=== PATIENT | female | born 1975 | race American Indian/Alaskan Native ===

== ENCOUNTER 2016-03-15 19:50 | Inpatient (IN) | payer OTHER ==
[2016-03-15] MEDS ORDERED: TRIDIL DRIP 50MG/250ML 250 ML ONE (19:58)
[2016-03-15] MEDS ORDERED: TRIDIL DRIP 50MG/250ML 250 ML IV ONE (20:11)
--- NOTE | 2016-03-15 20:18 | Emergency Department Report ---
ED General Adult HPI - General Chief complaint: Dyspnea/Respdistress Stated complaint: GEORGE Time Seen by Provider: 03/15/16 20:11 Source: patient, EMS (ems notes not available at time of chart dictation), RN notes reviewed Limitations: Physical Limitation - History of Present Illness Initial comments: Past medical history: Morbid obesity, hypertension, pulmonary embolus This is a 40-year-old female, previously unknown to me. She is brought to the hospital by EMS on positive pressure ventilation for respiratory distress. History is limited because the patient is short of breath. She indicates that she began having chest pain and shortness of breath for the past 4 days. She indicates that she was recently admitted to an outside hospital for pneumonia. She cannot describe exacerbating or relieving factors. She cannot describe the quality of nature the factors. EMS verbally reported that they gave the patient nebulizer therapy, magnesium, steroids. Upon arrival, the patient was found to be quite hypertensive with a blood pressure of 198 systolic. She was started on BiPAP therapy, and was given 100 g of nitroglycerin, and started at nitroglycerin, 100 mcg/m. She is currently improving, with a blood pressure in the 140/150s. She reports that she feels improved. -: Gradual Improves with: other (as per history of present illness) Worsens with: other (as per history of present illness) - Related Data Previous Rx's Medication Instructions Recorded Last Taken Type Famotidine [Pepcid] 20 mg PO BID #60 tablet 01/15/16 Unknown Rx HYDROcodone/APAP 10-325 [[place] 1 each PO Q6H PRN #10 tablet 01/15/16 Unknown Rx 10-325 mg TAB] Warfarin [Coumadin] 15 mg PO DAILY@1700 #60 tablet 01/15/16 Unknown Rx Allergies Allergy/AdvReac Type Severity Reaction Status Date / Time No Known Allergies Allergy Unverified 01/05/16 18:22 ED Review of Systems ROS: Stated complaint: GEORGE Other details as noted in HPI Comment: Unobtainable due to pts medical conditions Respiratory: shortness of breath Cardiovascular: chest pain Gastrointestinal: denies: abdominal pain Genitourinary: as per HPI Musculoskeletal: as per HPI Skin: as per HPI Neurological: as per HPI Psychiatric: as per HPI ED Past Medical Hx - Past Medical History Hx Hypertension: Yes Hx Congestive Heart Failure: Yes Hx Diabetes: Yes Hx Pulmonary Embolism: Yes - Surgical History Additional Surgical History: hernia repair - Social History Smoking Status: Never Smoker - Medications Home Medications: Home Medications Medication Instructions Recorded Confirmed Last Taken Type Famotidine [Pepcid] 20 mg PO BID #60 tablet 01/15/16 03/16/16 Unknown Rx HYDROcodone/APAP 10-325 [[place] 1 each PO Q6H PRN #10 tablet 01/15/16 03/16/16 Unknown Rx 10-325 mg TAB] Warfarin [Coumadin] 15 mg PO DAILY@1700 #60 tablet 01/15/16 03/16/16 Unknown Rx ED Physical Exam - General Limitations: Physical Limitation General appearance: in distress, obese - Head Head exam: Present: atraumatic, normocephalic - Eye Eye exam: Present: normal appearance - ENT ENT exam: Present: mucous membranes moist - Neck Neck exam: Present: normal inspection, full ROM. Absent: tenderness, meningismus - Respiratory Respiratory exam: Present: respiratory distress, wheezes, rhonchi, decreased breath sounds - Cardiovascular Cardiovascular Exam: Present: normal rhythm, tachycardia, normal heart sounds. Absent: bradycardia, systolic murmur, diastolic murmur, rubs, gallop - GI/Abdominal GI/Abdominal exam: Present: soft, normal bowel sounds. Absent: distended, tenderness, guarding, rebound, rigid, pulsatile mass - Extremities Exam Extremities exam: Present: normal inspection, full ROM, normal capillary refill , pedal edema. Absent: tenderness, calf tenderness - Back Exam Back exam: Present: normal inspection, full ROM. Absent: tenderness, CVA tenderness (R), CVA tenderness (L), muscle spasm, paraspinal tenderness, vertebral tenderness - Neurological Exam Neurological exam: Present: alert, other (patient moves 4 extremities spontaneously) - Psychiatric Psychiatric exam: Present: normal affect, normal mood - Skin Skin exam: Present: warm, dry, intact, normal color. Absent: rash ED Course Vital Signs 03/15/16 03/15/16 03/15/16 20:00 20:12 20:15 Temperature 98 F Pulse Rate 104 H 112 H Respiratory 28 H 22 22 Rate Blood Pressure Blood Pressure 198/117 172/104 [Left] O2 Sat by Pulse 99 96 Oximetry 03/15/16 03/15/16 03/15/16 20:40 21:10 21:38 Temperature Pulse Rate 102 H 105 H 102 H Respiratory 20 20 21 Rate Blood Pressure 154/89 Blood Pressure 168/88 152/87 [Left] O2 Sat by Pulse 100 100 100 Oximetry 03/15/16 03/15/16 03/15/16 22:00 23:00 23:51 Temperature Pulse Rate 102 H 97 H Respiratory 24 24 26 H Rate Blood Pressure Blood Pressure 142/98 130/82 [Left] O2 Sat by Pulse 100 100 100 Oximetry 03/16/16 03/16/16 03/16/16 00:00 01:00 01:01 Temperature Pulse Rate 95 H 94 H 98 H Respiratory 24 24 25 H Rate Blood Pressure Blood Pressure 132/72 125/67 [Left] O2 Sat by Pulse 98 100 98 Oximetry 03/16/16 03/16/16 03/16/16 02:00 03:00 04:00 Temperature Pulse Rate 88 93 H 93 H Respiratory 24 24 24 Rate Blood Pressure Blood Pressure 128/77 143/83 146/82 [Left] O2 Sat by Pulse 100 100 100 Oximetry 03/16/16 03/16/16 03/16/16 05:00 06:00 07:26 Temperature Pulse Rate 84 74 74 Respiratory 24 24 21 Rate Blood Pressure Blood Pressure 127/70 128/59 [Left] O2 Sat by Pulse 100 100 95 Oximetry 03/16/16 03/16/16 03/16/16 07:32 07:34 07:40 Temperature 100.3 F H Pulse Rate 75 76 73 Respiratory 22 20 Rate Blood Pressure 125/63 Blood Pressure 125/63 [Left] O2 Sat by Pulse 95 94 Oximetry 03/16/16 03/16/16 03/16/16 08:01 08:19 08:25 Temperature Pulse Rate 98 H 96 H Respiratory 13 21 22 Rate Blood Pressure 116/62 129/82 Blood Pressure [Left] O2 Sat by Pulse 87 90 93 Oximetry 03/16/16 03/16/16 03/16/16 09:00 09:16 09:20 Temperature 99.8 F H Pulse Rate 74 78 78 Respiratory 24 26 H 22 Rate Blood Pressure 128/67 Blood Pressure 113/55 [Left] O2 Sat by Pulse 93 92 95 Oximetry - Reevaluation(s) Reevaluation #1: 03/15/16 20:56 Differential diagnosis: Flash pulmonary edema, congestive heart failure, hypertensive emergency/emergency, pulmonary embolus, pneumonia Assessment and plan: 40-year-old female with respiratory distress requiring BiPAP therapy and IV nitroglycerin. She is improving clinically. Laboratory studies pending. INR subtherapeutic. Given hypertension and chest pain, aortic dissection on the differential. We'll continue her on BiPAP therapy and natural glycerin. 03/15/16 23:53 Chest x-ray demonstrates complete opacification of the left hemithorax. Patient isn't unable to come off BiPAP for a CAT scan. Given her chest x-ray findings, I suspect that multilobar pneumonia and possible flash pulmonary edema on the most likely causes of the patient's symptomatology. From a respiratory standpoint, she is not stable or suitable to go to the CAT scanner on a nonrebreather. But the BiPAP but not physically fit through the CAT scanner. At this point in time, the patient is not we double from BiPAP. She is protecting her airway, and is mentating appropriately. She is very large and obese, and mentating appropriately. She does not require intubation at this time. I'm concerned that getting a CAT scan right now we'll subject the patient to significant risk and morbidity, and a possible life-threatening respiratory arrest. Therefore, she will be continued to be treated medically, with noninvasive positive pressure ventilation, antibiotic therapy, unfractionated heparin, nitroglycerin drip. We will start her on unfractionated heparin. ICU physician is paged. The Hospital physician is paged; Dr. Weiss accepts the patient to her service. 03/16/16 00:06 d/w Dr Cerda who agrees and his group will evaluate 03/15/16 23:53 03/16/16 00:01 03/16/16 00:06 ED Medical Decision Making - Lab Data Result diagrams: 03/19/16 06:58 03/17/16 04:58 Vital Signs 03/15/16 20:12 Respiratory 22 Rate O2 Sat by Pulse 96 Oximetry - EKG Data 03/15/16 20:57 sinus tachycardia, borderline rightward axis, motion artifact noted, atrial enlargement, not consistent with STEMI, appears unchanged from prior EKG from 01/05/2016. - Radiology Data Radiology results: report reviewed, image reviewed Portable one view chest x-ray demonstrates near complete opacification of the left hemithorax, combination infiltrate atelectasis and effusion is suspected. There is a mild infiltrate in the right lower lung. Critical Care Time: Yes Critical care time in (mins) excluding proc time.: 45 Critical care attestation.: If time is entered above; I have spent that time in minutes in the direct care of this critically ill patient, excluding procedure time. Critical Care Time: Critical care time includes multiple bedside evaluations, interpretation of laboratory studies, radiology studies, time spent managing a patient with impending respiratory failure and hypertensive emergency, requiring nitroglycerin drip, noninvasive ventilation. This excludes procedure time. ED Disposition Clinical Impression: Shortness of breath, Pleural effusion, left Disposition: OP ADMITTED IP TO THIS HOSP Is pt being admited?: Yes Condition: Critical
[2016-03-15 20:41] LABS: Basophils % (Auto) 0.8 % (0.0-1.8); Eosinophils % (Auto) 0.6 % (0.0-4.3); Mean Corpuscular HGB Conc 29 % (30-34); Mean Corpuscular Volume 70 fl (79-97); Platelet Count 419 K/mm3 (140-440); Red Blood Count 5.83 M/mm3 (3.65-5.03); White Blood Count 12.5 K/mm3 (4.5-11.0)
[2016-03-15 20:51] LABS: Hemoglobin 11.9 gm/dl (10.1-14.3); INR 1.28 (0.87-1.13); Mean Corpuscular Hemoglobin 20 pg (28-32); Red Cell Distribution Width 23.8 % (13.2-15.2)
[2016-03-15 20:52] LABS: Partial Thromboplastin Time 32.5 Sec. (24.2-36.6)
[2016-03-15 21:09] LABS: Alanine Aminotransferase 15 units/L (7-56); Albumin 3.1 g/dL (3.9-5); Albumin/Globulin Ratio 0.6 %; Alkaline Phosphatase 67 units/L (35-129); BUN/Creatinine Ratio 14.28; Blood Urea Nitrogen 10 mg/dL (7-17); Calcium 9.2 mg/dL (8.4-10.2); Carbon Dioxide 36 mmol/L (22-30); Chloride 94.7 mmol/L (98-107); Glucose 118 mg/dL (65-100); Magnesium 2.2 mg/dL (1.7-2.3); Potassium 4.8 mmol/L (3.6-5.0); Sodium 141 mmol/L (137-145); Total Protein 7.9 g/dL (6.3-8.2)
[2016-03-15 21:10] LABS: Anion Gap 15 mmol/L
[2016-03-15 21:32] LABS: ISTAT Base Excess 18; ISTAT HCO3 43.9; ISTAT PCO2 83.7 (35-45); ISTAT PH 7.327 (7.35-7.45); ISTAT PO2 135 (80-105); ISTAT SITE 2; ISTAT SO2 99; ISTAT TCO2 46
[2016-03-15 21:54] LABS: Bilirubin,Urine NEG (Negative); Blood,Urine NEG (Negative); Ketones,Urine NEG (Negative); Leukocyte Esterase,Urine NEG (Negative); Mucus,Urine FEW /HPF; Nitrite,Urine NEG (Negative)
[2016-03-15] MEDS ORDERED: NACL 0.9% 50 ML ONE (23:09)
--- NOTE | 2016-03-15 23:41 | XRay Report ---
FINAL REPORT PROCEDURE: XR CHEST 1V AP TECHNIQUE: Chest radiograph anteroposterior view. CPT 00965 HISTORY: Dyspnea COMPARISON: No prior studies are available for comparison. FINDINGS: There is almost complete opacification of the left eliceo thorax, combination infiltrate, atelectasis and effusion is suspected. No previous chest radiograph is available for review. There is a mild infiltrate in the right lower lung. No right effusion. IMPRESSION: Almost complete opacification of the left eliceo thorax which is most likely a combination of infiltrate, atelectasis and effusion. Mild infiltrate right lower lung..
[2016-03-15] MEDS ORDERED: ZOSYN/NS 4.5GM/100ML 100 ML IV ONE (23:51)
[2016-03-15] MEDS ORDERED: LEVAQUIN 750MG/150ML 150 ML IV ONE (23:51)
[2016-03-15] MEDS ORDERED: HEPARIN 10,000 UNITS/10 ML IV ONE (23:54)
--- NOTE | 2016-03-16 00:23 | Admit Criteria Form ---
Admission Criteria Documentation: RESPIRATORY FAILURE GRG Clinical Indications for Admission to Inpatient Care (Place 'X' for any and all applicable criteria): Hospital admission is needed for appropriate care of the patient because of acute respiratory failure or insufficiency as indicated by ANY ONE of the following(1)(2)(3)(4)(5)(6)(7)(8): [X ]I. Mechanical ventilation needed (acute invasive or noninvasive) [ ]II. Severe ventilation deficit as indicated by ANY ONE of the following (9) [ ]a) Respiratory acidosis (pH less than 7.32 and partial pressure of carbon dioxide greater than 40 mm Hg (5.3 kPa)) [ ]b) Partial pressure of carbon dioxide greater than 44 mm Hg (5.9 kPa ) (new) [ ]c) Airflow measurements less than 25% of predicted (eg, peak expiratory flow rate less than 100 L/minute) [ ]d) Forced vital capacity less than 15 mL/kg of ideal body weight, or 50% decrease in vital capacity from baseline [ ]III. Noncardiac pulmonary edema not resolving with rapid emergency treatment (8) [ ]IV. Severe respiratory distress as indicated by ANY ONE of the following: [ ]a) Severe tachypnea (respiratory rate greater than 30, greater than 45 for 6-month-old, greater than 60 for ) [ ]b) Severe hypoxemia (partial pressure of oxygen less than 50 mm Hg ( 6.7 kPa) on greater than 50% oxygen or partial pressure of oxygen to FIO2 ratio less than 200) [ ]c) Mental status deterioration from respiratory disease [ ]V. Airway obstruction or inadequate protection [A](10)(11) The original [employer] content created by [employer] has been revised. The portions of the content which have been revised are identified through the use of italic text or in bold, and [employer] has neither reviewed nor approved the modified material. All other unmodified content is copyright [employer]. Please see references footnoted in the original [employer] edition 2016 Admission Criteria Met: Yes
[2016-03-16] MEDS ORDERED: ZOSYN/NS 4.5GM/100ML 100 ML IV ONE ×2 (00:28→06:57)
[2016-03-16] MEDS ORDERED: HEPARIN 10,000 UNITS/10 ML ONE (00:29)
[2016-03-16] MEDS ORDERED: LEVAQUIN 750MG/150ML 150 ML IV ONE (00:29)
[2016-03-16] MEDS ORDERED: HEPARIN/ 0.45% NACL-25,000 UNIT/500 ML 500 ML ONE (00:30)
[2016-03-16 00:32] LABS: Hematocrit 39.5 % (30.3-42.9); Hemoglobin 11.4 gm/dl (10.1-14.3)
[2016-03-16 00:59] LABS: INR 1.27 (0.87-1.13)
[2016-03-16 01:00] LABS: Partial Thromboplastin Time 31.5 Sec. (24.2-36.6)
[2016-03-16] MEDS: HEPARIN/ 0.45% NACL-25,000 UNIT/500 ML 500 ML IV SCH (01:00)
[2016-03-16] MEDS ORDERED: ALUM-MAG HYDROX-SIMETH 200-200-20MG/5ML PO PRN (01:14)
[2016-03-16] MEDS ORDERED: DULCOLAX PR PRN (01:14)
[2016-03-16] MEDS ORDERED: TYLENOL PO PRN (01:14)
--- NOTE | 2016-03-16 01:16 | Consultation ---
History of Present Illness Consult date: 03/16/16 Reason for consult: dyspnea, chest pain, hypoxemia, pleural effusion History of present illness: This is 40 year old female Morbidly obese came to the emergency room with a complaint of shortness of breath. Patients chest xray obtained showed complete opacification of left hemithorax. Patient has history of hypertension and pulmonary emboli.Patients pulmonary emboli diagnosed 3 months ago by CTA of the chest. Patient also diagnsed at that time DVT in left leg. Patient non compliant with her medications, Patient stopped taking Eliquis.Patient started on S/C Lovenox and Coumadin.Patient also treated for pneumonia recently at [facility]. Patients blood gases showed, patient is in respiratory failure. Patient placed on BIPAP Rate 20, 22/10, FIO2 50%. Patient awake ,following commands. Repeating blood gases in AM.[place] no known allergies. Smoking,alcohol or drug history not known at this time.Patient started on Levaquine and zosyn. Obtaining ultrasound of chest for possible left pleural effusion. Past History Past Medical History: hypertension, other (Pulmonary emboli.) Medications and Allergies Allergies Allergy/AdvReac Type Severity Reaction Status Date / Time No Known Allergies Allergy Unverified 01/05/16 18:22 Home Medications Medication Instructions Recorded Confirmed Last Taken Type Famotidine [Pepcid] 20 mg PO BID #60 tablet 01/15/16 Unknown Rx HYDROcodone/APAP 10-325 [[place] 1 each PO Q6H PRN #10 tablet 01/15/16 Unknown Rx 10-325 mg TAB] Warfarin [Coumadin] 15 mg PO DAILY@1700 #60 tablet 01/15/16 Unknown Rx Active Meds: Active Medications Nitroglycerin/Dextrose (Tridil Drip 50mg/250ml) 250 mls @ 3 mls/hr IV TITR ONE ; 10 MCG/MIN PRN Reason: Protocol Stop: 03/19/16 07:30 Last Admin: 03/15/16 20:10 Dose: 3 mls/hr Levofloxacin/Dextrose (Levaquin 750mg/150ml) 150 mls @ 100 mls/hr IV ONCE ONE Stop: 03/16/16 01:20 Last Admin: 03/16/16 00:00 Dose: 100 mls/hr Heparin Sodium/Sodium Chloride (Heparin/ 0.45% Nacl-25,000 Unit/500 Ml) 500 mls @ 30 mls/hr IV TITR WILLIAM; 1,500 UNITS/HR PRN Reason: Protocol Review of Systems All systems: negative Physical Examination Vital signs: Vital Signs Temp Pulse Resp BP Pulse Ox 98 F 104 H 28 H 198/117 99 03/15/16 20:00 03/15/16 20:00 03/15/16 20:00 03/15/16 20:00 03/15/16 20:00 General appearance: lethargic, appears uncomfortable, other (Patient is on BIPAP.) Eyes: non-icteric ENT: oropharynx moist Neck: supple, no JVD Ascultation: Left: diminished breath sounds Cardiovascular: regular rate and rhythm Gastrointestinal: normoactive bowel sounds, soft, non-tender Integumentary: other (Stasis dermatitis.) Extremities: no cyanosis, edema Musculoskeletal: no deformities non-focal exam, pupils equal and round other (Patient is on BIPAP,unable toassess.) Results - Laboratory Findings CBC and BMP: 03/16/16 00:04 03/15/16 20:20 ABG POC ABG pH 7.327 (7.35-7.45) L 03/15/16 21:26 POC ABG pCO2 83.7 (35-45) H 03/15/16 21:26 POC ABG pO2 135 (80-105) H 03/15/16 21:26 POC ABG HCO3 43.9 03/15/16 21:26 POC ABG Total CO2 46 03/15/16 21:26 POC ABG O2 Sat 99 03/15/16 21:26 PT/INR, D-dimer PT 15.9 Sec. (12.2-14.9) H 03/15/16 20:20 INR 1.28 (0.87-1.13) H 03/15/16 20:20 - Diagnostic Findings Chest x-ray: report reviewed (Opacification on left side, infiltrate right lower lobe.), image reviewed Assessment and Plan This is 40 year old female Morbidly obese came to the emergency room with a complaint of shortness of breath. Patients chest xray obtained showed complete opacification of left hemithorax. Patient has history of hypertension and pulmonary emboli.Patients pulmonary emboli diagnosed 3 months ago by CTA of the chest. Patient also diagnsed at that time DVT in left leg. Patient non compliant with her medications, Patient stopped taking Eliquis.Patient started on S/C Lovenox and Coumadin.Patient also treated for pneumonia recently at [facility]. Patients blood gases showed, patient is in respiratory failure. Patient placed on BIPAP Rate 20, 22/10, FIO2 50%. Patient awake ,following commands. Repeating blood gases in AM.[place] no known allergies. Smoking,alcohol or drug history not known at this time.Patient started on Levaquine and zosyn. Obtaining ultrasound of chest for possible left pleural effusion. - Patient Problems (1) Acute and chronic respiratory failure ([id number]) Current Visit: No Status: Acute Plan to address problem: Patient is on BIPAP 22/10, rate 20, FIO2 50% Continue Lovenox and coumadin. Albuterol/atrovent aerosol treatments. (2) Pulmonary emboli Current Visit: No Status: Acute Plan to address problem: LOvenox at therapeutic doses Start Coumadin. (3) Left femoral vein DVT Current Visit: No Status: Acute Plan to address problem: Lovenox and coumadin. (4) Pneumonia Current Visit: Yes Status: Acute Plan to address problem: Patient is on Zosyn and Levaquine. (5) Pleural effusion, left Current Visit: Yes Status: Acute Plan to address problem: Obtaining Ultrasound of chest. (6) Morbid obesity with BMI of 70 and over, adult Current Visit: No Status: Chronic Plan to address problem: Nutritional consultation for weight reduction diet. (7) Sleep apnea Current Visit: No Status: Chronic Plan to address problem: Patient is on BIPAP.
--- NOTE | 2016-03-16 01:16 | History and Physical Report ---
History of Present Illness Date of examination: 03/16/16 Date of admission: 03/15/16 23:58 History of present illness: 40-year-old woman with history of PE, DVT comes to the emergency room with complaints of shortness of breath. The patient was admitted at the Medical for one week for pneumonia, she completed a seven-day course of antibiotic. Patient was discharge on , she arrived home and she was still short of breath, her symptoms worsen so she came to the emergency room for evaluation. She was found to be rest start distress and was started on BiPAP chest complaining of chest pain, this started on she describes it as a sharp pain in the anterior chest, constant, intensity 7/10, no radiation and she cannot identify exacerbating or relieving factors. She admits to nausea, palpitation, no diaphoresis. CAT scan of the chest could not be obtained because of respiratory distress. Patient states she is compliant with her Coumadin and other medications at home. Patient was started on nitroglycerin drip, blood pressure was significantly elevated Patient denies cough, abdominal pain, hematochezia, dysuria, frequency, focal weakness, dysarthria, fever chills, polydipsia polyuria, hot or cold intolerance , easy bruisability, or rash or bleeding from mucosal membrane, rhinorrhea, epistaxis, earache, tinnitus, blurry vision, eye discharge, anxiety, depression. Other review of systems negative PAST SURGICAL HISTORY: SOCIAL HISTORY: Denies alcohol, tobacco, drugs FAMILY HISTORY: Hypertension Medications and Allergies Allergies Allergy/AdvReac Type Severity Reaction Status Date / Time No Known Allergies Allergy Unverified 01/05/16 18:22 Home Medications Medication Instructions Recorded Confirmed Last Taken Type Famotidine [Pepcid] 20 mg PO BID #60 tablet 01/15/16 03/16/16 Unknown Rx HYDROcodone/APAP 10-325 [[place] 1 each PO Q6H PRN #10 tablet 01/15/16 03/16/16 Unknown Rx 10-325 mg TAB] Warfarin [Coumadin] 15 mg PO DAILY@1700 #60 tablet 01/15/16 03/16/16 Unknown Rx Active Meds: Active Medications Nitroglycerin/Dextrose (Tridil Drip 50mg/250ml) 250 mls @ 3 mls/hr IV TITR ONE ; 10 MCG/MIN PRN Reason: Protocol Stop: 03/19/16 07:30 Last Admin: 03/15/16 20:10 Dose: 3 mls/hr Levofloxacin/Dextrose (Levaquin 750mg/150ml) 150 mls @ 100 mls/hr IV ONCE ONE Stop: 03/16/16 01:20 Last Admin: 03/16/16 00:00 Dose: 100 mls/hr Heparin Sodium/Sodium Chloride (Heparin/ 0.45% Nacl-25,000 Unit/500 Ml) 500 mls @ 30 mls/hr IV TITR WILLIAM; 1,500 UNITS/HR PRN Reason: Protocol Exam - Physical Exam Narrative exam: Gen. appearance: Patient lying in bed, no apparent distress HEENT: Normocephalic, atraumatic, pupils equally round and reactive to light, extraocular movement intact, and no sclericterus,. No JVD or thyromegaly or nodule,neck supple, no carotid bruit ,mucous membranes moist, no exudate or erythema Heart: S1, S2, regular rate and rhythm Lungs: Decreased breath sound on the left , breathing comfortable Abdomen: Positive bowel sounds, nontender, nondistended, no organomegaly Extremity: No edema, cyanosis, clubbing Skin: No rash, nodules, warm, dry Neuro: Oriented 3, cranial nerves II-12 intact, speech is fluent, motor and sensory intact - Constitutional Vitals: Temp Pulse Resp BP Pulse Ox 98 F 98 H 25 H 132/72 98 03/15/16 20:00 03/16/16 01:01 03/16/16 01:01 03/16/16 00:00 03/16/16 01:01 Results - Labs CBC & Chem 7: 03/19/16 06:58 03/17/16 04:58 Labs: Abnormal lab results 03/16/16 Range/Units 00:04 PT 15.8 H (12.2-14.9) Sec. INR 1.27 H (0.87-1.13) - Imaging and Cardiology EKG: image reviewed (, sinus rhythm,104, read by me) Chest x-ray: image reviewed (wideout of the left lung read By me) Assessment and Plan Acute respiratory distress on BiPAP White out of the left lung, rule out parapneumonic effusion History of PE, DVT with subtherapeutic INR Hypertension Diabetes Obesity Admits medicine Continue BiPAP Obtain CAT scan of the chest when patient is more stable Continue heparin drip, consult pulmonary, case discussed with Dr. Rousseau Start IV Levaquin, Zosyn, obtain sputum culture Blood pressure is now normalized, discontinue nitroglycerin drip Check fingersticks and initiate insulin sliding scale DVT prophylaxis initiated The high probability of a clinically significant sudden or life-threatening deterioration of the [cardiac, respiratory, renal] system(s) required my full and direct attention, intervention and personal management. The aggregate critical care time was [ 35 ] minutes. This time is in addition to the time spent performing reported procedures but including [ X] Data review and interpretation [ X] Patient assessment and monitoring of vital signs [ X ] Documentation [X] Medication orders and management
[2016-03-16 01:18] LABS: ISTAT Base Excess 20; ISTAT HCO3 46.1; ISTAT PCO2 92.8 (35-45); ISTAT PH 7.304 (7.35-7.45); ISTAT PO2 85 (80-105); ISTAT SO2 94; ISTAT TCO2 49
[2016-03-16] MEDS ORDERED: ZOSYN/NS 4.5GM/100ML 100 ML IV SCH (06:00)
--- NOTE | 2016-03-16 10:43 | Event Note ---
Date: 03/16/16 Seen and examined at bedside; remains on BIPAP and tolerating well CXR reviewed and suspect significant pleural effusion Also need to further w/up for VTE - get bilateral lower extremity dopplers - hold IV heparin and get thoracentesis - humidify BIPAP - de-escalate empiric AB's - wean FiO2 to keep sats > 92% ...re-evaluate in am & prn
--- NOTE | 2016-03-16 11:19 | Progress Note ---
Assessment and Plan Assessment and plan: 1. Chest pain. Patient previously on nitroglycerin drip which has been weaned off. Cardiology consultation pending. Patient may need stress thallium versus cardiac catheterization for further evaluation. Continue to trend cardiac isoenzymes and monitor closely. 2. Acute hypoxemic respiratory failure. Patient currently on BiPAP. Etiology is multifactorial. Patient with possible left parapneumonic effusion. Repeat chest x-ray. Pulmonary consultation pending. Patient does have a history of PE /DVT and morbid obesity with probable LENA/OHS. 3. Left lower lobe pneumonia. Chest x-ray reveals white out of the left lung. Continue IV antibiotics and follow-up blood and sputum cultures. Repeat chest x-ray. 4. Accelerated hypertension. Patient previously on nitroglycerin drip. Blood pressure has normalized. Continue to follow closely. Resume home antihypertensives. 5. History of PE/DVT. Continue IV heparin. Check Doppler of lower extremities. Follow-up CT of the chest was stable. 6. Type 2 diabetes mellitus. Continue Accu-Cheks and sliding scale regular insulin. 7. Morbid obesity. Nutritional consultation. 8. 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 Patient will need further follow-up as an outpatient. 9. GI prophylaxis. Continue Protonix. The high probability of a clinically significant, sudden or life threatening deterioration of the [respiratory and cardiovascular] system(s) required my full and direct attention, intervention and personal management. The aggregate critical care time was [32] minutes. This time is in addition to time spent performing reported procedures but includes the following: [x] Data Review and interpretation [x] Patient assessment and monitoring of vital signs [x] Documentation [x] Medication orders and management History Interval history: 40-year-old female with history of DVT, PE and morbid obesity who presents with dyspnea and chest pain. Patient recently admitted and discharged on Monday for pneumonia where she completed a seven-day course of antibiotics. Patient states that her chest pain has resolved but continues to have shortness of breath. Patient currently on BiPAP Hospitalist Physical - Constitutional Vitals: Temp Pulse Resp BP Pulse Ox 98.3 F 78 22 113/55 95 03/16/16 10:40 03/16/16 09:20 03/16/16 09:20 03/16/16 09:20 03/16/16 09:20 General appearance: Present: mild distress, obese - EENT Eyes: Present: PERRL, EOM intact ENT: hearing intact, clear oral mucosa, dentition normal - Neck Neck: Present: supple, normal ROM - Respiratory Respiratory effort: normal Respiratory: bilateral: diminished, rhonchi - Cardiovascular Rhythm: regular Heart Sounds: Present: S1 & S2. Absent: gallop, rub - Extremities Extremities: no ischemia, No edema, Full ROM - Abdominal General gastrointestinal: soft, non-tender, non-distended, normal bowel sounds - Integumentary Integumentary: Present: clear, warm, dry - Neurologic Neurologic: CNII-XII intact, moves all extremities Results - Labs CBC & Chem 7: 03/16/16 00:04 03/15/16 20:20 Labs: Laboratory Last Values WBC 12.5 K/mm3 (4.5-11.0) H 03/15/16 20:20 RBC 5.83 M/mm3 (3.65-5.03) H 03/15/16 20:20 Hgb 11.4 gm/dl (10.1-14.3) 03/16/16 00:04 Hct 39.5 % (30.3-42.9) 03/16/16 00:04 MCV 70 fl (79-97) L 03/15/16 20:20 MCH 20 pg (28-32) L 03/15/16 20:20 MCHC 29 % (30-34) L 03/15/16 20:20 RDW 23.8 % (13.2-15.2) H 03/15/16 20:20 Plt Count 404 K/mm3 (140-440) 03/16/16 00:04 Lymph % (Auto) 13.4 % (13.4-35.0) 03/15/16 20:20 [place] % (Auto) 7.7 % (0.0-7.3) H 03/15/16 20:20 Eos % (Auto) 0.6 % (0.0-4.3) 03/15/16 20:20 Baso % (Auto) 0.8 % (0.0-1.8) 03/15/16 20:20 Lymph # 1.7 K/mm3 (1.2-5.4) 03/15/16 20:20 [place] # 1.0 K/mm3 (0.0-0.8) H 03/15/16 20:20 Eos # 0.1 K/mm3 (0.0-0.4) 03/15/16 20:20 Baso # 0.1 K/mm3 (0.0-0.1) 03/15/16 20:20 Seg Neutrophils % 77.5 % (40.0-70.0) H 03/15/16 20:20 Seg Neutrophils # 9.7 K/mm3 (1.8-7.7) H 03/15/16 20:20 PT 15.8 Sec. (12.2-14.9) H 03/16/16 00:04 INR 1.27 (0.87-1.13) H 03/16/16 00:04 APTT 31.5 Sec. (24.2-36.6) 03/16/16 00:04 Heparin Anti-Xa Level 0.18 U.I./ml (0.3-0.7) L 03/16/16 07:49 POC ABG pH 7.304 (7.35-7.45) L 03/16/16 01:01 POC ABG pCO2 92.8 (35-45) H 03/16/16 01:01 POC ABG pO2 85 (80-105) 03/16/16 01:01 POC ABG HCO3 46.1 03/16/16 01:01 POC ABG Total CO2 49 03/16/16 01:01 POC ABG O2 Sat 94 03/16/16 01:01 POC ABG Base Excess 20 03/16/16 01:01 FiO2 80 % 03/16/16 01:01 Sodium 141 mmol/L (137-145) 03/15/16 20:20 Potassium 4.8 mmol/L (3.6-5.0) 03/15/16 20:20 Chloride 94.7 mmol/L (98-107) L 03/15/16 20:20 Carbon Dioxide 36 mmol/L (22-30) H 03/15/16 20:20 Anion Gap 15 mmol/L 03/15/16 20:20 BUN 10 mg/dL (7-17) 03/15/16 20:20 Creatinine 0.7 mg/dL (0.7-1.2) 03/15/16 20:20 Estimated GFR > 60 ml/min 03/15/16 20:20 BUN/Creatinine Ratio 14.28 % 03/15/16 20:20 Glucose 118 mg/dL (65-100) H 03/15/16 20:20 Lactic Acid 1.6 mmol/L (0.7-2.0) 03/15/16 20:20 Calcium 9.2 mg/dL (8.4-10.2) 03/15/16 20:20 Magnesium 2.2 mg/dL (1.7-2.3) 03/15/16 20:20 Total Bilirubin 1.0 mg/dL (0.1-1.2) 03/15/16 20:20 AST 13 units/L (5-40) 03/15/16 20:20 ALT 15 units/L (7-56) 03/15/16 20:20 Alkaline Phosphatase 67 units/L (35-129) 03/15/16 20:20 Troponin T < 0.010 ng/mL (0.00-0.029) 03/15/16 20:20 NT-Pro-B Natriuret Pep 957.2 pg/mL (0-450) H 03/15/16 20:20 Total Protein 7.9 g/dL (6.3-8.2) 03/15/16 20:20 Albumin 3.1 g/dL (3.9-5) L 03/15/16 20:20 Albumin/Globulin Ratio 0.6 % 03/15/16 20:20 HCG, Quant < 2 mIU/mL (0-4) 03/15/16 20:20 Urine Color Yellow (Yellow) 03/15/16 21:43 Urine Turbidity Clear (Clear) 03/15/16 21:43 Urine pH 5.0 (5.0-7.0) 03/15/16 21:43 Ur Specific [place] 1.016 (1.003-1.030) 03/15/16 21:43 Urine Protein 30 mg/dl mg/dL (Negative) 03/15/16 21:43 Urine Glucose (UA) Neg mg/dL (Negative) 03/15/16 21:43 Urine Ketones Neg mg/dL (Negative) 03/15/16 21:43 Urine Blood Neg (Negative) 03/15/16 21:43 Urine Nitrite Neg (Negative) 03/15/16 21:43 Urine Bilirubin Neg (Negative) 03/15/16 21:43 Urine Urobilinogen 4.0 mg/dL (<2.0) 03/15/16 21:43 Ur Leukocyte Esterase Neg (Negative) 03/15/16 21:43 Urine WBC (Auto) 3.0 /HPF (0.0-6.0) 03/15/16 21:43 Urine RBC (Auto) 1.0 /HPF (0.0-6.0) 03/15/16 21:43 U Epithel Cells (Auto) 1.0 /HPF (0-13.0) 03/15/16 21:43 Hyaline Casts 1 /LPF 03/15/16 21:43 Urine Mucus Few /HPF 03/15/16 21:43
--- NOTE | 2016-03-16 12:31 | XRay Report ---
Portable chest: Comparison is made to the prior study of March 15. There has been interval reduction of the left chest opacity with aeration currently identified in a portion of the upper lobe. The remainder the chest is completely opaque. There is at least an effusion which may be obscuring underlying parenchymal consolidation or atelectasis. The right lung is clear of any overt infiltrate however there is prominence of the bronchovascular markings. Impression: Interval improved aeration of a portion of the left upper lobe. No change in remainder of the opaque hemithorax.
[2016-03-16 12:47] LABS: C-Reactive Protein 2.6 mg/dL (0.00-1.30)
--- NOTE | 2016-03-16 16:29 | Ultrasound Report ---
Ultrasound guided thoracentesis: Imaging of the left chest demonstrates a pleural fluid accumulation. Due to the patient's size the accumulation was not well imaged. The skin was marked and cleansed over an approach area. One percent lidocaine was injected. A small skin tenisha was made through which a 5 [place] Yeuy catheter was successfully placed into the fluid accumulation. 120 cc was initially removed in 2 separate syringes for laboratory evaluation. A total of 1.1 L were removed. The fluid was relatively clear and yellow. There were no patient complications encountered. A cursory look at the right chest appears to demonstrate a small pleural fluid accumulation.
[2016-03-16 17:05] LABS: Total Protein,Body Fluid 4.5 (15.0-45.0)
[2016-03-16] MEDS: PERCOCET 5/325 PO PRN (20:59)
[2016-03-16] MEDS: LEVAQUIN 750MG/150ML 150 ML IV SCH (23:55)
[2016-03-17 05:40] LABS: Mean Corpuscular HGB Conc 29 % (30-34); Platelet Count 354 K/mm3 (140-440); White Blood Count 8.2 K/mm3 (4.5-11.0)
[2016-03-17] MEDS: HEPARIN/ 0.45% NACL-25,000 UNIT/500 ML 500 ML IV SCH (05:43)
[2016-03-17 05:45] LABS: BUN/Creatinine Ratio 13.75; Blood Urea Nitrogen 11 mg/dL (7-17); Calcium 9.2 mg/dL (8.4-10.2); Carbon Dioxide 40 mmol/L (22-30); Glucose 78 mg/dL (65-100); Sodium 142 mmol/L (137-145)
[2016-03-17 05:46] LABS: Chloride 94.9 mmol/L (98-107); Potassium 4.8 mmol/L (3.6-5.0)
[2016-03-17 05:50] LABS: Hemoglobin 11.2 gm/dl (10.1-14.3)
[2016-03-17 05:51] LABS: Mean Corpuscular Hemoglobin 20 pg (28-32); Mean Corpuscular Volume 70 fl (79-97); Red Cell Distribution Width 23.7 % (13.2-15.2)
[2016-03-17 05:52] LABS: Hematocrit 36.8 % (30.3-42.9)
[2016-03-17 05:54] LABS: Anion Gap 12 mmol/L
--- NOTE | 2016-03-17 08:33 | Vascular Lab Report ---
LOWER EXTREMITY VENOUS DUPLEX: REASON FOR EXAM: History of deep venous thrombosis with respiratory failure. COMMENTS ON THE RIGHT: All veins visualized are freely compressible without evidence of internal echogenicity. Flow is spontaneous and phasic throughout. COMMENTS ON THE LEFT: All veins visualized are freely compressible without evidence of internal echogenicity. Flow is spontaneous and phasic throughout. IMPRESSION: No evidence of acute or chronic deep venous thrombosis in either lower extremity.
[2016-03-17 09:02] LABS: ISTAT Base Excess 22; ISTAT PCO2 70.5 (35-45); ISTAT PH 7.422 (7.35-7.45); ISTAT PO2 108 (80-105); ISTAT SO2 98; ISTAT TCO2 48
--- NOTE | 2016-03-17 09:25 | Progress Note ---
Assessment and Plan Assessment and plan: 1. Chest pain. Patient previously on nitroglycerin drip which has been weaned off. Cardiology following. Patient may need stress thallium versus cardiac catheterization for further evaluation. Continue to trend cardiac isoenzymes and monitor closely. 2. Acute hypoxemic respiratory failure. Patient currently on BiPAP. Etiology is multifactorial. Patient with left parapneumonic effusion. Pulmonary following. Patient does have a history of PE/DVT and morbid obesity with probable LENA/OHS. Doppler ultrasound of lower extremities negative. 3. Left lower lobe pneumonia with parapneumonic effusion. Patient is status post thoracentesis with 1.1 L removed. Continue IV antibiotics and follow-up blood and sputum cultures. Repeat chest x-ray. 4. Accelerated hypertension. Patient previously on nitroglycerin drip. Blood pressure has normalized. Continue to follow closely. Resume home antihypertensives. 5. History of PE/DVT. Continue IV heparin. Doppler of lower extremities negative for DVT. 6. Type 2 diabetes mellitus. Continue Accu-Cheks and sliding scale regular insulin. 7. Morbid obesity. Nutritional consultation. 8. 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 Patient will need further follow-up as an outpatient. 9. GI prophylaxis. Continue Protonix. The high probability of a clinically significant, sudden or life threatening deterioration of the [respiratory and cardiovascular] system(s) required my full and direct attention, intervention and personal management. The aggregate critical care time was [31] minutes. This time is in addition to time spent performing reported procedures but includes the following: [x] Data Review and interpretation [x] Patient assessment and monitoring of vital signs [x] Documentation [x] Medication orders and management History Interval history: 40-year-old female with history of DVT, PE and morbid obesity who presents with dyspnea and chest pain. Patient recently admitted and discharged on Monday for pneumonia where she completed a seven-day course of antibiotics. Patient states that her chest pain has resolved but continues to have shortness of breath. Patient currently on BiPAP Hospitalist Physical - Constitutional Vitals: Temp Pulse Resp BP Pulse Ox 98 F 74 18 113/55 97 03/17/16 08:00 03/17/16 08:36 03/17/16 08:36 03/17/16 08:36 03/17/16 08:36 General appearance: Present: mild distress, obese - EENT Eyes: Present: PERRL, EOM intact ENT: hearing intact, clear oral mucosa, dentition normal - Neck Neck: Present: supple, normal ROM - Respiratory Respiratory effort: normal Respiratory: bilateral: diminished, rhonchi - Cardiovascular Rhythm: regular Heart Sounds: Present: S1 & S2. Absent: gallop, rub - Extremities Extremities: no ischemia, No edema, Full ROM - Abdominal General gastrointestinal: soft, non-tender, non-distended, normal bowel sounds - Integumentary Integumentary: Present: clear, warm, dry - Neurologic Neurologic: CNII-XII intact, moves all extremities Results - Labs CBC & Chem 7: 03/17/16 04:58 03/17/16 04:58 Labs: Laboratory Last Values WBC 8.2 K/mm3 (4.5-11.0) 03/17/16 04:58 RBC 5.50 M/mm3 (3.65-5.03) H 03/17/16 04:58 Hgb 11.2 gm/dl (10.1-14.3) 03/17/16 04:58 Hct 36.8 % (30.3-42.9) 03/17/16 04:58 MCV 70 fl (79-97) L 03/17/16 04:58 MCH 20 pg (28-32) L 03/17/16 04:58 MCHC 29 % (30-34) L 03/17/16 04:58 RDW 23.7 % (13.2-15.2) H 03/17/16 04:58 Plt Count 354 K/mm3 (140-440) 03/17/16 04:58 Lymph % (Auto) Soaking Room Operator 03/17/16 04:58 [place] % (Auto) Soaking Room Operator 03/17/16 04:58 Eos % (Auto) Soaking Room Operator 03/17/16 04:58 Baso % (Auto) Soaking Room Operator 03/17/16 04:58 Lymph # Soaking Room Operator 03/17/16 04:58 [place] # Soaking Room Operator 03/17/16 04:58 Eos # Soaking Room Operator 03/17/16 04:58 Baso # Soaking Room Operator 03/17/16 04:58 Seg Neutrophils % Soaking Room Operator 03/17/16 04:58 Seg Neutrophils # Soaking Room Operator 03/17/16 04:58 PT 15.8 Sec. (12.2-14.9) H 03/16/16 00:04 INR 1.27 (0.87-1.13) H 03/16/16 00:04 APTT 31.5 Sec. (24.2-36.6) 03/16/16 00:04 Heparin Anti-Xa Level 0.14 U.I./ml (0.3-0.7) L 03/17/16 04:58 POC ABG pH 7.422 (7.35-7.45) 03/17/16 08:55 POC ABG pCO2 70.5 (35-45) H 03/17/16 08:55 POC ABG pO2 108 (80-105) H 03/17/16 08:55 POC ABG HCO3 46.0 03/17/16 08:55 POC ABG Total CO2 48 03/17/16 08:55 POC ABG O2 Sat 98 03/17/16 08:55 POC ABG Base Excess 22 03/17/16 08:55 FiO2 40 % 03/17/16 08:55 Sodium 142 mmol/L (137-145) 03/17/16 04:58 Potassium 4.8 mmol/L (3.6-5.0) 03/17/16 04:58 Chloride 94.9 mmol/L (98-107) L 03/17/16 04:58 Carbon Dioxide 40 mmol/L (22-30) H 03/17/16 04:58 Anion Gap 12 mmol/L 03/17/16 04:58 BUN 11 mg/dL (7-17) 03/17/16 04:58 Creatinine 0.8 mg/dL (0.7-1.2) 03/17/16 04:58 Estimated GFR > 60 ml/min 03/17/16 04:58 BUN/Creatinine Ratio 13.75 % 03/17/16 04:58 Glucose 78 mg/dL (65-100) 03/17/16 04:58 POC Glucose 70 (70-105) 03/17/16 07:23 Lactic Acid 1.6 mmol/L (0.7-2.0) 03/15/16 20:20 Calcium 9.2 mg/dL (8.4-10.2) 03/17/16 04:58 Magnesium 2.2 mg/dL (1.7-2.3) 03/15/16 20:20 Total Bilirubin 1.0 mg/dL (0.1-1.2) 03/15/16 20:20 AST 13 units/L (5-40) 03/15/16 20:20 ALT 15 units/L (7-56) 03/15/16 20:20 Alkaline Phosphatase 67 units/L (35-129) 03/15/16 20:20 Lactate Dehydrogenase 328 units/L (91-180) H 03/16/16 12:16 Troponin T < 0.010 ng/mL (0.00-0.029) 03/15/16 20:20 C-Reactive Protein 2.60 mg/dL (0.00-1.30) H 03/16/16 12:16 NT-Pro-B Natriuret Pep 957.2 pg/mL (0-450) H 03/15/16 20:20 Total Protein 7.9 g/dL (6.3-8.2) 03/15/16 20:20 Albumin 3.1 g/dL (3.9-5) L 03/15/16 20:20 Albumin/Globulin Ratio 0.6 % 03/15/16 20:20 HCG, Quant < 2 mIU/mL (0-4) 03/15/16 20:20 Urine Color Yellow (Yellow) 03/15/16 21:43 Urine Turbidity Clear (Clear) 03/15/16 21:43 Urine pH 5.0 (5.0-7.0) 03/15/16 21:43 Ur Specific [place] 1.016 (1.003-1.030) 03/15/16 21:43 Urine Protein 30 mg/dl mg/dL (Negative) 03/15/16 21:43 Urine Glucose (UA) Neg mg/dL (Negative) 03/15/16 21:43 Urine Ketones Neg mg/dL (Negative) 03/15/16 21:43 Urine Blood Neg (Negative) 03/15/16 21:43 Urine Nitrite Neg (Negative) 03/15/16 21:43 Urine Bilirubin Neg (Negative) 03/15/16 21:43 Urine Urobilinogen 4.0 mg/dL (<2.0) 03/15/16 21:43 Ur Leukocyte Esterase Neg (Negative) 03/15/16 21:43 Urine WBC (Auto) 3.0 /HPF (0.0-6.0) 03/15/16 21:43 Urine RBC (Auto) 1.0 /HPF (0.0-6.0) 03/15/16 21:43 U Epithel Cells (Auto) 1.0 /HPF (0-13.0) 03/15/16 21:43 Hyaline Casts 1 /LPF 03/15/16 21:43 Urine Mucus Few /HPF 03/15/16 21:43 Fluid Total Protein 4.5 (15.0-45.0) L 03/16/16 16:00 Fluid LDH 498 03/16/16 16:00
--- NOTE | 2016-03-17 11:48 | Progress Note ---
Assessment and Plan - Patient Problems (1) Pleural effusion, left Current Visit: Yes Status: Acute Plan to address problem: - exudate - gm stain negative - follow cytology - continue empiric AB's - may be related to VTE (2) Pneumonia Current Visit: Yes Status: Acute Plan to address problem: - continue empiric AB's - supplemental oxygen to keep sats > 94% - aspiration precautions (3) Acute and chronic respiratory failure ([id number]) Current Visit: No Status: Acute Plan to address problem: - continue BIPAP scheduled qhs & prn daytime - continue empiric AB's - weight loss - continue IV heparin - begin coumadin (was on coumadin prior to admission) (4) Chest pain Current Visit: No Status: Acute Plan to address problem: - r/o MT - analgesia - treat P.E. (5) Pulmonary emboli Current Visit: No Status: Acute Plan to address problem: - anticoagulation (6) Sleep apnea Current Visit: No Status: Chronic Plan to address problem: - BIPAP qhs/while asleep (7) Discharge planning issues Current Visit: Yes Status: Acute Plan to address problem: - transfer to telemetry today Subjective Date of service: 03/17/16 Principal diagnosis: Acute Hypoxemic Respiratory Failure; Left Pleural Effusion Interval history: Seen and examined at bedside; 24 hour events reviewed; nursing and respiratory care staff consulted; no adverse overnight events reported to me; s/p thoracentesis and approximately 1.4 liters pulled; looks and feels better; off BIPAP now; complains of atypical chest pains; No N/V/F/C Objective Vital Signs - 12hr 03/17/16 03/17/16 03/17/16 00:00 00:05 00:17 Temperature 97.7 F Pulse Rate 60 74 67 Respiratory 20 20 20 Rate Blood Pressure 120/78 120/78 120/78 O2 Sat by Pulse 95 95 95 Oximetry 03/17/16 03/17/16 03/17/16 01:00 02:00 02:08 Temperature Pulse Rate 71 78 92 H Respiratory 20 20 12 Rate Blood Pressure 120/78 143/89 143/89 O2 Sat by Pulse 94 96 97 Oximetry 03/17/16 03/17/16 03/17/16 03:00 03:30 04:00 Temperature 97.9 F Pulse Rate 69 75 Respiratory 11 L 9 L 18 Rate Blood Pressure 133/77 133/77 O2 Sat by Pulse 96 95 96 Oximetry 03/17/16 03/17/16 03/17/16 04:02 04:18 05:00 Temperature Pulse Rate 73 75 72 Respiratory 14 13 21 Rate Blood Pressure 133/77 133/77 128/75 O2 Sat by Pulse 96 96 95 Oximetry 03/17/16 03/17/16 03/17/16 05:04 05:52 05:56 Temperature Pulse Rate 77 72 76 Respiratory 20 17 20 Rate Blood Pressure 128/75 128/75 128/75 O2 Sat by Pulse 94 96 94 Oximetry 03/17/16 03/17/16 03/17/16 05:58 06:00 06:06 Temperature Pulse Rate 75 68 69 Respiratory 16 13 13 Rate Blood Pressure 128/75 127/70 127/70 O2 Sat by Pulse 97 96 95 Oximetry 03/17/16 03/17/16 03/17/16 07:00 08:00 08:16 Temperature 98 F Pulse Rate 72 55 L 77 Respiratory 17 20 19 Rate Blood Pressure 127/70 113/55 113/55 O2 Sat by Pulse 95 97 98 Oximetry 03/17/16 03/17/16 03/17/16 08:36 09:00 10:00 Temperature Pulse Rate 74 67 77 Respiratory 18 13 12 Rate Blood Pressure 113/55 142/84 142/84 O2 Sat by Pulse 97 98 97 Oximetry 03/17/16 11:00 Temperature Pulse Rate 72 Respiratory 19 Rate Blood Pressure 136/70 O2 Sat by Pulse 97 Oximetry Constitutional: no acute distress, alert Eyes: non-icteric ENT: oropharynx moist Neck: supple, no JVD Ascultation: Bilateral: diminished breath sounds (LLL), rales (LLL) Cardiovascular: regular rate and rhythm Gastrointestinal: normoactive bowel sounds, soft, non-tender, non-distended Integumentary: other (Stasis dermatitis.) Extremities: no cyanosis, pink and warm, pulses normal, no ischemia or petechiae , edema Neurologic: normal mental status, non-focal exam, pupils equal and round, motor strength normal and Psychiatric: mood appropriate, affect normal CBC and BMP: 03/17/16 04:58 03/17/16 04:58 ABG, PT/INR, D-dimer: ABG POC ABG pH 7.422 (7.35-7.45) 03/17/16 08:55 POC ABG pCO2 70.5 (35-45) H 03/17/16 08:55 POC ABG pO2 108 (80-105) H 03/17/16 08:55 POC ABG HCO3 46.0 03/17/16 08:55 POC ABG Total CO2 48 03/17/16 08:55 POC ABG O2 Sat 98 03/17/16 08:55 PT/INR, D-dimer PT 15.8 Sec. (12.2-14.9) H 03/16/16 00:04 INR 1.27 (0.87-1.13) H 03/16/16 00:04 Abnormal lab findings: Abnormal Labs 03/16/16 03/16/16 03/16/16 00:04 01:01 07:49 RBC MCV MCH MCHC RDW PT 15.8 H INR 1.27 H Heparin Anti-Xa Level 0.18 L POC ABG pH 7.304 L POC ABG pCO2 92.8 H POC ABG pO2 Chloride Carbon Dioxide Lactate Dehydrogenase C-Reactive Protein Fluid Total Protein 03/16/16 03/16/16 03/16/16 12:16 16:00 17:21 RBC MCV MCH MCHC RDW PT INR Heparin Anti-Xa Level < 0.11 L POC ABG pH POC ABG pCO2 POC ABG pO2 Chloride Carbon Dioxide Lactate Dehydrogenase 328 H C-Reactive Protein 2.60 H Fluid Total Protein 4.5 L 03/17/16 03/17/16 03/17/16 04:58 04:58 04:58 RBC 5.50 H MCV 70 L MCH 20 L MCHC 29 L RDW 23.7 H PT INR Heparin Anti-Xa Level 0.14 L POC ABG pH POC ABG pCO2 POC ABG pO2 Chloride 94.9 L Carbon Dioxide 40 H Lactate Dehydrogenase C-Reactive Protein Fluid Total Protein 03/17/16 08:55 RBC MCV MCH MCHC RDW PT INR Heparin Anti-Xa Level POC ABG pH POC ABG pCO2 70.5 H POC ABG pO2 108 H Chloride Carbon Dioxide Lactate Dehydrogenase C-Reactive Protein Fluid Total Protein Chest x-ray: image reviewed
[2016-03-17] MEDS: MORPHINE IV PRN ×2 (13:09→16:59)
[2016-03-17] MEDS: ZOFRAN IV PRN (13:09)
[2016-03-17 14:27] LABS: Creatine Kinase 14 units/L (30-135)
[2016-03-17 14:33] LABS: Creatine Kinase MB < 1.0 ng/mL (0.0-4.0)
--- NOTE | 2016-03-17 14:41 | Query- Pneumonia ---
Dear ___MD Russell Date:__03/17/2016 [employer] Head/CDS:___Nelda Payan Phone#: [phone] Exercise your independent professional judgment when responding to query. Questions asked do not imply a particular answer is desired or expected. We greatly appreciate your clarification on this issue. This patient is a 40 y/o F admitted on 03/16/2016 with SOB, acute respiratory failure, HTN, DM, and obesity. Left lower lobe pneumonia has been mentioned by Dr. Wells on PN 03/17. Clinical Documentation States: [ ] Bronchitis; [ ] Acute [ ] Chronic [ ] Positive infiltrate study [ x] Broncho pneumonitis [ ] History of CVA [ ] Tracheitis [ ] Dysphagia [ ] Impaired gag reflex [ ] Bedridden/ recumbent [ ] Esophageal disorder (obstruction, cancer, [ ] NG Tube/pureed diet stenosis, varices) [ ] Current aspiration and/or recent vomiting [ ] Positive swallowing study Clinical Findings Show: Symptoms: shortness of breath Antibiotics: Levaquin IV Chest Imaging: almost complete opacification of the left eliceo thoras which is most likely a combination of infiltrate, atelectasis and effusion. Mild infiltrate right lower lung. Please further specify known or suspected Etiology: [ ] Aspiration Pneumonia [ ] Gram Negative Pneumonia [ ] Gram Positive Pneumonia [ ] Pseudomonas Pneumonia [ ] MRSA - related Pneumonia [ ] Viral Pneumonia [ ] Candidal Pneumonia [ ] Postoperative Pneumonia [ x] Lobar/Basilar Pneumonia [ ] Community Acquired Pneumonia [ ] Bacterial, other (Please specify organism if possible) [ ] Other: [ ] Unable to determine Present on Admission: [ x] Yes (Y) [ ] Clinically undeterminable (W) [ ] No (N) Please also document response in your Progress Notes and/or Discharge Summary and indicate if the condition was present on admission. [id number]
[2016-03-17] MEDS: LEVAQUIN 750MG/150ML 150 ML IV SCH (22:41)
[2016-03-18 06:40] LABS: INR 1.28 (0.87-1.13)
[2016-03-18] MEDS: HEPARIN/ 0.45% NACL-25,000 UNIT/500 ML 500 ML IV SCH ×2 (07:48→18:27)
[2016-03-18] MEDS: PERCOCET 5/325 PO PRN (10:38)
--- NOTE | 2016-03-18 14:06 | Progress Note ---
Assessment and Plan This is 40 year old female Morbidly obese came to the emergency room with a complaint of shortness of breath. Patients chest xray obtained showed complete opacification of left hemithorax. Patient has history of hypertension and pulmonary emboli.Patients pulmonary emboli diagnosed 3 months ago by CTA of the chest. Patient also diagnsed at that time DVT in left leg. Patient non compliant with her medications, Patient stopped taking Eliquis.Patient started on S/C Lovenox and Coumadin.Patient also treated for pneumonia recently at [facility]. Patients blood gases showed, patient is in respiratory failure. Patient placed on BIPAP Rate 20, 22/10, FIO2 50%. Patient awake ,following commands. Repeating blood gases in AM.[place] no known allergies. Smoking,alcohol or drug history not known at this time.Patient started on Levaquine and zosyn. Obtaining ultrasound of chest for possible left pleural effusion. 03/18/16 Patient resting on Face mask, FIO2 50%. O2 saturation 84%. Patient S/P right thoracentesis - Patient Problems (1) Acute and chronic respiratory failure ([id number]) Current Visit: No Status: Acute Plan to address problem: Patient is on BIPAP 22/10, rate 20, FIO2 50% Continue Lovenox and coumadin. Albuterol/atrovent aerosol treatments. (2) Pulmonary emboli Current Visit: No Status: Acute Plan to address problem: LOvenox at therapeutic doses Start Coumadin. (3) Left femoral vein DVT Current Visit: No Status: Acute Plan to address problem: Lovenox and coumadin. (4) Pneumonia Current Visit: Yes Status: Acute Plan to address problem: Patient is on Zosyn and Levaquine. 03/18/16 Patient presently on Levaquine. (5) Pleural effusion, left Current Visit: Yes Status: Acute Plan to address problem: Obtaining Ultrasound of chest. Patients ultrasound of chest reported pleural effusion. Patient under gone left thoracentesis. (6) Morbid obesity with BMI of 70 and over, adult Current Visit: No Status: Chronic Plan to address problem: Nutritional consultation for weight reduction diet. (7) Sleep apnea Current Visit: No Status: Chronic Plan to address problem: Patient is on BIPAP. Subjective Date of service: 03/18/16 Principal diagnosis: Acute Hypoxemic Respiratory Failure; Left Pleural Effusion Interval history: Patient resting on Face mask, FIO2 50%. O2 saturation 84%. Patient S/P right thoracentesis Objective Vital Signs - 12hr 03/18/16 03/18/16 03/18/16 05:32 07:48 08:29 Temperature 98.2 F 98.1 F Pulse Rate [ 88 76 Left] Respiratory 19 20 Rate Blood Pressure 130/62 122/80 O2 Sat by Pulse 92 97 95 Oximetry 03/18/16 11:39 Temperature 97.5 F L Pulse Rate [ 89 Left] Respiratory 22 Rate Blood Pressure 132/78 O2 Sat by Pulse 97 Oximetry Constitutional: no acute distress, alert Eyes: non-icteric ENT: oropharynx moist Neck: supple, no JVD Ascultation: Bilateral: diminished breath sounds (LLL), rales (LLL) Cardiovascular: regular rate and rhythm Gastrointestinal: normoactive bowel sounds, soft, non-tender, non-distended Integumentary: other (Stasis dermatitis.) Extremities: no cyanosis, pink and warm, pulses normal, no ischemia or petechiae , edema Neurologic: normal mental status, non-focal exam, pupils equal and round, motor strength normal and Psychiatric: mood appropriate, affect normal CBC and BMP: 03/17/16 04:58 03/17/16 04:58 ABG, PT/INR, D-dimer: ABG POC ABG pH 7.422 (7.35-7.45) 03/17/16 08:55 POC ABG pCO2 70.5 (35-45) H 03/17/16 08:55 POC ABG pO2 108 (80-105) H 03/17/16 08:55 POC ABG HCO3 46.0 03/17/16 08:55 POC ABG Total CO2 48 03/17/16 08:55 POC ABG O2 Sat 98 03/17/16 08:55 PT/INR, D-dimer PT 15.9 Sec. (12.2-14.9) H 03/18/16 05:32 INR 1.28 (0.87-1.13) H 03/18/16 05:32 Abnormal lab findings: Abnormal Labs 03/16/16 03/16/16 03/16/16 00:04 01:01 07:49 RBC MCV MCH MCHC RDW PT 15.8 H INR 1.27 H Heparin Anti-Xa Level 0.18 L POC ABG pH 7.304 L POC ABG pCO2 92.8 H POC ABG pO2 Chloride Carbon Dioxide POC Glucose Lactate Dehydrogenase Total Creatine Kinase CK-MB (CK-2) Rel Index C-Reactive Protein Fluid Total Protein 03/16/16 03/16/16 03/16/16 12:16 16:00 17:21 RBC MCV MCH MCHC RDW PT INR Heparin Anti-Xa Level < 0.11 L POC ABG pH POC ABG pCO2 POC ABG pO2 Chloride Carbon Dioxide POC Glucose Lactate Dehydrogenase 328 H Total Creatine Kinase CK-MB (CK-2) Rel Index C-Reactive Protein 2.60 H Fluid Total Protein 4.5 L 03/17/16 03/17/16 03/17/16 04:58 04:58 04:58 RBC 5.50 H MCV 70 L MCH 20 L MCHC 29 L RDW 23.7 H PT INR Heparin Anti-Xa Level 0.14 L POC ABG pH POC ABG pCO2 POC ABG pO2 Chloride 94.9 L Carbon Dioxide 40 H POC Glucose Lactate Dehydrogenase Total Creatine Kinase CK-MB (CK-2) Rel Index C-Reactive Protein Fluid Total Protein 03/17/16 03/17/16 03/17/16 08:55 11:50 13:16 RBC MCV MCH MCHC RDW PT INR Heparin Anti-Xa Level 0.16 L POC ABG pH POC ABG pCO2 70.5 H POC ABG pO2 108 H Chloride Carbon Dioxide POC Glucose 65 L Lactate Dehydrogenase Total Creatine Kinase CK-MB (CK-2) Rel Index C-Reactive Protein Fluid Total Protein 03/17/16 03/17/16 03/18/16 13:16 21:00 05:32 RBC MCV MCH MCHC RDW PT 15.9 H INR 1.28 H Heparin Anti-Xa Level 0.13 L POC ABG pH POC ABG pCO2 POC ABG pO2 Chloride Carbon Dioxide POC Glucose Lactate Dehydrogenase Total Creatine Kinase 14 L CK-MB (CK-2) Rel Index 7.1 H C-Reactive Protein Fluid Total Protein 03/18/16 07:35 RBC MCV MCH MCHC RDW PT INR Heparin Anti-Xa Level 0.71 H POC ABG pH POC ABG pCO2 POC ABG pO2 Chloride Carbon Dioxide POC Glucose Lactate Dehydrogenase Total Creatine Kinase CK-MB (CK-2) Rel Index C-Reactive Protein Fluid Total Protein
[2016-03-18] MEDS: MORPHINE IV PRN (16:48)
[2016-03-18] MEDS: COUMADIN PO SCH (16:52)
--- NOTE | 2016-03-18 18:40 | Progress Note ---
Assessment and Plan Assessment and plan: 1. Chest pain. Patient previously on nitroglycerin drip which has been weaned off. Cardiology following. Patient may need stress thallium versus cardiac catheterization for further evaluation. 2. Acute hypoxemic respiratory failure. Patient currently on BiPAP. Etiology is multifactorial. Patient with left parapneumonic effusion sp thoracentesis. Pulmonary following. Patient does have a history of PE/DVT and morbid obesity with probable LENA/OHS. Doppler ultrasound of lower extremities negative. 3. Left lower lobe pneumonia with parapneumonic effusion. Patient is status post thoracentesis with 1.1 L removed. Continue IV antibiotics and follow-up blood and sputum cultures. Repeat chest x-ray. 4. Accelerated hypertension. Patient previously on nitroglycerin drip. Blood pressure has normalized. Continue to follow closely. Resume home antihypertensives. 5. History of PE/DVT. Continue IV heparin. Doppler of lower extremities negative for DVT. 6. Type 2 diabetes mellitus. Continue Accu-Cheks and sliding scale regular insulin. 7. Morbid obesity. Nutritional consultation. 8. 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 Patient will need further follow-up as an outpatient, will likely need CPAP machine upon dc. 9. GI prophylaxis. Continue Protonix. History Interval history: she belives that her breathing has improved, admits to SOB, she has been able to eat, but has not gotten out of bed, denies CP, Hospitalist Physical - Constitutional Vitals: Temp Pulse Resp BP Pulse Ox 97.5 F L 89 22 132/78 97 03/18/16 11:39 03/18/16 11:39 03/18/16 11:39 03/18/16 11:39 03/18/16 11:39 General appearance: Present: mild distress, obese - EENT Eyes: Present: PERRL ENT: hearing intact - Neck Neck: Present: supple - Respiratory Respiratory effort: labored Respiratory: bilateral: diminished - Cardiovascular Rhythm: regular Heart Sounds: Present: S1 & S2 - Extremities Extremities: no ischemia - Abdominal General gastrointestinal: soft, non-tender, tender - Integumentary Integumentary: Present: clear, warm, dry - Psychiatric Psychiatric: appropriate mood/affect, intact judgment & insight - Neurologic Neurologic: CNII-XII intact Results - Labs CBC & Chem 7: 03/17/16 04:58 03/17/16 04:58 Labs: Laboratory Last Values WBC 8.2 K/mm3 (4.5-11.0) 03/17/16 04:58 RBC 5.50 M/mm3 (3.65-5.03) H 03/17/16 04:58 Hgb 11.2 gm/dl (10.1-14.3) 03/17/16 04:58 Hct 36.8 % (30.3-42.9) 03/17/16 04:58 MCV 70 fl (79-97) L 03/17/16 04:58 MCH 20 pg (28-32) L 03/17/16 04:58 MCHC 29 % (30-34) L 03/17/16 04:58 RDW 23.7 % (13.2-15.2) H 03/17/16 04:58 Plt Count 354 K/mm3 (140-440) 03/17/16 04:58 Lymph % (Auto) Leather Worker 03/17/16 04:58 [place] % (Auto) Leather Worker 03/17/16 04:58 Eos % (Auto) Leather Worker 03/17/16 04:58 Baso % (Auto) Leather Worker 03/17/16 04:58 Lymph # Leather Worker 03/17/16 04:58 [place] # Leather Worker 03/17/16 04:58 Eos # Leather Worker 03/17/16 04:58 Baso # Leather Worker 03/17/16 04:58 Seg Neutrophils % Leather Worker 03/17/16 04:58 Seg Neutrophils # Leather Worker 03/17/16 04:58 PT 15.9 Sec. (12.2-14.9) H 03/18/16 05:32 INR 1.28 (0.87-1.13) H 03/18/16 05:32 APTT 31.5 Sec. (24.2-36.6) 03/16/16 00:04 Heparin Anti-Xa Level 0.86 U.I./ml (0.3-0.7) H 03/18/16 16:15 POC ABG pH 7.422 (7.35-7.45) 03/17/16 08:55 POC ABG pCO2 70.5 (35-45) H 03/17/16 08:55 POC ABG pO2 108 (80-105) H 03/17/16 08:55 POC ABG HCO3 46.0 03/17/16 08:55 POC ABG Total CO2 48 03/17/16 08:55 POC ABG O2 Sat 98 03/17/16 08:55 POC ABG Base Excess 22 03/17/16 08:55 FiO2 40 % 03/17/16 08:55 Sodium 142 mmol/L (137-145) 03/17/16 04:58 Potassium 4.8 mmol/L (3.6-5.0) 03/17/16 04:58 Chloride 94.9 mmol/L (98-107) L 03/17/16 04:58 Carbon Dioxide 40 mmol/L (22-30) H 03/17/16 04:58 Anion Gap 12 mmol/L 03/17/16 04:58 BUN 11 mg/dL (7-17) 03/17/16 04:58 Creatinine 0.8 mg/dL (0.7-1.2) 03/17/16 04:58 Estimated GFR > 60 ml/min 03/17/16 04:58 BUN/Creatinine Ratio 13.75 % 03/17/16 04:58 Glucose 78 mg/dL (65-100) 03/17/16 04:58 POC Glucose 90 (70-105) 03/17/16 21:39 Lactic Acid 1.6 mmol/L (0.7-2.0) 03/15/16 20:20 Calcium 9.2 mg/dL (8.4-10.2) 03/17/16 04:58 Magnesium 2.2 mg/dL (1.7-2.3) 03/15/16 20:20 Total Bilirubin 1.0 mg/dL (0.1-1.2) 03/15/16 20:20 AST 13 units/L (5-40) 03/15/16 20:20 ALT 15 units/L (7-56) 03/15/16 20:20 Alkaline Phosphatase 67 units/L (35-129) 03/15/16 20:20 Lactate Dehydrogenase 328 units/L (91-180) H 03/16/16 12:16 Total Creatine Kinase 14 units/L (30-135) L 03/17/16 13:16 CK-MB (CK-2) < 1.0 ng/mL (0.0-4.0) 03/17/16 13:16 CK-MB (CK-2) Rel Index 7.1 (0-4) H 03/17/16 13:16 Troponin T < 0.010 ng/mL (0.00-0.029) 03/17/16 13:16 C-Reactive Protein 2.60 mg/dL (0.00-1.30) H 03/16/16 12:16 NT-Pro-B Natriuret Pep 957.2 pg/mL (0-450) H 03/15/16 20:20 Total Protein 7.9 g/dL (6.3-8.2) 03/15/16 20:20 Albumin 3.1 g/dL (3.9-5) L 03/15/16 20:20 Albumin/Globulin Ratio 0.6 % 03/15/16 20:20 HCG, Quant < 2 mIU/mL (0-4) 03/15/16 20:20 Urine Color Yellow (Yellow) 03/15/16 21:43 Urine Turbidity Clear (Clear) 03/15/16 21:43 Urine pH 5.0 (5.0-7.0) 03/15/16 21:43 Ur Specific [place] 1.016 (1.003-1.030) 03/15/16 21:43 Urine Protein 30 mg/dl mg/dL (Negative) 03/15/16 21:43 Urine Glucose (UA) Neg mg/dL (Negative) 03/15/16 21:43 Urine Ketones Neg mg/dL (Negative) 03/15/16 21:43 Urine Blood Neg (Negative) 03/15/16 21:43 Urine Nitrite Neg (Negative) 03/15/16 21:43 Urine Bilirubin Neg (Negative) 03/15/16 21:43 Urine Urobilinogen 4.0 mg/dL (<2.0) 03/15/16 21:43 Ur Leukocyte Esterase Neg (Negative) 03/15/16 21:43 Urine WBC (Auto) 3.0 /HPF (0.0-6.0) 03/15/16 21:43 Urine RBC (Auto) 1.0 /HPF (0.0-6.0) 03/15/16 21:43 U Epithel Cells (Auto) 1.0 /HPF (0-13.0) 03/15/16 21:43 Hyaline Casts 1 /LPF 03/15/16 21:43 Urine Mucus Few /HPF 03/15/16 21:43 Fluid Total Protein 4.5 (15.0-45.0) L 03/16/16 16:00 Fluid LDH 498 03/16/16 16:00
[2016-03-18] MEDS: LEVAQUIN PO SCH (22:02)
[2016-03-19] MEDS: MORPHINE IV PRN ×2 (04:46→18:35)
[2016-03-19] MEDS: HEPARIN/ 0.45% NACL-25,000 UNIT/500 ML 500 ML IV SCH ×2 (06:47→19:17)
[2016-03-19 07:27] LABS: Hemoglobin 11.5 gm/dl (10.1-14.3)
[2016-03-19 07:28] LABS: Hematocrit 38.2 % (30.3-42.9)
[2016-03-19 07:33] LABS: INR 1.25 (0.87-1.13)
--- NOTE | 2016-03-19 14:02 | Progress Note ---
Assessment and Plan - Patient Problems (1) Pleural effusion, left Current Visit: Yes Status: Acute Plan to address problem: - exudate - gm stain negative - follow cytology - continue empiric AB's - may be related to VTE (2) Pneumonia Current Visit: Yes Status: Acute Plan to address problem: - continue empiric AB's - supplemental oxygen to keep sats > 94% - aspiration precautions - sputum C&S (3) Acute and chronic respiratory failure ([id number]) Current Visit: No Status: Acute Plan to address problem: - continue BIPAP scheduled qhs & prn daytime - continue empiric AB's - weight loss - continue IV heparin - titrate/adjust coumadin till INR therapeutic (4) Chest pain Current Visit: No Status: Acute Plan to address problem: - r/o MT - analgesia - treat P.E. (5) Pulmonary emboli Current Visit: No Status: Acute Plan to address problem: - anticoagulation (6) Sleep apnea Current Visit: No Status: Chronic Plan to address problem: - BIPAP qhs/while asleep Subjective Date of service: 03/19/16 Principal diagnosis: Acute Hypoxemic Respiratory Failure; Left Pleural Effusion Interval history: Seen and examined at bedside; 24 hour events reviewed; nursing and respiratory care staff consulted; no adverse overnight events reported to me;feels a little better but still SOB; awaiting final pleural fluid results; no emesis or overt aspiration Objective Vital Signs - 12hr 03/19/16 03/19/16 04:00 08:47 Temperature 98.6 F Pulse Rate [ 87 Left] Respiratory 19 Rate Blood Pressure 153/93 O2 Sat by Pulse 96 92 Oximetry Constitutional: no acute distress, alert Eyes: non-icteric ENT: oropharynx moist Neck: supple, no JVD Ascultation: Bilateral: diminished breath sounds (LLL), rales (LLL) Cardiovascular: regular rate and rhythm Gastrointestinal: normoactive bowel sounds, soft, non-tender, non-distended Integumentary: other (Stasis dermatitis.) Extremities: no cyanosis, pink and warm, pulses normal, no ischemia or petechiae , edema Neurologic: normal mental status, non-focal exam, pupils equal and round, motor strength normal and Psychiatric: mood appropriate, affect normal CBC and BMP: 03/23/16 05:03 03/28/16 08:54 ABG, PT/INR, D-dimer: ABG POC ABG pH 7.422 (7.35-7.45) 03/17/16 08:55 POC ABG pCO2 70.5 (35-45) H 03/17/16 08:55 POC ABG pO2 108 (80-105) H 03/17/16 08:55 POC ABG HCO3 46.0 03/17/16 08:55 POC ABG Total CO2 48 03/17/16 08:55 POC ABG O2 Sat 98 03/17/16 08:55 PT/INR, D-dimer PT 15.6 Sec. (12.2-14.9) H 03/19/16 06:57 INR 1.25 (0.87-1.13) H 03/19/16 06:57 Abnormal lab findings: Abnormal Labs 03/16/16 03/16/16 03/16/16 00:04 01:01 07:49 RBC MCV MCH MCHC RDW PT 15.8 H INR 1.27 H Heparin Anti-Xa Level 0.18 L POC ABG pH 7.304 L POC ABG pCO2 92.8 H POC ABG pO2 Chloride Carbon Dioxide POC Glucose Lactate Dehydrogenase Total Creatine Kinase CK-MB (CK-2) Rel Index C-Reactive Protein Fluid Total Protein 03/16/16 03/16/16 03/16/16 12:16 16:00 17:21 RBC MCV MCH MCHC RDW PT INR Heparin Anti-Xa Level < 0.11 L POC ABG pH POC ABG pCO2 POC ABG pO2 Chloride Carbon Dioxide POC Glucose Lactate Dehydrogenase 328 H Total Creatine Kinase CK-MB (CK-2) Rel Index C-Reactive Protein 2.60 H Fluid Total Protein 4.5 L 03/17/16 03/17/16 03/17/16 04:58 04:58 04:58 RBC 5.50 H MCV 70 L MCH 20 L MCHC 29 L RDW 23.7 H PT INR Heparin Anti-Xa Level 0.14 L POC ABG pH POC ABG pCO2 POC ABG pO2 Chloride 94.9 L Carbon Dioxide 40 H POC Glucose Lactate Dehydrogenase Total Creatine Kinase CK-MB (CK-2) Rel Index C-Reactive Protein Fluid Total Protein 03/17/16 03/17/16 03/17/16 08:55 11:50 13:16 RBC MCV MCH MCHC RDW PT INR Heparin Anti-Xa Level 0.16 L POC ABG pH POC ABG pCO2 70.5 H POC ABG pO2 108 H Chloride Carbon Dioxide POC Glucose 65 L Lactate Dehydrogenase Total Creatine Kinase CK-MB (CK-2) Rel Index C-Reactive Protein Fluid Total Protein 03/17/16 03/17/16 03/18/16 13:16 21:00 05:32 RBC MCV MCH MCHC RDW PT 15.9 H INR 1.28 H Heparin Anti-Xa Level 0.13 L POC ABG pH POC ABG pCO2 POC ABG pO2 Chloride Carbon Dioxide POC Glucose Lactate Dehydrogenase Total Creatine Kinase 14 L CK-MB (CK-2) Rel Index 7.1 H C-Reactive Protein Fluid Total Protein 03/18/16 03/18/16 03/18/16 07:35 07:43 15:45 RBC MCV MCH MCHC RDW PT INR Heparin Anti-Xa Level 0.71 H POC ABG pH POC ABG pCO2 POC ABG pO2 Chloride Carbon Dioxide POC Glucose 63 L 109 H Lactate Dehydrogenase Total Creatine Kinase CK-MB (CK-2) Rel Index C-Reactive Protein Fluid Total Protein 03/18/16 03/18/16 03/18/16 16:15 21:35 23:30 RBC MCV MCH MCHC RDW PT INR Heparin Anti-Xa Level 0.86 H 0.26 L POC ABG pH POC ABG pCO2 POC ABG pO2 Chloride Carbon Dioxide POC Glucose 106 H Lactate Dehydrogenase Total Creatine Kinase CK-MB (CK-2) Rel Index C-Reactive Protein Fluid Total Protein 03/19/16 03/19/16 06:57 08:28 RBC MCV MCH MCHC RDW PT 15.6 H INR 1.25 H Heparin Anti-Xa Level POC ABG pH POC ABG pCO2 POC ABG pO2 Chloride Carbon Dioxide POC Glucose 67 L Lactate Dehydrogenase Total Creatine Kinase CK-MB (CK-2) Rel Index C-Reactive Protein Fluid Total Protein Chest x-ray: image reviewed
--- NOTE | 2016-03-19 14:08 | Progress Note ---
Assessment and Plan Assessment and plan: -- History of PE/DVT. Continue IV heparin. Doppler of lower extremities negative for DVT. Subtherapeutic INR due to time of admission, he shouldn't is on heparin drip and Coumadin, daily monitoring of INR to therapeutic goal between 2 and 3 Patient's INR remained subtherapeutic -- Chest pain. Improved , continue current management In view of patient's morbid obesity, may not be a candidate for stress test. Continue current management, consider cardiology evaluation if needed -- Acute hypoxemic respiratory failure. Patient currently on BiPAP. Etiology is multifactorial. Patient with left parapneumonic effusion sp thoracentesis. Pulmonary following. -- Left lower lobe pneumonia with parapneumonic effusion. Patient is status post thoracentesis with 1.1 L removed. Continue IV antibiotics and follow-up blood and sputum cultures. -- Accelerated hypertension. Patient previously on nitroglycerin drip. Blood pressure has normalized. Continue to follow closely. Resume home antihypertensives. --Morbid obesity. Dietary modification and exercise as tolerated and weight reduction, patient may benefit outpatient bariatric surgical evaluation for weight reduction program when medically stable, Nutritional consultation. 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 View of morbid obesity Patient will need further pulmonary for outpatient sleep study to rule out obstructive sleep apnea --DVT prophylaxis, on heparin drip -- GI prophylaxis. Continue Protonix. Medical noncompliance; multiple social issues; counseling done patient strongly advised to adhere to treatment plan DC planning/assistance with medications but case management Plan of care discussed with the patient as well as the nurse Consults and recommendations noted and appreciated History Interval history: Patient seen and evaluated this morning in her room medical records reviewed Patient is receiving heparin drip and Coumadin for her history of PE Patient denies any chest pain or shortness of breath Alert awake oriented 3 no new complaints Vital signs reviewed Hospitalist Physical - Constitutional Vitals: Temp Pulse Resp BP Pulse Ox 98.6 F 87 19 153/93 92 03/19/16 04:00 03/19/16 04:00 03/19/16 04:00 03/19/16 04:00 03/19/16 08:47 General appearance: Present: no acute distress, obese (morbidly obese) - EENT Eyes: Present: PERRL, EOM intact - Neck Neck: Present: supple, normal ROM - Respiratory Respiratory effort: normal Respiratory: bilateral: diminished, rhonchi (occasional), negative: rales, wheezing - Cardiovascular Rhythm: regular Heart Sounds: Present: S1 & S2 - Extremities Extremities: no ischemia, pulses intact, pulses symmetrical - Abdominal General gastrointestinal: soft, non-tender, non-distended, normal bowel sounds - Integumentary Integumentary: Present: clear, warm - Psychiatric Psychiatric: appropriate mood/affect, cooperative - Neurologic Neurologic: CNII-XII intact, moves all extremities Results - Labs CBC & Chem 7: 03/19/16 06:58 03/17/16 04:58 Labs: Laboratory Last Values WBC 8.2 K/mm3 (4.5-11.0) 03/17/16 04:58 RBC 5.50 M/mm3 (3.65-5.03) H 03/17/16 04:58 Hgb 11.5 gm/dl (10.1-14.3) 03/19/16 06:58 Hct 38.2 % (30.3-42.9) 03/19/16 06:58 MCV 70 fl (79-97) L 03/17/16 04:58 MCH 20 pg (28-32) L 03/17/16 04:58 MCHC 29 % (30-34) L 03/17/16 04:58 RDW 23.7 % (13.2-15.2) H 03/17/16 04:58 Plt Count 309 K/mm3 (140-440) 03/19/16 06:58 Lymph % (Auto) Eradicator 03/17/16 04:58 [place] % (Auto) Eradicator 03/17/16 04:58 Eos % (Auto) Eradicator 03/17/16 04:58 Baso % (Auto) Eradicator 03/17/16 04:58 Lymph # Eradicator 03/17/16 04:58 [place] # Eradicator 03/17/16 04:58 Eos # Eradicator 03/17/16 04:58 Baso # Eradicator 03/17/16 04:58 Seg Neutrophils % Eradicator 03/17/16 04:58 Seg Neutrophils # Eradicator 03/17/16 04:58 PT 15.6 Sec. (12.2-14.9) H 03/19/16 06:57 INR 1.25 (0.87-1.13) H 03/19/16 06:57 APTT 31.5 Sec. (24.2-36.6) 03/16/16 00:04 Heparin Anti-Xa Level 0.50 U.I./ml (0.3-0.7) 03/19/16 06:58 POC ABG pH 7.422 (7.35-7.45) 03/17/16 08:55 POC ABG pCO2 70.5 (35-45) H 03/17/16 08:55 POC ABG pO2 108 (80-105) H 03/17/16 08:55 POC ABG HCO3 46.0 03/17/16 08:55 POC ABG Total CO2 48 03/17/16 08:55 POC ABG O2 Sat 98 03/17/16 08:55 POC ABG Base Excess 22 03/17/16 08:55 FiO2 40 % 03/17/16 08:55 Sodium 142 mmol/L (137-145) 03/17/16 04:58 Potassium 4.8 mmol/L (3.6-5.0) 03/17/16 04:58 Chloride 94.9 mmol/L (98-107) L 03/17/16 04:58 Carbon Dioxide 40 mmol/L (22-30) H 03/17/16 04:58 Anion Gap 12 mmol/L 03/17/16 04:58 BUN 11 mg/dL (7-17) 03/17/16 04:58 Creatinine 0.8 mg/dL (0.7-1.2) 03/17/16 04:58 Estimated GFR > 60 ml/min 03/17/16 04:58 BUN/Creatinine Ratio 13.75 % 03/17/16 04:58 Glucose 78 mg/dL (65-100) 03/17/16 04:58 POC Glucose 102 (70-105) 03/19/16 11:44 Lactic Acid 1.6 mmol/L (0.7-2.0) 03/15/16 20:20 Calcium 9.2 mg/dL (8.4-10.2) 03/17/16 04:58 Magnesium 2.2 mg/dL (1.7-2.3) 03/15/16 20:20 Total Bilirubin 1.0 mg/dL (0.1-1.2) 03/15/16 20:20 AST 13 units/L (5-40) 03/15/16 20:20 ALT 15 units/L (7-56) 03/15/16 20:20 Alkaline Phosphatase 67 units/L (35-129) 03/15/16 20:20 Lactate Dehydrogenase 328 units/L (91-180) H 03/16/16 12:16 Total Creatine Kinase 14 units/L (30-135) L 03/17/16 13:16 CK-MB (CK-2) < 1.0 ng/mL (0.0-4.0) 03/17/16 13:16 CK-MB (CK-2) Rel Index 7.1 (0-4) H 03/17/16 13:16 Troponin T < 0.010 ng/mL (0.00-0.029) 03/17/16 13:16 C-Reactive Protein 2.60 mg/dL (0.00-1.30) H 03/16/16 12:16 NT-Pro-B Natriuret Pep 957.2 pg/mL (0-450) H 03/15/16 20:20 Total Protein 7.9 g/dL (6.3-8.2) 03/15/16 20:20 Albumin 3.1 g/dL (3.9-5) L 03/15/16 20:20 Albumin/Globulin Ratio 0.6 % 03/15/16 20:20 HCG, Quant < 2 mIU/mL (0-4) 03/15/16 20:20 Urine Color Yellow (Yellow) 03/15/16 21:43 Urine Turbidity Clear (Clear) 03/15/16 21:43 Urine pH 5.0 (5.0-7.0) 03/15/16 21:43 Ur Specific [place] 1.016 (1.003-1.030) 03/15/16 21:43 Urine Protein 30 mg/dl mg/dL (Negative) 03/15/16 21:43 Urine Glucose (UA) Neg mg/dL (Negative) 03/15/16 21:43 Urine Ketones Neg mg/dL (Negative) 03/15/16 21:43 Urine Blood Neg (Negative) 03/15/16 21:43 Urine Nitrite Neg (Negative) 03/15/16 21:43 Urine Bilirubin Neg (Negative) 03/15/16 21:43 Urine Urobilinogen 4.0 mg/dL (<2.0) 03/15/16 21:43 Ur Leukocyte Esterase Neg (Negative) 03/15/16 21:43 Urine WBC (Auto) 3.0 /HPF (0.0-6.0) 03/15/16 21:43 Urine RBC (Auto) 1.0 /HPF (0.0-6.0) 03/15/16 21:43 U Epithel Cells (Auto) 1.0 /HPF (0-13.0) 03/15/16 21:43 Hyaline Casts 1 /LPF 03/15/16 21:43 Urine Mucus Few /HPF 03/15/16 21:43 Fluid Total Protein 4.5 (15.0-45.0) L 03/16/16 16:00 Fluid LDH 498 03/16/16 16:00
[2016-03-19] MEDS: COUMADIN PO SCH (18:34)
[2016-03-19] MEDS: ZOFRAN IV PRN (18:45)
[2016-03-19] MEDS: LEVAQUIN PO SCH (21:36)
[2016-03-20] MEDS: MORPHINE IV PRN ×3 (03:40→20:46)
[2016-03-20] MEDS: PERCOCET 5/325 PO PRN (05:30)
[2016-03-20] MEDS: HEPARIN/ 0.45% NACL-25,000 UNIT/500 ML 500 ML IV SCH ×2 (05:33→17:58)
[2016-03-20 07:36] LABS: INR 1.38 (0.87-1.13)
--- NOTE | 2016-03-20 12:45 | Progress Note ---
Assessment and Plan - Patient Problems (1) Pleural effusion, left Current Visit: Yes Status: Acute Plan to address problem: - exudate - gm stain negative - follow cytology - continue empiric AB's - may be related to VTE - cytology negative (2) Pneumonia Current Visit: Yes Status: Acute Plan to address problem: - complete empiric AB's - supplemental oxygen to keep sats > 94% - aspiration precautions - sputum C&S (3) Acute and chronic respiratory failure ([id number]) Current Visit: No Status: Acute Plan to address problem: - continue BIPAP scheduled qhs & prn daytime - continue empiric AB's - weight loss - continue IV heparin - titrate/adjust coumadin till INR therapeutic (4) Chest pain Current Visit: No Status: Acute Plan to address problem: - r/o NM - analgesia - treat P.E. (5) Pulmonary emboli Current Visit: No Status: Acute Plan to address problem: - anticoagulation (6) Sleep apnea Current Visit: No Status: Chronic Plan to address problem: - BIPAP qhs/while asleep Subjective Date of service: 03/20/16 Principal diagnosis: Acute Hypoxemic Respiratory Failure; Left Pleural Effusion Interval history: Seen and examined at bedside; 24 hour events reviewed; nursing and respiratory care staff consulted; no adverse overnight events reported to me; resting peacefully in bed; denies acute chest pains or increased SOB Objective Vital Signs - 12hr 03/20/16 03/20/16 03/20/16 08:58 10:00 12:40 Temperature 97.5 F L 97.7 F Pulse Rate [ 92 H 87 Left] Respiratory 22 22 Rate Blood Pressure 146/88 129/79 O2 Sat by Pulse 96 93 94 Oximetry Constitutional: no acute distress, alert Eyes: non-icteric ENT: oropharynx moist Neck: supple, no JVD Ascultation: Bilateral: diminished breath sounds (LLL), rales (LLL) Cardiovascular: regular rate and rhythm Gastrointestinal: normoactive bowel sounds, soft, non-tender, non-distended Integumentary: other (Stasis dermatitis.) Extremities: no cyanosis, pink and warm, pulses normal, no ischemia or petechiae , edema Neurologic: normal mental status, non-focal exam, pupils equal and round, motor strength normal and Psychiatric: mood appropriate, affect normal CBC and BMP: 03/23/16 05:03 12/26/16 08:54 ABG, PT/INR, D-dimer: ABG POC ABG pH 7.422 (7.35-7.45) 03/17/16 08:55 POC ABG pCO2 70.5 (35-45) H 03/17/16 08:55 POC ABG pO2 108 (80-105) H 03/17/16 08:55 POC ABG HCO3 46.0 03/17/16 08:55 POC ABG Total CO2 48 03/17/16 08:55 POC ABG O2 Sat 98 03/17/16 08:55 PT/INR, D-dimer PT 16.9 Sec. (12.2-14.9) H 03/20/16 06:48 INR 1.38 (0.87-1.13) H 03/20/16 06:48 Abnormal lab findings: Abnormal Labs 03/16/16 03/16/16 03/16/16 00:04 01:01 07:49 RBC MCV MCH MCHC RDW PT 15.8 H INR 1.27 H Heparin Anti-Xa Level 0.18 L POC ABG pH 7.304 L POC ABG pCO2 92.8 H POC ABG pO2 Chloride Carbon Dioxide POC Glucose Lactate Dehydrogenase Total Creatine Kinase CK-MB (CK-2) Rel Index C-Reactive Protein Fluid Total Protein 03/16/16 03/16/16 03/16/16 12:16 16:00 17:21 RBC MCV MCH MCHC RDW PT INR Heparin Anti-Xa Level < 0.11 L POC ABG pH POC ABG pCO2 POC ABG pO2 Chloride Carbon Dioxide POC Glucose Lactate Dehydrogenase 328 H Total Creatine Kinase CK-MB (CK-2) Rel Index C-Reactive Protein 2.60 H Fluid Total Protein 4.5 L 03/17/16 03/17/16 03/17/16 04:58 04:58 04:58 RBC 5.50 H MCV 70 L MCH 20 L MCHC 29 L RDW 23.7 H PT INR Heparin Anti-Xa Level 0.14 L POC ABG pH POC ABG pCO2 POC ABG pO2 Chloride 94.9 L Carbon Dioxide 40 H POC Glucose Lactate Dehydrogenase Total Creatine Kinase CK-MB (CK-2) Rel Index C-Reactive Protein Fluid Total Protein 12/15/16 12/15/16 12/15/16 08:55 11:50 13:16 RBC MCV MCH MCHC RDW PT INR Heparin Anti-Xa Level 0.16 L POC ABG pH POC ABG pCO2 70.5 H POC ABG pO2 108 H Chloride Carbon Dioxide POC Glucose 65 L Lactate Dehydrogenase Total Creatine Kinase CK-MB (CK-2) Rel Index C-Reactive Protein Fluid Total Protein 03/17/16 03/17/16 03/18/16 13:16 21:00 05:32 RBC MCV MCH MCHC RDW PT 15.9 H INR 1.28 H Heparin Anti-Xa Level 0.13 L POC ABG pH POC ABG pCO2 POC ABG pO2 Chloride Carbon Dioxide POC Glucose Lactate Dehydrogenase Total Creatine Kinase 14 L CK-MB (CK-2) Rel Index 7.1 H C-Reactive Protein Fluid Total Protein 03/18/16 03/18/16 03/18/16 07:35 07:43 15:45 RBC MCV MCH MCHC RDW PT INR Heparin Anti-Xa Level 0.71 H POC ABG pH POC ABG pCO2 POC ABG pO2 Chloride Carbon Dioxide POC Glucose 63 L 109 H Lactate Dehydrogenase Total Creatine Kinase CK-MB (CK-2) Rel Index C-Reactive Protein Fluid Total Protein 03/18/16 03/18/16 03/18/16 16:15 21:35 23:30 RBC MCV MCH MCHC RDW PT INR Heparin Anti-Xa Level 0.86 H 0.26 L POC ABG pH POC ABG pCO2 POC ABG pO2 Chloride Carbon Dioxide POC Glucose 106 H Lactate Dehydrogenase Total Creatine Kinase CK-MB (CK-2) Rel Index C-Reactive Protein Fluid Total Protein 03/19/16 03/19/16 03/19/16 06:57 08:28 17:12 RBC MCV MCH MCHC RDW PT 15.6 H INR 1.25 H Heparin Anti-Xa Level POC ABG pH POC ABG pCO2 POC ABG pO2 Chloride Carbon Dioxide POC Glucose 67 L 110 H Lactate Dehydrogenase Total Creatine Kinase CK-MB (CK-2) Rel Index C-Reactive Protein Fluid Total Protein 03/19/16 03/20/16 21:27 06:48 RBC MCV MCH MCHC RDW PT 16.9 H INR 1.38 H Heparin Anti-Xa Level POC ABG pH POC ABG pCO2 POC ABG pO2 Chloride Carbon Dioxide POC Glucose 107 H Lactate Dehydrogenase Total Creatine Kinase CK-MB (CK-2) Rel Index C-Reactive Protein Fluid Total Protein
--- NOTE | 2016-03-20 17:13 | Progress Note ---
Assessment and Plan Assessment and plan: --History of DVT and PE Subtherapeutic INR, continue heparin drip and Coumadin Target INR 2-3 --Chest pain probably secondary to PE Now resolved, supportive care --Acute hypoxemic respiratory failure on BiPAP as needed Multifactorial obesity hypoventilatory syndrome/obstructive sleep apnea/COPD/ pneumonia/pleural effusion Continue supportive care --Pneumonia/parapneumonic effusion/status post removal of 1.1 L pleural fluid Symptoms significantly improved --Malignant hypertension[status post nitroglycerin drip] No moderate control Continue current management --DVT prophylaxis; patient on Lovenox and Coumadin --Medical noncompliance/social issues; counseling done advised to adhere to treatment plan --DC planning per case management and patient's INR is therapeutic: And when patient is stable Plan of care discussed with the patient as well as the nurse Physical therapy evaluation and treat History Interval history: Patient seen and evaluated medical records reviewed Complains of vague back pain secondary to discomfort in the bed Denies chest pain or shortness of breath Alert awake oriented 3 not in acute distress On heparin and Coumadin, mild elevation of INR Hospitalist Physical - Constitutional Vitals: Temp Pulse Resp BP Pulse Ox 97.7 F 87 22 129/79 94 03/20/16 12:40 03/20/16 12:40 03/20/16 12:40 03/20/16 12:40 03/20/16 12:40 General appearance: Present: no acute distress, obese (morbidly obese) - EENT Eyes: Present: PERRL, EOM intact - Neck Neck: Present: supple, normal ROM - Cardiovascular Rhythm: regular Heart Sounds: Present: S1 & S2 - Extremities Extremities: no ischemia, pulses intact, pulses symmetrical Peripheral Pulses: within normal limits - Abdominal General gastrointestinal: soft, non-tender, non-distended, normal bowel sounds - Integumentary Integumentary: Present: clear, warm - Psychiatric Psychiatric: appropriate mood/affect, cooperative - Neurologic Neurologic: CNII-XII intact, moves all extremities Results - Labs CBC & Chem 7: 03/19/16 06:58 03/17/16 04:58 Labs: Laboratory Last Values WBC 8.2 K/mm3 (4.5-11.0) 03/17/16 04:58 RBC 5.50 M/mm3 (3.65-5.03) H 03/17/16 04:58 Hgb 11.5 gm/dl (10.1-14.3) 03/19/16 06:58 Hct 38.2 % (30.3-42.9) 03/19/16 06:58 MCV 70 fl (79-97) L 03/17/16 04:58 MCH 20 pg (28-32) L 03/17/16 04:58 MCHC 29 % (30-34) L 03/17/16 04:58 RDW 23.7 % (13.2-15.2) H 03/17/16 04:58 Plt Count 309 K/mm3 (140-440) 03/19/16 06:58 Lymph % (Auto) Fruit Rancher 03/17/16 04:58 [place] % (Auto) Fruit Rancher 03/17/16 04:58 Eos % (Auto) Fruit Rancher 03/17/16 04:58 Baso % (Auto) Fruit Rancher 03/17/16 04:58 Lymph # Fruit Rancher 03/17/16 04:58 [place] # Fruit Rancher 03/17/16 04:58 Eos # Fruit Rancher 03/17/16 04:58 Baso # Fruit Rancher 03/17/16 04:58 Seg Neutrophils % Fruit Rancher 03/17/16 04:58 Seg Neutrophils # Fruit Rancher 03/17/16 04:58 PT 16.9 Sec. (12.2-14.9) H 03/20/16 06:48 INR 1.38 (0.87-1.13) H 03/20/16 06:48 APTT 31.5 Sec. (24.2-36.6) 03/16/16 00:04 Heparin Anti-Xa Level 0.42 U.I./ml (0.3-0.7) 03/20/16 06:48 POC ABG pH 7.422 (7.35-7.45) 03/17/16 08:55 POC ABG pCO2 70.5 (35-45) H 03/17/16 08:55 POC ABG pO2 108 (80-105) H 03/17/16 08:55 POC ABG HCO3 46.0 03/17/16 08:55 POC ABG Total CO2 48 03/17/16 08:55 POC ABG O2 Sat 98 03/17/16 08:55 POC ABG Base Excess 22 03/17/16 08:55 FiO2 40 % 03/17/16 08:55 Sodium 142 mmol/L (137-145) 03/17/16 04:58 Potassium 4.8 mmol/L (3.6-5.0) 03/17/16 04:58 Chloride 94.9 mmol/L (98-107) L 03/17/16 04:58 Carbon Dioxide 40 mmol/L (22-30) H 03/17/16 04:58 Anion Gap 12 mmol/L 03/17/16 04:58 BUN 11 mg/dL (7-17) 03/17/16 04:58 Creatinine 0.8 mg/dL (0.7-1.2) 03/17/16 04:58 Estimated GFR > 60 ml/min 03/17/16 04:58 BUN/Creatinine Ratio 13.75 % 03/17/16 04:58 Glucose 78 mg/dL (65-100) 03/17/16 04:58 POC Glucose 107 (70-105) H 03/19/16 21:27 Lactic Acid 1.6 mmol/L (0.7-2.0) 03/15/16 20:20 Calcium 9.2 mg/dL (8.4-10.2) 03/17/16 04:58 Magnesium 2.2 mg/dL (1.7-2.3) 03/15/16 20:20 Total Bilirubin 1.0 mg/dL (0.1-1.2) 03/15/16 20:20 AST 13 units/L (5-40) 03/15/16 20:20 ALT 15 units/L (7-56) 03/15/16 20:20 Alkaline Phosphatase 67 units/L (35-129) 03/15/16 20:20 Lactate Dehydrogenase 328 units/L (91-180) H 03/16/16 12:16 Total Creatine Kinase 14 units/L (30-135) L 03/17/16 13:16 CK-MB (CK-2) < 1.0 ng/mL (0.0-4.0) 03/17/16 13:16 CK-MB (CK-2) Rel Index 7.1 (0-4) H 03/17/16 13:16 Troponin T < 0.010 ng/mL (0.00-0.029) 03/17/16 13:16 C-Reactive Protein 2.60 mg/dL (0.00-1.30) H 03/16/16 12:16 NT-Pro-B Natriuret Pep 957.2 pg/mL (0-450) H 03/15/16 20:20 Total Protein 7.9 g/dL (6.3-8.2) 03/15/16 20:20 Albumin 3.1 g/dL (3.9-5) L 03/15/16 20:20 Albumin/Globulin Ratio 0.6 % 03/15/16 20:20 HCG, Quant < 2 mIU/mL (0-4) 03/15/16 20:20 Urine Color Yellow (Yellow) 03/15/16 21:43 Urine Turbidity Clear (Clear) 03/15/16 21:43 Urine pH 5.0 (5.0-7.0) 03/15/16 21:43 Ur Specific [place] 1.016 (1.003-1.030) 03/15/16 21:43 Urine Protein 30 mg/dl mg/dL (Negative) 03/15/16 21:43 Urine Glucose (UA) Neg mg/dL (Negative) 03/15/16 21:43 Urine Ketones Neg mg/dL (Negative) 03/15/16 21:43 Urine Blood Neg (Negative) 03/15/16 21:43 Urine Nitrite Neg (Negative) 03/15/16 21:43 Urine Bilirubin Neg (Negative) 03/15/16 21:43 Urine Urobilinogen 4.0 mg/dL (<2.0) 03/15/16 21:43 Ur Leukocyte Esterase Neg (Negative) 03/15/16 21:43 Urine WBC (Auto) 3.0 /HPF (0.0-6.0) 03/15/16 21:43 Urine RBC (Auto) 1.0 /HPF (0.0-6.0) 03/15/16 21:43 U Epithel Cells (Auto) 1.0 /HPF (0-13.0) 03/15/16 21:43 Hyaline Casts 1 /LPF 03/15/16 21:43 Urine Mucus Few /HPF 03/15/16 21:43 Fluid Total Protein 4.5 (15.0-45.0) L 03/16/16 16:00 Fluid LDH 498 03/16/16 16:00
[2016-03-20] MEDS: COUMADIN PO SCH (17:56)
[2016-03-20] MEDS: ZOFRAN IV PRN (20:52)
[2016-03-20] MEDS: LEVAQUIN PO SCH (22:14)
[2016-03-21] MEDS: HEPARIN/ 0.45% NACL-25,000 UNIT/500 ML 500 ML IV SCH (06:17)
[2016-03-21 06:30] LABS: INR 1.5 (0.87-1.13)
[2016-03-21 06:43] LABS: Hematocrit 38.3 % (30.3-42.9)
[2016-03-21] MEDS: MORPHINE IV PRN (06:50)
--- NOTE | 2016-03-21 07:19 | XRay Report ---
AP CHEST History: Shortness of breath, evaluate for pneumothorax. Findings: Moderate to severe cardiomegaly and pulmonary venous congestion are relatively stable since 03/16/16. Moderate left pleural effusion has decreased by 3 or 4 rib levels since the previous exam. Interval ultrasound-guided thoracentesis has been performed. No pneumothorax is demonstrated. Impression: CHF. Decreased left pleural effusion since 03/16/16. No pneumothorax identified.
[2016-03-21] MEDS: COUMADIN PO SCH (18:15)
--- NOTE | 2016-03-21 18:44 | Progress Note ---
Assessment and Plan Assessment and plan: --Acute hypoxemic respiratory failure/secondary to morbid obesity/obesity hypoventilation/pulmonary embolism/an possible obstructive sleep apnea Continue oxygen titrated to O2 sats more than 90%, BiPAP as needed during day and at night Nebulizers and supportive care --History of PE and DVT/medical noncompliance/subtherapeutic INR Continue heparin drip and Coumadin INR levels trending up to 1.5 today Closely monitor for any evidence of bleeding --Lower lobe pneumonia. With parapneumonic effusion status post thoracentesis Symptoms significantly improved stable, cultures negative to date, continue Levaquin for total 10 days --Accelerated hypertension at the time of admission now well-controlled Continue current antihypertensives and when necessary medications --Morbid obesity/obesity hypoventilation syndrome/obstructive sleep apnea Patient needs to follow up with [facility] for outpatient sleep study and to set up CPAP at night Patient also would benefit by bariatric surgical consultation when medically stable. Weight reduction program upon discharge --Medical noncompliance; counseling done patient strongly advised to adhere to the treatment plan, verbalized understanding --Multiple social issues/social service consult for assistance with medication and DC planning --DVT prophylaxis patient is already on heparin and Coumadin GI prophylaxis with Protonix Closely monitor the INR within therapeutic DC heparin drip and plan for discharge Plan of care discussed with the patient her nurse as well as the case management History Interval history: Patient seen and evaluated this morning in her room medical records reviewed Patient is requiring high flow oxygen because of intermittent worsening shortness of breath, INR level slightly increased, on heparin drip and Coumadin Target INR 2-3 No new events reported by the nursing staff Alert awake oriented 3 not in acute distress Vital signs reviewed, stable Hospitalist Physical - Constitutional Vitals: Temp Pulse Resp BP Pulse Ox 97.3 F L 90 22 116/113 97 03/21/16 16:04 03/21/16 16:04 03/21/16 16:04 03/21/16 16:04 03/21/16 16:04 General appearance: Present: no acute distress, well-nourished, obese (morbidly obese) - EENT Eyes: Present: PERRL, EOM intact - Neck Neck: Present: supple, normal ROM - Respiratory Respiratory effort: normal Respiratory: bilateral: diminished, rales, negative: rhonchi, wheezing - Cardiovascular Rhythm: regular Heart Sounds: Present: S1 & S2 - Extremities Extremities: no ischemia, pulses intact, pulses symmetrical Peripheral Pulses: within normal limits - Abdominal General gastrointestinal: soft, non-tender, non-distended, normal bowel sounds - Integumentary Integumentary: Present: clear, warm - Psychiatric Psychiatric: appropriate mood/affect, cooperative - Neurologic Neurologic: CNII-XII intact, moves all extremities Results - Labs CBC & Chem 7: 03/21/16 05:11 03/17/16 04:58 Labs: Laboratory Last Values WBC 8.2 K/mm3 (4.5-11.0) 03/17/16 04:58 RBC 5.50 M/mm3 (3.65-5.03) H 03/17/16 04:58 Hgb 11.0 gm/dl (10.1-14.3) 03/21/16 05:11 Hct 38.3 % (30.3-42.9) 03/21/16 05:11 MCV 70 fl (79-97) L 03/17/16 04:58 MCH 20 pg (28-32) L 03/17/16 04:58 MCHC 29 % (30-34) L 03/17/16 04:58 RDW 23.7 % (13.2-15.2) H 03/17/16 04:58 Plt Count 238 K/mm3 (140-440) 03/21/16 05:11 Lymph % (Auto) Resaw Carriage Operator 03/17/16 04:58 [place] % (Auto) Resaw Carriage Operator 03/17/16 04:58 Eos % (Auto) Resaw Carriage Operator 03/17/16 04:58 Baso % (Auto) Resaw Carriage Operator 03/17/16 04:58 Lymph # [employer]aw Carriage Operator 03/17/16 04:58 [place] # Resaw Carriage Operator 03/17/16 04:58 Eos # Resaw Carriage Operator 03/17/16 04:58 Baso # Resaw Carriage Operator 03/17/16 04:58 Seg Neutrophils % Resaw Carriage Operator 03/17/16 04:58 Seg Neutrophils # Resaw Carriage Operator 03/17/16 04:58 PT 18.1 Sec. (12.2-14.9) H 03/21/16 05:11 INR 1.50 (0.87-1.13) H 03/21/16 05:11 APTT 31.5 Sec. (24.2-36.6) 03/16/16 00:04 Heparin Anti-Xa Level 0.59 U.I./ml (0.3-0.7) 03/21/16 12:51 POC ABG pH 7.422 (7.35-7.45) 03/17/16 08:55 POC ABG pCO2 70.5 (35-45) H 03/17/16 08:55 POC ABG pO2 108 (80-105) H 03/17/16 08:55 POC ABG HCO3 46.0 03/17/16 08:55 POC ABG Total CO2 48 03/17/16 08:55 POC ABG O2 Sat 98 03/17/16 08:55 POC ABG Base Excess 22 03/17/16 08:55 FiO2 40 % 03/17/16 08:55 Sodium 142 mmol/L (137-145) 03/17/16 04:58 Potassium 4.8 mmol/L (3.6-5.0) 03/17/16 04:58 Chloride 94.9 mmol/L (98-107) L 03/17/16 04:58 Carbon Dioxide 40 mmol/L (22-30) H 03/17/16 04:58 Anion Gap 12 mmol/L 03/17/16 04:58 BUN 11 mg/dL (7-17) 03/17/16 04:58 Creatinine 0.8 mg/dL (0.7-1.2) 03/17/16 04:58 Estimated GFR > 60 ml/min 03/17/16 04:58 BUN/Creatinine Ratio 13.75 % 03/17/16 04:58 Glucose 78 mg/dL (65-100) 03/17/16 04:58 POC Glucose 105 (70-105) 03/20/16 21:47 Lactic Acid 1.6 mmol/L (0.7-2.0) 03/15/16 20:20 Calcium 9.2 mg/dL (8.4-10.2) 03/17/16 04:58 Magnesium 2.2 mg/dL (1.7-2.3) 03/15/16 20:20 Total Bilirubin 1.0 mg/dL (0.1-1.2) 03/15/16 20:20 AST 13 units/L (5-40) 03/15/16 20:20 ALT 15 units/L (7-56) 03/15/16 20:20 Alkaline Phosphatase 67 units/L (35-129) 03/15/16 20:20 Lactate Dehydrogenase 328 units/L (91-180) H 03/16/16 12:16 Total Creatine Kinase 14 units/L (30-135) L 03/17/16 13:16 CK-MB (CK-2) < 1.0 ng/mL (0.0-4.0) 03/17/16 13:16 CK-MB (CK-2) Rel Index 7.1 (0-4) H 03/17/16 13:16 Troponin T < 0.010 ng/mL (0.00-0.029) 03/17/16 13:16 C-Reactive Protein 2.60 mg/dL (0.00-1.30) H 03/16/16 12:16 NT-Pro-B Natriuret Pep 957.2 pg/mL (0-450) H 03/15/16 20:20 Total Protein 7.9 g/dL (6.3-8.2) 03/15/16 20:20 Albumin 3.1 g/dL (3.9-5) L 03/15/16 20:20 Albumin/Globulin Ratio 0.6 % 03/15/16 20:20 HCG, Quant < 2 mIU/mL (0-4) 03/15/16 20:20 Urine Color Yellow (Yellow) 03/15/16 21:43 Urine Turbidity Clear (Clear) 03/15/16 21:43 Urine pH 5.0 (5.0-7.0) 03/15/16 21:43 Ur Specific [place] 1.016 (1.003-1.030) 03/15/16 21:43 Urine Protein 30 mg/dl mg/dL (Negative) 03/15/16 21:43 Urine Glucose (UA) Neg mg/dL (Negative) 03/15/16 21:43 Urine Ketones Neg mg/dL (Negative) 03/15/16 21:43 Urine Blood Neg (Negative) 03/15/16 21:43 Urine Nitrite Neg (Negative) 03/15/16 21:43 Urine Bilirubin Neg (Negative) 03/15/16 21:43 Urine Urobilinogen 4.0 mg/dL (<2.0) 03/15/16 21:43 Ur Leukocyte Esterase Neg (Negative) 03/15/16 21:43 Urine WBC (Auto) 3.0 /HPF (0.0-6.0) 03/15/16 21:43 Urine RBC (Auto) 1.0 /HPF (0.0-6.0) 03/15/16 21:43 U Epithel Cells (Auto) 1.0 /HPF (0-13.0) 03/15/16 21:43 Hyaline Casts 1 /LPF 03/15/16 21:43 Urine Mucus Few /HPF 03/15/16 21:43 Fluid Total Protein 4.5 (15.0-45.0) L 03/16/16 16:00 Fluid LDH 498 03/16/16 16:00
--- NOTE | 2016-03-21 21:03 | Progress Note ---
Assessment and Plan This is 40 year old female Morbidly obese came to the emergency room with a complaint of shortness of breath. Patients chest xray obtained showed complete opacification of left hemithorax. Patient has history of hypertension and pulmonary emboli.Patients pulmonary emboli diagnosed 3 months ago by CTA of the chest. Patient also diagnsed at that time DVT in left leg. Patient non compliant with her medications, Patient stopped taking Eliquis.Patient started on S/C Lovenox and Coumadin.Patient also treated for pneumonia recently at [facility]. Patients blood gases showed, patient is in respiratory failure. Patient placed on BIPAP Rate 20, 22/10, FIO2 50%. Patient awake ,following commands. Repeating blood gases in AM.[place] no known allergies. Smoking,alcohol or drug history not known at this time.Patient started on Levaquine and zosyn. Obtaining ultrasound of chest for possible left pleural effusion. 03/18/16 Patient resting on Face mask, FIO2 50%. O2 saturation 84%. Patient S/P right thoracentesis 03/21/16 Patient alert, awake and oriented.Patient resting on Face mask, FIO2 50%. O2 saturation 90%. Patient S/P right thoracentesis - Patient Problems (1) Acute and chronic respiratory failure ([id number]) Current Visit: No Status: Acute Plan to address problem: Patient is on BIPAP 22/10, rate 20, FIO2 50% Continue Lovenox and coumadin. Albuterol/atrovent aerosol treatments. (2) Pulmonary emboli Current Visit: No Status: Acute Plan to address problem: LOvenox at therapeutic doses Start Coumadin. 03/21/16 Patient presently is on I/V Heparin and coumadin. (3) Left femoral vein DVT Current Visit: No Status: Acute Plan to address problem: Lovenox and coumadin. 03/21/16 Patient presently is on I/V Heparin and coumadin. (4) Pneumonia Current Visit: Yes Status: Acute Plan to address problem: Patient is on Zosyn and Levaquine. 03/18/16 Patient presently on Levaquine. (5) Pleural effusion, left Current Visit: Yes Status: Acute Plan to address problem: Patients ultrasound of chest reported pleural effusion. Patient under gone left thoracentesis. (6) Morbid obesity with BMI of 70 and over, adult Current Visit: No Status: Chronic Plan to address problem: Nutritional consultation for weight reduction diet. (7) Sleep apnea Current Visit: No Status: Chronic Plan to address problem: Patient is on BIPAP. Subjective Date of service: 03/21/16 Principal diagnosis: Acute Hypoxemic Respiratory Failure; Left Pleural Effusion Interval history: Patient alert, awake and oriented.Patient resting on Face mask, FIO2 50%. O2 saturation 90%. Patient S/P right thoracentesis Objective Vital Signs - 12hr 03/21/16 03/21/16 03/21/16 10:00 11:05 16:04 Temperature 97.5 F L 97.3 F L Pulse Rate 79 Pulse Rate [ 76 From Monitor] Pulse Rate [ 89 90 Right Dorsalis Pedis] Respiratory 20 22 22 Rate Blood Pressure 172/95 116/113 [Right Arm] O2 Sat by Pulse 97 97 97 Oximetry 03/21/16 20:34 Temperature 98.1 F Pulse Rate Pulse Rate [ 90 From Monitor] Pulse Rate [ Right Dorsalis Pedis] Respiratory 24 Rate Blood Pressure 129/81 [Right Arm] O2 Sat by Pulse 90 Oximetry Constitutional: no acute distress, alert Eyes: non-icteric ENT: oropharynx moist Neck: supple, no JVD Ascultation: Bilateral: diminished breath sounds (LLL), rales (LLL) Cardiovascular: regular rate and rhythm Gastrointestinal: normoactive bowel sounds, soft, non-tender, non-distended Integumentary: other (Stasis dermatitis.) Extremities: no cyanosis, pink and warm, pulses normal, no ischemia or petechiae , edema Neurologic: normal mental status, non-focal exam, pupils equal and round, motor strength normal and Psychiatric: mood appropriate, affect normal CBC and BMP: 03/21/16 05:11 03/17/16 04:58 ABG, PT/INR, D-dimer: ABG POC ABG pH 7.422 (7.35-7.45) 03/17/16 08:55 POC ABG pCO2 70.5 (35-45) H 03/17/16 08:55 POC ABG pO2 108 (80-105) H 03/17/16 08:55 POC ABG HCO3 46.0 03/17/16 08:55 POC ABG Total CO2 48 03/17/16 08:55 POC ABG O2 Sat 98 03/17/16 08:55 PT/INR, D-dimer PT 18.1 Sec. (12.2-14.9) H 03/21/16 05:11 INR 1.50 (0.87-1.13) H 03/21/16 05:11 Abnormal lab findings: Abnormal Labs 03/16/16 03/16/16 03/16/16 00:04 01:01 07:49 RBC MCV MCH MCHC RDW PT 15.8 H INR 1.27 H Heparin Anti-Xa Level 0.18 L POC ABG pH 7.304 L POC ABG pCO2 92.8 H POC ABG pO2 Chloride Carbon Dioxide POC Glucose Lactate Dehydrogenase Total Creatine Kinase CK-MB (CK-2) Rel Index C-Reactive Protein Fluid Total Protein 03/16/16 03/16/16 03/16/16 12:16 16:00 17:21 RBC MCV MCH MCHC RDW PT INR Heparin Anti-Xa Level < 0.11 L POC ABG pH POC ABG pCO2 POC ABG pO2 Chloride Carbon Dioxide POC Glucose Lactate Dehydrogenase 328 H Total Creatine Kinase CK-MB (CK-2) Rel Index C-Reactive Protein 2.60 H Fluid Total Protein 4.5 L 03/17/16 03/17/16 03/17/16 04:58 04:58 04:58 RBC 5.50 H MCV 70 L MCH 20 L MCHC 29 L RDW 23.7 H PT INR Heparin Anti-Xa Level 0.14 L POC ABG pH POC ABG pCO2 POC ABG pO2 Chloride 94.9 L Carbon Dioxide 40 H POC Glucose Lactate Dehydrogenase Total Creatine Kinase CK-MB (CK-2) Rel Index C-Reactive Protein Fluid Total Protein 03/17/16 03/17/16 03/17/16 08:55 11:50 13:16 RBC MCV MCH MCHC RDW PT INR Heparin Anti-Xa Level 0.16 L POC ABG pH POC ABG pCO2 70.5 H POC ABG pO2 108 H Chloride Carbon Dioxide POC Glucose 65 L Lactate Dehydrogenase Total Creatine Kinase CK-MB (CK-2) Rel Index C-Reactive Protein Fluid Total Protein 03/17/16 03/17/16 03/18/16 13:16 21:00 05:32 RBC MCV MCH MCHC RDW PT 15.9 H INR 1.28 H Heparin Anti-Xa Level 0.13 L POC ABG pH POC ABG pCO2 POC ABG pO2 Chloride Carbon Dioxide POC Glucose Lactate Dehydrogenase Total Creatine Kinase 14 L CK-MB (CK-2) Rel Index 7.1 H C-Reactive Protein Fluid Total Protein 03/18/16 03/18/16 03/18/16 07:35 07:43 15:45 RBC MCV MCH MCHC RDW PT INR Heparin Anti-Xa Level 0.71 H POC ABG pH POC ABG pCO2 POC ABG pO2 Chloride Carbon Dioxide POC Glucose 63 L 109 H Lactate Dehydrogenase Total Creatine Kinase CK-MB (CK-2) Rel Index C-Reactive Protein Fluid Total Protein 03/18/16 03/18/16 03/18/16 16:15 21:35 23:30 RBC MCV MCH MCHC RDW PT INR Heparin Anti-Xa Level 0.86 H 0.26 L POC ABG pH POC ABG pCO2 POC ABG pO2 Chloride Carbon Dioxide POC Glucose 106 H Lactate Dehydrogenase Total Creatine Kinase CK-MB (CK-2) Rel Index C-Reactive Protein Fluid Total Protein 03/19/16 03/19/16 03/19/16 06:57 08:28 17:12 RBC MCV MCH MCHC RDW PT 15.6 H INR 1.25 H Heparin Anti-Xa Level POC ABG pH POC ABG pCO2 POC ABG pO2 Chloride Carbon Dioxide POC Glucose 67 L 110 H Lactate Dehydrogenase Total Creatine Kinase CK-MB (CK-2) Rel Index C-Reactive Protein Fluid Total Protein 03/19/16 03/20/16 03/21/16 21:27 06:48 05:11 RBC MCV MCH MCHC RDW PT 16.9 H 18.1 H INR 1.38 H 1.50 H Heparin Anti-Xa Level POC ABG pH POC ABG pCO2 POC ABG pO2 Chloride Carbon Dioxide POC Glucose 107 H Lactate Dehydrogenase Total Creatine Kinase CK-MB (CK-2) Rel Index C-Reactive Protein Fluid Total Protein 03/21/16 05:11 RBC MCV MCH MCHC RDW PT INR Heparin Anti-Xa Level 0.27 L POC ABG pH POC ABG pCO2 POC ABG pO2 Chloride Carbon Dioxide POC Glucose Lactate Dehydrogenase Total Creatine Kinase CK-MB (CK-2) Rel Index C-Reactive Protein Fluid Total Protein Chest x-ray: report reviewed (Decreased left pleural effusion. No pneumothorax.) , image reviewed
[2016-03-22] MEDS: MORPHINE IV PRN ×3 (01:55→22:08)
[2016-03-22] MEDS: HEPARIN/ 0.45% NACL-25,000 UNIT/500 ML 500 ML IV SCH ×2 (03:15→16:54)
[2016-03-22] MEDS: PERCOCET 5/325 PO PRN ×2 (09:50→15:30)
--- NOTE | 2016-03-22 12:20 | Progress Note ---
Assessment and Plan Assessment and plan: --Acute hypoxemic respiratory failure/secondary to morbid obesity/obesity hypoventilation/pulmonary embolism/an possible obstructive sleep apnea Continue oxygen titrated to O2 sats more than 90%, BiPAP as needed during day and at night Nebulizers and supportive care --History of PE and DVT/medical noncompliance/subtherapeutic INR Continue heparin drip and Coumadin INR levels trending up to 2 today Closely monitor for any evidence of bleeding, Dc heparin ggt when INR >2 for 2 consecutive days --Lower lobe pneumonia. With parapneumonic effusion status post thoracentesis Has completed a course of antibiotics --Accelerated hypertension at the time of admission now well-controlled Continue current antihypertensives and when necessary medications --Morbid obesity/obesity hypoventilation syndrome/obstructive sleep apnea Patient needs to follow up with engineering technician for outpatient sleep study and to set up CPAP at night Patient also would benefit by bariatric surgical consultation when medically stable. Weight reduction program upon discharge --Medical noncompliance; counseling done patient strongly advised to adhere to the treatment plan, verbalized understanding --Multiple social issues/social service consult for assistance with medication and DC planning --DVT prophylaxis patient is already on heparin and Coumadin GI prophylaxis with Protonix Closely monitor the INR within therapeutic DC heparin drip and plan for discharge Plan of care discussed with the patient her nurse as well as the case management History Interval history: she belives that her breathing has improved, admits to SOB, she has been able to eat, has been able to transfer from bed to chair with assistance, but has not been in to do much more, she has much dyspnea on exertion, denies CP, Hospitalist Physical - Physical exam Narrative exam: General: Mild respiratory distress, appears exhausted, obese HEENT: MMM, EOMI cardiac: S1-S2 heard lungs: Decreased air entry abdomen: soft, nontender, nondistended bowel sounds positive extremities: no edema clubbing or cyanosis Skin: no rash or lesion Neuro: no focal deficit Psych: appropriate behavior and mood, cognition intact - Constitutional Vitals: Temp Pulse Resp BP Pulse Ox 97.9 F 74 22 162/86 90 03/22/16 08:35 03/22/16 10:00 03/22/16 08:35 03/22/16 08:35 03/22/16 08:56 General appearance: Present: no acute distress, well-nourished, obese (morbidly obese) Results - Labs CBC & Chem 7: 03/23/16 05:03 03/17/16 04:58 Labs: Laboratory Last Values WBC 8.2 K/mm3 (4.5-11.0) 03/17/16 04:58 RBC 5.50 M/mm3 (3.65-5.03) H 03/17/16 04:58 Hgb 11.0 gm/dl (10.1-14.3) 03/21/16 05:11 Hct 38.3 % (30.3-42.9) 03/21/16 05:11 MCV 70 fl (79-97) L 03/17/16 04:58 MCH 20 pg (28-32) L 03/17/16 04:58 MCHC 29 % (30-34) L 03/17/16 04:58 RDW 23.7 % (13.2-15.2) H 03/17/16 04:58 Plt Count 238 K/mm3 (140-440) 03/21/16 05:11 Lymph % (Auto) Eyeglass Inspector 03/17/16 04:58 [place] % (Auto) Eyeglass Inspector 03/17/16 04:58 Eos % (Auto) Eyeglass Inspector 03/17/16 04:58 Baso % (Auto) Eyeglass Inspector 03/17/16 04:58 Lymph # Eyeglass Inspector 03/17/16 04:58 [place] # Eyeglass Inspector 03/17/16 04:58 Eos # Eyeglass Inspector 03/17/16 04:58 Baso # Eyeglass Inspector 03/17/16 04:58 Seg Neutrophils % Eyeglass Inspector 03/17/16 04:58 Seg Neutrophils # Eyeglass Inspector 03/17/16 04:58 PT 22.7 Sec. (12.2-14.9) H 03/22/16 04:46 INR 2.00 (0.87-1.13) H 03/22/16 04:46 APTT 31.5 Sec. (24.2-36.6) 03/16/16 00:04 Heparin Anti-Xa Level 0.58 U.I./ml (0.3-0.7) 03/22/16 04:46 POC ABG pH 7.422 (7.35-7.45) 03/17/16 08:55 POC ABG pCO2 70.5 (35-45) H 03/17/16 08:55 POC ABG pO2 108 (80-105) H 03/17/16 08:55 POC ABG HCO3 46.0 03/17/16 08:55 POC ABG Total CO2 48 03/17/16 08:55 POC ABG O2 Sat 98 03/17/16 08:55 POC ABG Base Excess 22 03/17/16 08:55 FiO2 40 % 03/17/16 08:55 Sodium 142 mmol/L (137-145) 03/17/16 04:58 Potassium 4.8 mmol/L (3.6-5.0) 03/17/16 04:58 Chloride 94.9 mmol/L (98-107) L 03/17/16 04:58 Carbon Dioxide 40 mmol/L (22-30) H 03/17/16 04:58 Anion Gap 12 mmol/L 03/17/16 04:58 BUN 11 mg/dL (7-17) 03/17/16 04:58 Creatinine 0.8 mg/dL (0.7-1.2) 03/17/16 04:58 Estimated GFR > 60 ml/min 03/17/16 04:58 BUN/Creatinine Ratio 13.75 % 03/17/16 04:58 Glucose 78 mg/dL (65-100) 03/17/16 04:58 POC Glucose 104 (70-105) 03/21/16 21:18 Lactic Acid 1.6 mmol/L (0.7-2.0) 03/15/16 20:20 Calcium 9.2 mg/dL (8.4-10.2) 03/17/16 04:58 Magnesium 2.2 mg/dL (1.7-2.3) 03/15/16 20:20 Total Bilirubin 1.0 mg/dL (0.1-1.2) 03/15/16 20:20 AST 13 units/L (5-40) 03/15/16 20:20 ALT 15 units/L (7-56) 03/15/16 20:20 Alkaline Phosphatase 67 units/L (35-129) 03/15/16 20:20 Lactate Dehydrogenase 328 units/L (91-180) H 03/16/16 12:16 Total Creatine Kinase 14 units/L (30-135) L 03/17/16 13:16 CK-MB (CK-2) < 1.0 ng/mL (0.0-4.0) 03/17/16 13:16 CK-MB (CK-2) Rel Index 7.1 (0-4) H 03/17/16 13:16 Troponin T < 0.010 ng/mL (0.00-0.029) 03/17/16 13:16 C-Reactive Protein 2.60 mg/dL (0.00-1.30) H 03/16/16 12:16 NT-Pro-B Natriuret Pep 957.2 pg/mL (0-450) H 03/15/16 20:20 Total Protein 7.9 g/dL (6.3-8.2) 03/15/16 20:20 Albumin 3.1 g/dL (3.9-5) L 03/15/16 20:20 Albumin/Globulin Ratio 0.6 % 03/15/16 20:20 HCG, Quant < 2 mIU/mL (0-4) 03/15/16 20:20 Urine Color Yellow (Yellow) 03/15/16 21:43 Urine Turbidity Clear (Clear) 03/15/16 21:43 Urine pH 5.0 (5.0-7.0) 03/15/16 21:43 Ur Specific [place] 1.016 (1.003-1.030) 03/15/16 21:43 Urine Protein 30 mg/dl mg/dL (Negative) 03/15/16 21:43 Urine Glucose (UA) Neg mg/dL (Negative) 03/15/16 21:43 Urine Ketones Neg mg/dL (Negative) 03/15/16 21:43 Urine Blood Neg (Negative) 03/15/16 21:43 Urine Nitrite Neg (Negative) 03/15/16 21:43 Urine Bilirubin Neg (Negative) 03/15/16 21:43 Urine Urobilinogen 4.0 mg/dL (<2.0) 03/15/16 21:43 Ur Leukocyte Esterase Neg (Negative) 03/15/16 21:43 Urine WBC (Auto) 3.0 /HPF (0.0-6.0) 03/15/16 21:43 Urine RBC (Auto) 1.0 /HPF (0.0-6.0) 03/15/16 21:43 U Epithel Cells (Auto) 1.0 /HPF (0-13.0) 03/15/16 21:43 Hyaline Casts 1 /LPF 03/15/16 21:43 Urine Mucus Few /HPF 03/15/16 21:43 Fluid Total Protein 4.5 (15.0-45.0) L 03/16/16 16:00 Fluid LDH 498 03/16/16 16:00
[2016-03-22] MEDS: MILK OF MAGNESIA PO PRN (15:30)
[2016-03-22] MEDS: COUMADIN PO SCH (17:27)
--- NOTE | 2016-03-22 20:38 | Progress Note ---
Assessment and Plan This is 40 year old female Morbidly obese came to the emergency room with a complaint of shortness of breath. Patients chest xray obtained showed complete opacification of left hemithorax. Patient has history of hypertension and pulmonary emboli.Patients pulmonary emboli diagnosed 3 months ago by CTA of the chest. Patient also diagnsed at that time DVT in left leg. Patient non compliant with her medications, Patient stopped taking Eliquis.Patient started on S/C Lovenox and Coumadin.Patient also treated for pneumonia recently at [facility]. Patients blood gases showed, patient is in respiratory failure. Patient placed on BIPAP Rate 20, 22/10, FIO2 50%. Patient awake ,following commands. Repeating blood gases in AM.[place] no known allergies. Smoking,alcohol or drug history not known at this time.Patient started on Levaquine and zosyn. Obtaining ultrasound of chest for possible left pleural effusion. 03/18/16 Patient resting on Face mask, FIO2 50%. O2 saturation 84%. Patient S/P right thoracentesis 03/21/16 Patient alert, awake and oriented.Patient resting on Face mask, FIO2 50%. O2 saturation 90%. Patient S/P right thoracentesis 03/22/16 Patient sleeping at this time On bipap. Patient is on BIPAP 22/10, FIO2 40% and O2 satuaration running 95%.Patient tolerating BIPAP good.No respiratory distress. - Patient Problems (1) Acute and chronic respiratory failure ([id number]) Current Visit: No Status: Acute Plan to address problem: Patient is on BIPAP 22/10, rate 20, FIO2 50% Continue Lovenox and coumadin. Albuterol/atrovent aerosol treatments. (2) Pulmonary emboli Current Visit: No Status: Acute Plan to address problem: 03/21/16 Patient presently is on I/V Heparin and coumadin. 03/22/16 Patient is on I/V Heparin and warfarin. (3) Left femoral vein DVT Current Visit: No Status: Acute Plan to address problem: Lovenox and coumadin. 03/21/16 Patient presently is on I/V Heparin and coumadin. 03/22/16 Patient is on I/V heparin and coumadin. (4) Pneumonia Current Visit: Yes Status: Acute Plan to address problem: Patient is on Zosyn and Levaquine. 03/18/16 Patient presently on Levaquine. (5) Pleural effusion, left Current Visit: Yes Status: Acute Plan to address problem: Patients ultrasound of chest reported pleural effusion. Patient under gone left thoracentesis. (6) Morbid obesity with BMI of 70 and over, adult Current Visit: No Status: Chronic Plan to address problem: Nutritional consultation for weight reduction diet. (7) Sleep apnea Current Visit: No Status: Chronic Plan to address problem: Patient is on BIPAP. Subjective Date of service: 03/22/16 Principal diagnosis: Acute Hypoxemic Respiratory Failure; Left Pleural Effusion Interval history: Patient sleeping at this time On bipap. Patient is on BIPAP 22/, FIO2 40% and O2 satuaration running 95%.Patient tolerating BIPAP good.No respiratory distress. Objective Vital Signs - 12hr 03/22/16 03/22/16 03/22/16 08:56 10:00 12:10 Temperature 97.9 F Pulse Rate 74 Pulse Rate [ 74 89 From Monitor] Respiratory 20 Rate Blood Pressure 187/134 [Right Arm] O2 Sat by Pulse 90 93 Oximetry 03/22/16 03/22/16 16:35 19:56 Temperature 98.5 F Pulse Rate Pulse Rate [ 100 H From Monitor] Respiratory 20 Rate Blood Pressure 117/88 [Right Arm] O2 Sat by Pulse 92 91 Oximetry Constitutional: no acute distress, alert Eyes: non-icteric ENT: oropharynx moist Neck: supple, no JVD Ascultation: Bilateral: diminished breath sounds (LLL), rales (LLL) Cardiovascular: regular rate and rhythm Gastrointestinal: normoactive bowel sounds, soft, non-tender, non-distended Integumentary: other (Stasis dermatitis.) Extremities: no cyanosis, pink and warm, pulses normal, no ischemia or petechiae , edema Neurologic: normal mental status, non-focal exam, pupils equal and round, motor strength normal and Psychiatric: mood appropriate, affect normal CBC and BMP: 03/21/16 05:11 03/17/16 04:58 ABG, PT/INR, D-dimer: ABG POC ABG pH 7.422 (7.35-7.45) 03/17/16 08:55 POC ABG pCO2 70.5 (35-45) H 03/17/16 08:55 POC ABG pO2 108 (80-105) H 03/17/16 08:55 POC ABG HCO3 46.0 03/17/16 08:55 POC ABG Total CO2 48 03/17/16 08:55 POC ABG O2 Sat 98 03/17/16 08:55 PT/INR, D-dimer PT 22.7 Sec. (12.2-14.9) H 03/22/16 04:46 INR 2.00 (0.87-1.13) H 03/22/16 04:46 Abnormal lab findings: Abnormal Labs 03/16/16 03/16/16 03/16/16 00:04 01:01 07:49 RBC MCV MCH MCHC RDW PT 15.8 H INR 1.27 H Heparin Anti-Xa Level 0.18 L POC ABG pH 7.304 L POC ABG pCO2 92.8 H POC ABG pO2 Chloride Carbon Dioxide POC Glucose Lactate Dehydrogenase Total Creatine Kinase CK-MB (CK-2) Rel Index C-Reactive Protein Fluid Total Protein 03/16/16 03/16/16 03/16/16 12:16 16:00 17:21 RBC MCV MCH MCHC RDW PT INR Heparin Anti-Xa Level < 0.11 L POC ABG pH POC ABG pCO2 POC ABG pO2 Chloride Carbon Dioxide POC Glucose Lactate Dehydrogenase 328 H Total Creatine Kinase CK-MB (CK-2) Rel Index C-Reactive Protein 2.60 H Fluid Total Protein 4.5 L 03/17/16 03/17/16 03/17/16 04:58 04:58 04:58 RBC 5.50 H MCV 70 L MCH 20 L MCHC 29 L RDW 23.7 H PT INR Heparin Anti-Xa Level 0.14 L POC ABG pH POC ABG pCO2 POC ABG pO2 Chloride 94.9 L Carbon Dioxide 40 H POC Glucose Lactate Dehydrogenase Total Creatine Kinase CK-MB (CK-2) Rel Index C-Reactive Protein Fluid Total Protein 03/17/16 03/17/16 03/17/16 08:55 11:50 13:16 RBC MCV MCH MCHC RDW PT INR Heparin Anti-Xa Level 0.16 L POC ABG pH POC ABG pCO2 70.5 H POC ABG pO2 108 H Chloride Carbon Dioxide POC Glucose 65 L Lactate Dehydrogenase Total Creatine Kinase CK-MB (CK-2) Rel Index C-Reactive Protein Fluid Total Protein 03/17/16 03/17/16 03/18/16 13:16 21:00 05:32 RBC MCV MCH MCHC RDW PT 15.9 H INR 1.28 H Heparin Anti-Xa Level 0.13 L POC ABG pH POC ABG pCO2 POC ABG pO2 Chloride Carbon Dioxide POC Glucose Lactate Dehydrogenase Total Creatine Kinase 14 L CK-MB (CK-2) Rel Index 7.1 H C-Reactive Protein Fluid Total Protein 03/18/16 03/18/16 03/18/16 07:35 07:43 15:45 RBC MCV MCH MCHC RDW PT INR Heparin Anti-Xa Level 0.71 H POC ABG pH POC ABG pCO2 POC ABG pO2 Chloride Carbon Dioxide POC Glucose 63 L 109 H Lactate Dehydrogenase Total Creatine Kinase CK-MB (CK-2) Rel Index C-Reactive Protein Fluid Total Protein 03/18/16 03/18/16 03/18/16 16:15 21:35 23:30 RBC MCV MCH MCHC RDW PT INR Heparin Anti-Xa Level 0.86 H 0.26 L POC ABG pH POC ABG pCO2 POC ABG pO2 Chloride Carbon Dioxide POC Glucose 106 H Lactate Dehydrogenase Total Creatine Kinase CK-MB (CK-2) Rel Index C-Reactive Protein Fluid Total Protein 03/19/16 03/19/16 03/19/16 06:57 08:28 17:12 RBC MCV MCH MCHC RDW PT 15.6 H INR 1.25 H Heparin Anti-Xa Level POC ABG pH POC ABG pCO2 POC ABG pO2 Chloride Carbon Dioxide POC Glucose 67 L 110 H Lactate Dehydrogenase Total Creatine Kinase CK-MB (CK-2) Rel Index C-Reactive Protein Fluid Total Protein 03/19/16 03/20/16 03/21/16 21:27 06:48 05:11 RBC MCV MCH MCHC RDW PT 16.9 H 18.1 H INR 1.38 H 1.50 H Heparin Anti-Xa Level POC ABG pH POC ABG pCO2 POC ABG pO2 Chloride Carbon Dioxide POC Glucose 107 H Lactate Dehydrogenase Total Creatine Kinase CK-MB (CK-2) Rel Index C-Reactive Protein Fluid Total Protein 03/21/16 03/21/16 03/21/16 05:11 16:02 21:59 RBC MCV MCH MCHC RDW PT INR Heparin Anti-Xa Level 0.27 L 0.79 H POC ABG pH POC ABG pCO2 POC ABG pO2 Chloride Carbon Dioxide POC Glucose 128 H Lactate Dehydrogenase Total Creatine Kinase CK-MB (CK-2) Rel Index C-Reactive Protein Fluid Total Protein 03/22/16 04:46 RBC MCV MCH MCHC RDW PT 22.7 H INR 2.00 H Heparin Anti-Xa Level POC ABG pH POC ABG pCO2 POC ABG pO2 Chloride Carbon Dioxide POC Glucose Lactate Dehydrogenase Total Creatine Kinase CK-MB (CK-2) Rel Index C-Reactive Protein Fluid Total Protein
[2016-03-22] MEDS: APRESOLINE IV PRN (21:22)
[2016-03-22] MEDS ORDERED: APRESOLINE IV SCH (22:00)
[2016-03-23] MEDS: HEPARIN/ 0.45% NACL-25,000 UNIT/500 ML 500 ML IV SCH ×2 (02:19→18:23)
[2016-03-23] MEDS: MORPHINE IV PRN ×2 (05:33→11:42)
[2016-03-23 06:12] LABS: Hematocrit 39.2 % (30.3-42.9); Hemoglobin 11.4 gm/dl (10.1-14.3)
[2016-03-23 06:17] LABS: INR 1.87 (0.87-1.13)
[2016-03-23] MEDS: PERCOCET 5/325 PO PRN ×2 (09:20→18:16)
--- NOTE | 2016-03-23 11:03 | Progress Note ---
Assessment and Plan Assessment and plan: 1. Acute hypoxemic respiratory failure. Patient currently on BiPAP. Etiology is multifactorial. Patient with left parapneumonic effusion sp thoracentesis. Pulmonary following. Patient does have a history of PE/DVT and morbid obesity with probable LENA/OHS. Doppler ultrasound of lower extremities negative. 2. Left lower lobe pneumonia with parapneumonic effusion. Patient is status post thoracentesis with 1.1 L removed. continue abx 3. Accelerated hypertension. continue current meds 4. History of PE/DVT. Continue IV heparin bridge and warfarin 5. Type 2 diabetes mellitus. Continue Accu-Cheks and sliding scale regular insulin. 6. Morbid obesity. Nutritional consultation. 7. 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 Patient will need further follow-up as an outpatient, will likely need CPAP machine upon dc. 8. GI prophylaxis. Continue Protonix. History Interval history: she belives that her breathing has improved, admits to SOB, she has been able to eat, but has not gotten out of bed, denies CP, Hospitalist Physical - Physical exam Narrative exam: General: Mild respiratory distress, appears exhausted, obese HEENT: MMM, EOMI cardiac: S1-S2 heard lungs: Decreased air entry abdomen: soft, nontender, nondistended bowel sounds positive extremities: no edema clubbing or cyanosis Skin: no rash or lesion Neuro: no focal deficit Psych: appropriate behavior and mood, cognition intact - Constitutional Vitals: Temp Pulse Resp BP Pulse Ox 97.4 F L 82 20 153/88 95 03/23/16 08:17 03/23/16 08:17 03/23/16 08:17 03/23/16 08:17 03/23/16 08:17 General appearance: Present: mild distress, obese Results - Labs CBC & Chem 7: 03/23/16 05:03 03/17/16 04:58 Labs: Laboratory Last Values WBC 8.2 K/mm3 (4.5-11.0) 03/17/16 04:58 RBC 5.50 M/mm3 (3.65-5.03) H 03/17/16 04:58 Hgb 11.4 gm/dl (10.1-14.3) 03/23/16 05:03 Hct 39.2 % (30.3-42.9) 03/23/16 05:03 MCV 70 fl (79-97) L 03/17/16 04:58 MCH 20 pg (28-32) L 03/17/16 04:58 MCHC 29 % (30-34) L 03/17/16 04:58 RDW 23.7 % (13.2-15.2) H 03/17/16 04:58 Plt Count 195 K/mm3 (140-440) 03/23/16 05:03 Lymph % (Auto) A P Mechanic 03/17/16 04:58 [place] % (Auto) A P Mechanic 03/17/16 04:58 Eos % (Auto) A P Mechanic 03/17/16 04:58 Baso % (Auto) A P Mechanic 03/17/16 04:58 Lymph # A P Mechanic 03/17/16 04:58 [place] # A P Mechanic 03/17/16 04:58 Eos # A P Mechanic 03/17/16 04:58 Baso # A P Mechanic 03/17/16 04:58 Seg Neutrophils % A P Mechanic 03/17/16 04:58 Seg Neutrophils # A P Mechanic 03/17/16 04:58 PT 21.5 Sec. (12.2-14.9) H 03/23/16 05:03 INR 1.87 (0.87-1.13) H 03/23/16 05:03 APTT 31.5 Sec. (24.2-36.6) 03/16/16 00:04 Heparin Anti-Xa Level 0.43 U.I./ml (0.3-0.7) 03/22/16 15:38 POC ABG pH 7.422 (7.35-7.45) 03/17/16 08:55 POC ABG pCO2 70.5 (35-45) H 03/17/16 08:55 POC ABG pO2 108 (80-105) H 03/17/16 08:55 POC ABG HCO3 46.0 03/17/16 08:55 POC ABG Total CO2 48 03/17/16 08:55 POC ABG O2 Sat 98 03/17/16 08:55 POC ABG Base Excess 22 03/17/16 08:55 FiO2 40 % 03/17/16 08:55 Sodium 142 mmol/L (137-145) 03/17/16 04:58 Potassium 4.8 mmol/L (3.6-5.0) 03/17/16 04:58 Chloride 94.9 mmol/L (98-107) L 03/17/16 04:58 Carbon Dioxide 40 mmol/L (22-30) H 03/17/16 04:58 Anion Gap 12 mmol/L 03/17/16 04:58 BUN 11 mg/dL (7-17) 03/17/16 04:58 Creatinine 0.8 mg/dL (0.7-1.2) 03/17/16 04:58 Estimated GFR > 60 ml/min 03/17/16 04:58 BUN/Creatinine Ratio 13.75 % 03/17/16 04:58 Glucose 78 mg/dL (65-100) 03/17/16 04:58 POC Glucose 64 (70-105) L 03/23/16 08:21 Lactic Acid 1.6 mmol/L (0.7-2.0) 03/15/16 20:20 Calcium 9.2 mg/dL (8.4-10.2) 03/17/16 04:58 Magnesium 2.2 mg/dL (1.7-2.3) 03/15/16 20:20 Total Bilirubin 1.0 mg/dL (0.1-1.2) 03/15/16 20:20 AST 13 units/L (5-40) 03/15/16 20:20 ALT 15 units/L (7-56) 03/15/16 20:20 Alkaline Phosphatase 67 units/L (35-129) 03/15/16 20:20 Lactate Dehydrogenase 328 units/L (91-180) H 03/16/16 12:16 Total Creatine Kinase 14 units/L (30-135) L 03/17/16 13:16 CK-MB (CK-2) < 1.0 ng/mL (0.0-4.0) 03/17/16 13:16 CK-MB (CK-2) Rel Index 7.1 (0-4) H 03/17/16 13:16 Troponin T < 0.010 ng/mL (0.00-0.029) 03/17/16 13:16 C-Reactive Protein 2.60 mg/dL (0.00-1.30) H 03/16/16 12:16 NT-Pro-B Natriuret Pep 957.2 pg/mL (0-450) H 03/15/16 20:20 Total Protein 7.9 g/dL (6.3-8.2) 03/15/16 20:20 Albumin 3.1 g/dL (3.9-5) L 03/15/16 20:20 Albumin/Globulin Ratio 0.6 % 03/15/16 20:20 HCG, Quant < 2 mIU/mL (0-4) 03/15/16 20:20 Urine Color Yellow (Yellow) 03/15/16 21:43 Urine Turbidity Clear (Clear) 03/15/16 21:43 Urine pH 5.0 (5.0-7.0) 03/15/16 21:43 Ur Specific [place] 1.016 (1.003-1.030) 03/15/16 21:43 Urine Protein 30 mg/dl mg/dL (Negative) 03/15/16 21:43 Urine Glucose (UA) Neg mg/dL (Negative) 03/15/16 21:43 Urine Ketones Neg mg/dL (Negative) 03/15/16 21:43 Urine Blood Neg (Negative) 03/15/16 21:43 Urine Nitrite Neg (Negative) 03/15/16 21:43 Urine Bilirubin Neg (Negative) 03/15/16 21:43 Urine Urobilinogen 4.0 mg/dL (<2.0) 03/15/16 21:43 Ur Leukocyte Esterase Neg (Negative) 03/15/16 21:43 Urine WBC (Auto) 3.0 /HPF (0.0-6.0) 03/15/16 21:43 Urine RBC (Auto) 1.0 /HPF (0.0-6.0) 03/15/16 21:43 U Epithel Cells (Auto) 1.0 /HPF (0-13.0) 03/15/16 21:43 Hyaline Casts 1 /LPF 03/15/16 21:43 Urine Mucus Few /HPF 03/15/16 21:43 Fluid Total Protein 4.5 (15.0-45.0) L 03/16/16 16:00 Fluid LDH 498 03/16/16 16:00
[2016-03-23] MEDS ORDERED: COUMADIN PO SCH (17:00)
--- NOTE | 2016-03-23 17:31 | Cat Scan Report ---
FINAL REPORT PROCEDURE: CT CHEST WO CON TECHNIQUE: Computerized axial tomography of the chest was performed without contrast material. This study is performed without intravenous contrast and the sensitivity for pathology, including neoplasms, adenopathy, abscess, pulmonary embolism and aortic dissection, is reduced. Evaluation is moderately limited due to body habitus. HISTORY: Pleural effusion or pneumonia. COMPARISON: CT scan dated 01/05/2016. TECHNICAL QUALITY: Satisfactory. FINDINGS: Heart and pericardium: Cardiomegaly. Thoracic aorta: Normal. Pulmonary vasculature: Normal. Lymph nodes: Mildly enlarged mediastinal lymph nodes, slightly increased compared to prior study. Round soft tissue density in the mediastinum medial to the superior vena cava measures 17 millimeters, relatively unchanged. There are calcified right hilar and subcarinal lymph nodes. Lungs: Diffuse ground-glass opacity and interstitial prominence throughout the right lung. Scattered peripheral slightly nodular right middle and right lower lobe airspace disease. 4 millimeter right middle lobe nodule (image 59), not present on prior study. Complete consolidation of the left lung with interspersed air bronchograms. There is slight rightward mediastinal shift.. Pleural space: Moderate left pleural effusion with subpulmonic component. Trace right pleural effusion, tracking into the fissure. Musculoskeletal structures: Multilevel disc space narrowing and anterior osteophytes with vacuum discs change at several levels.. Upper abdominal structures: Cholecystectomy. Mild hepatomegaly. Hepatic granulomas. IMPRESSION: Near complete consolidation of the left lung with air bronchograms. Consider could be at least part related to moderate left pleural effusion with associated compressive atelectasis. There are air bronchograms. Cannot exclude underlying pneumonia, limited evaluation on non contrasted examination. This causes mild mass effect and mild rightward mediastinal shift. Findings in the right lung could be related to pulmonary edema, but there is more focal airspace disease and nodularity, cannot exclude underlying pneumonia. Evidence of prior granulomatous disease. Consider followup to exclude underlying neoplastic etiology, but considering short time frame between examinations this is probably less likely. Adenopathy can be re-evaluated on followup examination. More focal soft tissue nodule in the anterior mediastinum could also represent process such as thymoma. Cardiomegaly. Overall examination limited by patient body habitus.
[2016-03-23] MEDS: COUMADIN PO SCH (18:16)
[2016-03-23] MEDS ORDERED: HEPARIN 10,000 UNITS/10 ML IV ONE (19:30)
--- NOTE | 2016-03-23 20:01 | Progress Note ---
Subjective Date of service: 03/23/16 Principal diagnosis: Acute Hypoxemic Respiratory Failure; Left Pleural Effusion Interval history: This is 40 year old female Morbidly obese came to the emergency room with a complaint of shortness of breath. Patients chest xray obtained showed complete opacification of left hemithorax. Patient has history of hypertension and pulmonary emboli.Patients pulmonary emboli diagnosed 3 months ago by CTA of the chest. Patient also diagnsed at that time DVT in left leg. Patient non compliant with her medications, Patient stopped taking Eliquis.Patient started on S/C Lovenox and Coumadin.Patient also treated for pneumonia recently at [facility]. Patients blood gases showed, patient is in respiratory failure. Patient placed on BIPAP Rate 20, 22/10, FIO2 50%. Patient awake ,following commands. Repeating blood gases in AM.[place] no known allergies. Smoking,alcohol or drug history not known at this time.Patient started on Levaquine and zosyn. Obtaining ultrasound of chest for possible left pleural effusion. 03/18/16 Patient resting on Face mask, FIO2 50%. O2 saturation 84%. Patient S/P right thoracentesis 03/21/16 Patient alert, awake and oriented.Patient resting on Face mask, FIO2 50%. O2 saturation 90%. Patient S/P right thoracentesis 03/22/16 Patient sleeping at this time On bipap. Patient is on BIPAP 22/10, FIO2 40% and O2 satuaration running 95%.Patient tolerating BIPAP good.No respiratory distress. 03/23/2016- on a venturi mask with some respiratory distress, abdominal breathing with conversational dyspnea. Complains of shortness of breath. RT notified to place her back on BIPAP Objective - Exam Narrative Exam: General: Mild respiratory distress, appears exhausted, obese HEENT: MMM, EOMI cardiac: S1-S2 heard lungs: Decreased air entry abdomen: soft, nontender, nondistended bowel sounds positive extremities: no edema clubbing or cyanosis Skin: no rash or lesion Neuro: no focal deficit Psych: appropriate behavior and mood, cognition intact Vital Signs - 12hr 03/23/16 03/23/16 03/23/16 08:17 10:00 11:45 Temperature 97.4 F L 97.4 F L Pulse Rate 82 Pulse Rate [ 82 82 96 H From Monitor] Respiratory 20 18 20 Rate Blood Pressure 153/88 151/93 [Left Arm] O2 Sat by Pulse 95 92 Oximetry 03/23/16 16:49 Temperature 97.4 F L Pulse Rate Pulse Rate [ 102 H From Monitor] Respiratory 20 Rate Blood Pressure 177/96 [Left Arm] O2 Sat by Pulse 92 Oximetry Constitutional: no acute distress, alert Eyes: non-icteric ENT: oropharynx moist Neck: supple, no JVD Ascultation: Bilateral: diminished breath sounds (LLL), rales (LLL) Cardiovascular: regular rate and rhythm Gastrointestinal: normoactive bowel sounds, soft, non-tender, non-distended Integumentary: other (Stasis dermatitis.) Extremities: no cyanosis, pink and warm, pulses normal, no ischemia or petechiae , edema Neurologic: normal mental status, non-focal exam, pupils equal and round, motor strength normal and Psychiatric: mood appropriate, affect normal CBC and BMP: 03/23/16 05:03 03/17/16 04:58 ABG, PT/INR, D-dimer: ABG POC ABG pH 7.422 (7.35-7.45) 03/17/16 08:55 POC ABG pCO2 70.5 (35-45) H 03/17/16 08:55 POC ABG pO2 108 (80-105) H 03/17/16 08:55 POC ABG HCO3 46.0 03/17/16 08:55 POC ABG Total CO2 48 03/17/16 08:55 POC ABG O2 Sat 98 03/17/16 08:55 PT/INR, D-dimer PT 21.5 Sec. (12.2-14.9) H 03/23/16 05:03 INR 1.87 (0.87-1.13) H 03/23/16 05:03 Abnormal lab findings: Abnormal Labs 03/16/16 03/16/16 03/16/16 00:04 01:01 07:49 RBC MCV MCH MCHC RDW PT 15.8 H INR 1.27 H Heparin Anti-Xa Level 0.18 L POC ABG pH 7.304 L POC ABG pCO2 92.8 H POC ABG pO2 Chloride Carbon Dioxide POC Glucose Lactate Dehydrogenase Total Creatine Kinase CK-MB (CK-2) Rel Index C-Reactive Protein Fluid Total Protein 12/03/16/16 03/16/16 12:16 16:00 17:21 RBC MCV MCH MCHC RDW PT INR Heparin Anti-Xa Level < 0.11 L POC ABG pH POC ABG pCO2 POC ABG pO2 Chloride Carbon Dioxide POC Glucose Lactate Dehydrogenase 328 H Total Creatine Kinase CK-MB (CK-2) Rel Index C-Reactive Protein 2.60 H Fluid Total Protein 4.5 L 03/17/16 03/17/16 03/17/16 04:58 04:58 04:58 RBC 5.50 H MCV 70 L MCH 20 L MCHC 29 L RDW 23.7 H PT INR Heparin Anti-Xa Level 0.14 L POC ABG pH POC ABG pCO2 POC ABG pO2 Chloride 94.9 L Carbon Dioxide 40 H POC Glucose Lactate Dehydrogenase Total Creatine Kinase CK-MB (CK-2) Rel Index C-Reactive Protein Fluid Total Protein 03/17/16 03/17/16 03/17/16 08:55 11:50 13:16 RBC MCV MCH MCHC RDW PT INR Heparin Anti-Xa Level 0.16 L POC ABG pH POC ABG pCO2 70.5 H POC ABG pO2 108 H Chloride Carbon Dioxide POC Glucose 65 L Lactate Dehydrogenase Total Creatine Kinase CK-MB (CK-2) Rel Index C-Reactive Protein Fluid Total Protein 03/17/16 03/17/16 03/18/16 13:16 21:00 05:32 RBC MCV MCH MCHC RDW PT 15.9 H INR 1.28 H Heparin Anti-Xa Level 0.13 L POC ABG pH POC ABG pCO2 POC ABG pO2 Chloride Carbon Dioxide POC Glucose Lactate Dehydrogenase Total Creatine Kinase 14 L CK-MB (CK-2) Rel Index 7.1 H C-Reactive Protein Fluid Total Protein 03/18/16 03/18/16 03/18/16 07:35 07:43 15:45 RBC MCV MCH MCHC RDW PT INR Heparin Anti-Xa Level 0.71 H POC ABG pH POC ABG pCO2 POC ABG pO2 Chloride Carbon Dioxide POC Glucose 63 L 109 H Lactate Dehydrogenase Total Creatine Kinase CK-MB (CK-2) Rel Index C-Reactive Protein Fluid Total Protein 03/18/16 03/18/16 03/18/16 16:15 21:35 23:30 RBC MCV MCH MCHC RDW PT INR Heparin Anti-Xa Level 0.86 H 0.26 L POC ABG pH POC ABG pCO2 POC ABG pO2 Chloride Carbon Dioxide POC Glucose 106 H Lactate Dehydrogenase Total Creatine Kinase CK-MB (CK-2) Rel Index C-Reactive Protein Fluid Total Protein 03/19/16 03/19/16 03/19/16 06:57 08:28 17:12 RBC MCV MCH MCHC RDW PT 15.6 H INR 1.25 H Heparin Anti-Xa Level POC ABG pH POC ABG pCO2 POC ABG pO2 Chloride Carbon Dioxide POC Glucose 67 L 110 H Lactate Dehydrogenase Total Creatine Kinase CK-MB (CK-2) Rel Index C-Reactive Protein Fluid Total Protein 03/19/16 03/20/16 03/21/16 21:27 06:48 05:11 RBC MCV MCH MCHC RDW PT 16.9 H 18.1 H INR 1.38 H 1.50 H Heparin Anti-Xa Level POC ABG pH POC ABG pCO2 POC ABG pO2 Chloride Carbon Dioxide POC Glucose 107 H Lactate Dehydrogenase Total Creatine Kinase CK-MB (CK-2) Rel Index C-Reactive Protein Fluid Total Protein 03/21/16 03/21/16 03/21/16 05:11 16:02 21:59 RBC MCV MCH MCHC RDW PT INR Heparin Anti-Xa Level 0.27 L 0.79 H POC ABG pH POC ABG pCO2 POC ABG pO2 Chloride Carbon Dioxide POC Glucose 128 H Lactate Dehydrogenase Total Creatine Kinase CK-MB (CK-2) Rel Index C-Reactive Protein Fluid Total Protein 03/22/16 03/23/16 03/23/16 04:46 05:03 08:21 RBC MCV MCH MCHC RDW PT 22.7 H 21.5 H INR 2.00 H 1.87 H Heparin Anti-Xa Level POC ABG pH POC ABG pCO2 POC ABG pO2 Chloride Carbon Dioxide POC Glucose 64 L Lactate Dehydrogenase Total Creatine Kinase CK-MB (CK-2) Rel Index C-Reactive Protein Fluid Total Protein 03/23/16 14:57 RBC MCV MCH MCHC RDW PT INR Heparin Anti-Xa Level < 0.10 L POC ABG pH POC ABG pCO2 POC ABG pO2 Chloride Carbon Dioxide POC Glucose Lactate Dehydrogenase Total Creatine Kinase CK-MB (CK-2) Rel Index C-Reactive Protein Fluid Total Protein
[2016-03-24] MEDS: MORPHINE IV PRN ×3 (00:12→20:01)
[2016-03-24] MEDS: HEPARIN/ 0.45% NACL-25,000 UNIT/500 ML 500 ML IV SCH (02:04)
[2016-03-24 06:25] LABS: INR 2.36 (0.87-1.13)
[2016-03-24] MEDS: PERCOCET 5/325 PO PRN ×2 (09:50→16:17)
[2016-03-24] MEDS: MILK OF MAGNESIA PO PRN (10:44)
--- NOTE | 2016-03-24 11:35 | Progress Note ---
Assessment and Plan Assessment and plan: 1. Acute hypoxemic respiratory failure. Patient currently on BiPAP. Etiology is multifactorial. Patient with left parapneumonic effusion sp thoracentesis. Pulmonary following. Patient does have a history of PE/DVT and morbid obesity with probable LENA/OHS. Doppler ultrasound of lower extremities negative. 2. Left lower lobe pneumonia with parapneumonic effusion. Patient is status post thoracentesis with 1.1 L removed. continue abx 3. Accelerated hypertension. continue current meds 4. History of PE/DVT. Continue IV heparin bridge and warfarin 5. Type 2 diabetes mellitus. Continue Accu-Cheks and sliding scale regular insulin. 6. Morbid obesity. Nutritional consultation. 7. 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 Patient will need further follow-up as an outpatient, will likely need CPAP machine upon dc. 8. GI prophylaxis. Continue Protonix. History Interval history: she belives that her breathing has improved, admits to SOB, she has been able to eat, but has not gotten out of bed, denies CP, Hospitalist Physical - Physical exam Narrative exam: General: Mild respiratory distress, appears exhausted, obese HEENT: MMM, EOMI cardiac: S1-S2 heard lungs: Decreased air entry abdomen: soft, nontender, nondistended bowel sounds positive extremities: no edema clubbing or cyanosis Skin: no rash or lesion Neuro: no focal deficit Psych: appropriate behavior and mood, cognition intact - Constitutional Vitals: Temp Pulse Resp BP Pulse Ox 97.3 F L 85 20 178/96 97 03/24/16 08:00 03/24/16 10:00 03/24/16 08:00 03/24/16 08:00 03/24/16 08:00 General appearance: Present: mild distress, obese Results - Labs CBC & Chem 7: 03/23/16 05:03 03/17/16 04:58 Labs: Laboratory Last Values WBC 8.2 K/mm3 (4.5-11.0) 03/17/16 04:58 RBC 5.50 M/mm3 (3.65-5.03) H 03/17/16 04:58 Hgb 11.4 gm/dl (10.1-14.3) 03/23/16 05:03 Hct 39.2 % (30.3-42.9) 03/23/16 05:03 MCV 70 fl (79-97) L 03/17/16 04:58 MCH 20 pg (28-32) L 03/17/16 04:58 MCHC 29 % (30-34) L 03/17/16 04:58 RDW 23.7 % (13.2-15.2) H 03/17/16 04:58 Plt Count 195 K/mm3 (140-440) 03/23/16 05:03 Lymph % (Auto) Track Laying Equipment Operator 03/17/16 04:58 [place] % (Auto) Track Laying Equipment Operator 03/17/16 04:58 Eos % (Auto) Track Laying Equipment Operator 03/17/16 04:58 Baso % (Auto) Track Laying Equipment Operator 03/17/16 04:58 Lymph # Track Laying Equipment Operator 03/17/16 04:58 [place] # Track Laying Equipment Operator 03/17/16 04:58 Eos # Track Laying Equipment Operator 03/17/16 04:58 Baso # Track Laying Equipment Operator 03/17/16 04:58 Seg Neutrophils % Track Laying Equipment Operator 03/17/16 04:58 Seg Neutrophils # Track Laying Equipment Operator 03/17/16 04:58 PT 25.9 Sec. (12.2-14.9) H 03/24/16 05:09 INR 2.36 (0.87-1.13) H 03/24/16 05:09 APTT 31.5 Sec. (24.2-36.6) 03/16/16 00:04 Heparin Anti-Xa Level 0.64 U.I./ml (0.3-0.7) 03/24/16 00:58 POC ABG pH 7.422 (7.35-7.45) 03/17/16 08:55 POC ABG pCO2 70.5 (35-45) H 03/17/16 08:55 POC ABG pO2 108 (80-105) H 03/17/16 08:55 POC ABG HCO3 46.0 03/17/16 08:55 POC ABG Total CO2 48 03/17/16 08:55 POC ABG O2 Sat 98 03/17/16 08:55 POC ABG Base Excess 22 03/17/16 08:55 FiO2 40 % 03/17/16 08:55 Sodium 142 mmol/L (137-145) 03/17/16 04:58 Potassium 4.8 mmol/L (3.6-5.0) 03/17/16 04:58 Chloride 94.9 mmol/L (98-107) L 03/17/16 04:58 Carbon Dioxide 40 mmol/L (22-30) H 03/17/16 04:58 Anion Gap 12 mmol/L 03/17/16 04:58 BUN 11 mg/dL (7-17) 03/17/16 04:58 Creatinine 0.8 mg/dL (0.7-1.2) 03/17/16 04:58 Estimated GFR > 60 ml/min 03/17/16 04:58 BUN/Creatinine Ratio 13.75 % 03/17/16 04:58 Glucose 78 mg/dL (65-100) 03/17/16 04:58 POC Glucose 79 (70-105) 03/23/16 22:11 Lactic Acid 1.6 mmol/L (0.7-2.0) 03/15/16 20:20 Calcium 9.2 mg/dL (8.4-10.2) 03/17/16 04:58 Magnesium 2.2 mg/dL (1.7-2.3) 03/15/16 20:20 Total Bilirubin 1.0 mg/dL (0.1-1.2) 03/15/16 20:20 AST 13 units/L (5-40) 03/15/16 20:20 ALT 15 units/L (7-56) 03/15/16 20:20 Alkaline Phosphatase 67 units/L (35-129) 03/15/16 20:20 Lactate Dehydrogenase 328 units/L (91-180) H 03/16/16 12:16 Total Creatine Kinase 14 units/L (30-135) L 03/17/16 13:16 CK-MB (CK-2) < 1.0 ng/mL (0.0-4.0) 03/17/16 13:16 CK-MB (CK-2) Rel Index 7.1 (0-4) H 03/17/16 13:16 Troponin T < 0.010 ng/mL (0.00-0.029) 03/17/16 13:16 C-Reactive Protein 2.60 mg/dL (0.00-1.30) H 03/16/16 12:16 NT-Pro-B Natriuret Pep 957.2 pg/mL (0-450) H 03/15/16 20:20 Total Protein 7.9 g/dL (6.3-8.2) 03/15/16 20:20 Albumin 3.1 g/dL (3.9-5) L 03/15/16 20:20 Albumin/Globulin Ratio 0.6 % 03/15/16 20:20 HCG, Quant < 2 mIU/mL (0-4) 03/15/16 20:20 Urine Color Yellow (Yellow) 03/15/16 21:43 Urine Turbidity Clear (Clear) 03/15/16 21:43 Urine pH 5.0 (5.0-7.0) 03/15/16 21:43 Ur Specific [place] 1.016 (1.003-1.030) 03/15/16 21:43 Urine Protein 30 mg/dl mg/dL (Negative) 03/15/16 21:43 Urine Glucose (UA) Neg mg/dL (Negative) 03/15/16 21:43 Urine Ketones Neg mg/dL (Negative) 03/15/16 21:43 Urine Blood Neg (Negative) 03/15/16 21:43 Urine Nitrite Neg (Negative) 03/15/16 21:43 Urine Bilirubin Neg (Negative) 03/15/16 21:43 Urine Urobilinogen 4.0 mg/dL (<2.0) 03/15/16 21:43 Ur Leukocyte Esterase Neg (Negative) 03/15/16 21:43 Urine WBC (Auto) 3.0 /HPF (0.0-6.0) 03/15/16 21:43 Urine RBC (Auto) 1.0 /HPF (0.0-6.0) 03/15/16 21:43 U Epithel Cells (Auto) 1.0 /HPF (0-13.0) 03/15/16 21:43 Hyaline Casts 1 /LPF 03/15/16 21:43 Urine Mucus Few /HPF 03/15/16 21:43 Fluid Total Protein 4.5 (15.0-45.0) L 03/16/16 16:00 Fluid LDH 498 03/16/16 16:00 - Imaging and Cardiology CT scan - chest: image reviewed (near complete consolidation of left lung)
[2016-03-24] MEDS: COUMADIN PO SCH (16:18)
[2016-03-24] MEDS: PROVENTIL IH PRN (16:55)
[2016-03-24] MEDS: MUCOMYST INHALATION SCH (16:55)
[2016-03-24] MEDS ORDERED: ZOSYN/NS 4.5GM/100ML 100 ML IV SCH (17:00)
[2016-03-24] MEDS ORDERED: VANCOMYCIN PHARMACY TO DOSE IV SCH (17:00)
--- NOTE | 2016-03-24 18:04 | Progress Note ---
Assessment and Plan - Patient Problems (1) Acute and chronic respiratory failure ([id number]) Current Visit: No Status: Acute (2) HCAP (healthcare-associated pneumonia) Current Visit: Yes Status: Acute Plan to address problem: Start Vancomycin and Zosyn. Monitor closely , if any acute decompensation plan to intubate with mechanical ventilatory support. Discussed with Primary Attending. (3) Extreme obesity with respiratory disorder Current Visit: Yes Status: Acute Plan to address problem: Lifestyle modifications discussed, weight loss Subjective Date of service: 03/24/16 Principal diagnosis: Acute Hypoxemic Respiratory Failure; Left Pleural Effusion Interval history: This is 40 year old female Morbidly obese came to the emergency room with a complaint of shortness of breath. Patients chest xray obtained showed complete opacification of left hemithorax. Patient has history of hypertension and pulmonary emboli.Patients pulmonary emboli diagnosed 3 months ago by CTA of the chest. Patient also diagnsed at that time DVT in left leg. Patient non compliant with her medications, Patient stopped taking Eliquis.Patient started on S/C Lovenox and Coumadin.Patient also treated for pneumonia recently at [facility]. Patients blood gases showed, patient is in respiratory failure. Patient placed on BIPAP Rate 20, 22/10, FIO2 50%. Patient awake ,following commands. Repeating blood gases in AM.[place] no known allergies. Smoking,alcohol or drug history not known at this time. 03/18/16 Patient resting on Face mask, FIO2 50%. O2 saturation 84%. Patient S/P right thoracentesis 03/21/16 Patient alert, awake and oriented.Patient resting on Face mask, FIO2 50%. O2 saturation 90%. Patient S/P right thoracentesis 03/22/16 Patient sleeping at this time On bipap. Patient is on BIPAP 22/10, FIO2 40% and O2 satuaration running 95%.Patient tolerating BIPAP good.No respiratory distress. 03/23/2016- on a venturi mask with some respiratory distress, abdominal breathing with conversational dyspnea. Complains of shortness of breath. RT notified to place her back on BIPAP 03/24/2016- on BIPAP. CT Scan reviewed and it shows left lung consolidation with air bronchograms, more suggestive of pneumonia. Objective - Exam Narrative Exam: General: Mild respiratory distress, appears exhausted, obese, on BIPAP HEENT: MMM, EOMI cardiac: S1-S2 heard lungs: Decreased air entry abdomen: soft, nontender, nondistended bowel sounds positive extremities: no edema clubbing or cyanosis Skin: no rash or lesion Neuro: no focal deficit Psych: appropriate behavior and mood, cognition intact Vital Signs - 12hr 03/24/16 03/24/16 03/24/16 08:00 10:00 11:45 Temperature 97.3 F L 97.3 F L Pulse Rate 85 Pulse Rate [ Anterior Bilateral Throughout] Pulse Rate [ 92 H 88 From Monitor] Respiratory 20 20 Rate Respiratory Rate [Anterior Bilateral Throughout] Blood Pressure 178/96 175/94 [Left Arm] O2 Sat by Pulse 97 94 95 Oximetry 03/24/16 03/24/16 16:55 17:05 Temperature Pulse Rate Pulse Rate [ 80 83 Anterior Bilateral Throughout] Pulse Rate [ From Monitor] Respiratory Rate Respiratory 20 20 Rate [Anterior Bilateral Throughout] Blood Pressure [Left Arm] O2 Sat by Pulse Oximetry Constitutional: no acute distress, alert Eyes: non-icteric ENT: oropharynx moist Neck: supple, no JVD Ascultation: Bilateral: diminished breath sounds (LLL), rales (LLL) Cardiovascular: regular rate and rhythm Gastrointestinal: normoactive bowel sounds, soft, non-tender, non-distended Integumentary: other (Stasis dermatitis.) Extremities: no cyanosis, pink and warm, pulses normal, no ischemia or petechiae , edema Neurologic: normal mental status, non-focal exam, pupils equal and round, motor strength normal and Psychiatric: mood appropriate, affect normal CBC and BMP: 03/23/16 05:03 03/17/16 04:58 ABG, PT/INR, D-dimer: ABG POC ABG pH 7.422 (7.35-7.45) 03/17/16 08:55 POC ABG pCO2 70.5 (35-45) H 03/17/16 08:55 POC ABG pO2 108 (80-105) H 03/17/16 08:55 POC ABG HCO3 46.0 03/17/16 08:55 POC ABG Total CO2 48 03/17/16 08:55 POC ABG O2 Sat 98 03/17/16 08:55 PT/INR, D-dimer PT 25.9 Sec. (12.2-14.9) H 03/24/16 05:09 INR 2.36 (0.87-1.13) H 03/24/16 05:09 Abnormal lab findings: Abnormal Labs 03/16/16 03/16/16 03/16/16 00:04 01:01 07:49 RBC MCV MCH MCHC RDW PT 15.8 H INR 1.27 H Heparin Anti-Xa Level 0.18 L POC ABG pH 7.304 L POC ABG pCO2 92.8 H POC ABG pO2 Chloride Carbon Dioxide POC Glucose Lactate Dehydrogenase Total Creatine Kinase CK-MB (CK-2) Rel Index C-Reactive Protein Fluid Total Protein 03/16/16 03/16/16 03/16/16 12:16 16:00 17:21 RBC MCV MCH MCHC RDW PT INR Heparin Anti-Xa Level < 0.11 L POC ABG pH POC ABG pCO2 POC ABG pO2 Chloride Carbon Dioxide POC Glucose Lactate Dehydrogenase 328 H Total Creatine Kinase CK-MB (CK-2) Rel Index C-Reactive Protein 2.60 H Fluid Total Protein 4.5 L 03/17/16 03/17/16 03/17/16 04:58 04:58 04:58 RBC 5.50 H MCV 70 L MCH 20 L MCHC 29 L RDW 23.7 H PT INR Heparin Anti-Xa Level 0.14 L POC ABG pH POC ABG pCO2 POC ABG pO2 Chloride 94.9 L Carbon Dioxide 40 H POC Glucose Lactate Dehydrogenase Total Creatine Kinase CK-MB (CK-2) Rel Index C-Reactive Protein Fluid Total Protein 03/17/16 03/17/16 03/17/16 08:55 11:50 13:16 RBC MCV MCH MCHC RDW PT INR Heparin Anti-Xa Level 0.16 L POC ABG pH POC ABG pCO2 70.5 H POC ABG pO2 108 H Chloride Carbon Dioxide POC Glucose 65 L Lactate Dehydrogenase Total Creatine Kinase CK-MB (CK-2) Rel Index C-Reactive Protein Fluid Total Protein 03/17/16 03/17/16 03/18/16 13:16 21:00 05:32 RBC MCV MCH MCHC RDW PT 15.9 H INR 1.28 H Heparin Anti-Xa Level 0.13 L POC ABG pH POC ABG pCO2 POC ABG pO2 Chloride Carbon Dioxide POC Glucose Lactate Dehydrogenase Total Creatine Kinase 14 L CK-MB (CK-2) Rel Index 7.1 H C-Reactive Protein Fluid Total Protein 03/18/16 03/18/16 03/18/16 07:35 07:43 15:45 RBC MCV MCH MCHC RDW PT INR Heparin Anti-Xa Level 0.71 H POC ABG pH POC ABG pCO2 POC ABG pO2 Chloride Carbon Dioxide POC Glucose 63 L 109 H Lactate Dehydrogenase Total Creatine Kinase CK-MB (CK-2) Rel Index C-Reactive Protein Fluid Total Protein 03/18/16 03/18/16 03/18/16 16:15 21:35 23:30 RBC MCV MCH MCHC RDW PT INR Heparin Anti-Xa Level 0.86 H 0.26 L POC ABG pH POC ABG pCO2 POC ABG pO2 Chloride Carbon Dioxide POC Glucose 106 H Lactate Dehydrogenase Total Creatine Kinase CK-MB (CK-2) Rel Index C-Reactive Protein Fluid Total Protein 03/19/16 03/19/16 03/19/16 06:57 08:28 17:12 RBC MCV MCH MCHC RDW PT 15.6 H INR 1.25 H Heparin Anti-Xa Level POC ABG pH POC ABG pCO2 POC ABG pO2 Chloride Carbon Dioxide POC Glucose 67 L 110 H Lactate Dehydrogenase Total Creatine Kinase CK-MB (CK-2) Rel Index C-Reactive Protein Fluid Total Protein 03/19/16 03/20/16 03/21/16 21:27 06:48 05:11 RBC MCV MCH MCHC RDW PT 16.9 H 18.1 H INR 1.38 H 1.50 H Heparin Anti-Xa Level POC ABG pH POC ABG pCO2 POC ABG pO2 Chloride Carbon Dioxide POC Glucose 107 H Lactate Dehydrogenase Total Creatine Kinase CK-MB (CK-2) Rel Index C-Reactive Protein Fluid Total Protein 03/21/16 03/21/16 03/21/16 05:11 16:02 21:59 RBC MCV MCH MCHC RDW PT INR Heparin Anti-Xa Level 0.27 L 0.79 H POC ABG pH POC ABG pCO2 POC ABG pO2 Chloride Carbon Dioxide POC Glucose 128 H Lactate Dehydrogenase Total Creatine Kinase CK-MB (CK-2) Rel Index C-Reactive Protein Fluid Total Protein 03/22/16 03/23/16 03/23/16 04:46 05:03 08:21 RBC MCV MCH MCHC RDW PT 22.7 H 21.5 H INR 2.00 H 1.87 H Heparin Anti-Xa Level POC ABG pH POC ABG pCO2 POC ABG pO2 Chloride Carbon Dioxide POC Glucose 64 L Lactate Dehydrogenase Total Creatine Kinase CK-MB (CK-2) Rel Index C-Reactive Protein Fluid Total Protein 03/23/16 03/24/16 14:57 05:09 RBC MCV MCH MCHC RDW PT 25.9 H INR 2.36 H Heparin Anti-Xa Level < 0.10 L POC ABG pH POC ABG pCO2 POC ABG pO2 Chloride Carbon Dioxide POC Glucose Lactate Dehydrogenase Total Creatine Kinase CK-MB (CK-2) Rel Index C-Reactive Protein Fluid Total Protein
[2016-03-24] MEDS: ZOSYN/NS 4.5GM/100ML 100 ML IV SCH (18:12)
[2016-03-24] MEDS: VANCOMYCIN VIAL 2,000 MG in NACL 0.9% 500 ML 500 ML IV SCH (21:24)
[2016-03-25] MEDS: MUCOMYST INHALATION SCH ×4 (00:02→15:13)
[2016-03-25] MEDS: ZOSYN/NS 4.5GM/100ML 100 ML IV SCH ×5 (01:02→23:41)
[2016-03-25] MEDS: PROVENTIL IH PRN (02:35)
[2016-03-25 06:16] LABS: INR 2.77 (0.87-1.13)
[2016-03-25] MEDS: MORPHINE IV PRN ×3 (06:40→22:50)
[2016-03-25] MEDS: VANCOMYCIN VIAL 2,000 MG in NACL 0.9% 500 ML 500 ML IV SCH ×2 (07:00→18:28)
--- NOTE | 2016-03-25 12:34 | Progress Note ---
Assessment and Plan Assessment and plan: 1. Acute hypoxemic respiratory failure. Patient currently on BiPAP. Etiology is multifactorial. Patient with left parapneumonic effusion sp thoracentesis. Pulmonary following. Patient does have a history of PE/DVT and morbid obesity with probable LENA/OHS. Doppler ultrasound of lower extremities negative. 2. Left lung pneumonia with parapneumonic effusion. Patient is status post thoracentesis with 1.1 L removed. continue abx, coverage has been expanded on 03/24; she may need bronch if she does not clinically improve 3. Accelerated hypertension. continue current meds 4. History of PE/DVT. Continuewarfarin 5. Type 2 diabetes mellitus. Continue Accu-Cheks and sliding scale regular insulin. 6. Morbid obesity. Nutritional consultation. 7. 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 Patient will need further follow-up as an outpatient, will likely need CPAP machine upon dc. 8. GI prophylaxis. Continue Protonix. History Interval history: she belives that her breathing has improved, admits to SOB, she has been able to eat, but has not gotten out of bed, denies CP, Hospitalist Physical - Physical exam Narrative exam: General: Mild respiratory distress, appears exhausted, obese HEENT: MMM, EOMI cardiac: S1-S2 heard lungs: Decreased air entry abdomen: soft, nontender, nondistended bowel sounds positive extremities: no edema clubbing or cyanosis Skin: no rash or lesion Neuro: no focal deficit Psych: appropriate behavior and mood, cognition intact - Constitutional Vitals: Temp Pulse Resp BP Pulse Ox 98.0 F 89 20 160/105 94 03/25/16 08:00 03/25/16 08:00 03/25/16 08:00 03/25/16 08:00 03/25/16 08:51 General appearance: Present: mild distress, obese Results - Labs CBC & Chem 7: 03/23/16 05:03 03/17/16 04:58 Labs: Laboratory Last Values WBC 8.2 K/mm3 (4.5-11.0) 03/17/16 04:58 RBC 5.50 M/mm3 (3.65-5.03) H 03/17/16 04:58 Hgb 11.4 gm/dl (10.1-14.3) 03/23/16 05:03 Hct 39.2 % (30.3-42.9) 03/23/16 05:03 MCV 70 fl (79-97) L 03/17/16 04:58 MCH 20 pg (28-32) L 03/17/16 04:58 MCHC 29 % (30-34) L 03/17/16 04:58 RDW 23.7 % (13.2-15.2) H 03/17/16 04:58 Plt Count 195 K/mm3 (140-440) 03/23/16 05:03 Lymph % (Auto) [employer] 03/17/16 04:58 Lewis % (Auto) [employer] 03/17/16 04:58 Eos % (Auto) [employer] 03/17/16 04:58 Baso % (Auto) Hotel [employer] 03/17/16 04:58 Lymph # [employer] 03/17/16 04:58 Lewis # Hotel [employer] 03/17/16 04:58 Eos # Hotel [employer] Motel [employer] 03/17/16 04:58 Baso # Hotel [employer] Motel [employer] 03/17/16 04:58 Seg Neutrophils % Hotel [employer]el [employer] 03/17/16 04:58 Seg Neutrophils # Hotel [employer]el [employer] 03/17/16 04:58 PT 29.4 Sec. (12.2-14.9) H 03/25/16 05:21 INR 2.77 (0.87-1.13) H 03/25/16 05:21 APTT 31.5 Sec. (24.2-36.6) 03/16/16 00:04 Heparin Anti-Xa Level 0.10 U.I./ml (0.3-0.7) L 03/25/16 02:04 POC ABG pH 7.422 (7.35-7.45) 03/17/16 08:55 POC ABG pCO2 70.5 (35-45) H 03/17/16 08:55 POC ABG pO2 108 (80-105) H 03/17/16 08:55 POC ABG HCO3 46.0 03/17/16 08:55 POC ABG Total CO2 48 03/17/16 08:55 POC ABG O2 Sat 98 03/17/16 08:55 POC ABG Base Excess 22 03/17/16 08:55 FiO2 40 % 03/17/16 08:55 Sodium 142 mmol/L (137-145) 03/17/16 04:58 Potassium 4.8 mmol/L (3.6-5.0) 03/17/16 04:58 Chloride 94.9 mmol/L (98-107) L 03/17/16 04:58 Carbon Dioxide 40 mmol/L (22-30) H 03/17/16 04:58 Anion Gap 12 mmol/L 03/17/16 04:58 BUN 11 mg/dL (7-17) 03/17/16 04:58 Creatinine 0.8 mg/dL (0.7-1.2) 03/17/16 04:58 Estimated GFR > 60 ml/min 03/17/16 04:58 BUN/Creatinine Ratio 13.75 % 03/17/16 04:58 Glucose 78 mg/dL (65-100) 03/17/16 04:58 POC Glucose 72 (70-105) 03/24/16 15:50 Lactic Acid 1.6 mmol/L (0.7-2.0) 03/15/16 20:20 Calcium 9.2 mg/dL (8.4-10.2) 03/17/16 04:58 Magnesium 2.2 mg/dL (1.7-2.3) 03/15/16 20:20 Total Bilirubin 1.0 mg/dL (0.1-1.2) 03/15/16 20:20 AST 13 units/L (5-40) 03/15/16 20:20 ALT 15 units/L (7-56) 03/15/16 20:20 Alkaline Phosphatase 67 units/L (35-129) 03/15/16 20:20 Lactate Dehydrogenase 328 units/L (91-180) H 03/16/16 12:16 Total Creatine Kinase 14 units/L (30-135) L 03/17/16 13:16 CK-MB (CK-2) < 1.0 ng/mL (0.0-4.0) 03/17/16 13:16 CK-MB (CK-2) Rel Index 7.1 (0-4) H 03/17/16 13:16 Troponin T < 0.010 ng/mL (0.00-0.029) 03/17/16 13:16 C-Reactive Protein 2.60 mg/dL (0.00-1.30) H 03/16/16 12:16 NT-Pro-B Natriuret Pep 957.2 pg/mL (0-450) H 03/15/16 20:20 Total Protein 7.9 g/dL (6.3-8.2) 03/15/16 20:20 Albumin 3.1 g/dL (3.9-5) L 03/15/16 20:20 Albumin/Globulin Ratio 0.6 % 03/15/16 20:20 HCG, Quant < 2 mIU/mL (0-4) 03/15/16 20:20 Urine Color Yellow (Yellow) 03/15/16 21:43 Urine Turbidity Clear (Clear) 03/15/16 21:43 Urine pH 5.0 (5.0-7.0) 03/15/16 21:43 Ur Specific [place] 1.016 (1.003-1.030) 03/15/16 21:43 Urine Protein 30 mg/dl mg/dL (Negative) 03/15/16 21:43 Urine Glucose (UA) Neg mg/dL (Negative) 03/15/16 21:43 Urine Ketones Neg mg/dL (Negative) 03/15/16 21:43 Urine Blood Neg (Negative) 03/15/16 21:43 Urine Nitrite Neg (Negative) 03/15/16 21:43 Urine Bilirubin Neg (Negative) 03/15/16 21:43 Urine Urobilinogen 4.0 mg/dL (<2.0) 03/15/16 21:43 Ur Leukocyte Esterase Neg (Negative) 03/15/16 21:43 Urine WBC (Auto) 3.0 /HPF (0.0-6.0) 03/15/16 21:43 Urine RBC (Auto) 1.0 /HPF (0.0-6.0) 03/15/16 21:43 U Epithel Cells (Auto) 1.0 /HPF (0-13.0) 03/15/16 21:43 Hyaline Casts 1 /LPF 03/15/16 21:43 Urine Mucus Few /HPF 03/15/16 21:43 Fluid Total Protein 4.5 (15.0-45.0) L 03/16/16 16:00 Fluid LDH 498 03/16/16 16:00
--- NOTE | 2016-03-25 15:18 | Query- Pneumonia ---
Adolfo Motley____[place] Date: 03/25/16 Field Support Engineer/CDS:___Radharaymundo Lemaaguilar Phone#: [phone] Exercise your independent professional judgment when responding to query. Questions asked do not imply a particular answer is desired or expected. We greatly appreciate your clarification on this issue. Clinical Documentation States: 40 year old female was admitted on 03/15/16. The progress note (03/24/16) states " HCAP (healthcare- associated pneumonia) " The progress note (03/25/16) states " left lower lobe pneumonia with parapneumonic effusion " Clinical Findings Show: Medications: Vancomycin, Zosyn. Please further specify known or suspected Etiology: [ ] Aspiration Pneumonia [ ] Gram Negative Pneumonia [ ] Gram Positive Pneumonia [ ] Pseudomonas Pneumonia [ ] MRSA - related Pneumonia [ ] Viral Pneumonia [ ] Candidal Pneumonia [ ] Postoperative Pneumonia [ ] Lobar/Basilar Pneumonia [ ] Community Acquired Pneumonia [ ] Bacterial, other (Please specify organism if possible) [ ] Other: [ ] Unable to determine Present on Admission: [ ] Yes (Y) [ ] Clinically undeterminable (W) [ ] No (N) Please also document response in your Progress Notes and/or Discharge Summary and indicate if the condition was present on admission. BALWINDER
[2016-03-25] MEDS: COUMADIN PO SCH (18:28)
--- NOTE | 2016-03-25 19:52 | Progress Note ---
Assessment and Plan This is 40 year old female Morbidly obese came to the emergency room with a complaint of shortness of breath. Patients chest xray obtained showed complete opacification of left hemithorax. Patient has history of hypertension and pulmonary emboli.Patients pulmonary emboli diagnosed 3 months ago by CTA of the chest. Patient also diagnsed at that time DVT in left leg. Patient non compliant with her medications, Patient stopped taking Eliquis.Patient started on S/C Lovenox and Coumadin.Patient also treated for pneumonia recently at [facility]. Patients blood gases showed, patient is in respiratory failure. Patient placed on BIPAP Rate 20, 22/10, FIO2 50%. Patient awake ,following commands. Repeating blood gases in AM.[place] no known allergies. Smoking,alcohol or drug history not known at this time.Patient started on Levaquine and zosyn. Obtaining ultrasound of chest for possible left pleural effusion. 03/18/16 Patient resting on Face mask, FIO2 50%. O2 saturation 84%. Patient S/P right thoracentesis 03/21/16 Patient alert, awake and oriented.Patient resting on Face mask, FIO2 50%. O2 saturation 90%. Patient S/P right thoracentesis 03/22/16 Patient sleeping at this time On bipap. Patient is on BIPAP 22/10, FIO2 40% and O2 satuaration running 95%.Patient tolerating BIPAP good.No respiratory distress. 03/25/16 Patient awake and resting on BIPAP.. Patient is on BIPAP 22/10, FIO2 45% and O2 satuaration running 93%.Patient tolerating BIPAP good.No respiratory distress. - Patient Problems (1) Acute and chronic respiratory failure ([id number]) Current Visit: No Status: Acute Plan to address problem: Patient is on BIPAP 22/10, rate 20, FIO2 50% Continue Lovenox and coumadin. Albuterol/atrovent aerosol treatments. (2) Pulmonary emboli Current Visit: No Status: Acute Plan to address problem: 03/21/16 Patient presently is on I/V Heparin and coumadin. 03/22/16 Patient is on I/V Heparin and warfarin. 03/25/16 Patient is on coumadin. (3) Left femoral vein DVT Current Visit: No Status: Acute Plan to address problem: Lovenox and coumadin. 03/21/16 Patient presently is on I/V Heparin and coumadin. 03/22/16 Patient is on I/V heparin and coumadin. 03/25/16 Patient is on PO coumadin. (4) Pneumonia Current Visit: Yes Status: Acute Plan to address problem: Patient is on Zosyn and Levaquine. 03/18/16 Patient presently on Levaquine. 03/25/16 Patient presently on antibiotics Zosyn and vancomycin. (5) Pleural effusion, left Current Visit: Yes Status: Acute Plan to address problem: Patients ultrasound of chest reported pleural effusion. Patient under gone left thoracentesis. Pleural fluid cytology reported negative for malignant cells. (6) Morbid obesity with BMI of 70 and over, adult Current Visit: No Status: Chronic Plan to address problem: Nutritional consultation for weight reduction diet. (7) Sleep apnea Current Visit: No Status: Chronic Plan to address problem: Patient is on BIPAP. Subjective Date of service: 03/25/16 Principal diagnosis: Acute Hypoxemic Respiratory Failure; Left Pleural Effusion Interval history: Patient awake and resting on BIPAP.. Patient is on BIPAP 22/10, FIO2 45% and O2 satuaration running 93%.Patient tolerating BIPAP good.No respiratory distress. Objective Vital Signs - 12hr 03/25/16 03/25/16 03/25/16 07:59 08:00 08:51 Temperature 98.0 F Pulse Rate 81 Pulse Rate [ 89 From Monitor] Respiratory 20 20 Rate Blood Pressure 160/105 [Left Arm] O2 Sat by Pulse 94 93 94 Oximetry 03/25/16 03/25/16 03/25/16 10:00 12:00 18:36 Temperature 98.2 F Pulse Rate 92 H 104 H Pulse Rate [ 89 63 From Monitor] Respiratory 20 20 30 H Rate Blood Pressure 183/119 [Left Arm] O2 Sat by Pulse 93 93 95 Oximetry 03/25/16 18:53 Temperature 98.4 F Pulse Rate Pulse Rate [ 98 H From Monitor] Respiratory 20 Rate Blood Pressure 150/98 [Left Arm] O2 Sat by Pulse 93 Oximetry Constitutional: no acute distress, alert Eyes: non-icteric ENT: oropharynx moist Neck: supple, no JVD Ascultation: Bilateral: diminished breath sounds (LLL), rales (LLL) Cardiovascular: regular rate and rhythm Gastrointestinal: normoactive bowel sounds, soft, non-tender, non-distended Integumentary: other (Stasis dermatitis.) Extremities: no cyanosis, pink and warm, pulses normal, no ischemia or petechiae , edema Neurologic: normal mental status, non-focal exam, pupils equal and round, motor strength normal and Psychiatric: mood appropriate, affect normal CBC and BMP: 03/23/16 05:03 03/17/16 04:58 ABG, PT/INR, D-dimer: ABG POC ABG pH 7.422 (7.35-7.45) 03/17/16 08:55 POC ABG pCO2 70.5 (35-45) H 03/17/16 08:55 POC ABG pO2 108 (80-105) H 03/17/16 08:55 POC ABG HCO3 46.0 03/17/16 08:55 POC ABG Total CO2 48 03/17/16 08:55 POC ABG O2 Sat 98 03/17/16 08:55 PT/INR, D-dimer PT 29.4 Sec. (12.2-14.9) H 03/25/16 05:21 INR 2.77 (0.87-1.13) H 03/25/16 05:21 Abnormal lab findings: Abnormal Labs 03/16/16 03/16/16 03/16/16 00:04 01:01 07:49 RBC MCV MCH MCHC RDW PT 15.8 H INR 1.27 H Heparin Anti-Xa Level 0.18 L POC ABG pH 7.304 L POC ABG pCO2 92.8 H POC ABG pO2 Chloride Carbon Dioxide POC Glucose Lactate Dehydrogenase Total Creatine Kinase CK-MB (CK-2) Rel Index C-Reactive Protein Fluid Total Protein 03/16/16 03/16/16 03/16/16 12:16 16:00 17:21 RBC MCV MCH MCHC RDW PT INR Heparin Anti-Xa Level < 0.11 L POC ABG pH POC ABG pCO2 POC ABG pO2 Chloride Carbon Dioxide POC Glucose Lactate Dehydrogenase 328 H Total Creatine Kinase CK-MB (CK-2) Rel Index C-Reactive Protein 2.60 H Fluid Total Protein 4.5 L 03/17/16 03/17/16 03/17/16 04:58 04:58 04:58 RBC 5.50 H MCV 70 L MCH 20 L MCHC 29 L RDW 23.7 H PT INR Heparin Anti-Xa Level 0.14 L POC ABG pH POC ABG pCO2 POC ABG pO2 Chloride 94.9 L Carbon Dioxide 40 H POC Glucose Lactate Dehydrogenase Total Creatine Kinase CK-MB (CK-2) Rel Index C-Reactive Protein Fluid Total Protein 03/17/16 03/17/16 03/17/16 08:55 11:50 13:16 RBC MCV MCH MCHC RDW PT INR Heparin Anti-Xa Level 0.16 L POC ABG pH POC ABG pCO2 70.5 H POC ABG pO2 108 H Chloride Carbon Dioxide POC Glucose 65 L Lactate Dehydrogenase Total Creatine Kinase CK-MB (CK-2) Rel Index C-Reactive Protein Fluid Total Protein 03/17/16 03/17/16 03/18/16 13:16 21:00 05:32 RBC MCV MCH MCHC RDW PT 15.9 H INR 1.28 H Heparin Anti-Xa Level 0.13 L POC ABG pH POC ABG pCO2 POC ABG pO2 Chloride Carbon Dioxide POC Glucose Lactate Dehydrogenase Total Creatine Kinase 14 L CK-MB (CK-2) Rel Index 7.1 H C-Reactive Protein Fluid Total Protein 03/18/16 03/18/16 03/18/16 07:35 07:43 15:45 RBC MCV MCH MCHC RDW PT INR Heparin Anti-Xa Level 0.71 H POC ABG pH POC ABG pCO2 POC ABG pO2 Chloride Carbon Dioxide POC Glucose 63 L 109 H Lactate Dehydrogenase Total Creatine Kinase CK-MB (CK-2) Rel Index C-Reactive Protein Fluid Total Protein 03/18/16 03/18/16 03/18/16 16:15 21:35 23:30 RBC MCV MCH MCHC RDW PT INR Heparin Anti-Xa Level 0.86 H 0.26 L POC ABG pH POC ABG pCO2 POC ABG pO2 Chloride Carbon Dioxide POC Glucose 106 H Lactate Dehydrogenase Total Creatine Kinase CK-MB (CK-2) Rel Index C-Reactive Protein Fluid Total Protein 03/19/16 03/19/16 03/19/16 06:57 08:28 17:12 RBC MCV MCH MCHC RDW PT 15.6 H INR 1.25 H Heparin Anti-Xa Level POC ABG pH POC ABG pCO2 POC ABG pO2 Chloride Carbon Dioxide POC Glucose 67 L 110 H Lactate Dehydrogenase Total Creatine Kinase CK-MB (CK-2) Rel Index C-Reactive Protein Fluid Total Protein 03/19/16 03/20/16 03/21/16 21:27 06:48 05:11 RBC MCV MCH MCHC RDW PT 16.9 H 18.1 H INR 1.38 H 1.50 H Heparin Anti-Xa Level POC ABG pH POC ABG pCO2 POC ABG pO2 Chloride Carbon Dioxide POC Glucose 107 H Lactate Dehydrogenase Total Creatine Kinase CK-MB (CK-2) Rel Index C-Reactive Protein Fluid Total Protein 03/21/16 03/21/16 03/21/16 05:11 16:02 21:59 RBC MCV MCH MCHC RDW PT INR Heparin Anti-Xa Level 0.27 L 0.79 H POC ABG pH POC ABG pCO2 POC ABG pO2 Chloride Carbon Dioxide POC Glucose 128 H Lactate Dehydrogenase Total Creatine Kinase CK-MB (CK-2) Rel Index C-Reactive Protein Fluid Total Protein 03/22/16 03/23/16 03/23/16 04:46 05:03 08:21 RBC MCV MCH MCHC RDW PT 22.7 H 21.5 H INR 2.00 H 1.87 H Heparin Anti-Xa Level POC ABG pH POC ABG pCO2 POC ABG pO2 Chloride Carbon Dioxide POC Glucose 64 L Lactate Dehydrogenase Total Creatine Kinase CK-MB (CK-2) Rel Index C-Reactive Protein Fluid Total Protein 03/23/16 03/24/16 03/25/16 14:57 05:09 02:04 RBC MCV MCH MCHC RDW PT 25.9 H INR 2.36 H Heparin Anti-Xa Level < 0.10 L 0.10 L POC ABG pH POC ABG pCO2 POC ABG pO2 Chloride Carbon Dioxide POC Glucose Lactate Dehydrogenase Total Creatine Kinase CK-MB (CK-2) Rel Index C-Reactive Protein Fluid Total Protein 03/25/16 05:21 RBC MCV MCH MCHC RDW PT 29.4 H INR 2.77 H Heparin Anti-Xa Level POC ABG pH POC ABG pCO2 POC ABG pO2 Chloride Carbon Dioxide POC Glucose Lactate Dehydrogenase Total Creatine Kinase CK-MB (CK-2) Rel Index C-Reactive Protein Fluid Total Protein
[2016-03-26] MEDS: MUCOMYST INHALATION SCH ×3 (00:45→15:27)
[2016-03-26] MEDS: ZOSYN/NS 4.5GM/100ML 100 ML IV SCH ×3 (06:34→21:24)
[2016-03-26] MEDS: MORPHINE IV PRN ×3 (06:34→21:23)
[2016-03-26 08:29] LABS: INR 3.03 (0.87-1.13)
[2016-03-26] MEDS: VANCOMYCIN VIAL 2,000 MG in NACL 0.9% 500 ML 500 ML IV SCH ×2 (09:27→18:21)
--- NOTE | 2016-03-26 12:48 | Progress Note ---
Assessment and Plan Assessment and plan: 1. Acute hypoxemic respiratory failure. Patient currently on BiPAP. Etiology is multifactorial. Patient with left parapneumonic effusion sp thoracentesis. Pulmonary following. Patient does have a history of PE/DVT and morbid obesity with probable LENA/OHS. Doppler ultrasound of lower extremities negative. 2. Left lung pneumonia with parapneumonic effusion. Patient is status post thoracentesis with 1.1 L removed. continue abx, coverage has been expanded on 03/24; she may need bronch if she does not clinically improve 3. Accelerated hypertension. continue current meds 4. History of PE/DVT. Continuewarfarin 5. Type 2 diabetes mellitus. Continue Accu-Cheks and sliding scale regular insulin. 6. Morbid obesity. Nutritional consultation. 7. 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 Patient will need further follow-up as an outpatient, will likely need CPAP machine upon dc. 8. GI prophylaxis. Continue Protonix. History Interval history: she belives that her breathing has improved, admits to SOB, she has been able to eat, but has not gotten out of bed, denies CP, Hospitalist Physical - Physical exam Narrative exam: General: Mild respiratory distress, appears exhausted, obese HEENT: MMM, EOMI cardiac: S1-S2 heard lungs: Decreased air entry abdomen: soft, nontender, nondistended bowel sounds positive extremities: no edema clubbing or cyanosis Skin: no rash or lesion Neuro: no focal deficit Psych: appropriate behavior and mood, cognition intact - Constitutional Vitals: Temp Pulse Resp BP Pulse Ox 97.6 F 70 22 131/70 90 03/26/16 09:30 03/26/16 10:00 03/26/16 09:30 03/26/16 09:30 03/26/16 09:30 General appearance: Present: mild distress, obese Results - Labs CBC & Chem 7: 03/23/16 05:03 03/17/16 04:58 Labs: Laboratory Last Values WBC 8.2 K/mm3 (4.5-11.0) 03/17/16 04:58 RBC 5.50 M/mm3 (3.65-5.03) H 03/17/16 04:58 Hgb 11.4 gm/dl (10.1-14.3) 03/23/16 05:03 Hct 39.2 % (30.3-42.9) 03/23/16 05:03 MCV 70 fl (79-97) L 03/17/16 04:58 MCH 20 pg (28-32) L 03/17/16 04:58 MCHC 29 % (30-34) L 03/17/16 04:58 RDW 23.7 % (13.2-15.2) H 03/17/16 04:58 Plt Count 195 K/mm3 (140-440) 03/23/16 05:03 Lymph % (Auto) Resistor Testing Machine Operator 03/17/16 04:58 [place] % (Auto) Resistor Testing Machine Operator 03/17/16 04:58 Eos % (Auto) Resistor Testing Machine Operator 03/17/16 04:58 Baso % (Auto) Resistor Testing Machine Operator 03/17/16 04:58 Lymph # Resistor Testing Machine Operator 03/17/16 04:58 [place] # Resistor Testing Machine Operator 03/17/16 04:58 Eos # Resistor Testing Machine Operator 03/17/16 04:58 Baso # Resistor Testing Machine Operator 03/17/16 04:58 Seg Neutrophils % Resistor Testing Machine Operator 03/17/16 04:58 Seg Neutrophils # Resistor Testing Machine Operator 03/17/16 04:58 PT 31.6 Sec. (12.2-14.9) H 03/26/16 07:48 INR 3.03 (0.87-1.13) H 03/26/16 07:48 APTT 31.5 Sec. (24.2-36.6) 03/16/16 00:04 Heparin Anti-Xa Level 0.10 U.I./ml (0.3-0.7) L 03/25/16 02:04 POC ABG pH 7.422 (7.35-7.45) 03/17/16 08:55 POC ABG pCO2 70.5 (35-45) H 03/17/16 08:55 POC ABG pO2 108 (80-105) H 03/17/16 08:55 POC ABG HCO3 46.0 03/17/16 08:55 POC ABG Total CO2 48 03/17/16 08:55 POC ABG O2 Sat 98 03/17/16 08:55 POC ABG Base Excess 22 03/17/16 08:55 FiO2 40 % 03/17/16 08:55 Sodium 142 mmol/L (137-145) 03/17/16 04:58 Potassium 4.8 mmol/L (3.6-5.0) 03/17/16 04:58 Chloride 94.9 mmol/L (98-107) L 03/17/16 04:58 Carbon Dioxide 40 mmol/L (22-30) H 03/17/16 04:58 Anion Gap 12 mmol/L 03/17/16 04:58 BUN 11 mg/dL (7-17) 03/17/16 04:58 Creatinine 0.8 mg/dL (0.7-1.2) 03/17/16 04:58 Estimated GFR > 60 ml/min 03/17/16 04:58 BUN/Creatinine Ratio 13.75 % 03/17/16 04:58 Glucose 78 mg/dL (65-100) 03/17/16 04:58 POC Glucose 70 (70-105) 03/25/16 21:25 Lactic Acid 1.6 mmol/L (0.7-2.0) 03/15/16 20:20 Calcium 9.2 mg/dL (8.4-10.2) 03/17/16 04:58 Magnesium 2.2 mg/dL (1.7-2.3) 03/15/16 20:20 Total Bilirubin 1.0 mg/dL (0.1-1.2) 03/15/16 20:20 AST 13 units/L (5-40) 03/15/16 20:20 ALT 15 units/L (7-56) 03/15/16 20:20 Alkaline Phosphatase 67 units/L (35-129) 03/15/16 20:20 Lactate Dehydrogenase 328 units/L (91-180) H 03/16/16 12:16 Total Creatine Kinase 14 units/L (30-135) L 03/17/16 13:16 CK-MB (CK-2) < 1.0 ng/mL (0.0-4.0) 03/17/16 13:16 CK-MB (CK-2) Rel Index 7.1 (0-4) H 03/17/16 13:16 Troponin T < 0.010 ng/mL (0.00-0.029) 03/17/16 13:16 C-Reactive Protein 2.60 mg/dL (0.00-1.30) H 03/16/16 12:16 NT-Pro-B Natriuret Pep 957.2 pg/mL (0-450) H 03/15/16 20:20 Total Protein 7.9 g/dL (6.3-8.2) 03/15/16 20:20 Albumin 3.1 g/dL (3.9-5) L 03/15/16 20:20 Albumin/Globulin Ratio 0.6 % 03/15/16 20:20 HCG, Quant < 2 mIU/mL (0-4) 03/15/16 20:20 Urine Color Yellow (Yellow) 03/15/16 21:43 Urine Turbidity Clear (Clear) 03/15/16 21:43 Urine pH 5.0 (5.0-7.0) 03/15/16 21:43 Ur Specific [place] 1.016 (1.003-1.030) 03/15/16 21:43 Urine Protein 30 mg/dl mg/dL (Negative) 03/15/16 21:43 Urine Glucose (UA) Neg mg/dL (Negative) 03/15/16 21:43 Urine Ketones Neg mg/dL (Negative) 03/15/16 21:43 Urine Blood Neg (Negative) 03/15/16 21:43 Urine Nitrite Neg (Negative) 03/15/16 21:43 Urine Bilirubin Neg (Negative) 03/15/16 21:43 Urine Urobilinogen 4.0 mg/dL (<2.0) 03/15/16 21:43 Ur Leukocyte Esterase Neg (Negative) 03/15/16 21:43 Urine WBC (Auto) 3.0 /HPF (0.0-6.0) 03/15/16 21:43 Urine RBC (Auto) 1.0 /HPF (0.0-6.0) 03/15/16 21:43 U Epithel Cells (Auto) 1.0 /HPF (0-13.0) 03/15/16 21:43 Hyaline Casts 1 /LPF 03/15/16 21:43 Urine Mucus Few /HPF 03/15/16 21:43 Fluid Total Protein 4.5 (15.0-45.0) L 03/16/16 16:00 Fluid LDH 498 03/16/16 16:00
[2016-03-26] MEDS: COUMADIN PO SCH ×2 (18:20→18:36)
--- NOTE | 2016-03-26 21:22 | Progress Note ---
Assessment and Plan This is 40 year old female Morbidly obese came to the emergency room with a complaint of shortness of breath. Patients chest xray obtained showed complete opacification of left hemithorax. Patient has history of hypertension and pulmonary emboli.Patients pulmonary emboli diagnosed 3 months ago by CTA of the chest. Patient also diagnsed at that time DVT in left leg. Patient non compliant with her medications, Patient stopped taking Eliquis.Patient started on S/C Lovenox and Coumadin.Patient also treated for pneumonia recently at [facility]. Patients blood gases showed, patient is in respiratory failure. Patient placed on BIPAP Rate 20, 22/10, FIO2 50%. Patient awake ,following commands. Repeating blood gases in AM.[place] no known allergies. Smoking,alcohol or drug history not known at this time.Patient started on Levaquine and zosyn. Obtaining ultrasound of chest for possible left pleural effusion. 03/18/16 Patient resting on Face mask, FIO2 50%. O2 saturation 84%. Patient S/P right thoracentesis 03/21/16 Patient alert, awake and oriented.Patient resting on Face mask, FIO2 50%. O2 saturation 90%. Patient S/P right thoracentesis 03/22/16 Patient sleeping at this time On bipap. Patient is on BIPAP 22/10, FIO2 40% and O2 satuaration running 95%.Patient tolerating BIPAP good.No respiratory distress. 03/25/16 Patient awake and resting on BIPAP.. Patient is on BIPAP 22/10, FIO2 45% and O2 satuaration running 93%.Patient tolerating BIPAP good.No respiratory distress. 03/26/16 Patient awake . Patient is on 50% ventimask . Complaning shortness of breath. O2 satuaration 95%. Placing her back on BIPAP. 22/10/ rate 20, FIO2 50%. - Patient Problems (1) Acute and chronic respiratory failure ([id number]) Current Visit: No Status: Acute Plan to address problem: Patient is on BIPAP 22/10, rate 20, FIO2 50% Continue Lovenox and coumadin. Albuterol/atrovent aerosol treatments. (2) Pulmonary emboli Current Visit: No Status: Acute Plan to address problem: 03/21/16 Patient presently is on I/V Heparin and coumadin. 03/22/16 Patient is on I/V Heparin and warfarin. 03/25/16 Patient is on coumadin. (3) Left femoral vein DVT Current Visit: No Status: Acute Plan to address problem: Lovenox and coumadin. 03/21/16 Patient presently is on I/V Heparin and coumadin. 03/22/16 Patient is on I/V heparin and coumadin. 03/25/16 Patient is on PO coumadin. (4) Pneumonia Current Visit: Yes Status: Acute Plan to address problem: Patient is on Zosyn and Levaquine. 03/18/16 Patient presently on Levaquine. 03/25/16 Patient presently on antibiotics Zosyn and vancomycin. (5) Pleural effusion, left Current Visit: Yes Status: Acute Plan to address problem: Patients ultrasound of chest reported pleural effusion. Patient under gone left thoracentesis. Pleural fluid cytology reported negative for malignant cells. (6) Morbid obesity with BMI of 70 and over, adult Current Visit: No Status: Chronic Plan to address problem: Nutritional consultation for weight reduction diet. (7) Sleep apnea Current Visit: No Status: Chronic Plan to address problem: Patient is on BIPAP.22/10, rate 20, FIO2 50% Subjective Date of service: 03/26/16 Principal diagnosis: Acute Hypoxemic Respiratory Failure; Left Pleural Effusion Interval history: Patient awake . Patient is on 50% ventimask . Complaning shortness of breath. O2 satuaration 95%. Placing her back on BIPAP. 22/10/ rate 20, FIO2 50%. Objective Vital Signs - 12hr 03/26/16 03/26/16 03/26/16 09:30 10:00 12:00 Temperature 97.6 F 98.4 F Pulse Rate 70 Pulse Rate [ Anterior Bilateral Throughout] Pulse Rate [ From Monitor] Pulse Rate [ 95 H Left Dorsalis Pedis] Pulse Rate [ 85 Left Radial] Pulse Rate [ Right Radial] Respiratory 22 20 Rate Respiratory Rate [Anterior Bilateral Throughout] Blood Pressure 131/70 149/99 [Left Arm] O2 Sat by Pulse 90 Oximetry 03/26/16 03/26/16 03/26/16 14:55 15:28 15:42 Temperature Pulse Rate 89 Pulse Rate [ 89 89 Anterior Bilateral Throughout] Pulse Rate [ From Monitor] Pulse Rate [ Left Dorsalis Pedis] Pulse Rate [ Left Radial] Pulse Rate [ Right Radial] Respiratory 27 H Rate Respiratory 28 H 26 H Rate [Anterior Bilateral Throughout] Blood Pressure [Left Arm] O2 Sat by Pulse 94 Oximetry 03/26/16 03/26/16 16:00 20:00 Temperature 97.5 F L 98.4 F Pulse Rate Pulse Rate [ Anterior Bilateral Throughout] Pulse Rate [ 83 From Monitor] Pulse Rate [ Left Dorsalis Pedis] Pulse Rate [ Left Radial] Pulse Rate [ 89 Right Radial] Respiratory 16 18 Rate Respiratory Rate [Anterior Bilateral Throughout] Blood Pressure 177/100 182/100 [Left Arm] O2 Sat by Pulse 95 Oximetry Constitutional: no acute distress, alert Eyes: non-icteric ENT: oropharynx moist Neck: supple, no JVD Ascultation: Bilateral: diminished breath sounds (LLL), rales (LLL) Cardiovascular: regular rate and rhythm Gastrointestinal: normoactive bowel sounds, soft, non-tender, non-distended Integumentary: other (Stasis dermatitis.) Extremities: no cyanosis, pink and warm, pulses normal, no ischemia or petechiae , edema Neurologic: normal mental status, non-focal exam, pupils equal and round, motor strength normal and Psychiatric: mood appropriate, affect normal CBC and BMP: 03/23/16 05:03 03/17/16 04:58 ABG, PT/INR, D-dimer: ABG POC ABG pH 7.422 (7.35-7.45) 03/17/16 08:55 POC ABG pCO2 70.5 (35-45) H 03/17/16 08:55 POC ABG pO2 108 (80-105) H 03/17/16 08:55 POC ABG HCO3 46.0 03/17/16 08:55 POC ABG Total CO2 48 03/17/16 08:55 POC ABG O2 Sat 98 03/17/16 08:55 PT/INR, D-dimer PT 31.6 Sec. (12.2-14.9) H 03/26/16 07:48 INR 3.03 (0.87-1.13) H 03/26/16 07:48 Abnormal lab findings: Abnormal Labs 03/16/16 03/16/16 03/16/16 00:04 01:01 07:49 RBC MCV MCH MCHC RDW PT 15.8 H INR 1.27 H Heparin Anti-Xa Level 0.18 L POC ABG pH 7.304 L POC ABG pCO2 92.8 H POC ABG pO2 Chloride Carbon Dioxide POC Glucose Lactate Dehydrogenase Total Creatine Kinase CK-MB (CK-2) Rel Index C-Reactive Protein Fluid Total Protein 03/16/16 03/16/16 03/16/16 12:16 16:00 17:21 RBC MCV MCH MCHC RDW PT INR Heparin Anti-Xa Level < 0.11 L POC ABG pH POC ABG pCO2 POC ABG pO2 Chloride Carbon Dioxide POC Glucose Lactate Dehydrogenase 328 H Total Creatine Kinase CK-MB (CK-2) Rel Index C-Reactive Protein 2.60 H Fluid Total Protein 4.5 L 03/17/16 03/17/16 03/17/16 04:58 04:58 04:58 RBC 5.50 H MCV 70 L MCH 20 L MCHC 29 L RDW 23.7 H PT INR Heparin Anti-Xa Level 0.14 L POC ABG pH POC ABG pCO2 POC ABG pO2 Chloride 94.9 L Carbon Dioxide 40 H POC Glucose Lactate Dehydrogenase Total Creatine Kinase CK-MB (CK-2) Rel Index C-Reactive Protein Fluid Total Protein 03/17/16 03/17/16 03/17/16 08:55 11:50 13:16 RBC MCV MCH MCHC RDW PT INR Heparin Anti-Xa Level 0.16 L POC ABG pH POC ABG pCO2 70.5 H POC ABG pO2 108 H Chloride Carbon Dioxide POC Glucose 65 L Lactate Dehydrogenase Total Creatine Kinase CK-MB (CK-2) Rel Index C-Reactive Protein Fluid Total Protein 03/17/16 03/17/16 03/18/16 13:16 21:00 05:32 RBC MCV MCH MCHC RDW PT 15.9 H INR 1.28 H Heparin Anti-Xa Level 0.13 L POC ABG pH POC ABG pCO2 POC ABG pO2 Chloride Carbon Dioxide POC Glucose Lactate Dehydrogenase Total Creatine Kinase 14 L CK-MB (CK-2) Rel Index 7.1 H C-Reactive Protein Fluid Total Protein 03/18/16 03/18/16 03/18/16 07:35 07:43 15:45 RBC MCV MCH MCHC RDW PT INR Heparin Anti-Xa Level 0.71 H POC ABG pH POC ABG pCO2 POC ABG pO2 Chloride Carbon Dioxide POC Glucose 63 L 109 H Lactate Dehydrogenase Total Creatine Kinase CK-MB (CK-2) Rel Index C-Reactive Protein Fluid Total Protein 03/18/16 03/18/16 03/18/16 16:15 21:35 23:30 RBC MCV MCH MCHC RDW PT INR Heparin Anti-Xa Level 0.86 H 0.26 L POC ABG pH POC ABG pCO2 POC ABG pO2 Chloride Carbon Dioxide POC Glucose 106 H Lactate Dehydrogenase Total Creatine Kinase CK-MB (CK-2) Rel Index C-Reactive Protein Fluid Total Protein 03/19/16 03/19/16 03/19/16 06:57 08:28 17:12 RBC MCV MCH MCHC RDW PT 15.6 H INR 1.25 H Heparin Anti-Xa Level POC ABG pH POC ABG pCO2 POC ABG pO2 Chloride Carbon Dioxide POC Glucose 67 L 110 H Lactate Dehydrogenase Total Creatine Kinase CK-MB (CK-2) Rel Index C-Reactive Protein Fluid Total Protein 03/19/16 03/20/16 03/21/16 21:27 06:48 05:11 RBC MCV MCH MCHC RDW PT 16.9 H 18.1 H INR 1.38 H 1.50 H Heparin Anti-Xa Level POC ABG pH POC ABG pCO2 POC ABG pO2 Chloride Carbon Dioxide POC Glucose 107 H Lactate Dehydrogenase Total Creatine Kinase CK-MB (CK-2) Rel Index C-Reactive Protein Fluid Total Protein 03/21/16 03/21/16 03/21/16 05:11 16:02 21:59 RBC MCV MCH MCHC RDW PT INR Heparin Anti-Xa Level 0.27 L 0.79 H POC ABG pH POC ABG pCO2 POC ABG pO2 Chloride Carbon Dioxide POC Glucose 128 H Lactate Dehydrogenase Total Creatine Kinase CK-MB (CK-2) Rel Index C-Reactive Protein Fluid Total Protein 03/22/16 03/23/16 03/23/16 04:46 05:03 08:21 RBC MCV MCH MCHC RDW PT 22.7 H 21.5 H INR 2.00 H 1.87 H Heparin Anti-Xa Level POC ABG pH POC ABG pCO2 POC ABG pO2 Chloride Carbon Dioxide POC Glucose 64 L Lactate Dehydrogenase Total Creatine Kinase CK-MB (CK-2) Rel Index C-Reactive Protein Fluid Total Protein 03/23/16 03/24/16 03/25/16 14:57 05:09 02:04 RBC MCV MCH MCHC RDW PT 25.9 H INR 2.36 H Heparin Anti-Xa Level < 0.10 L 0.10 L POC ABG pH POC ABG pCO2 POC ABG pO2 Chloride Carbon Dioxide POC Glucose Lactate Dehydrogenase Total Creatine Kinase CK-MB (CK-2) Rel Index C-Reactive Protein Fluid Total Protein 03/25/16 03/25/16 03/26/16 05:21 18:24 07:48 RBC MCV MCH MCHC RDW PT 29.4 H 31.6 H INR 2.77 H 3.03 H Heparin Anti-Xa Level POC ABG pH POC ABG pCO2 POC ABG pO2 Chloride Carbon Dioxide POC Glucose 112 H Lactate Dehydrogenase Total Creatine Kinase CK-MB (CK-2) Rel Index C-Reactive Protein Fluid Total Protein 03/26/16 03/26/16 09:36 12:22 RBC MCV MCH MCHC RDW PT INR Heparin Anti-Xa Level POC ABG pH POC ABG pCO2 POC ABG pO2 Chloride Carbon Dioxide POC Glucose 127 H 68 L Lactate Dehydrogenase Total Creatine Kinase CK-MB (CK-2) Rel Index C-Reactive Protein Fluid Total Protein
[2016-03-26] MEDS: APRESOLINE IV PRN (21:24)
[2016-03-27] MEDS: MUCOMYST INHALATION SCH ×4 (00:48→16:35)
[2016-03-27] MEDS: PROVENTIL IH PRN ×3 (00:51→16:35)
[2016-03-27] MEDS: ZOSYN/NS 4.5GM/100ML 100 ML IV SCH ×4 (01:58→18:47)
[2016-03-27] MEDS: MORPHINE IV PRN (03:59)
[2016-03-27] MEDS: VANCOMYCIN VIAL 2,000 MG in NACL 0.9% 500 ML 500 ML IV SCH ×2 (06:35→21:09)
[2016-03-27 08:06] LABS: INR 3.52 (0.87-1.13)
[2016-03-27] MEDS: PERCOCET 5/325 PO PRN ×2 (10:12→21:10)
[2016-03-27] MEDS: APRESOLINE IV PRN (12:29)
--- NOTE | 2016-03-27 13:05 | Progress Note ---
Assessment and Plan Assessment and plan: 1. Acute hypoxemic respiratory failure. Patient currently on BiPAP. Etiology is multifactorial- PNA, Obesity hypoventilation, atelectasis, possible mucus pluging. Patient with left parapneumonic effusion sp thoracentesis. Pulmonary following. Patient does have a history of PE/DVT and morbid obesity with probable LENA/OHS. Doppler ultrasound of lower extremities negative. -may need bronch if she does not improve 2. Left lung pneumonia with parapneumonic effusion. Patient is status post thoracentesis with 1.1 L removed. continue abx, coverage has been expanded on 03/24; she may need bronch if she does not clinically improve 3. Accelerated hypertension. continue current meds 4. History of PE/DVT. Continue warfarin 5. Type 2 diabetes mellitus. Continue Accu-Cheks and sliding scale regular insulin. 6. Morbid obesity. Nutritional consultation. 7. 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 Patient will need further follow-up as an outpatient, will likely need CPAP machine upon dc. 8. GI prophylaxis. Continue Protonix. History Interval history: she belives that her breathing is not improving, admits to SOB, and PATEL, gets winded with the slightest activity, denies CP, Hospitalist Physical - Physical exam Narrative exam: General: Mild respiratory distress, appears exhausted, obese HEENT: MMM, EOMI cardiac: S1-S2 heard lungs: Decreased air entry abdomen: soft, nontender, nondistended bowel sounds positive extremities: no edema clubbing or cyanosis Skin: no rash or lesion Neuro: no focal deficit Psych: appropriate behavior and mood, cognition intact - Constitutional Vitals: Temp Pulse Resp BP Pulse Ox 98.5 F 93 H 20 194/114 95 03/27/16 08:00 03/27/16 12:29 03/27/16 10:12 03/27/16 12:29 03/27/16 08:00 General appearance: Present: mild distress, obese Results - Labs CBC & Chem 7: 03/23/16 05:03 03/17/16 04:58 Labs: Laboratory Last Values WBC 8.2 K/mm3 (4.5-11.0) 03/17/16 04:58 RBC 5.50 M/mm3 (3.65-5.03) H 03/17/16 04:58 Hgb 11.4 gm/dl (10.1-14.3) 03/23/16 05:03 Hct 39.2 % (30.3-42.9) 03/23/16 05:03 MCV 70 fl (79-97) L 03/17/16 04:58 MCH 20 pg (28-32) L 03/17/16 04:58 MCHC 29 % (30-34) L 03/17/16 04:58 RDW 23.7 % (13.2-15.2) H 03/17/16 04:58 Plt Count 195 K/mm3 (140-440) 03/23/16 05:03 Lymph % (Auto) Wood Finisher Apprentice 03/17/16 04:58 [place] % (Auto) Wood Finisher Apprentice 03/17/16 04:58 Eos % (Auto) Wood Finisher Apprentice 03/17/16 04:58 Baso % (Auto) Wood Finisher Apprentice 03/17/16 04:58 Lymph # Wood Finisher Apprentice 03/17/16 04:58 [place] # Wood Finisher Apprentice 03/17/16 04:58 Eos # Wood Finisher Apprentice 03/17/16 04:58 Baso # Wood Finisher Apprentice 03/17/16 04:58 Seg Neutrophils % Wood Finisher Apprentice 03/17/16 04:58 Seg Neutrophils # Wood Finisher Apprentice 03/17/16 04:58 PT 35.6 Sec. (12.2-14.9) H 03/27/16 07:10 INR 3.52 (0.87-1.13) H 03/27/16 07:10 APTT 31.5 Sec. (24.2-36.6) 03/16/16 00:04 Heparin Anti-Xa Level 0.10 U.I./ml (0.3-0.7) L 03/25/16 02:04 POC ABG pH 7.422 (7.35-7.45) 03/17/16 08:55 POC ABG pCO2 70.5 (35-45) H 03/17/16 08:55 POC ABG pO2 108 (80-105) H 03/17/16 08:55 POC ABG HCO3 46.0 03/17/16 08:55 POC ABG Total CO2 48 03/17/16 08:55 POC ABG O2 Sat 98 03/17/16 08:55 POC ABG Base Excess 22 03/17/16 08:55 FiO2 40 % 03/17/16 08:55 Sodium 142 mmol/L (137-145) 03/17/16 04:58 Potassium 4.8 mmol/L (3.6-5.0) 03/17/16 04:58 Chloride 94.9 mmol/L (98-107) L 03/17/16 04:58 Carbon Dioxide 40 mmol/L (22-30) H 03/17/16 04:58 Anion Gap 12 mmol/L 03/17/16 04:58 BUN 11 mg/dL (7-17) 03/17/16 04:58 Creatinine 0.8 mg/dL (0.7-1.2) 03/17/16 04:58 Estimated GFR > 60 ml/min 03/17/16 04:58 BUN/Creatinine Ratio 13.75 % 03/17/16 04:58 Glucose 78 mg/dL (65-100) 03/17/16 04:58 POC Glucose 111 (70-105) H 03/26/16 21:26 Lactic Acid 1.6 mmol/L (0.7-2.0) 03/15/16 20:20 Calcium 9.2 mg/dL (8.4-10.2) 03/17/16 04:58 Magnesium 2.2 mg/dL (1.7-2.3) 03/15/16 20:20 Total Bilirubin 1.0 mg/dL (0.1-1.2) 03/15/16 20:20 AST 13 units/L (5-40) 03/15/16 20:20 ALT 15 units/L (7-56) 03/15/16 20:20 Alkaline Phosphatase 67 units/L (35-129) 03/15/16 20:20 Lactate Dehydrogenase 328 units/L (91-180) H 03/16/16 12:16 Total Creatine Kinase 14 units/L (30-135) L 03/17/16 13:16 CK-MB (CK-2) < 1.0 ng/mL (0.0-4.0) 03/17/16 13:16 CK-MB (CK-2) Rel Index 7.1 (0-4) H 03/17/16 13:16 Troponin T < 0.010 ng/mL (0.00-0.029) 03/17/16 13:16 C-Reactive Protein 2.60 mg/dL (0.00-1.30) H 12/14/16 12:16 NT-Pro-B Natriuret Pep 957.2 pg/mL (0-450) H 03/15/16 20:20 Total Protein 7.9 g/dL (6.3-8.2) 03/15/16 20:20 Albumin 3.1 g/dL (3.9-5) L 03/15/16 20:20 Albumin/Globulin Ratio 0.6 % 03/15/16 20:20 HCG, Quant < 2 mIU/mL (0-4) 03/15/16 20:20 Urine Color Yellow (Yellow) 03/15/16 21:43 Urine Turbidity Clear (Clear) 03/15/16 21:43 Urine pH 5.0 (5.0-7.0) 03/15/16 21:43 Ur Specific [place] 1.016 (1.003-1.030) 03/15/16 21:43 Urine Protein 30 mg/dl mg/dL (Negative) 03/15/16 21:43 Urine Glucose (UA) Neg mg/dL (Negative) 03/15/16 21:43 Urine Ketones Neg mg/dL (Negative) 03/15/16 21:43 Urine Blood Neg (Negative) 03/15/16 21:43 Urine Nitrite Neg (Negative) 03/15/16 21:43 Urine Bilirubin Neg (Negative) 03/15/16 21:43 Urine Urobilinogen 4.0 mg/dL (<2.0) 03/15/16 21:43 Ur Leukocyte Esterase Neg (Negative) 03/15/16 21:43 Urine WBC (Auto) 3.0 /HPF (0.0-6.0) 03/15/16 21:43 Urine RBC (Auto) 1.0 /HPF (0.0-6.0) 03/15/16 21:43 U Epithel Cells (Auto) 1.0 /HPF (0-13.0) 03/15/16 21:43 Hyaline Casts 1 /LPF 03/15/16 21:43 Urine Mucus Few /HPF 03/15/16 21:43 Fluid Total Protein 4.5 (15.0-45.0) L 03/16/16 16:00 Fluid LDH 498 03/16/16 16:00
--- NOTE | 2016-03-27 13:50 | Progress Note ---
Assessment and Plan This is 40 year old female Morbidly obese came to the emergency room with a complaint of shortness of breath. Patients chest xray obtained showed complete opacification of left hemithorax. Patient has history of hypertension and pulmonary emboli.Patients pulmonary emboli diagnosed 3 months ago by CTA of the chest. Patient also diagnsed at that time DVT in left leg. Patient non compliant with her medications, Patient stopped taking Eliquis.Patient started on S/C Lovenox and Coumadin.Patient also treated for pneumonia recently at [facility]. Patients blood gases showed, patient is in respiratory failure. Patient placed on BIPAP Rate 20, 22/10, FIO2 50%. Patient awake ,following commands. Repeating blood gases in AM.[place] no known allergies. Smoking,alcohol or drug history not known at this time.Patient started on Levaquine and zosyn. Obtaining ultrasound of chest for possible left pleural effusion. 03/18/16 Patient resting on Face mask, FIO2 50%. O2 saturation 84%. Patient S/P right thoracentesis 03/21/16 Patient alert, awake and oriented.Patient resting on Face mask, FIO2 50%. O2 saturation 90%. Patient S/P right thoracentesis 03/22/16 Patient sleeping at this time On bipap. Patient is on BIPAP 22/10, FIO2 40% and O2 satuaration running 95%.Patient tolerating BIPAP good.No respiratory distress. 03/25/16 Patient awake and resting on BIPAP.. Patient is on BIPAP 22/10, FIO2 45% and O2 satuaration running 93%.Patient tolerating BIPAP good.No respiratory distress. 03/26/16 Patient awake . Patient is on 50% ventimask . Complaning shortness of breath. O2 satuaration 95%. Placing her back on BIPAP. 22/10/ rate 20, FIO2 50%. - Patient Problems (1) Acute and chronic respiratory failure ([id number]) Current Visit: No Status: Acute Plan to address problem: Patient alert and awake . Patient sitting up in chair.Patient is on 50% ventimask . O2 satuaration 95%. (2) Pulmonary emboli Current Visit: No Status: Acute Plan to address problem: 03/21/16 Patient presently is on I/V Heparin and coumadin. 03/22/16 Patient is on I/V Heparin and warfarin. 03/25/16 Patient is on coumadin. 03/27/16 Patients INR 3.52. Recommend hold coumadin today Recheck INR in AM. (3) Left femoral vein DVT Current Visit: No Status: Acute Plan to address problem: Lovenox and coumadin. 03/21/16 Patient presently is on I/V Heparin and coumadin. 03/22/16 Patient is on I/V heparin and coumadin. 03/25/16 Patient is on PO coumadin. 03/27/16 Patients INR 3.52 Recommend hold coumadin and recheck INR. (4) Pneumonia Current Visit: Yes Status: Acute Plan to address problem: Patient is on Zosyn and Levaquine. 03/18/16 Patient presently on Levaquine. 03/25/16 Patient presently on antibiotics Zosyn and vancomycin. (5) Pleural effusion, left Current Visit: Yes Status: Acute Plan to address problem: Patients ultrasound of chest reported pleural effusion. Patient under gone left thoracentesis. Pleural fluid cytology reported negative for malignant cells. (6) Morbid obesity with BMI of 70 and over, adult Current Visit: No Status: Chronic Plan to address problem: Nutritional consultation for weight reduction diet. (7) Sleep apnea Current Visit: No Status: Chronic Plan to address problem: Patient is on BIPAP.22/01, rate 20, FIO2 50% Subjective Date of service: 03/27/16 Principal diagnosis: Acute Hypoxemic Respiratory Failure; Left Pleural Effusion Interval history: Patient alert and awake . Patient sitting up in chair.Patient is on 50% ventimask . O2 satuaration 95%. Objective Vital Signs - 12hr 03/27/16 03/27/16 03/27/16 03:00 04:00 07:20 Temperature 98.2 F Pulse Rate 94 H Pulse Rate [ 85 Anterior Bilateral Throughout] Pulse Rate [ From Monitor] Pulse Rate [ 93 H Right Radial] Respiratory 19 Rate Respiratory 20 Rate [Anterior Bilateral Throughout] Blood Pressure Blood Pressure 155/77 [Left Arm] O2 Sat by Pulse 92 95 Oximetry 03/27/16 03/27/16 03/27/16 08:00 10:12 12:29 Temperature 98.5 F Pulse Rate 93 H Pulse Rate [ Anterior Bilateral Throughout] Pulse Rate [ 83 From Monitor] Pulse Rate [ Right Radial] Respiratory 18 20 Rate Respiratory Rate [Anterior Bilateral Throughout] Blood Pressure 194/114 Blood Pressure 159/97 [Left Arm] O2 Sat by Pulse 95 Oximetry Constitutional: no acute distress, alert Eyes: non-icteric ENT: oropharynx moist Neck: supple, no JVD Ascultation: Bilateral: diminished breath sounds (LLL), rales (LLL) Cardiovascular: regular rate and rhythm Gastrointestinal: normoactive bowel sounds, soft, non-tender, non-distended Integumentary: other (Stasis dermatitis.) Extremities: no cyanosis, pink and warm, pulses normal, no ischemia or petechiae , edema Neurologic: normal mental status, non-focal exam, pupils equal and round, motor strength normal and Psychiatric: mood appropriate, affect normal CBC and BMP: 03/23/16 05:03 03/17/16 04:58 ABG, PT/INR, D-dimer: ABG POC ABG pH 7.422 (7.35-7.45) 03/17/16 08:55 POC ABG pCO2 70.5 (35-45) H 03/17/16 08:55 POC ABG pO2 108 (80-105) H 03/17/16 08:55 POC ABG HCO3 46.0 03/17/16 08:55 POC ABG Total CO2 48 03/17/16 08:55 POC ABG O2 Sat 98 03/17/16 08:55 PT/INR, D-dimer PT 35.6 Sec. (12.2-14.9) H 03/27/16 07:10 INR 3.52 (0.87-1.13) H 03/27/16 07:10 Abnormal lab findings: Abnormal Labs 03/16/16 03/16/16 03/16/16 00:04 01:01 07:49 RBC MCV MCH MCHC RDW PT 15.8 H INR 1.27 H Heparin Anti-Xa Level 0.18 L POC ABG pH 7.304 L POC ABG pCO2 92.8 H POC ABG pO2 Chloride Carbon Dioxide POC Glucose Lactate Dehydrogenase Total Creatine Kinase CK-MB (CK-2) Rel Index C-Reactive Protein Fluid Total Protein 03/16/16 03/16/16 03/16/16 1216 16:00 17:21 RBC MCV MCH MCHC RDW PT INR Heparin Anti-Xa Level < 0.11 L POC ABG pH POC ABG pCO2 POC ABG pO2 Chloride Carbon Dioxide POC Glucose Lactate Dehydrogenase 328 H Total Creatine Kinase CK-MB (CK-2) Rel Index C-Reactive Protein 2.60 H Fluid Total Protein 4.5 L 03/17/16 03/17/16 03/17/16 04:58 04:58 04:58 RBC 5.50 H MCV 70 L MCH 20 L MCHC 29 L RDW 23.7 H PT INR Heparin Anti-Xa Level 0.14 L POC ABG pH POC ABG pCO2 POC ABG pO2 Chloride 94.9 L Carbon Dioxide 40 H POC Glucose Lactate Dehydrogenase Total Creatine Kinase CK-MB (CK-2) Rel Index C-Reactive Protein Fluid Total Protein 03/17/16 03/17/16 03/17/16 08:55 11:50 13:16 RBC MCV MCH MCHC RDW PT INR Heparin Anti-Xa Level 0.16 L POC ABG pH POC ABG pCO2 70.5 H POC ABG pO2 108 H Chloride Carbon Dioxide POC Glucose 65 L Lactate Dehydrogenase Total Creatine Kinase CK-MB (CK-2) Rel Index C-Reactive Protein Fluid Total Protein 03/17/16 03/17/16 03/18/16 13:16 21:00 05:32 RBC MCV MCH MCHC RDW PT 15.9 H INR 1.28 H Heparin Anti-Xa Level 0.13 L POC ABG pH POC ABG pCO2 POC ABG pO2 Chloride Carbon Dioxide POC Glucose Lactate Dehydrogenase Total Creatine Kinase 14 L CK-MB (CK-2) Rel Index 7.1 H C-Reactive Protein Fluid Total Protein 03/18/16 03/18/16 03/18/16 07:35 07:43 15:45 RBC MCV MCH MCHC RDW PT INR Heparin Anti-Xa Level 0.71 H POC ABG pH POC ABG pCO2 POC ABG pO2 Chloride Carbon Dioxide POC Glucose 63 L 109 H Lactate Dehydrogenase Total Creatine Kinase CK-MB (CK-2) Rel Index C-Reactive Protein Fluid Total Protein 03/18/16 03/18/16 03/18/16 16:15 21:35 23:30 RBC MCV MCH MCHC RDW PT INR Heparin Anti-Xa Level 0.86 H 0.26 L POC ABG pH POC ABG pCO2 POC ABG pO2 Chloride Carbon Dioxide POC Glucose 106 H Lactate Dehydrogenase Total Creatine Kinase CK-MB (CK-2) Rel Index C-Reactive Protein Fluid Total Protein 03/19/16 03/19/16 03/19/16 06:57 08:28 17:12 RBC MCV MCH MCHC RDW PT 15.6 H INR 1.25 H Heparin Anti-Xa Level POC ABG pH POC ABG pCO2 POC ABG pO2 Chloride Carbon Dioxide POC Glucose 67 L 110 H Lactate Dehydrogenase Total Creatine Kinase CK-MB (CK-2) Rel Index C-Reactive Protein Fluid Total Protein 03/19/16 03/20/16 03/21/16 21:27 06:48 05:11 RBC MCV MCH MCHC RDW PT 16.9 H 18.1 H INR 1.38 H 1.50 H Heparin Anti-Xa Level POC ABG pH POC ABG pCO2 POC ABG pO2 Chloride Carbon Dioxide POC Glucose 107 H Lactate Dehydrogenase Total Creatine Kinase CK-MB (CK-2) Rel Index C-Reactive Protein Fluid Total Protein 03/21/16 03/21/16 03/21/16 05:11 16:02 21:59 RBC MCV MCH MCHC RDW PT INR Heparin Anti-Xa Level 0.27 L 0.79 H POC ABG pH POC ABG pCO2 POC ABG pO2 Chloride Carbon Dioxide POC Glucose 128 H Lactate Dehydrogenase Total Creatine Kinase CK-MB (CK-2) Rel Index C-Reactive Protein Fluid Total Protein 03/22/16 03/23/16 03/23/16 04:46 05:03 08:21 RBC MCV MCH MCHC RDW PT 22.7 H 21.5 H INR 2.00 H 1.87 H Heparin Anti-Xa Level POC ABG pH POC ABG pCO2 POC ABG pO2 Chloride Carbon Dioxide POC Glucose 64 L Lactate Dehydrogenase Total Creatine Kinase CK-MB (CK-2) Rel Index C-Reactive Protein Fluid Total Protein 03/23/16 03/24/16 03/25/16 14:57 05:09 02:04 RBC MCV MCH MCHC RDW PT 25.9 H INR 2.36 H Heparin Anti-Xa Level < 0.10 L 0.10 L POC ABG pH POC ABG pCO2 POC ABG pO2 Chloride Carbon Dioxide POC Glucose Lactate Dehydrogenase Total Creatine Kinase CK-MB (CK-2) Rel Index C-Reactive Protein Fluid Total Protein 03/25/16 03/25/16 03/26/16 05:21 18:24 07:48 RBC MCV MCH MCHC RDW PT 29.4 H 31.6 H INR 2.77 H 3.03 H Heparin Anti-Xa Level POC ABG pH POC ABG pCO2 POC ABG pO2 Chloride Carbon Dioxide POC Glucose 112 H Lactate Dehydrogenase Total Creatine Kinase CK-MB (CK-2) Rel Index C-Reactive Protein Fluid Total Protein 03/26/16 03/26/16 03/26/16 09:36 12:22 21:26 RBC MCV MCH MCHC RDW PT INR Heparin Anti-Xa Level POC ABG pH POC ABG pCO2 POC ABG pO2 Chloride Carbon Dioxide POC Glucose 127 H 68 L 111 H Lactate Dehydrogenase Total Creatine Kinase CK-MB (CK-2) Rel Index C-Reactive Protein Fluid Total Protein 03/27/16 07:10 RBC MCV MCH MCHC RDW PT 35.6 H INR 3.52 H Heparin Anti-Xa Level POC ABG pH POC ABG pCO2 POC ABG pO2 Chloride Carbon Dioxide POC Glucose Lactate Dehydrogenase Total Creatine Kinase CK-MB (CK-2) Rel Index C-Reactive Protein Fluid Total Protein
[2016-03-28] MEDS: MUCOMYST INHALATION SCH ×5 (00:28→23:37)
[2016-03-28] MEDS: ZOSYN/NS 4.5GM/100ML 100 ML IV SCH ×4 (01:23→18:37)
[2016-03-28] MEDS: APRESOLINE IV PRN (01:24)
[2016-03-28 06:10] LABS: INR 3.67 (0.87-1.13)
[2016-03-28 09:22] LABS: Anion Gap 13 mmol/L; Blood Urea Nitrogen 10 mg/dL (7-17); Calcium 9.3 mg/dL (8.4-10.2); Carbon Dioxide 38 mmol/L (22-30); Chloride 97.7 mmol/L (98-107); Glucose 86 mg/dL (65-100); Potassium 4.3 mmol/L (3.6-5.0); Sodium 144 mmol/L (137-145)
--- NOTE | 2016-03-28 11:29 | Progress Note ---
Assessment and Plan Assessment and plan: 1. Acute hypoxemic respiratory failure. Patient currently on BiPAP. Etiology is multifactorial- PNA, Obesity hypoventilation, atelectasis, possible mucus pluging. Patient with left parapneumonic effusion sp thoracentesis. Pulmonary following. Patient does have a history of PE/DVT and morbid obesity with probable LEAN/OHS. Doppler ultrasound of lower extremities negative. -may need bronch if she does not improve 2. Left lung pneumonia with parapneumonic effusion. Patient is status post thoracentesis with 1.1 L removed. continue abx, coverage has been expanded on 03/24; she may need bronch if she does not clinically improve 3. Chest pain We'll obtain EKG and troponins, morphine as needed 4. History of PE/DVT. Continue warfarin 5. Type 2 diabetes mellitus. Continue Accu-Cheks and sliding scale regular insulin. 6. Morbid obesity. Nutritional consultation. 7. 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 Patient will need further follow-up as an outpatient, will likely need CPAP machine upon dc. 8. GI prophylaxis. Continue Protonix. 9. Accelerated hypertension. continue current meds History Interval history: She complains of complaining of shortness of breath and is in exertion, she is now complaining of chest pain which she describes as sharp and substernal about 6 out of 10. Hospitalist Physical - Physical exam Narrative exam: General: Mild respiratory distress, appears exhausted, obese HEENT: MMM, EOMI cardiac: S1-S2 heard lungs: Decreased air entry abdomen: soft, nontender, nondistended bowel sounds positive extremities: no edema clubbing or cyanosis Skin: no rash or lesion Neuro: no focal deficit Psych: appropriate behavior and mood, cognition intact - Constitutional Vitals: Temp Pulse Resp BP Pulse Ox 97.2 F L 88 20 180/105 94 03/28/16 08:31 03/28/16 08:31 03/28/16 08:31 03/28/16 08:31 03/28/16 08:31 General appearance: Present: mild distress, obese Results - Labs CBC & Chem 7: 03/23/16 05:03 03/28/16 08:54 Labs: Laboratory Last Values WBC 8.2 K/mm3 (4.5-11.0) 03/17/16 04:58 RBC 5.50 M/mm3 (3.65-5.03) H 03/17/16 04:58 Hgb 11.4 gm/dl (10.1-14.3) 03/23/16 05:03 Hct 39.2 % (30.3-42.9) 03/23/16 05:03 MCV 70 fl (79-97) L 03/17/16 04:58 MCH 20 pg (28-32) L 03/17/16 04:58 MCHC 29 % (30-34) L 03/17/16 04:58 RDW 23.7 % (13.2-15.2) H 03/17/16 04:58 Plt Count 195 K/mm3 (140-440) 03/23/16 05:03 Lymph % (Auto) Rehab Liaison 03/17/16 04:58 Hardy % (Auto) Rehab Liaison 03/17/16 04:58 Eos % (Auto) Rehab Liaison 03/17/16 04:58 Baso % (Auto) Rehab Liaison 03/17/16 04:58 Lymph # Rehab Liaison 03/17/16 04:58 Hardy # Rehab Liaison 03/17/16 04:58 Eos # Rehab Liaison 03/17/16 04:58 Baso # Rehab Liaison 03/17/16 04:58 Seg Neutrophils % Rehab Liaison 03/17/16 04:58 Seg Neutrophils # Rehab Liaison 03/17/16 04:58 PT 36.8 Sec. (12.2-14.9) H 03/28/16 05:34 INR 3.67 (0.87-1.13) H 03/28/16 05:34 APTT 31.5 Sec. (24.2-36.6) 03/16/16 00:04 Heparin Anti-Xa Level 0.10 U.I./ml (0.3-0.7) L 03/25/16 02:04 POC ABG pH 7.422 (7.35-7.45) 03/17/16 08:55 POC ABG pCO2 70.5 (35-45) H 03/17/16 08:55 POC ABG pO2 108 (80-105) H 03/17/16 08:55 POC ABG HCO3 46.0 03/17/16 08:55 POC ABG Total CO2 48 03/17/16 08:55 POC ABG O2 Sat 98 03/17/16 08:55 POC ABG Base Excess 22 03/17/16 08:55 FiO2 40 % 03/17/16 08:55 Sodium 144 mmol/L (137-145) 03/28/16 08:54 Potassium 4.3 mmol/L (3.6-5.0) 03/28/16 08:54 Chloride 97.7 mmol/L (98-107) L 03/28/16 08:54 Carbon Dioxide 38 mmol/L (22-30) H 03/28/16 08:54 Anion Gap 13 mmol/L 03/28/16 08:54 BUN 10 mg/dL (7-17) 03/28/16 08:54 Creatinine 1.0 mg/dL (0.7-1.2) 03/28/16 08:54 Estimated GFR > 60 ml/min 03/28/16 08:54 BUN/Creatinine Ratio 10.00 % 03/28/16 08:54 Glucose 86 mg/dL (65-100) 03/28/16 08:54 POC Glucose 77 (70-105) 03/28/16 08:04 Lactic Acid 1.6 mmol/L (0.7-2.0) 03/15/16 20:20 Calcium 9.3 mg/dL (8.4-10.2) 03/28/16 08:54 Magnesium 2.2 mg/dL (1.7-2.3) 03/15/16 20:20 Total Bilirubin 1.0 mg/dL (0.1-1.2) 03/15/16 20:20 AST 13 units/L (5-40) 03/15/16 20:20 ALT 15 units/L (7-56) 03/15/16 20:20 Alkaline Phosphatase 67 units/L (35-129) 03/15/16 20:20 Lactate Dehydrogenase 328 units/L (91-180) H 03/16/16 12:16 Total Creatine Kinase 14 units/L (30-135) L 03/17/16 13:16 CK-MB (CK-2) < 1.0 ng/mL (0.0-4.0) 03/17/16 13:16 CK-MB (CK-2) Rel Index 7.1 (0-4) H 03/17/16 13:16 Troponin T < 0.010 ng/mL (0.00-0.029) 03/17/16 13:16 C-Reactive Protein 2.60 mg/dL (0.00-1.30) H 03/16/16 12:16 NT-Pro-B Natriuret Pep 957.2 pg/mL (0-450) H 03/15/16 20:20 Total Protein 7.9 g/dL (6.3-8.2) 03/15/16 20:20 Albumin 3.1 g/dL (3.9-5) L 03/15/16 20:20 Albumin/Globulin Ratio 0.6 % 03/15/16 20:20 HCG, Quant < 2 mIU/mL (0-4) 03/15/16 20:20 Urine Color Yellow (Yellow) 03/15/16 21:43 Urine Turbidity Clear (Clear) 03/15/16 21:43 Urine pH 5.0 (5.0-7.0) 03/15/16 21:43 Ur Specific Selby 1.016 (1.003-1.030) 03/15/16 21:43 Urine Protein 30 mg/dl mg/dL (Negative) 03/15/16 21:43 Urine Glucose (UA) Neg mg/dL (Negative) 03/15/16 21:43 Urine Ketones Neg mg/dL (Negative) 03/15/16 21:43 Urine Blood Neg (Negative) 03/15/16 21:43 Urine Nitrite Neg (Negative) 03/15/16 21:43 Urine Bilirubin Neg (Negative) 03/15/16 21:43 Urine Urobilinogen 4.0 mg/dL (<2.0) 03/15/16 21:43 Ur Leukocyte Esterase Neg (Negative) 03/15/16 21:43 Urine WBC (Auto) 3.0 /HPF (0.0-6.0) 03/15/16 21:43 Urine RBC (Auto) 1.0 /HPF (0.0-6.0) 03/15/16 21:43 U Epithel Cells (Auto) 1.0 /HPF (0-13.0) 03/15/16 21:43 Hyaline Casts 1 /LPF 03/15/16 21:43 Urine Mucus Few /HPF 03/15/16 21:43 Fluid Total Protein 4.5 (15.0-45.0) L 03/16/16 16:00 Fluid LDH 498 03/16/16 16:00 Vancomycin Trough 32.1 ug/mL (5.0-20.0) H 03/27/16 19:57
[2016-03-28] MEDS: MORPHINE IV PRN (11:58)
--- NOTE | 2016-03-28 18:26 | Progress Note ---
Assessment and Plan This is 40 year old female Morbidly obese came to the emergency room with a complaint of shortness of breath. Patients chest xray obtained showed complete opacification of left hemithorax. Patient has history of hypertension and pulmonary emboli.Patients pulmonary emboli diagnosed 3 months ago by CTA of the chest. Patient also diagnsed at that time DVT in left leg. Patient non compliant with her medications, Patient stopped taking Eliquis.Patient started on S/C Lovenox and Coumadin.Patient also treated for pneumonia recently at [facility]. Patients blood gases showed, patient is in respiratory failure. Patient placed on BIPAP Rate 20, 22/10, FIO2 50%. Patient awake ,following commands. Repeating blood gases in AM.[place] no known allergies. Smoking,alcohol or drug history not known at this time.Patient started on Levaquine and zosyn. Obtaining ultrasound of chest for possible left pleural effusion. 03/18/16 Patient resting on Face mask, FIO2 50%. O2 saturation 84%. Patient S/P right thoracentesis 03/21/16 Patient alert, awake and oriented.Patient resting on Face mask, FIO2 50%. O2 saturation 90%. Patient S/P right thoracentesis 03/22/16 Patient sleeping at this time On bipap. Patient is on BIPAP 22/10, FIO2 40% and O2 satuaration running 95%.Patient tolerating BIPAP good.No respiratory distress. 03/25/16 Patient awake and resting on BIPAP.. Patient is on BIPAP 22/10, FIO2 45% and O2 satuaration running 93%.Patient tolerating BIPAP good.No respiratory distress. 03/26/16 Patient awake . Patient is on 50% ventimask . Complaning shortness of breath. O2 satuaration 95%. Placing her back on BIPAP. 22/10/ rate 20, FIO2 50%. 03/28/16 Patient alert and awake . Patient sitting up in bed.Patient is on 50% ventimask . O2 satuaration 94%. - Patient Problems (1) Acute and chronic respiratory failure ([id number]) Current Visit: No Status: Acute Plan to address problem: Patient alert and awake . Patient sitting up in chair.Patient is on 50% ventimask . O2 satuaration 95%. (2) Pulmonary emboli Current Visit: No Status: Acute Plan to address problem: 03/21/16 Patient presently is on I/V Heparin and coumadin. 03/22/16 Patient is on I/V Heparin and warfarin. 03/25/16 Patient is on coumadin. 03/27/16 Patients INR 3.52. Recommend hold coumadin today Recheck INR in AM. 03/28/16 TodaYS inr IS 3.67. CONTINUE HOLD COUMADIN UNTIL REACH THERAPEUTIC RANGE. (3) Left femoral vein DVT Current Visit: No Status: Acute Plan to address problem: Lovenox and coumadin. 03/21/16 Patient presently is on I/V Heparin and coumadin. 03/22/16 Patient is on I/V heparin and coumadin. 03/25/16 Patient is on PO coumadin. 03/27/16 Patients INR 3.52 Recommend hold coumadin and recheck INR. 03/28/16 TODAYS inr 3.67 CONTINUE HOLD COUMADIN AND RECHECK INR. (4) Pneumonia Current Visit: Yes Status: Acute Plan to address problem: Patient is on Zosyn and Levaquine. 03/18/16 Patient presently on Levaquine. 03/25/16 Patient presently on antibiotics Zosyn and vancomycin. (5) Pleural effusion, left Current Visit: Yes Status: Acute Plan to address problem: Patients ultrasound of chest reported pleural effusion. Patient under gone left thoracentesis. Pleural fluid cytology reported negative for malignant cells. (6) Morbid obesity with BMI of 70 and over, adult Current Visit: No Status: Chronic Plan to address problem: Nutritional consultation for weight reduction diet. (7) Sleep apnea Current Visit: No Status: Chronic Plan to address problem: Patient is on BIPAP.22/01, rate 20, FIO2 50% Subjective Date of service: 03/28/16 Principal diagnosis: Acute Hypoxemic Respiratory Failure; Left Pleural Effusion Interval history: Patient alert and awake . Patient sitting up in bed.Patient is on 50% ventimask . O2 satuaration 94%. Objective Vital Signs - 12hr 03/28/16 03/28/16 03/28/16 07:49 07:50 08:31 Temperature 97.2 F L Pulse Rate 95 H Pulse Rate [ 88 From Monitor] Respiratory 21 20 Rate Blood Pressure 180/105 [Left Arm] O2 Sat by Pulse 96 95 94 Oximetry 12/26/16 12/26/16 12:20 16:18 Temperature 97.3 F L 97.5 F L Pulse Rate Pulse Rate [ 94 H 113 H From Monitor] Respiratory 20 20 Rate Blood Pressure 162/102 165/86 [Left Arm] O2 Sat by Pulse 92 94 Oximetry Constitutional: no acute distress, alert Eyes: non-icteric ENT: oropharynx moist Neck: supple, no JVD Ascultation: Bilateral: diminished breath sounds (LLL), rales (LLL) Cardiovascular: regular rate and rhythm Gastrointestinal: normoactive bowel sounds, soft, non-tender, non-distended Integumentary: other (Stasis dermatitis.) Extremities: no cyanosis, pink and warm, pulses normal, no ischemia or petechiae , edema Neurologic: normal mental status, non-focal exam, pupils equal and round, motor strength normal and Psychiatric: mood appropriate, affect normal CBC and BMP: 03/23/16 05:03 03/28/16 08:54 ABG, PT/INR, D-dimer: ABG POC ABG pH 7.422 (7.35-7.45) 03/17/16 08:55 POC ABG pCO2 70.5 (35-45) H 03/17/16 08:55 POC ABG pO2 108 (80-105) H 03/17/16 08:55 POC ABG HCO3 46.0 03/17/16 08:55 POC ABG Total CO2 48 03/17/16 08:55 POC ABG O2 Sat 98 03/17/16 08:55 PT/INR, D-dimer PT 36.8 Sec. (12.2-14.9) H 03/28/16 05:34 INR 3.67 (0.87-1.13) H 03/28/16 05:34 Abnormal lab findings: Abnormal Labs 03/16/16 03/16/16 03/16/16 00:04 01:01 07:49 RBC MCV MCH MCHC RDW PT 15.8 H INR 1.27 H Heparin Anti-Xa Level 0.18 L POC ABG pH 7.304 L POC ABG pCO2 92.8 H POC ABG pO2 Chloride Carbon Dioxide POC Glucose Lactate Dehydrogenase Total Creatine Kinase CK-MB (CK-2) Rel Index C-Reactive Protein Fluid Total Protein Vancomycin Trough 03/16/16 03/16/16 03/16/16 12:16 16:00 17:21 RBC MCV MCH MCHC RDW PT INR Heparin Anti-Xa Level < 0.11 L POC ABG pH POC ABG pCO2 POC ABG pO2 Chloride Carbon Dioxide POC Glucose Lactate Dehydrogenase 328 H Total Creatine Kinase CK-MB (CK-2) Rel Index C-Reactive Protein 2.60 H Fluid Total Protein 4.5 L Vancomycin Trough 03/17/16 03/17/16 03/17/16 04:58 04:58 04:58 RBC 5.50 H MCV 70 L MCH 20 L MCHC 29 L RDW 23.7 H PT INR Heparin Anti-Xa Level 0.14 L POC ABG pH POC ABG pCO2 POC ABG pO2 Chloride 94.9 L Carbon Dioxide 40 H POC Glucose Lactate Dehydrogenase Total Creatine Kinase CK-MB (CK-2) Rel Index C-Reactive Protein Fluid Total Protein Vancomycin Trough 03/17/16 03/17/16 03/17/16 08:55 11:50 13:16 RBC MCV MCH MCHC RDW PT INR Heparin Anti-Xa Level 0.16 L POC ABG pH POC ABG pCO2 70.5 H POC ABG pO2 108 H Chloride Carbon Dioxide POC Glucose 65 L Lactate Dehydrogenase Total Creatine Kinase CK-MB (CK-2) Rel Index C-Reactive Protein Fluid Total Protein Vancomycin Trough 03/17/16 03/17/16 03/18/16 13:16 21:00 05:32 RBC MCV MCH MCHC RDW PT 15.9 H INR 1.28 H Heparin Anti-Xa Level 0.13 L POC ABG pH POC ABG pCO2 POC ABG pO2 Chloride Carbon Dioxide POC Glucose Lactate Dehydrogenase Total Creatine Kinase 14 L CK-MB (CK-2) Rel Index 7.1 H C-Reactive Protein Fluid Total Protein Vancomycin Trough 03/18/16 03/18/16 03/18/16 07:35 07:43 15:45 RBC MCV MCH MCHC RDW PT INR Heparin Anti-Xa Level 0.71 H POC ABG pH POC ABG pCO2 POC ABG pO2 Chloride Carbon Dioxide POC Glucose 63 L 109 H Lactate Dehydrogenase Total Creatine Kinase CK-MB (CK-2) Rel Index C-Reactive Protein Fluid Total Protein Vancomycin Trough 03/18/16 03/18/16 03/18/16 16:15 21:35 23:30 RBC MCV MCH MCHC RDW PT INR Heparin Anti-Xa Level 0.86 H 0.26 L POC ABG pH POC ABG pCO2 POC ABG pO2 Chloride Carbon Dioxide POC Glucose 106 H Lactate Dehydrogenase Total Creatine Kinase CK-MB (CK-2) Rel Index C-Reactive Protein Fluid Total Protein Vancomycin Trough 03/19/16 03/19/16 03/19/16 06:57 08:28 17:12 RBC MCV MCH MCHC RDW PT 15.6 H INR 1.25 H Heparin Anti-Xa Level POC ABG pH POC ABG pCO2 POC ABG pO2 Chloride Carbon Dioxide POC Glucose 67 L 110 H Lactate Dehydrogenase Total Creatine Kinase CK-MB (CK-2) Rel Index C-Reactive Protein Fluid Total Protein Vancomycin Trough 03/19/16 03/20/16 03/21/16 21:27 06:48 05:11 RBC MCV MCH MCHC RDW PT 16.9 H 18.1 H INR 1.38 H 1.50 H Heparin Anti-Xa Level POC ABG pH POC ABG pCO2 POC ABG pO2 Chloride Carbon Dioxide POC Glucose 107 H Lactate Dehydrogenase Total Creatine Kinase CK-MB (CK-2) Rel Index C-Reactive Protein Fluid Total Protein Vancomycin Trough 03/21/16 03/21/16 03/21/16 05:11 16:02 21:59 RBC MCV MCH MCHC RDW PT INR Heparin Anti-Xa Level 0.27 L 0.79 H POC ABG pH POC ABG pCO2 POC ABG pO2 Chloride Carbon Dioxide POC Glucose 128 H Lactate Dehydrogenase Total Creatine Kinase CK-MB (CK-2) Rel Index C-Reactive Protein Fluid Total Protein Vancomycin Trough 03/22/16 03/23/16 03/23/16 04:46 05:03 08:21 RBC MCV MCH MCHC RDW PT 22.7 H 21.5 H INR 2.00 H 1.87 H Heparin Anti-Xa Level POC ABG pH POC ABG pCO2 POC ABG pO2 Chloride Carbon Dioxide POC Glucose 64 L Lactate Dehydrogenase Total Creatine Kinase CK-MB (CK-2) Rel Index C-Reactive Protein Fluid Total Protein Vancomycin Trough 03/23/16 03/24/16 03/25/16 14:57 05:09 02:04 RBC MCV MCH MCHC RDW PT 25.9 H INR 2.36 H Heparin Anti-Xa Level < 0.10 L 0.10 L POC ABG pH POC ABG pCO2 POC ABG pO2 Chloride Carbon Dioxide POC Glucose Lactate Dehydrogenase Total Creatine Kinase CK-MB (CK-2) Rel Index C-Reactive Protein Fluid Total Protein Vancomycin Trough 03/25/16 03/25/16 03/26/16 05:21 18:24 07:48 RBC MCV MCH MCHC RDW PT 29.4 H 31.6 H INR 2.77 H 3.03 H Heparin Anti-Xa Level POC ABG pH POC ABG pCO2 POC ABG pO2 Chloride Carbon Dioxide POC Glucose 112 H Lactate Dehydrogenase Total Creatine Kinase CK-MB (CK-2) Rel Index C-Reactive Protein Fluid Total Protein Vancomycin Trough 03/26/16 03/26/16 03/26/16 09:36 12:22 21:26 RBC MCV MCH MCHC RDW PT INR Heparin Anti-Xa Level POC ABG pH POC ABG pCO2 POC ABG pO2 Chloride Carbon Dioxide POC Glucose 127 H 68 L 111 H Lactate Dehydrogenase Total Creatine Kinase CK-MB (CK-2) Rel Index C-Reactive Protein Fluid Total Protein Vancomycin Trough 03/27/16 03/27/16 03/27/16 07:10 19:57 20:58 RBC MCV MCH MCHC RDW PT 35.6 H INR 3.52 H Heparin Anti-Xa Level POC ABG pH POC ABG pCO2 POC ABG pO2 Chloride Carbon Dioxide POC Glucose 133 H Lactate Dehydrogenase Total Creatine Kinase CK-MB (CK-2) Rel Index C-Reactive Protein Fluid Total Protein Vancomycin Trough 32.1 H 03/28/16 03/28/16 05:34 08:54 RBC MCV MCH MCHC RDW PT 36.8 H INR 3.67 H Heparin Anti-Xa Level POC ABG pH POC ABG pCO2 POC ABG pO2 Chloride 97.7 L Carbon Dioxide 38 H POC Glucose Lactate Dehydrogenase Total Creatine Kinase CK-MB (CK-2) Rel Index C-Reactive Protein Fluid Total Protein Vancomycin Trough
[2016-03-28] MEDS: PERCOCET 5/325 PO PRN (18:37)
[2016-03-28] MEDS: ZOFRAN IV PRN (20:39)
[2016-03-29] MEDS: ZOSYN/NS 4.5GM/100ML 100 ML IV SCH ×5 (00:18→23:56)
[2016-03-29 05:58] LABS: INR 3.34 (0.87-1.13)
--- NOTE | 2016-03-29 10:15 | Progress Note ---
Assessment and Plan - Patient Problems (1) Pleural effusion, left Current Visit: Yes Status: Acute Plan to address problem: - will send for left chest tube (will discuss with [facility] first) - reverse coumadin (2) Pneumonia Current Visit: Yes Status: Acute Plan to address problem: - incentive spirometry - stop empiric AB's after 5 days - continue BIPAP qhs & prn daytime - as above otherwise (3) Acute and chronic respiratory failure ([id number]) Current Visit: No Status: Acute Plan to address problem: - as above - supplemental oxygen to keep sats >/= 94% (4) Pulmonary emboli Current Visit: No Status: Acute Plan to address problem: - anticoagulation but hold coumadin now and bridge with Lovenox (5) Sleep apnea Current Visit: No Status: Chronic Plan to address problem: - continue PAP therapy while asleep Subjective Date of service: 03/29/16 Principal diagnosis: Acute Hypoxemic Respiratory Failure; Left Pleural Effusion Interval history: Seen and examined at bedside; 24 hour events reviewed; nursing and respiratory care staff consulted; no adverse overnight events reported to me; still SOB; repeat CT chest reviewed and essentially re-accumulation of left pleural effusion; also evidence on mild volume overload with GGO's more evident in right lung Objective Vital Signs - 12hr 03/29/16 03/29/16 03/29/16 00:26 01:47 04:48 Temperature 97.6 F 97.6 F Pulse Rate 107 H Pulse Rate [ From Monitor] Pulse Rate [ 91 H 82 Left Radial] Respiratory 20 18 Rate Blood Pressure 129/84 139/93 [Left Arm] O2 Sat by Pulse 90 93 Oximetry 03/29/16 08:00 Temperature 96.9 F L Pulse Rate Pulse Rate [ 83 From Monitor] Pulse Rate [ Left Radial] Respiratory 20 Rate Blood Pressure 165/104 [Left Arm] O2 Sat by Pulse 97 Oximetry Constitutional: no acute distress, alert Eyes: non-icteric ENT: oropharynx moist Neck: supple, no JVD Ascultation: Bilateral: clear, diminished breath sounds (LLL) Cardiovascular: regular rate and rhythm Gastrointestinal: normoactive bowel sounds, soft, non-tender, non-distended Integumentary: other (Stasis dermatitis.) Extremities: no cyanosis, pink and warm, pulses normal, no ischemia or petechiae , edema Neurologic: normal mental status, non-focal exam, pupils equal and round, motor strength normal and Psychiatric: mood appropriate, affect normal CBC and BMP: 03/23/16 05:03 03/28/16 08:54 ABG, PT/INR, D-dimer: ABG POC ABG pH 7.422 (7.35-7.45) 03/17/16 08:55 POC ABG pCO2 70.5 (35-45) H 03/17/16 08:55 POC ABG pO2 108 (80-105) H 03/17/16 08:55 POC ABG HCO3 46.0 03/17/16 08:55 POC ABG Total CO2 48 03/17/16 08:55 POC ABG O2 Sat 98 03/17/16 08:55 PT/INR, D-dimer PT 34.1 Sec. (12.2-14.9) H 03/29/16 05:19 INR 3.34 (0.87-1.13) H 03/29/16 05:19 Abnormal lab findings: Abnormal Labs 03/16/16 03/16/16 03/16/16 00:04 01:01 07:49 RBC MCV MCH MCHC RDW PT 15.8 H INR 1.27 H Heparin Anti-Xa Level 0.18 L POC ABG pH 7.304 L POC ABG pCO2 92.8 H POC ABG pO2 Chloride Carbon Dioxide POC Glucose Lactate Dehydrogenase Total Creatine Kinase CK-MB (CK-2) Rel Index C-Reactive Protein Fluid Total Protein Vancomycin Trough 03/16/16 03/16/16 03/16/16 12:16 16:00 17:21 RBC MCV MCH MCHC RDW PT INR Heparin Anti-Xa Level < 0.11 L POC ABG pH POC ABG pCO2 POC ABG pO2 Chloride Carbon Dioxide POC Glucose Lactate Dehydrogenase 328 H Total Creatine Kinase CK-MB (CK-2) Rel Index C-Reactive Protein 2.60 H Fluid Total Protein 4.5 L Vancomycin Trough 03/17/16 03/17/16 03/17/16 04:58 04:58 04:58 RBC 5.50 H MCV 70 L MCH 20 L MCHC 29 L RDW 23.7 H PT INR Heparin Anti-Xa Level 0.14 L POC ABG pH POC ABG pCO2 POC ABG pO2 Chloride 94.9 L Carbon Dioxide 40 H POC Glucose Lactate Dehydrogenase Total Creatine Kinase CK-MB (CK-2) Rel Index C-Reactive Protein Fluid Total Protein Vancomycin Trough 03/17/16 03/17/16 03/17/16 08:55 11:50 13:16 RBC MCV MCH MCHC RDW PT INR Heparin Anti-Xa Level 0.16 L POC ABG pH POC ABG pCO2 70.5 H POC ABG pO2 108 H Chloride Carbon Dioxide POC Glucose 65 L Lactate Dehydrogenase Total Creatine Kinase CK-MB (CK-2) Rel Index C-Reactive Protein Fluid Total Protein Vancomycin Trough 03/17/16 03/17/16 03/18/16 13:16 21:00 05:32 RBC MCV MCH MCHC RDW PT 15.9 H INR 1.28 H Heparin Anti-Xa Level 0.13 L POC ABG pH POC ABG pCO2 POC ABG pO2 Chloride Carbon Dioxide POC Glucose Lactate Dehydrogenase Total Creatine Kinase 14 L CK-MB (CK-2) Rel Index 7.1 H C-Reactive Protein Fluid Total Protein Vancomycin Trough 03/18/16 03/18/16 03/18/16 07:35 07:43 15:45 RBC MCV MCH MCHC RDW PT INR Heparin Anti-Xa Level 0.71 H POC ABG pH POC ABG pCO2 POC ABG pO2 Chloride Carbon Dioxide POC Glucose 63 L 109 H Lactate Dehydrogenase Total Creatine Kinase CK-MB (CK-2) Rel Index C-Reactive Protein Fluid Total Protein Vancomycin Trough 03/18/16 03/18/16 03/18/16 16:15 21:35 23:30 RBC MCV MCH MCHC RDW PT INR Heparin Anti-Xa Level 0.86 H 0.26 L POC ABG pH POC ABG pCO2 POC ABG pO2 Chloride Carbon Dioxide POC Glucose 106 H Lactate Dehydrogenase Total Creatine Kinase CK-MB (CK-2) Rel Index C-Reactive Protein Fluid Total Protein Vancomycin Trough 03/19/16 03/19/16 03/19/16 06:57 08:28 17:12 RBC MCV MCH MCHC RDW PT 15.6 H INR 1.25 H Heparin Anti-Xa Level POC ABG pH POC ABG pCO2 POC ABG pO2 Chloride Carbon Dioxide POC Glucose 67 L 110 H Lactate Dehydrogenase Total Creatine Kinase CK-MB (CK-2) Rel Index C-Reactive Protein Fluid Total Protein Vancomycin Trough 03/19/16 03/20/16 03/21/16 21:27 06:48 05:11 RBC MCV MCH MCHC RDW PT 16.9 H 18.1 H INR 1.38 H 1.50 H Heparin Anti-Xa Level POC ABG pH POC ABG pCO2 POC ABG pO2 Chloride Carbon Dioxide POC Glucose 107 H Lactate Dehydrogenase Total Creatine Kinase CK-MB (CK-2) Rel Index C-Reactive Protein Fluid Total Protein Vancomycin Trough 03/21/16 03/21/16 03/21/16 05:11 16:02 21:59 RBC MCV MCH MCHC RDW PT INR Heparin Anti-Xa Level 0.27 L 0.79 H POC ABG pH POC ABG pCO2 POC ABG pO2 Chloride Carbon Dioxide POC Glucose 128 H Lactate Dehydrogenase Total Creatine Kinase CK-MB (CK-2) Rel Index C-Reactive Protein Fluid Total Protein Vancomycin Trough 03/22/16 03/23/16 03/23/16 04:46 05:03 08:21 RBC MCV MCH MCHC RDW PT 22.7 H 21.5 H INR 2.00 H 1.87 H Heparin Anti-Xa Level POC ABG pH POC ABG pCO2 POC ABG pO2 Chloride Carbon Dioxide POC Glucose 64 L Lactate Dehydrogenase Total Creatine Kinase CK-MB (CK-2) Rel Index C-Reactive Protein Fluid Total Protein Vancomycin Trough 03/23/16 03/24/16 03/25/16 14:57 05:09 02:04 RBC MCV MCH MCHC RDW PT 25.9 H INR 2.36 H Heparin Anti-Xa Level < 0.10 L 0.10 L POC ABG pH POC ABG pCO2 POC ABG pO2 Chloride Carbon Dioxide POC Glucose Lactate Dehydrogenase Total Creatine Kinase CK-MB (CK-2) Rel Index C-Reactive Protein Fluid Total Protein Vancomycin Trough 03/25/16 03/25/16 03/26/16 05:21 18:24 07:48 RBC MCV MCH MCHC RDW PT 29.4 H 31.6 H INR 2.77 H 3.03 H Heparin Anti-Xa Level POC ABG pH POC ABG pCO2 POC ABG pO2 Chloride Carbon Dioxide POC Glucose 112 H Lactate Dehydrogenase Total Creatine Kinase CK-MB (CK-2) Rel Index C-Reactive Protein Fluid Total Protein Vancomycin Trough 03/26/16 03/26/16 03/26/16 09:36 12:22 21:26 RBC MCV MCH MCHC RDW PT INR Heparin Anti-Xa Level POC ABG pH POC ABG pCO2 POC ABG pO2 Chloride Carbon Dioxide POC Glucose 127 H 68 L 111 H Lactate Dehydrogenase Total Creatine Kinase CK-MB (CK-2) Rel Index C-Reactive Protein Fluid Total Protein Vancomycin Trough 03/27/16 03/27/16 03/27/16 07:10 16:04 19:57 RBC MCV MCH MCHC RDW PT 35.6 H INR 3.52 H Heparin Anti-Xa Level POC ABG pH POC ABG pCO2 POC ABG pO2 Chloride Carbon Dioxide POC Glucose 109 H Lactate Dehydrogenase Total Creatine Kinase CK-MB (CK-2) Rel Index C-Reactive Protein Fluid Total Protein Vancomycin Trough 32.1 H 03/27/16 03/28/16 03/28/16 20:58 05:34 08:54 RBC MCV MCH MCHC RDW PT 36.8 H INR 3.67 H Heparin Anti-Xa Level POC ABG pH POC ABG pCO2 POC ABG pO2 Chloride 97.7 L Carbon Dioxide 38 H POC Glucose 133 H Lactate Dehydrogenase Total Creatine Kinase CK-MB (CK-2) Rel Index C-Reactive Protein Fluid Total Protein Vancomycin Trough 03/28/16 03/28/16 03/29/16 16:15 22:20 05:19 RBC MCV MCH MCHC RDW PT 34.1 H INR 3.34 H Heparin Anti-Xa Level POC ABG pH POC ABG pCO2 POC ABG pO2 Chloride Carbon Dioxide POC Glucose 125 H 106 H Lactate Dehydrogenase Total Creatine Kinase CK-MB (CK-2) Rel Index C-Reactive Protein Fluid Total Protein Vancomycin Trough CT scan - chest: image reviewed
--- NOTE | 2016-03-29 11:01 | Progress Note ---
Assessment and Plan Assessment and plan: 1. Acute hypoxemic respiratory failure. Patient currently on BiPAP. Etiology is multifactorial- PNA, Obesity hypoventilation, atelectasis, possible mucus pluging. Patient with left parapneumonic effusion sp thoracentesis. Pulmonary following. Patient does have a history of PE/DVT and morbid obesity with probable LENA/OHS. Doppler ultrasound of lower extremities negative. recurrent left parapneumonic effusion, input from Dr Hunter beth, will need her INR to be less than 2 before Chest tube, hold warfarin for now -may need bronch if she does not improve 2. Left lung pneumonia with parapneumonic effusion. Patient is status post thoracentesis with 1.1 L removed. continue abx, coverage has been expanded on 03/24; she may need bronch if she does not clinically improve 3. Chest pain has now resolved, EKG and trops were negative 4. History of PE/DVT. Continue warfarin 5. Type 2 diabetes mellitus. Continue Accu-Cheks and sliding scale regular insulin. 6. Morbid obesity. Nutritional consultation. 7. 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 Patient will need further follow-up as an outpatient, will likely need CPAP machine upon dc. 8. GI prophylaxis. Continue Protonix. 9. Accelerated hypertension. continue current meds History Interval history: She complains of complaining of shortness of breath and is in exertion, has not improved, still needing BIPAP prn for respiratory distress. Hospitalist Physical - Physical exam Narrative exam: General: Mild respiratory distress, appears exhausted, obese HEENT: MMM, EOMI cardiac: S1-S2 heard lungs: Decreased air entry abdomen: soft, nontender, nondistended bowel sounds positive extremities: no edema clubbing or cyanosis Skin: no rash or lesion Neuro: no focal deficit Psych: appropriate behavior and mood, cognition intact - Constitutional Vitals: Temp Pulse Resp BP Pulse Ox 96.9 F L 83 20 165/104 97 03/29/16 08:00 03/29/16 08:00 03/29/16 08:00 03/29/16 08:00 03/29/16 08:00 General appearance: Present: mild distress, obese Results - Labs CBC & Chem 7: 03/23/16 05:03 03/28/16 08:54 Labs: Laboratory Last Values WBC 8.2 K/mm3 (4.5-11.0) 03/17/16 04:58 RBC 5.50 M/mm3 (3.65-5.03) H 03/17/16 04:58 Hgb 11.4 gm/dl (10.1-14.3) 03/23/16 05:03 Hct 39.2 % (30.3-42.9) 03/23/16 05:03 MCV 70 fl (79-97) L 03/17/16 04:58 MCH 20 pg (28-32) L 03/17/16 04:58 MCHC 29 % (30-34) L 03/17/16 04:58 RDW 23.7 % (13.2-15.2) H 03/17/16 04:58 Plt Count 195 K/mm3 (140-440) 03/23/16 05:03 Lymph % (Auto) [place] 03/17/16 04:58 [place] % (Auto) Commercial Carpenter 03/17/16 04:58 Eos % (Auto) Commercial [place] 03/17/16 04:58 Baso % (Auto) Commercial [place] 03/17/16 04:58 Lymph # Commercial [place] 03/17/16 04:58 [place] # Commercial [employer] 03/17/16 04:58 Eos # Commercial [place] 03/17/16 04:58 Baso # Commercial [place] 03/17/16 04:58 Seg Neutrophils % Commercial [place] 03/17/16 04:58 Seg Neutrophils # Commercial [place] 03/17/16 04:58 PT 34.1 Sec. (12.2-14.9) H 03/29/16 05:19 INR 3.34 (0.87-1.13) H 03/29/16 05:19 APTT 31.5 Sec. (24.2-36.6) 03/16/16 00:04 Heparin Anti-Xa Level 0.10 U.I./ml (0.3-0.7) L 03/25/16 02:04 POC ABG pH 7.422 (7.35-7.45) 03/17/16 08:55 POC ABG pCO2 70.5 (35-45) H 03/17/16 08:55 POC ABG pO2 108 (80-105) H 03/17/16 08:55 POC ABG HCO3 46.0 03/17/16 08:55 POC ABG Total CO2 48 03/17/16 08:55 POC ABG O2 Sat 98 03/17/16 08:55 POC ABG Base Excess 22 03/17/16 08:55 FiO2 40 % 03/17/16 08:55 Sodium 144 mmol/L (137-145) 03/28/16 08:54 Potassium 4.3 mmol/L (3.6-5.0) 03/28/16 08:54 Chloride 97.7 mmol/L (98-107) L 03/28/16 08:54 Carbon Dioxide 38 mmol/L (22-30) H 03/28/16 08:54 Anion Gap 13 mmol/L 03/28/16 08:54 BUN 10 mg/dL (7-17) 03/28/16 08:54 Creatinine 1.0 mg/dL (0.7-1.2) 03/28/16 08:54 Estimated GFR > 60 ml/min 03/28/16 08:54 BUN/Creatinine Ratio 10.00 % 03/28/16 08:54 Glucose 86 mg/dL (65-100) 03/28/16 08:54 POC Glucose 82 (70-105) 03/29/16 08:14 Lactic Acid 1.6 mmol/L (0.7-2.0) 03/15/16 20:20 Calcium 9.3 mg/dL (8.4-10.2) 03/28/16 08:54 Magnesium 2.2 mg/dL (1.7-2.3) 03/15/16 20:20 Total Bilirubin 1.0 mg/dL (0.1-1.2) 03/15/16 20:20 AST 13 units/L (5-40) 03/15/16 20:20 ALT 15 units/L (7-56) 03/15/16 20:20 Alkaline Phosphatase 67 units/L (35-129) 03/15/16 20:20 Lactate Dehydrogenase 328 units/L (91-180) H 03/16/16 12:16 Total Creatine Kinase 14 units/L (30-135) L 03/17/16 13:16 CK-MB (CK-2) < 1.0 ng/mL (0.0-4.0) 03/17/16 13:16 CK-MB (CK-2) Rel Index 7.1 (0-4) H 03/17/16 13:16 Troponin T < 0.010 ng/mL (0.00-0.029) 03/28/16 23:18 C-Reactive Protein 2.60 mg/dL (0.00-1.30) H 03/16/16 12:16 NT-Pro-B Natriuret Pep 957.2 pg/mL (0-450) H 03/15/16 20:20 Total Protein 7.9 g/dL (6.3-8.2) 03/15/16 20:20 Albumin 3.1 g/dL (3.9-5) L 03/15/16 20:20 Albumin/Globulin Ratio 0.6 % 03/15/16 20:20 HCG, Quant < 2 mIU/mL (0-4) 03/15/16 20:20 Urine Color Yellow (Yellow) 03/15/16 21:43 Urine Turbidity Clear (Clear) 03/15/16 21:43 Urine pH 5.0 (5.0-7.0) 03/15/16 21:43 Ur Specific [place] 1.016 (1.003-1.030) 03/15/16 21:43 Urine Protein 30 mg/dl mg/dL (Negative) 03/15/16 21:43 Urine Glucose (UA) Neg mg/dL (Negative) 03/15/16 21:43 Urine Ketones Neg mg/dL (Negative) 03/15/16 21:43 Urine Blood Neg (Negative) 03/15/16 21:43 Urine Nitrite Neg (Negative) 03/15/16 21:43 Urine Bilirubin Neg (Negative) 03/15/16 21:43 Urine Urobilinogen 4.0 mg/dL (<2.0) 03/15/16 21:43 Ur Leukocyte Esterase Neg (Negative) 03/15/16 21:43 Urine WBC (Auto) 3.0 /HPF (0.0-6.0) 03/15/16 21:43 Urine RBC (Auto) 1.0 /HPF (0.0-6.0) 03/15/16 21:43 U Epithel Cells (Auto) 1.0 /HPF (0-13.0) 03/15/16 21:43 Hyaline Casts 1 /LPF 03/15/16 21:43 Urine Mucus Few /HPF 03/15/16 21:43 Fluid Total Protein 4.5 (15.0-45.0) L 03/16/16 16:00 Fluid LDH 498 03/16/16 16:00 Vancomycin Trough 32.1 ug/mL (5.0-20.0) H 03/27/16 19:57
[2016-03-29] MEDS: MORPHINE IV PRN (14:04)
[2016-03-29] MEDS: PROVENTIL IH PRN ×2 (14:47→23:46)
[2016-03-29] MEDS: MUCOMYST INHALATION SCH ×2 (14:48→23:46)
--- NOTE | 2016-03-29 20:51 | Event Note ---
Date: 03/29/[address] guided placement of left sided chest tube. Patient fully anticoagulated. Will need reversal of anticoagulation/possible temporary transition to heparin drip. Once INR reversed, then can place CT guided chest tube placement. Please contact [facility] when anticoagulation reversed to plan for chest tube placement.
[2016-03-29] MEDS: PERCOCET 5/325 PO PRN (23:56)
[2016-03-30] MEDS: MUCOMYST INHALATION SCH ×4 (01:23→23:40)
[2016-03-30 06:04] LABS: INR 2.75 (0.87-1.13)
[2016-03-30] MEDS: ZOSYN/NS 4.5GM/100ML 100 ML IV SCH ×2 (06:20→13:06)
--- NOTE | 2016-03-30 08:16 | XRay Report ---
AP chest x-ray. Findings: Since the previous study of March 20, there has been mild improvement in vascular congestion. Persistent left lower lobe atelectasis and/or left effusion are noted. No other interval changes are seen.
[2016-03-30] MEDS: PROVENTIL IH PRN ×2 (08:19→16:21)
--- NOTE | 2016-03-30 08:40 | Consultation ---
History of Present Illness Consult date: 03/30/16 Reason for consult: other (I am asked to evaluate patient for left parapneumonic effusion) - History of present illness History of present illness: this is a complex case, this is a Morbidly Obese BMI> 50 with a hx of DVT PE in the pase who has developed a left pneumonia and associated left parapneumonic effusion, she is s/p left thoracocentesis, cytology negative. She has a hx of recurrent pneumonia secondary to morbid obesity. Past History Past Medical History: hypertension, other (Pulmonary emboli.) Past Surgical History: Other (recurrent pneumonias) Medications and Allergies Allergies Allergy/AdvReac Type Severity Reaction Status Date / Time No Known Allergies Allergy Unverified 01/05/16 18:22 Home Medications Medication Instructions Recorded Confirmed Last Taken Type Famotidine [Pepcid] 20 mg PO BID #60 tablet 01/15/16 03/16/16 Unknown Rx HYDROcodone/APAP 10-325 [[place] 1 each PO Q6H PRN #10 tablet 01/15/16 03/16/16 Unknown Rx 10-325 mg TAB] Warfarin [Coumadin] 15 mg PO DAILY@1700 #60 tablet 01/15/16 03/16/16 Unknown Rx Active Meds: Active Medications Acetaminophen (Tylenol) 650 mg PO Q6H PRN PRN Reason: Pain MILD(1-3)/Fever >100.5/OROZCO Last Admin: 03/21/16 18:16 Dose: 650 mg Acetylcysteine (Mucomyst) 200 mg INHALATION Q8HRT WILLIAM Last Admin: 03/30/16 08:19 Dose: 200 mg Al Hydrox/Mg Hydrox/Simethicone (Alum-Mag Hydrox-Simeth [phone]/5ml) 30 ml PO Q4H PRN PRN Reason: Indigestion Albuterol (Proventil) 2.5 mg IH Q3HRT PRN PRN Reason: Shortness Of Breath Last Admin: 03/30/16 08:19 Dose: 2.5 mg Bisacodyl (Dulcolax) 10 mg OK QDAY PRN PRN Reason: constipation unrelieved by MOM Last Admin: 03/22/16 17:27 Dose: 10 mg Hydralazine HCl (Apresoline) 10 mg IV Q4HR PRN PRN Reason: HTN SYS>170 OR [place]>110 Last Admin: 03/28/16 01:24 Dose: 10 mg Piperacillin Sod/Tazobactam Sod (Zosyn/Ns 4.5gm/100ml) 100 mls @ 200 mls/hr IV Q6HR WILLIAM Stop: 04/03/16 17:59 Last Admin: 03/30/16 06:20 Dose: 200 mls/hr Magnesium Hydroxide (Milk Of Magnesia) 30 ml PO Q4H PRN PRN Reason: Constipation Last Admin: 03/24/16 10:44 Dose: 30 ml Morphine Sulfate (Morphine) 2 mg IV Q4H PRN PRN Reason: Pain, Moderate (4-6) Last Admin: 03/29/16 14:04 Dose: 2 mg Ondansetron HCl (Zofran) 4 mg IV Q8H PRN PRN Reason: N/V unrelieved by Reglan Last Admin: 03/28/16 20:39 Dose: 4 mg Oxycodone/Acetaminophen (Percocet 5/325) 1 tab PO Q6H PRN PRN Reason: Pain, Moderate (4-6) Last Admin: 03/29/16 23:56 Dose: 1 tab Vancomycin HCl (Vancomycin Pharmacy To Dose) 1 each IV PKCONSULT WILLIAM PRN Reason: Protocol Stop: 04/03/16 16:59 Review of Systems - Constitutional other (shortness of breath) Exam Vital Signs Temp Pulse Resp BP Pulse Ox 98 F 104 H 28 H 198/117 99 03/15/16 20:00 03/15/16 20:00 03/15/16 20:00 03/15/16 20:00 03/15/16 20:00 - General physical appearance Positive: no distress - Eyes Positive: PERRL, normal occular movement - ENT Positive: normal pinna, normal nares, normal mucosa, no hearing loss, no congestion - Neck Positive: no masses, no bruits, trachea midline, no venous distension - Respiratory Positive: other (decreased bs both sides, left > right) - Cardiovascular Rhythm: regular Heart Sounds: Present: S1 & S2. Absent: rub, click - Extremities Extremities: no ischemia - Breasts Breasts: deferred (morbidly obese) - Neurologic Neurologic: alert and oriented to time, place and person, motor strength and sensation are grossly intact Results - Labs 03/23/16 05:03 03/28/16 08:54 Abnormal lab results 03/30/16 Range/Units 05:08 PT 29.2 H (12.2-14.9) Sec. INR 2.75 H (0.87-1.13) Assessment and Plan Complex case, LENA /Morbid obesity with hx DVT /PE in past Pt has developed left pneumonia with associated parapneumonic effusion which has been tapped Pt's body habitus makes large bore chest tube unworkable, left pleural effusion is not that large, the real issue is the left sided pneumonia with air bronchograms. She is NOT a candidate for pleurx-it is not long enough to be effective given patient's body habitus.
--- NOTE | 2016-03-30 09:18 | Progress Note ---
Assessment and Plan Assessment and plan: 1. Acute hypoxemic respiratory failure. Patient currently on BiPAP. Etiology is multifactorial- PNA, Obesity hypoventilation, atelectasis, possible mucus pluging. Patient with left parapneumonic effusion sp thoracentesis. Pulmonary following. Patient does have a history of PE/DVT and morbid obesity with probable LENA/OHS. Doppler ultrasound of lower extremities negative. recurrent left parapneumonic effusion, input from Dr Hunter beth, will need her INR to be less than 2 before Chest tube, hold warfarin for now -may need bronch if she does not improve 2. Left lung pneumonia with parapneumonic effusion. Patient is status post thoracentesis with 1.1 L removed. continue abx, coverage has been expanded on 03/24; she may need bronch if she does not clinically improve 3. Chest pain has now resolved, EKG and trops were negative 4. History of PE/DVT. Continue warfarin 5. Type 2 diabetes mellitus. Continue Accu-Cheks and sliding scale regular insulin. 6. Morbid obesity. Nutritional consultation. 7. 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 Patient will need further follow-up as an outpatient, will likely need CPAP machine upon dc. 8. GI prophylaxis. Continue Protonix. 9. Accelerated hypertension. continue current meds History Interval history: She complains of complaining of shortness of breath and is in exertion, has not improved, still needing BIPAP prn for respiratory distress. Hospitalist Physical - Physical exam Narrative exam: General: Mild respiratory distress, appears exhausted, obese HEENT: MMM, EOMI cardiac: S1-S2 heard lungs: Decreased air entry abdomen: soft, nontender, nondistended bowel sounds positive extremities: no edema clubbing or cyanosis Skin: no rash or lesion Neuro: no focal deficit Psych: appropriate behavior and mood, cognition intact - Constitutional Vitals: Temp Pulse Resp BP Pulse Ox 98.3 F 102 H 20 132/94 95 03/30/16 07:50 03/30/16 08:29 03/30/16 08:29 03/30/16 07:50 03/30/16 08:24 General appearance: Present: mild distress, obese Results - Labs CBC & Chem 7: 03/23/16 05:03 03/28/16 08:54 Labs: Laboratory Last Values WBC 8.2 K/mm3 (4.5-11.0) 03/17/16 04:58 RBC 5.50 M/mm3 (3.65-5.03) H 03/17/16 04:58 Hgb 11.4 gm/dl (10.1-14.3) 03/23/16 05:03 Hct 39.2 % (30.3-42.9) 03/23/16 05:03 MCV 70 fl (79-97) L 03/17/16 04:58 MCH 20 pg (28-32) L 03/17/16 04:58 MCHC 29 % (30-34) L 03/17/16 04:58 RDW 23.7 % (13.2-15.2) H 03/17/16 04:58 Plt Count 195 K/mm3 (140-440) 03/23/16 05:03 Lymph % (Auto) Recoope[place] 03/17/16 04:58 [place] % (Auto) Recooperer 03/17/16 04:58 Eos % (Auto) Recooperer 03/17/16 04:58 Baso % (Auto) Recooperer 03/17/16 04:58 Lymph # Recooperer 03/17/16 04:58 [place] # Recooperer 03/17/16 04:58 Eos # Recooperer 03/17/16 04:58 Baso # Recooperer 03/17/16 04:58 Seg Neutrophils % Recooperer 03/17/16 04:58 Seg Neutrophils # Recooperer 03/17/16 04:58 PT 29.2 Sec. (12.2-14.9) H 03/30/16 05:08 INR 2.75 (0.87-1.13) H 03/30/16 05:08 APTT 31.5 Sec. (24.2-36.6) 03/16/16 00:04 Heparin Anti-Xa Level 0.10 U.I./ml (0.3-0.7) L 03/25/16 02:04 POC ABG pH 7.422 (7.35-7.45) 03/17/16 08:55 POC ABG pCO2 70.5 (35-45) H 03/17/16 08:55 POC ABG pO2 108 (80-105) H 03/17/16 08:55 POC ABG HCO3 46.0 03/17/16 08:55 POC ABG Total CO2 48 03/17/16 08:55 POC ABG O2 Sat 98 03/17/16 08:55 POC ABG Base Excess 22 03/17/16 08:55 FiO2 40 % 03/17/16 08:55 Sodium 144 mmol/L (137-145) 03/28/16 08:54 Potassium 4.3 mmol/L (3.6-5.0) 03/28/16 08:54 Chloride 97.7 mmol/L (98-107) L 03/28/16 08:54 Carbon Dioxide 38 mmol/L (22-30) H 03/28/16 08:54 Anion Gap 13 mmol/L 03/28/16 08:54 BUN 10 mg/dL (7-17) 03/28/16 08:54 Creatinine 1.0 mg/dL (0.7-1.2) 03/28/16 08:54 Estimated GFR > 60 ml/min 03/28/16 08:54 BUN/Creatinine Ratio 10.00 % 03/28/16 08:54 Glucose 86 mg/dL (65-100) 03/28/16 08:54 POC Glucose 85 (70-105) 03/30/16 08:47 Lactic Acid 1.6 mmol/L (0.7-2.0) 03/15/16 20:20 Calcium 9.3 mg/dL (8.4-10.2) 03/28/16 08:54 Magnesium 2.2 mg/dL (1.7-2.3) 03/15/16 20:20 Total Bilirubin 1.0 mg/dL (0.1-1.2) 03/15/16 20:20 AST 13 units/L (5-40) 03/15/16 20:20 ALT 15 units/L (7-56) 03/15/16 20:20 Alkaline Phosphatase 67 units/L (35-129) 03/15/16 20:20 Lactate Dehydrogenase 328 units/L (91-180) H 03/16/16 12:16 Total Creatine Kinase 14 units/L (30-135) L 03/17/16 13:16 CK-MB (CK-2) < 1.0 ng/mL (0.0-4.0) 03/17/16 13:16 CK-MB (CK-2) Rel Index 7.1 (0-4) H 03/17/16 13:16 Troponin T < 0.010 ng/mL (0.00-0.029) 03/28/16 23:18 C-Reactive Protein 2.60 mg/dL (0.00-1.30) H 03/16/16 12:16 NT-Pro-B Natriuret Pep 957.2 pg/mL (0-450) H 03/15/16 20:20 Total Protein 7.9 g/dL (6.3-8.2) 03/15/16 20:20 Albumin 3.1 g/dL (3.9-5) L 03/15/16 20:20 Albumin/Globulin Ratio 0.6 % 03/15/16 20:20 HCG, Quant < 2 mIU/mL (0-4) 03/15/16 20:20 Urine Color Yellow (Yellow) 03/15/16 21:43 Urine Turbidity Clear (Clear) 03/15/16 21:43 Urine pH 5.0 (5.0-7.0) 03/15/16 21:43 Ur Specific [place] 1.016 (1.003-1.030) 03/15/16 21:43 Urine Protein 30 mg/dl mg/dL (Negative) 03/15/16 21:43 Urine Glucose (UA) Neg mg/dL (Negative) 03/15/16 21:43 Urine Ketones Neg mg/dL (Negative) 03/15/16 21:43 Urine Blood Neg (Negative) 03/15/16 21:43 Urine Nitrite Neg (Negative) 03/15/16 21:43 Urine Bilirubin Neg (Negative) 03/15/16 21:43 Urine Urobilinogen 4.0 mg/dL (<2.0) 03/15/16 21:43 Ur Leukocyte Esterase Neg (Negative) 03/15/16 21:43 Urine WBC (Auto) 3.0 /HPF (0.0-6.0) 03/15/16 21:43 Urine RBC (Auto) 1.0 /HPF (0.0-6.0) 03/15/16 21:43 U Epithel Cells (Auto) 1.0 /HPF (0-13.0) 03/15/16 21:43 Hyaline Casts 1 /LPF 03/15/16 21:43 Urine Mucus Few /HPF 03/15/16 21:43 Fluid Total Protein 4.5 (15.0-45.0) L 03/16/16 16:00 Fluid LDH 498 03/16/16 16:00 Vancomycin Trough 32.1 ug/mL (5.0-20.0) H 03/27/16 19:57 Random Vancomycin 13.6 ug/mL (0-40.0) 03/30/16 05:08
--- NOTE | 2016-03-30 11:05 | Progress Note ---
Assessment and Plan - Patient Problems (1) Pleural effusion, left Current Visit: Yes Status: Acute Plan to address problem: - chest tube once INR acceptable to I.R. team - reverse coumadin (2) Pneumonia Current Visit: Yes Status: Acute Plan to address problem: - incentive spirometry - stop empiric AB's after 5 days - continue BIPAP qhs & prn daytime - as above otherwise (3) Acute and chronic respiratory failure ([id number]) Current Visit: No Status: Acute Plan to address problem: - as above - supplemental oxygen to keep sats >/= 94% (4) Pulmonary emboli Current Visit: No Status: Acute Plan to address problem: - anticoagulation but hold coumadin now and bridge with Lovenox - begin lovenox bridge once INR < 2.0 (5) Sleep apnea Current Visit: No Status: Chronic Plan to address problem: - continue PAP therapy while asleep Subjective Date of service: 03/30/16 Principal diagnosis: Acute Hypoxemic Respiratory Failure; Left Pleural Effusion Interval history: Seen and examined at bedside; 24 hour events reviewed; nursing and respiratory care staff consulted; no adverse overnight events reported to me; no new issues ; still SOB; seen by surgeon Objective Vital Signs - 12hr 03/29/16 03/29/16 03/30/16 23:46 23:57 00:42 Temperature Pulse Rate 93 H Pulse Rate [ 88 89 Anterior Bilateral Throughout] Pulse Rate [ From Monitor] Pulse Rate [ Right Radial] Respiratory Rate Respiratory 20 21 Rate [Anterior Bilateral Throughout] Blood Pressure [Left Arm] Blood Pressure [Right Arm] O2 Sat by Pulse 91 Oximetry 03/30/16 03/30/16 03/30/16 01:16 07:21 07:50 Temperature 98.2 F 97.9 F 98.3 F Pulse Rate Pulse Rate [ Anterior Bilateral Throughout] Pulse Rate [ 82 From Monitor] Pulse Rate [ 88 84 Right Radial] Respiratory 24 18 18 Rate Respiratory Rate [Anterior Bilateral Throughout] Blood Pressure 132/94 [Left Arm] Blood Pressure 122/67 142/73 [Right Arm] O2 Sat by Pulse 98 93 96 Oximetry 03/30/16 03/30/16 03/30/16 08:19 08:24 08:29 Temperature Pulse Rate Pulse Rate [ 87 102 H Anterior Bilateral Throughout] Pulse Rate [ From Monitor] Pulse Rate [ Right Radial] Respiratory Rate Respiratory 20 20 Rate [Anterior Bilateral Throughout] Blood Pressure [Left Arm] Blood Pressure [Right Arm] O2 Sat by Pulse 95 95 Oximetry Constitutional: no acute distress, alert Eyes: non-icteric ENT: oropharynx moist Neck: supple, no JVD Ascultation: Bilateral: diminished breath sounds (LLL), rales (LLL) Cardiovascular: regular rate and rhythm Gastrointestinal: normoactive bowel sounds, soft, non-tender, non-distended Integumentary: other (Stasis dermatitis.) Extremities: no cyanosis, pink and warm, pulses normal, no ischemia or petechiae , edema Neurologic: normal mental status, non-focal exam, pupils equal and round, motor strength normal and Psychiatric: mood appropriate, affect normal CBC and BMP: 03/23/16 05:03 03/28/16 08:54 ABG, PT/INR, D-dimer: ABG POC ABG pH 7.422 (7.35-7.45) 03/17/16 08:55 POC ABG pCO2 70.5 (35-45) H 03/17/16 08:55 POC ABG pO2 108 (80-105) H 03/17/16 08:55 POC ABG HCO3 46.0 03/17/16 08:55 POC ABG Total CO2 48 03/17/16 08:55 POC ABG O2 Sat 98 03/17/16 08:55 PT/INR, D-dimer PT 29.2 Sec. (12.2-14.9) H 03/30/16 05:08 INR 2.75 (0.87-1.13) H 03/30/16 05:08 Abnormal lab findings: Abnormal Labs 03/16/16 03/16/16 03/16/16 00:04 01:01 07:49 RBC MCV MCH MCHC RDW PT 15.8 H INR 1.27 H Heparin Anti-Xa Level 0.18 L POC ABG pH 7.304 L POC ABG pCO2 92.8 H POC ABG pO2 Chloride Carbon Dioxide POC Glucose Lactate Dehydrogenase Total Creatine Kinase CK-MB (CK-2) Rel Index C-Reactive Protein Fluid Total Protein Vancomycin Trough 03/16/16 03/16/16 03/16/16 12:16 16:00 17:21 RBC MCV MCH MCHC RDW PT INR Heparin Anti-Xa Level < 0.11 L POC ABG pH POC ABG pCO2 POC ABG pO2 Chloride Carbon Dioxide POC Glucose Lactate Dehydrogenase 328 H Total Creatine Kinase CK-MB (CK-2) Rel Index C-Reactive Protein 2.60 H Fluid Total Protein 4.5 L Vancomycin Trough 03/17/16 03/17/16 03/17/16 04:58 04:58 04:58 RBC 5.50 H MCV 70 L MCH 20 L MCHC 29 L RDW 23.7 H PT INR Heparin Anti-Xa Level 0.14 L POC ABG pH POC ABG pCO2 POC ABG pO2 Chloride 94.9 L Carbon Dioxide 40 H POC Glucose Lactate Dehydrogenase Total Creatine Kinase CK-MB (CK-2) Rel Index C-Reactive Protein Fluid Total Protein Vancomycin Trough 03/17/16 03/17/16 03/17/16 08:55 11:50 13:16 RBC MCV MCH MCHC RDW PT INR Heparin Anti-Xa Level 0.16 L POC ABG pH POC ABG pCO2 70.5 H POC ABG pO2 108 H Chloride Carbon Dioxide POC Glucose 65 L Lactate Dehydrogenase Total Creatine Kinase CK-MB (CK-2) Rel Index C-Reactive Protein Fluid Total Protein Vancomycin Trough 03/17/16 03/17/16 03/18/16 13:16 21:00 05:32 RBC MCV MCH MCHC RDW PT 15.9 H INR 1.28 H Heparin Anti-Xa Level 0.13 L POC ABG pH POC ABG pCO2 POC ABG pO2 Chloride Carbon Dioxide POC Glucose Lactate Dehydrogenase Total Creatine Kinase 14 L CK-MB (CK-2) Rel Index 7.1 H C-Reactive Protein Fluid Total Protein Vancomycin Trough 03/18/16 03/18/16 03/18/16 07:35 07:43 15:45 RBC MCV MCH MCHC RDW PT INR Heparin Anti-Xa Level 0.71 H POC ABG pH POC ABG pCO2 POC ABG pO2 Chloride Carbon Dioxide POC Glucose 63 L 109 H Lactate Dehydrogenase Total Creatine Kinase CK-MB (CK-2) Rel Index C-Reactive Protein Fluid Total Protein Vancomycin Trough 03/18/16 03/18/16 03/18/16 16:15 21:35 23:30 RBC MCV MCH MCHC RDW PT INR Heparin Anti-Xa Level 0.86 H 0.26 L POC ABG pH POC ABG pCO2 POC ABG pO2 Chloride Carbon Dioxide POC Glucose 106 H Lactate Dehydrogenase Total Creatine Kinase CK-MB (CK-2) Rel Index C-Reactive Protein Fluid Total Protein Vancomycin Trough 03/19/16 03/19/16 03/19/16 06:57 08:28 17:12 RBC MCV MCH MCHC RDW PT 15.6 H INR 1.25 H Heparin Anti-Xa Level POC ABG pH POC ABG pCO2 POC ABG pO2 Chloride Carbon Dioxide POC Glucose 67 L 110 H Lactate Dehydrogenase Total Creatine Kinase CK-MB (CK-2) Rel Index C-Reactive Protein Fluid Total Protein Vancomycin Trough 03/19/16 03/20/16 03/21/16 21:27 06:48 05:11 RBC MCV MCH MCHC RDW PT 16.9 H 18.1 H INR 1.38 H 1.50 H Heparin Anti-Xa Level POC ABG pH POC ABG pCO2 POC ABG pO2 Chloride Carbon Dioxide POC Glucose 107 H Lactate Dehydrogenase Total Creatine Kinase CK-MB (CK-2) Rel Index C-Reactive Protein Fluid Total Protein Vancomycin Trough 03/21/16 03/21/16 03/21/16 05:11 16:02 21:59 RBC MCV MCH MCHC RDW PT INR Heparin Anti-Xa Level 0.27 L 0.79 H POC ABG pH POC ABG pCO2 POC ABG pO2 Chloride Carbon Dioxide POC Glucose 128 H Lactate Dehydrogenase Total Creatine Kinase CK-MB (CK-2) Rel Index C-Reactive Protein Fluid Total Protein Vancomycin Trough 03/22/16 03/23/16 03/23/16 04:46 05:03 08:21 RBC MCV MCH MCHC RDW PT 22.7 H 21.5 H INR 2.00 H 1.87 H Heparin Anti-Xa Level POC ABG pH POC ABG pCO2 POC ABG pO2 Chloride Carbon Dioxide POC Glucose 64 L Lactate Dehydrogenase Total Creatine Kinase CK-MB (CK-2) Rel Index C-Reactive Protein Fluid Total Protein Vancomycin Trough 03/23/16 03/24/16 03/25/16 14:57 05:09 02:04 RBC MCV MCH MCHC RDW PT 25.9 H INR 2.36 H Heparin Anti-Xa Level < 0.10 L 0.10 L POC ABG pH POC ABG pCO2 POC ABG pO2 Chloride Carbon Dioxide POC Glucose Lactate Dehydrogenase Total Creatine Kinase CK-MB (CK-2) Rel Index C-Reactive Protein Fluid Total Protein Vancomycin Trough 03/25/16 03/25/16 03/26/16 05:21 18:24 07:48 RBC MCV MCH MCHC RDW PT 29.4 H 31.6 H INR 2.77 H 3.03 H Heparin Anti-Xa Level POC ABG pH POC ABG pCO2 POC ABG pO2 Chloride Carbon Dioxide POC Glucose 112 H Lactate Dehydrogenase Total Creatine Kinase CK-MB (CK-2) Rel Index C-Reactive Protein Fluid Total Protein Vancomycin Trough 03/26/16 03/26/16 03/26/16 09:36 12:22 21:26 RBC MCV MCH MCHC RDW PT INR Heparin Anti-Xa Level POC ABG pH POC ABG pCO2 POC ABG pO2 Chloride Carbon Dioxide POC Glucose 127 H 68 L 111 H Lactate Dehydrogenase Total Creatine Kinase CK-MB (CK-2) Rel Index C-Reactive Protein Fluid Total Protein Vancomycin Trough 03/27/16 03/27/16 03/27/16 07:10 16:04 19:57 RBC MCV MCH MCHC RDW PT 35.6 H INR 3.52 H Heparin Anti-Xa Level POC ABG pH POC ABG pCO2 POC ABG pO2 Chloride Carbon Dioxide POC Glucose 109 H Lactate Dehydrogenase Total Creatine Kinase CK-MB (CK-2) Rel Index C-Reactive Protein Fluid Total Protein Vancomycin Trough 32.1 H 03/27/16 03/28/16 03/28/16 20:58 05:34 08:54 RBC MCV MCH MCHC RDW PT 36.8 H INR 3.67 H Heparin Anti-Xa Level POC ABG pH POC ABG pCO2 POC ABG pO2 Chloride 97.7 L Carbon Dioxide 38 H POC Glucose 133 H Lactate Dehydrogenase Total Creatine Kinase CK-MB (CK-2) Rel Index C-Reactive Protein Fluid Total Protein Vancomycin Trough 03/28/16 03/28/16 03/29/16 16:15 22:20 05:19 RBC MCV MCH MCHC RDW PT 34.1 H INR 3.34 H Heparin Anti-Xa Level POC ABG pH POC ABG pCO2 POC ABG pO2 Chloride Carbon Dioxide POC Glucose 125 H 106 H Lactate Dehydrogenase Total Creatine Kinase CK-MB (CK-2) Rel Index C-Reactive Protein Fluid Total Protein Vancomycin Trough 03/30/16 05:08 RBC MCV MCH MCHC RDW PT 29.2 H INR 2.75 H Heparin Anti-Xa Level POC ABG pH POC ABG pCO2 POC ABG pO2 Chloride Carbon Dioxide POC Glucose Lactate Dehydrogenase Total Creatine Kinase CK-MB (CK-2) Rel Index C-Reactive Protein Fluid Total Protein Vancomycin Trough
[2016-03-30] MEDS: MORPHINE IV PRN ×2 (12:19→22:07)
[2016-03-30] MEDS: VITAMIN K (ADULT ONLY) SUB-Q SCH ×2 (13:07→22:07)
[2016-03-30] MEDS: VANCOMYCIN VIAL 2,000 MG in NACL 0.9% 500 ML 500 ML IV SCH (16:19)
[2016-03-30] MEDS ORDERED: COUMADIN PO SCH (17:00)
[2016-03-31] MEDS: ZOSYN/NS 4.5GM/100ML 100 ML IV SCH ×5 (05:33→17:03)
[2016-03-31] MEDS: VITAMIN K (ADULT ONLY) SUB-Q SCH (05:34)
[2016-03-31 06:49] LABS: INR 1.47 (0.87-1.13)
[2016-03-31] MEDS: PROVENTIL IH PRN ×2 (09:07→15:26)
[2016-03-31] MEDS: MUCOMYST INHALATION SCH ×2 (09:07→15:26)
--- NOTE | 2016-03-31 09:13 | Ultrasound Report ---
ULTRASOUND CHEST: HISTORY: Left pleural effusion. FINDINGS: Targeted transabdominal grayscale ultrasound was performed on both sides of the chest. The images demonstrate a [id number] left pleural effusion measuring 1600 cc. No right pleural effusion. IMPRESSION: [id number] left pleural effusion estimated at 1600 cc.
[2016-03-31] MEDS: PERCOCET 5/325 PO PRN (11:45)
--- NOTE | 2016-03-31 13:12 | Progress Note ---
Assessment and Plan - Patient Problems (1) Pleural effusion, left Current Visit: Yes Status: Acute Plan to address problem: - discussed with IR and CTSU recs noted - will repeat thoracentesis and go from there (2) Pneumonia Current Visit: Yes Status: Acute Plan to address problem: - incentive spirometry - continue BIPAP qhs & prn daytime - as above otherwise - stopped empiric AB's (3) Acute and chronic respiratory failure ([id number]) Current Visit: No Status: Acute Plan to address problem: - as above - supplemental oxygen to keep sats >/= 94% (4) Pulmonary emboli Current Visit: No Status: Acute Plan to address problem: - anticoagulation but hold coumadin now and bridge with Lovenox - begin lovenox bridge once INR < 2.0 (5) Sleep apnea Current Visit: No Status: Chronic Plan to address problem: - continue PAP therapy while asleep Subjective Date of service: 03/31/16 Principal diagnosis: Acute Hypoxemic Respiratory Failure; Left Pleural Effusion Interval history: Seen and examined at bedside; 24 hour events reviewed; nursing and respiratory care staff consulted; no adverse overnight events reported to me; on 50% venti mask; no increased SOB or acute chest pains Objective Vital Signs - 12hr 03/31/16 03/31/16 03/31/16 01:27 05:35 09:07 Temperature 98.5 F 98.3 F Pulse Rate Pulse Rate [ 94 H Anterior Bilateral Throughout] Pulse Rate [ 82 92 H From Monitor] Pulse Rate [ Left Radial] Respiratory 22 22 Rate Respiratory 20 Rate [Anterior Bilateral Throughout] Respiratory Rate [Head] Blood Pressure 135/71 139/69 [Left Arm] O2 Sat by Pulse 97 97 100 Oximetry 03/31/16 03/31/16 03/31/16 09:19 10:00 11:45 Temperature Pulse Rate 92 H Pulse Rate [ 96 H Anterior Bilateral Throughout] Pulse Rate [ 92 H From Monitor] Pulse Rate [ 92 H Left Radial] Respiratory 20 20 Rate Respiratory 20 Rate [Anterior Bilateral Throughout] Respiratory 20 Rate [Head] Blood Pressure [Left Arm] O2 Sat by Pulse 97 Oximetry 03/31/16 12:17 Temperature 97.3 F L Pulse Rate Pulse Rate [ Anterior Bilateral Throughout] Pulse Rate [ 94 H From Monitor] Pulse Rate [ Left Radial] Respiratory 20 Rate Respiratory Rate [Anterior Bilateral Throughout] Respiratory Rate [Head] Blood Pressure 138/80 [Left Arm] O2 Sat by Pulse 98 Oximetry Constitutional: no acute distress, alert Eyes: non-icteric ENT: oropharynx moist Neck: supple, no JVD Ascultation: Bilateral: clear, diminished breath sounds (LLL) Cardiovascular: regular rate and rhythm Gastrointestinal: normoactive bowel sounds, soft, non-tender, non-distended Integumentary: other (Stasis dermatitis.) Extremities: no cyanosis, pink and warm, pulses normal, no ischemia or petechiae , edema Neurologic: normal mental status, non-focal exam, pupils equal and round, motor strength normal and Psychiatric: mood appropriate, affect normal CBC and BMP: 03/31/16 14:37 03/28/16 08:54 ABG, PT/INR, D-dimer: ABG POC ABG pH 7.422 (7.35-7.45) 03/17/16 08:55 POC ABG pCO2 70.5 (35-45) H 03/17/16 08:55 POC ABG pO2 108 (80-105) H 03/17/16 08:55 POC ABG HCO3 46.0 03/17/16 08:55 POC ABG Total CO2 48 03/17/16 08:55 POC ABG O2 Sat 98 03/17/16 08:55 PT/INR, D-dimer PT 17.8 Sec. (12.2-14.9) H 03/31/16 05:40 INR 1.47 (0.87-1.13) H 03/31/16 05:40 Abnormal lab findings: Abnormal Labs 03/16/16 03/16/16 03/16/16 00:04 01:01 07:49 RBC MCV MCH MCHC RDW PT 15.8 H INR 1.27 H Heparin Anti-Xa Level 0.18 L POC ABG pH 7.304 L POC ABG pCO2 92.8 H POC ABG pO2 Chloride Carbon Dioxide POC Glucose Lactate Dehydrogenase Total Creatine Kinase CK-MB (CK-2) Rel Index C-Reactive Protein Fluid Total Protein Vancomycin Trough 03/16/16 03/16/16 03/16/16 12:16 16:00 17:21 RBC MCV MCH MCHC RDW PT INR Heparin Anti-Xa Level < 0.11 L POC ABG pH POC ABG pCO2 POC ABG pO2 Chloride Carbon Dioxide POC Glucose Lactate Dehydrogenase 328 H Total Creatine Kinase CK-MB (CK-2) Rel Index C-Reactive Protein 2.60 H Fluid Total Protein 4.5 L Vancomycin Trough 03/17/16 03/17/16 03/17/16 04:58 04:58 04:58 RBC 5.50 H MCV 70 L MCH 20 L MCHC 29 L RDW 23.7 H PT INR Heparin Anti-Xa Level 0.14 L POC ABG pH POC ABG pCO2 POC ABG pO2 Chloride 94.9 L Carbon Dioxide 40 H POC Glucose Lactate Dehydrogenase Total Creatine Kinase CK-MB (CK-2) Rel Index C-Reactive Protein Fluid Total Protein Vancomycin Trough 03/17/16 03/17/16 03/17/16 08:55 11:50 13:16 RBC MCV MCH MCHC RDW PT INR Heparin Anti-Xa Level 0.16 L POC ABG pH POC ABG pCO2 70.5 H POC ABG pO2 108 H Chloride Carbon Dioxide POC Glucose 65 L Lactate Dehydrogenase Total Creatine Kinase CK-MB (CK-2) Rel Index C-Reactive Protein Fluid Total Protein Vancomycin Trough 03/17/16 03/17/16 03/18/16 13:16 21:00 05:32 RBC MCV MCH MCHC RDW PT 15.9 H INR 1.28 H Heparin Anti-Xa Level 0.13 L POC ABG pH POC ABG pCO2 POC ABG pO2 Chloride Carbon Dioxide POC Glucose Lactate Dehydrogenase Total Creatine Kinase 14 L CK-MB (CK-2) Rel Index 7.1 H C-Reactive Protein Fluid Total Protein Vancomycin Trough 03/18/16 03/18/16 03/18/16 07:35 07:43 15:45 RBC MCV MCH MCHC RDW PT INR Heparin Anti-Xa Level 0.71 H POC ABG pH POC ABG pCO2 POC ABG pO2 Chloride Carbon Dioxide POC Glucose 63 L 109 H Lactate Dehydrogenase Total Creatine Kinase CK-MB (CK-2) Rel Index C-Reactive Protein Fluid Total Protein Vancomycin Trough 03/18/16 03/18/16 03/18/16 16:15 21:35 23:30 RBC MCV MCH MCHC RDW PT INR Heparin Anti-Xa Level 0.86 H 0.26 L POC ABG pH POC ABG pCO2 POC ABG pO2 Chloride Carbon Dioxide POC Glucose 106 H Lactate Dehydrogenase Total Creatine Kinase CK-MB (CK-2) Rel Index C-Reactive Protein Fluid Total Protein Vancomycin Trough 03/19/16 03/19/16 03/19/16 06:57 08:28 17:12 RBC MCV MCH MCHC RDW PT 15.6 H INR 1.25 H Heparin Anti-Xa Level POC ABG pH POC ABG pCO2 POC ABG pO2 Chloride Carbon Dioxide POC Glucose 67 L 110 H Lactate Dehydrogenase Total Creatine Kinase CK-MB (CK-2) Rel Index C-Reactive Protein Fluid Total Protein Vancomycin Trough 03/19/16 03/20/16 03/21/16 21:27 06:48 05:11 RBC MCV MCH MCHC RDW PT 16.9 H 18.1 H INR 1.38 H 1.50 H Heparin Anti-Xa Level POC ABG pH POC ABG pCO2 POC ABG pO2 Chloride Carbon Dioxide POC Glucose 107 H Lactate Dehydrogenase Total Creatine Kinase CK-MB (CK-2) Rel Index C-Reactive Protein Fluid Total Protein Vancomycin Trough 03/21/16 03/21/16 03/21/16 05:11 16:02 21:59 RBC MCV MCH MCHC RDW PT INR Heparin Anti-Xa Level 0.27 L 0.79 H POC ABG pH POC ABG pCO2 POC ABG pO2 Chloride Carbon Dioxide POC Glucose 128 H Lactate Dehydrogenase Total Creatine Kinase CK-MB (CK-2) Rel Index C-Reactive Protein Fluid Total Protein Vancomycin Trough 03/22/16 03/23/16 03/23/16 04:46 05:03 08:21 RBC MCV MCH MCHC RDW PT 22.7 H 21.5 H INR 2.00 H 1.87 H Heparin Anti-Xa Level POC ABG pH POC ABG pCO2 POC ABG pO2 Chloride Carbon Dioxide POC Glucose 64 L Lactate Dehydrogenase Total Creatine Kinase CK-MB (CK-2) Rel Index C-Reactive Protein Fluid Total Protein Vancomycin Trough 03/23/16 03/24/16 03/25/16 14:57 05:09 02:04 RBC MCV MCH MCHC RDW PT 25.9 H INR 2.36 H Heparin Anti-Xa Level < 0.10 L 0.10 L POC ABG pH POC ABG pCO2 POC ABG pO2 Chloride Carbon Dioxide POC Glucose Lactate Dehydrogenase Total Creatine Kinase CK-MB (CK-2) Rel Index C-Reactive Protein Fluid Total Protein Vancomycin Trough 03/25/16 03/25/16 03/26/16 05:21 18:24 07:48 RBC MCV MCH MCHC RDW PT 29.4 H 31.6 H INR 2.77 H 3.03 H Heparin Anti-Xa Level POC ABG pH POC ABG pCO2 POC ABG pO2 Chloride Carbon Dioxide POC Glucose 112 H Lactate Dehydrogenase Total Creatine Kinase CK-MB (CK-2) Rel Index C-Reactive Protein Fluid Total Protein Vancomycin Trough 03/26/16 03/26/16 03/26/16 09:36 12:22 21:26 RBC MCV MCH MCHC RDW PT INR Heparin Anti-Xa Level POC ABG pH POC ABG pCO2 POC ABG pO2 Chloride Carbon Dioxide POC Glucose 127 H 68 L 111 H Lactate Dehydrogenase Total Creatine Kinase CK-MB (CK-2) Rel Index C-Reactive Protein Fluid Total Protein Vancomycin Trough 03/27/16 03/27/16 03/27/16 07:10 16:04 19:57 RBC MCV MCH MCHC RDW PT 35.6 H INR 3.52 H Heparin Anti-Xa Level POC ABG pH POC ABG pCO2 POC ABG pO2 Chloride Carbon Dioxide POC Glucose 109 H Lactate Dehydrogenase Total Creatine Kinase CK-MB (CK-2) Rel Index C-Reactive Protein Fluid Total Protein Vancomycin Trough 32.1 H 03/27/16 03/28/16 03/28/16 20:58 05:34 08:54 RBC MCV MCH MCHC RDW PT 36.8 H INR 3.67 H Heparin Anti-Xa Level POC ABG pH POC ABG pCO2 POC ABG pO2 Chloride 97.7 L Carbon Dioxide 38 H POC Glucose 133 H Lactate Dehydrogenase Total Creatine Kinase CK-MB (CK-2) Rel Index C-Reactive Protein Fluid Total Protein Vancomycin Trough 03/28/16 03/28/16 03/29/16 16:15 22:20 05:19 RBC MCV MCH MCHC RDW PT 34.1 H INR 3.34 H Heparin Anti-Xa Level POC ABG pH POC ABG pCO2 POC ABG pO2 Chloride Carbon Dioxide POC Glucose 125 H 106 H Lactate Dehydrogenase Total Creatine Kinase CK-MB (CK-2) Rel Index C-Reactive Protein Fluid Total Protein Vancomycin Trough 03/30/16 03/30/16 03/30/16 05:08 12:04 16:03 RBC MCV MCH MCHC RDW PT 29.2 H INR 2.75 H Heparin Anti-Xa Level POC ABG pH POC ABG pCO2 POC ABG pO2 Chloride Carbon Dioxide POC Glucose 118 H 108 H Lactate Dehydrogenase Total Creatine Kinase CK-MB (CK-2) Rel Index C-Reactive Protein Fluid Total Protein Vancomycin Trough 03/31/16 05:40 RBC MCV MCH MCHC RDW PT 17.8 H INR 1.47 H Heparin Anti-Xa Level POC ABG pH POC ABG pCO2 POC ABG pO2 Chloride Carbon Dioxide POC Glucose Lactate Dehydrogenase Total Creatine Kinase CK-MB (CK-2) Rel Index C-Reactive Protein Fluid Total Protein Vancomycin Trough
--- NOTE | 2016-03-31 14:55 | Event Note ---
Date: 03/31/16 40-year-old morbidly obese female with left-sided pleural effusion. Discussed case with Dr. Mcclellan of general and cardiothoracic surgery. After discussion, recommend serial thoracentesis. If thoracentesis unsuccessful , can revisit issue.
[2016-03-31 15:01] LABS: Mean Corpuscular Volume 74 fl (79-97); Red Blood Count 5.34 M/mm3 (3.65-5.03); White Blood Count 7.4 K/mm3 (4.5-11.0)
[2016-03-31 15:02] LABS: Hematocrit 39.3 % (30.3-42.9); Hemoglobin 11.5 gm/dl (10.1-14.3); Mean Corpuscular HGB Conc 29 % (30-34); Mean Corpuscular Hemoglobin 22 pg (28-32); Red Cell Distribution Width 28.3 % (13.2-15.2)
[2016-03-31 15:04] LABS: Platelet Count 119 K/mm3 (140-440)
[2016-03-31] MEDS: MORPHINE IV PRN (21:58)
[2016-04-01] MEDS: PROVENTIL IH PRN ×2 (01:27→08:45)
[2016-04-01] MEDS: MUCOMYST INHALATION SCH ×4 (01:27→23:18)
[2016-04-01] MEDS: ZOSYN/NS 4.5GM/100ML 100 ML IV SCH ×3 (06:14→12:42)
[2016-04-01] MEDS: APRESOLINE IV PRN (06:15)
--- NOTE | 2016-04-01 10:52 | Progress Note ---
Assessment and Plan Assessment and plan: 1. Acute hypoxemic respiratory failure. Patient currently on BiPAP. Etiology is multifactorial- PNA, Obesity hypoventilation, atelectasis, possible mucus pluging. Patient with left parapneumonic effusion sp thoracentesis. Pulmonary following. Patient does have a history of PE/DVT and morbid obesity with probable LENA/OHS. Doppler ultrasound of lower extremities negative. recurrent left parapneumonic effusion, input from Dr Hunter beth, will need her INR to be less than 2 before Chest tube, hold warfarin for now -may need bronch if she does not improve 2. Left lung pneumonia with parapneumonic effusion. Patient is status post thoracentesis with 1.1 L removed. continue abx, coverage has been expanded on 03/24; she may need bronch if she does not clinically improve 3. Chest pain has now resolved, EKG and trops were negative 4. History of PE/DVT. Continue warfarin 5. Type 2 diabetes mellitus. Continue Accu-Cheks and sliding scale regular insulin. 6. Morbid obesity. Nutritional consultation. 7. 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 Patient will need further follow-up as an outpatient, will likely need CPAP machine upon dc. 8. GI prophylaxis. Continue Protonix. 9. Accelerated hypertension. continue current meds History Interval history: She complains of complaining of shortness of breath and is in exertion, has not improved, still needing BIPAP prn for respiratory distress. Hospitalist Physical - Physical exam Narrative exam: General: Mild respiratory distress, appears exhausted, obese HEENT: MMM, EOMI cardiac: S1-S2 heard lungs: Decreased air entry abdomen: soft, nontender, nondistended bowel sounds positive extremities: no edema clubbing or cyanosis Skin: no rash or lesion Neuro: no focal deficit Psych: appropriate behavior and mood, cognition intact - Constitutional Vitals: Temp Pulse Resp BP Pulse Ox 98.2 F 96 H 22 177/102 96 04/01/16 08:15 04/01/16 09:11 04/01/16 09:11 04/01/16 08:15 04/01/16 09:38 General appearance: Present: mild distress, obese Results - Labs CBC & Chem 7: 03/31/16 14:37 03/28/16 08:54 Labs: Laboratory Last Values WBC 7.4 K/mm3 (4.5-11.0) 03/31/16 14:37 RBC 5.34 M/mm3 (3.65-5.03) H 03/31/16 14:37 Hgb 11.5 gm/dl (10.1-14.3) 03/31/16 14:37 Hct 39.3 % (30.3-42.9) 03/31/16 14:37 MCV 74 fl (79-97) L 03/31/16 14:37 MCH 22 pg (28-32) L 03/31/16 14:37 MCHC 29 % (30-34) L 03/31/16 14:37 RDW 28.3 % (13.2-15.2) H 03/31/16 14:37 Plt Count 119 K/mm3 (140-440) L 03/31/16 14:37 Lymph % (Auto) Rehabilitation Engineer 03/17/16 04:58 [place] % (Auto) Rehabilitation Engineer 03/17/16 04:58 Eos % (Auto) Rehabilitation Engineer 03/17/16 04:58 Baso % (Auto) Rehabilitation Engineer 03/17/16 04:58 Lymph # Rehabilitation Engineer 03/17/16 04:58 [place] # Rehabilitation Engineer 03/17/16 04:58 Eos # Rehabilitation Engineer 03/17/16 04:58 Baso # Rehabilitation Engineer 03/17/16 04:58 Seg Neutrophils % Rehabilitation Engineer 03/17/16 04:58 Seg Neutrophils # Rehabilitation Engineer 03/17/16 04:58 PT 17.8 Sec. (12.2-14.9) H 03/31/16 05:40 INR 1.47 (0.87-1.13) H 03/31/16 05:40 APTT 31.5 Sec. (24.2-36.6) 03/16/16 00:04 Heparin Anti-Xa Level 0.10 U.I./ml (0.3-0.7) L 03/25/16 02:04 POC ABG pH 7.422 (7.35-7.45) 03/17/16 08:55 POC ABG pCO2 70.5 (35-45) H 03/17/16 08:55 POC ABG pO2 108 (80-105) H 03/17/16 08:55 POC ABG HCO3 46.0 03/17/16 08:55 POC ABG Total CO2 48 03/17/16 08:55 POC ABG O2 Sat 98 03/17/16 08:55 POC ABG Base Excess 22 03/17/16 08:55 FiO2 40 % 03/17/16 08:55 Sodium 144 mmol/L (137-145) 03/28/16 08:54 Potassium 4.3 mmol/L (3.6-5.0) 03/28/16 08:54 Chloride 97.7 mmol/L (98-107) L 03/28/16 08:54 Carbon Dioxide 38 mmol/L (22-30) H 03/28/16 08:54 Anion Gap 13 mmol/L 03/28/16 08:54 BUN 10 mg/dL (7-17) 03/28/16 08:54 Creatinine 1.0 mg/dL (0.7-1.2) 03/28/16 08:54 Estimated GFR > 60 ml/min 03/28/16 08:54 BUN/Creatinine Ratio 10.00 % 03/28/16 08:54 Glucose 86 mg/dL (65-100) 03/28/16 08:54 POC Glucose 115 (70-105) H 03/31/16 17:24 Lactic Acid 1.6 mmol/L (0.7-2.0) 03/15/16 20:20 Calcium 9.3 mg/dL (8.4-10.2) 03/28/16 08:54 Magnesium 2.2 mg/dL (1.7-2.3) 03/15/16 20:20 Total Bilirubin 1.0 mg/dL (0.1-1.2) 03/15/16 20:20 AST 13 units/L (5-40) 03/15/16 20:20 ALT 15 units/L (7-56) 03/15/16 20:20 Alkaline Phosphatase 67 units/L (35-129) 03/15/16 20:20 Lactate Dehydrogenase 328 units/L (91-180) H 03/16/16 12:16 Total Creatine Kinase 14 units/L (30-135) L 03/17/16 13:16 CK-MB (CK-2) < 1.0 ng/mL (0.0-4.0) 03/17/16 13:16 CK-MB (CK-2) Rel Index 7.1 (0-4) H 03/17/16 13:16 Troponin T < 0.010 ng/mL (0.00-0.029) 03/28/16 23:18 C-Reactive Protein 2.60 mg/dL (0.00-1.30) H 03/16/16 12:16 NT-Pro-B Natriuret Pep 957.2 pg/mL (0-450) H 03/15/16 20:20 Total Protein 7.9 g/dL (6.3-8.2) 03/15/16 20:20 Albumin 3.1 g/dL (3.9-5) L 03/15/16 20:20 Albumin/Globulin Ratio 0.6 % 03/15/16 20:20 HCG, Quant < 2 mIU/mL (0-4) 03/15/16 20:20 Urine Color Yellow (Yellow) 03/15/16 21:43 Urine Turbidity Clear (Clear) 03/15/16 21:43 Urine pH 5.0 (5.0-7.0) 03/15/16 21:43 Ur Specific [place] 1.016 (1.003-1.030) 03/15/16 21:43 Urine Protein 30 mg/dl mg/dL (Negative) 03/15/16 21:43 Urine Glucose (UA) Neg mg/dL (Negative) 03/15/16 21:43 Urine Ketones Neg mg/dL (Negative) 03/15/16 21:43 Urine Blood Neg (Negative) 03/15/16 21:43 Urine Nitrite Neg (Negative) 03/15/16 21:43 Urine Bilirubin Neg (Negative) 03/15/16 21:43 Urine Urobilinogen 4.0 mg/dL (<2.0) 03/15/16 21:43 Ur Leukocyte Esterase Neg (Negative) 03/15/16 21:43 Urine WBC (Auto) 3.0 /HPF (0.0-6.0) 03/15/16 21:43 Urine RBC (Auto) 1.0 /HPF (0.0-6.0) 03/15/16 21:43 U Epithel Cells (Auto) 1.0 /HPF (0-13.0) 03/15/16 21:43 Hyaline Casts 1 /LPF 03/15/16 21:43 Urine Mucus Few /HPF 03/15/16 21:43 Fluid Total Protein 4.5 (15.0-45.0) L 03/16/16 16:00 Fluid LDH 498 03/16/16 16:00 Vancomycin Trough 32.1 ug/mL (5.0-20.0) H 03/27/16 19:57 Random Vancomycin 13.6 ug/mL (0-40.0) 03/30/16 05:08
[2016-04-01] MEDS: PERCOCET 5/325 PO PRN (16:14)
--- NOTE | 2016-04-01 17:02 | Progress Note ---
Assessment and Plan This is 40 year old female Morbidly obese came to the emergency room with a complaint of shortness of breath. Patients chest xray obtained showed complete opacification of left hemithorax. Patient has history of hypertension and pulmonary emboli.Patients pulmonary emboli diagnosed 3 months ago by CTA of the chest. Patient also diagnsed at that time DVT in left leg. Patient non compliant with her medications, Patient stopped taking Eliquis.Patient started on S/C Lovenox and Coumadin.Patient also treated for pneumonia recently at [facility]. Patients blood gases showed, patient is in respiratory failure. Patient placed on BIPAP Rate 20, 22/10, FIO2 50%. Patient awake ,following commands. Repeating blood gases in AM.[place] no known allergies. Smoking,alcohol or drug history not known at this time.Patient started on Levaquine and zosyn. Obtaining ultrasound of chest for possible left pleural effusion. 03/18/16 Patient resting on Face mask, FIO2 50%. O2 saturation 84%. Patient S/P right thoracentesis 03/21/16 Patient alert, awake and oriented.Patient resting on Face mask, FIO2 50%. O2 saturation 90%. Patient S/P right thoracentesis 03/22/16 Patient sleeping at this time On bipap. Patient is on BIPAP 22/10, FIO2 40% and O2 satuaration running 95%.Patient tolerating BIPAP good.No respiratory distress. 03/25/16 Patient awake and resting on BIPAP.. Patient is on BIPAP 22/10, FIO2 45% and O2 satuaration running 93%.Patient tolerating BIPAP good.No respiratory distress. 03/26/16 Patient awake . Patient is on 50% ventimask . Complaning shortness of breath. O2 satuaration 95%. Placing her back on BIPAP. 22/10/ rate 20, FIO2 50%. 03/28/16 Patient alert and awake . Patient sitting up in bed.Patient is on 50% ventimask . O2 satuaration 94%. 04/01/16 Patient alert and awake . Patient resting on 50% ventimask . O2 satuaration 98% .Patient is going to go on BIPAP tonight. - Patient Problems (1) Acute and chronic respiratory failure ([id number]) Current Visit: No Status: Acute Plan to address problem: Patient alert and awake . Patient sitting up in chair.Patient is on 50% ventimask . O2 satuaration 95%. 04/01/16 Patient alert and awake . Patient resting on 50% ventimask . O2 satuaration 98% .Patient is going to go on BIPAP tonight. (2) Pulmonary emboli Current Visit: No Status: Acute Plan to address problem: 03/21/16 Patient presently is on I/V Heparin and coumadin. 03/22/16 Patient is on I/V Heparin and warfarin. 03/25/16 Patient is on coumadin. 03/27/16 Patients INR 3.52. Recommend hold coumadin today Recheck INR in AM. 03/28/16 TodaYS inr IS 3.67. CONTINUE HOLD COUMADIN UNTIL REACH THERAPEUTIC RANGE. 03/3016 INR came down to 1.47 Recommend to start on Lovenox until thoracentesis done. (3) Left femoral vein DVT Current Visit: No Status: Acute Plan to address problem: Lovenox and coumadin. 03/21/16 Patient presently is on I/V Heparin and coumadin. 03/22/16 Patient is on I/V heparin and coumadin. 03/25/16 Patient is on PO coumadin. 03/27/16 Patients INR 3.52 Recommend hold coumadin and recheck INR. 03/28/16 TODAYS inr 3.67 CONTINUE HOLD COUMADIN AND RECHECK INR. 04/01/16 Recommend to start on Lovenox until thoracentesis done. (4) Pneumonia Current Visit: Yes Status: Acute Plan to address problem: Patient is on Zosyn and Levaquine. 03/18/16 Patient presently on Levaquine. 03/25/16 Patient presently on antibiotics Zosyn and vancomycin. (5) Pleural effusion, left Current Visit: Yes Status: Acute Plan to address problem: Patients ultrasound of chest reported pleural effusion. Patient under gone left thoracentesis. Pleural fluid cytology reported negative for malignant cells. Recommend to repeat thoracentesis under ultrasound guidance. (6) Morbid obesity with BMI of 70 and over, adult Current Visit: No Status: Chronic Plan to address problem: Nutritional consultation for weight reduction diet. (7) Sleep apnea Current Visit: No Status: Chronic Plan to address problem: Patient is on BIPAP.22/10, rate 20, FIO2 50% Subjective Date of service: 04/01/16 Principal diagnosis: Acute Hypoxemic Respiratory Failure; Left Pleural Effusion Interval history: Patient alert and awake . Patient resting on 50% ventimask . O2 satuaration 98% .Patient is going to go on BIPAP tonight. Objective Vital Signs - 12hr 04/01/16 04/01/16 04/01/16 06:15 08:15 08:45 Temperature 98.2 F Pulse Rate Pulse Rate [ Anterior Bilateral Throughout] Pulse Rate [ 94 H From Monitor] Pulse Rate [ 94 H Posterior Bilateral Throughout] Pulse Rate [ Right Radial] Respiratory 20 Rate Respiratory Rate [Anterior Bilateral Throughout] Respiratory 26 H Rate [Posterior Bilateral Throughout] Blood Pressure 184/89 Blood Pressure 177/102 [Left Arm] O2 Sat by Pulse 100 Oximetry 04/01/16 04/01/16 04/01/16 08:58 09:11 09:38 Temperature Pulse Rate 96 H Pulse Rate [ 96 H Anterior Bilateral Throughout] Pulse Rate [ From Monitor] Pulse Rate [ 96 H Posterior Bilateral Throughout] Pulse Rate [ Right Radial] Respiratory 22 Rate Respiratory 21 Rate [Anterior Bilateral Throughout] Respiratory 21 Rate [Posterior Bilateral Throughout] Blood Pressure Blood Pressure [Left Arm] O2 Sat by Pulse 96 96 Oximetry 04/01/16 04/01/16 10:00 11:48 Temperature 97.6 F Pulse Rate Pulse Rate [ Anterior Bilateral Throughout] Pulse Rate [ 96 H 94 H From Monitor] Pulse Rate [ Posterior Bilateral Throughout] Pulse Rate [ 96 H Right Radial] Respiratory 20 20 Rate Respiratory Rate [Anterior Bilateral Throughout] Respiratory Rate [Posterior Bilateral Throughout] Blood Pressure Blood Pressure 140/83 [Left Arm] O2 Sat by Pulse 97 98 Oximetry Constitutional: no acute distress, alert Eyes: non-icteric ENT: oropharynx moist Neck: supple, no JVD Ascultation: Bilateral: diminished breath sounds (LLL), rales (LLL) Cardiovascular: regular rate and rhythm Gastrointestinal: normoactive bowel sounds, soft, non-tender, non-distended Integumentary: other (Stasis dermatitis.) Extremities: no cyanosis, pink and warm, pulses normal, no ischemia or petechiae , edema Neurologic: normal mental status, non-focal exam, pupils equal and round, motor strength normal and Psychiatric: mood appropriate, affect normal CBC and BMP: 03/31/16 14:37 03/28/16 08:54 ABG, PT/INR, D-dimer: ABG POC ABG pH 7.422 (7.35-7.45) 03/17/16 08:55 POC ABG pCO2 70.5 (35-45) H 03/17/16 08:55 POC ABG pO2 108 (80-105) H 03/17/16 08:55 POC ABG HCO3 46.0 03/17/16 08:55 POC ABG Total CO2 48 03/17/16 08:55 POC ABG O2 Sat 98 03/17/16 08:55 PT/INR, D-dimer PT 17.8 Sec. (12.2-14.9) H 03/31/16 05:40 INR 1.47 (0.87-1.13) H 03/31/16 05:40 Abnormal lab findings: Abnormal Labs 03/16/16 03/16/16 03/16/16 00:04 01:01 07:49 RBC MCV MCH MCHC RDW Plt Count PT 15.8 H INR 1.27 H Heparin Anti-Xa Level 0.18 L POC ABG pH 7.304 L POC ABG pCO2 92.8 H POC ABG pO2 Chloride Carbon Dioxide POC Glucose Lactate Dehydrogenase Total Creatine Kinase CK-MB (CK-2) Rel Index C-Reactive Protein Fluid Total Protein Vancomycin Trough 03/16/16 03/16/16 03/16/16 12:16 16:00 17:21 RBC MCV MCH MCHC RDW Plt Count PT INR Heparin Anti-Xa Level < 0.11 L POC ABG pH POC ABG pCO2 POC ABG pO2 Chloride Carbon Dioxide POC Glucose Lactate Dehydrogenase 328 H Total Creatine Kinase CK-MB (CK-2) Rel Index C-Reactive Protein 2.60 H Fluid Total Protein 4.5 L Vancomycin Trough 03/17/16 03/17/16 03/17/16 04:58 04:58 04:58 RBC 5.50 H MCV 70 L MCH 20 L MCHC 29 L RDW 23.7 H Plt Count PT INR Heparin Anti-Xa Level 0.14 L POC ABG pH POC ABG pCO2 POC ABG pO2 Chloride 94.9 L Carbon Dioxide 40 H POC Glucose Lactate Dehydrogenase Total Creatine Kinase CK-MB (CK-2) Rel Index C-Reactive Protein Fluid Total Protein Vancomycin Trough 03/17/16 03/17/16 03/17/16 08:55 11:50 13:16 RBC MCV MCH MCHC RDW Plt Count PT INR Heparin Anti-Xa Level 0.16 L POC ABG pH POC ABG pCO2 70.5 H POC ABG pO2 108 H Chloride Carbon Dioxide POC Glucose 65 L Lactate Dehydrogenase Total Creatine Kinase CK-MB (CK-2) Rel Index C-Reactive Protein Fluid Total Protein Vancomycin Trough 03/17/16 03/17/16 03/18/16 13:16 21:00 05:32 RBC MCV MCH MCHC RDW Plt Count PT 15.9 H INR 1.28 H Heparin Anti-Xa Level 0.13 L POC ABG pH POC ABG pCO2 POC ABG pO2 Chloride Carbon Dioxide POC Glucose Lactate Dehydrogenase Total Creatine Kinase 14 L CK-MB (CK-2) Rel Index 7.1 H C-Reactive Protein Fluid Total Protein Vancomycin Trough 03/18/16 03/18/16 03/18/16 07:35 07:43 15:45 RBC MCV MCH MCHC RDW Plt Count PT INR Heparin Anti-Xa Level 0.71 H POC ABG pH POC ABG pCO2 POC ABG pO2 Chloride Carbon Dioxide POC Glucose 63 L 109 H Lactate Dehydrogenase Total Creatine Kinase CK-MB (CK-2) Rel Index C-Reactive Protein Fluid Total Protein Vancomycin Trough 03/18/16 03/18/16 03/18/16 16:15 21:35 23:30 RBC MCV MCH MCHC RDW Plt Count PT INR Heparin Anti-Xa Level 0.86 H 0.26 L POC ABG pH POC ABG pCO2 POC ABG pO2 Chloride Carbon Dioxide POC Glucose 106 H Lactate Dehydrogenase Total Creatine Kinase CK-MB (CK-2) Rel Index C-Reactive Protein Fluid Total Protein Vancomycin Trough 03/19/16 03/19/16 03/19/16 06:57 08:28 17:12 RBC MCV MCH MCHC RDW Plt Count PT 15.6 H INR 1.25 H Heparin Anti-Xa Level POC ABG pH POC ABG pCO2 POC ABG pO2 Chloride Carbon Dioxide POC Glucose 67 L 110 H Lactate Dehydrogenase Total Creatine Kinase CK-MB (CK-2) Rel Index C-Reactive Protein Fluid Total Protein Vancomycin Trough 03/19/16 03/20/16 03/21/16 21:27 06:48 05:11 RBC MCV MCH MCHC RDW Plt Count PT 16.9 H 18.1 H INR 1.38 H 1.50 H Heparin Anti-Xa Level POC ABG pH POC ABG pCO2 POC ABG pO2 Chloride Carbon Dioxide POC Glucose 107 H Lactate Dehydrogenase Total Creatine Kinase CK-MB (CK-2) Rel Index C-Reactive Protein Fluid Total Protein Vancomycin Trough 03/21/16 03/21/16 03/21/16 05:11 16:02 21:59 RBC MCV MCH MCHC RDW Plt Count PT INR Heparin Anti-Xa Level 0.27 L 0.79 H POC ABG pH POC ABG pCO2 POC ABG pO2 Chloride Carbon Dioxide POC Glucose 128 H Lactate Dehydrogenase Total Creatine Kinase CK-MB (CK-2) Rel Index C-Reactive Protein Fluid Total Protein Vancomycin Trough 03/22/16 03/23/16 03/23/16 04:46 05:03 08:21 RBC MCV MCH MCHC RDW Plt Count PT 22.7 H 21.5 H INR 2.00 H 1.87 H Heparin Anti-Xa Level POC ABG pH POC ABG pCO2 POC ABG pO2 Chloride Carbon Dioxide POC Glucose 64 L Lactate Dehydrogenase Total Creatine Kinase CK-MB (CK-2) Rel Index C-Reactive Protein Fluid Total Protein Vancomycin Trough 03/23/16 03/24/16 03/25/16 14:57 05:09 02:04 RBC MCV MCH MCHC RDW Plt Count PT 25.9 H INR 2.36 H Heparin Anti-Xa Level < 0.10 L 0.10 L POC ABG pH POC ABG pCO2 POC ABG pO2 Chloride Carbon Dioxide POC Glucose Lactate Dehydrogenase Total Creatine Kinase CK-MB (CK-2) Rel Index C-Reactive Protein Fluid Total Protein Vancomycin Trough 03/25/16 03/25/16 03/26/16 05:21 18:24 07:48 RBC MCV MCH MCHC RDW Plt Count PT 29.4 H 31.6 H INR 2.77 H 3.03 H Heparin Anti-Xa Level POC ABG pH POC ABG pCO2 POC ABG pO2 Chloride Carbon Dioxide POC Glucose 112 H Lactate Dehydrogenase Total Creatine Kinase CK-MB (CK-2) Rel Index C-Reactive Protein Fluid Total Protein Vancomycin Trough 03/26/16 03/26/16 03/26/16 09:36 12:22 21:26 RBC MCV MCH MCHC RDW Plt Count PT INR Heparin Anti-Xa Level POC ABG pH POC ABG pCO2 POC ABG pO2 Chloride Carbon Dioxide POC Glucose 127 H 68 L 111 H Lactate Dehydrogenase Total Creatine Kinase CK-MB (CK-2) Rel Index C-Reactive Protein Fluid Total Protein Vancomycin Trough 03/27/16 03/27/16 03/27/16 07:10 16:04 19:57 RBC MCV MCH MCHC RDW Plt Count PT 35.6 H INR 3.52 H Heparin Anti-Xa Level POC ABG pH POC ABG pCO2 POC ABG pO2 Chloride Carbon Dioxide POC Glucose 109 H Lactate Dehydrogenase Total Creatine Kinase CK-MB (CK-2) Rel Index C-Reactive Protein Fluid Total Protein Vancomycin Trough 32.1 H 03/27/16 03/28/16 03/28/16 20:58 05:34 08:54 RBC MCV MCH MCHC RDW Plt Count PT 36.8 H INR 3.67 H Heparin Anti-Xa Level POC ABG pH POC ABG pCO2 POC ABG pO2 Chloride 97.7 L Carbon Dioxide 38 H POC Glucose 133 H Lactate Dehydrogenase Total Creatine Kinase CK-MB (CK-2) Rel Index C-Reactive Protein Fluid Total Protein Vancomycin Trough 03/28/16 03/28/16 03/29/16 16:15 22:20 05:19 RBC MCV MCH MCHC RDW Plt Count PT 34.1 H INR 3.34 H Heparin Anti-Xa Level POC ABG pH POC ABG pCO2 POC ABG pO2 Chloride Carbon Dioxide POC Glucose 125 H 106 H Lactate Dehydrogenase Total Creatine Kinase CK-MB (CK-2) Rel Index C-Reactive Protein Fluid Total Protein Vancomycin Trough 03/30/16 03/30/16 03/30/16 05:08 12:04 16:03 RBC MCV MCH MCHC RDW Plt Count PT 29.2 H INR 2.75 H Heparin Anti-Xa Level POC ABG pH POC ABG pCO2 POC ABG pO2 Chloride Carbon Dioxide POC Glucose 118 H 108 H Lactate Dehydrogenase Total Creatine Kinase CK-MB (CK-2) Rel Index C-Reactive Protein Fluid Total Protein Vancomycin Trough 03/31/16 03/31/16 03/31/16 05:40 14:37 17:24 RBC 5.34 H MCV 74 L MCH 22 L MCHC 29 L RDW 28.3 H Plt Count 119 L PT 17.8 H INR 1.47 H Heparin Anti-Xa Level POC ABG pH POC ABG pCO2 POC ABG pO2 Chloride Carbon Dioxide POC Glucose 115 H Lactate Dehydrogenase Total Creatine Kinase CK-MB (CK-2) Rel Index C-Reactive Protein Fluid Total Protein Vancomycin Trough Chest x-ray: report reviewed (leftsided atelectasis,left effusion.mild improvement in pulmonary congestion.), image reviewed
[2016-04-02] MEDS: ZOSYN/NS 4.5GM/100ML 100 ML IV SCH ×6 (00:43→23:09)
[2016-04-02] MEDS: MUCOMYST INHALATION SCH ×2 (07:45→15:38)
[2016-04-02 10:26] LABS: INR 1.16 (0.87-1.13)
--- NOTE | 2016-04-02 11:15 | Progress Note ---
Assessment and Plan - Patient Problems (1) Pleural effusion, left Current Visit: Yes Status: Acute Plan to address problem: - discussed with IR and CTSU recs noted - will repeat thoracentesis and go from there (2) Pneumonia Current Visit: Yes Status: Acute Plan to address problem: - incentive spirometry - continue BIPAP qhs & prn daytime - as above otherwise - stopped empiric AB's (3) Acute and chronic respiratory failure ([id number]) Current Visit: No Status: Acute Plan to address problem: - as above - supplemental oxygen to keep sats >/= 94% (4) Pulmonary emboli Current Visit: No Status: Acute Plan to address problem: - resume coumadin post thoracentesis (5) Sleep apnea Current Visit: No Status: Chronic Plan to address problem: - continue PAP therapy while asleep Subjective Date of service: 04/02/16 Principal diagnosis: Acute Hypoxemic Respiratory Failure; Left Pleural Effusion Interval history: Seen and examined at bedside; 24 hour events reviewed; nursing and respiratory care staff consulted; no adverse overnight events reported to me; for thoracentesis; no new issues otherwise Objective Vital Signs - 12hr 04/02/16 04/02/16 04/02/16 00:28 00:32 01:15 Temperature 98.1 F Pulse Rate 101 H Pulse Rate [ 101 H From Monitor] Pulse Rate [ 91 H Right Radial] Respiratory 20 22 Rate Blood Pressure [Left Arm] Blood Pressure 123/75 [Right Arm] O2 Sat by Pulse 98 Oximetry 04/02/16 04/02/16 04/02/16 04:41 07:46 08:14 Temperature 98.2 F 97.3 F L Pulse Rate 82 Pulse Rate [ 73 From Monitor] Pulse Rate [ 80 Right Radial] Respiratory 22 18 20 Rate Blood Pressure 131/69 [Left Arm] Blood Pressure 139/65 [Right Arm] O2 Sat by Pulse 98 96 97 Oximetry Constitutional: no acute distress, alert Eyes: non-icteric ENT: oropharynx moist Neck: supple, no JVD Ascultation: Bilateral: diminished breath sounds (LLL), rales (LLL) Cardiovascular: regular rate and rhythm Gastrointestinal: normoactive bowel sounds, soft, non-tender, non-distended Integumentary: other (Stasis dermatitis.) Extremities: no cyanosis, pink and warm, pulses normal, no ischemia or petechiae , edema Neurologic: normal mental status, non-focal exam, pupils equal and round, motor strength normal and Psychiatric: mood appropriate, affect normal CBC and BMP: 04/04/16 02:41 03/28/16 08:54 ABG, PT/INR, D-dimer: ABG POC ABG pH 7.422 (7.35-7.45) 03/17/16 08:55 POC ABG pCO2 70.5 (35-45) H 03/17/16 08:55 POC ABG pO2 108 (80-105) H 03/17/16 08:55 POC ABG HCO3 46.0 03/17/16 08:55 POC ABG Total CO2 48 03/17/16 08:55 POC ABG O2 Sat 98 03/17/16 08:55 PT/INR, D-dimer PT 14.7 Sec. (12.2-14.9) 04/02/16 09:04 INR 1.16 (0.87-1.13) H 04/02/16 09:04 Abnormal lab findings: Abnormal Labs 03/16/16 03/16/16 03/16/16 00:04 01:01 07:49 RBC MCV MCH MCHC RDW Plt Count PT 15.8 H INR 1.27 H Heparin Anti-Xa Level 0.18 L POC ABG pH 7.304 L POC ABG pCO2 92.8 H POC ABG pO2 Chloride Carbon Dioxide POC Glucose Lactate Dehydrogenase Total Creatine Kinase CK-MB (CK-2) Rel Index C-Reactive Protein Fluid Total Protein Vancomycin Trough 03/16/16 03/16/16 03/16/16 12:16 16:00 17:21 RBC MCV MCH MCHC RDW Plt Count PT INR Heparin Anti-Xa Level < 0.11 L POC ABG pH POC ABG pCO2 POC ABG pO2 Chloride Carbon Dioxide POC Glucose Lactate Dehydrogenase 328 H Total Creatine Kinase CK-MB (CK-2) Rel Index C-Reactive Protein 2.60 H Fluid Total Protein 4.5 L Vancomycin Trough 03/17/16 03/17/16 03/17/16 04:58 04:58 04:58 RBC 5.50 H MCV 70 L MCH 20 L MCHC 29 L RDW 23.7 H Plt Count PT INR Heparin Anti-Xa Level 0.14 L POC ABG pH POC ABG pCO2 POC ABG pO2 Chloride 94.9 L Carbon Dioxide 40 H POC Glucose Lactate Dehydrogenase Total Creatine Kinase CK-MB (CK-2) Rel Index C-Reactive Protein Fluid Total Protein Vancomycin Trough 03/17/16 03/17/16 03/17/16 08:55 11:50 13:16 RBC MCV MCH MCHC RDW Plt Count PT INR Heparin Anti-Xa Level 0.16 L POC ABG pH POC ABG pCO2 70.5 H POC ABG pO2 108 H Chloride Carbon Dioxide POC Glucose 65 L Lactate Dehydrogenase Total Creatine Kinase CK-MB (CK-2) Rel Index C-Reactive Protein Fluid Total Protein Vancomycin Trough 03/17/16 03/17/16 03/18/16 13:16 21:00 05:32 RBC MCV MCH MCHC RDW Plt Count PT 15.9 H INR 1.28 H Heparin Anti-Xa Level 0.13 L POC ABG pH POC ABG pCO2 POC ABG pO2 Chloride Carbon Dioxide POC Glucose Lactate Dehydrogenase Total Creatine Kinase 14 L CK-MB (CK-2) Rel Index 7.1 H C-Reactive Protein Fluid Total Protein Vancomycin Trough 03/18/16 03/18/16 03/18/16 07:35 07:43 15:45 RBC MCV MCH MCHC RDW Plt Count PT INR Heparin Anti-Xa Level 0.71 H POC ABG pH POC ABG pCO2 POC ABG pO2 Chloride Carbon Dioxide POC Glucose 63 L 109 H Lactate Dehydrogenase Total Creatine Kinase CK-MB (CK-2) Rel Index C-Reactive Protein Fluid Total Protein Vancomycin Trough 03/18/16 03/18/16 03/18/16 16:15 21:35 23:30 RBC MCV MCH MCHC RDW Plt Count PT INR Heparin Anti-Xa Level 0.86 H 0.26 L POC ABG pH POC ABG pCO2 POC ABG pO2 Chloride Carbon Dioxide POC Glucose 106 H Lactate Dehydrogenase Total Creatine Kinase CK-MB (CK-2) Rel Index C-Reactive Protein Fluid Total Protein Vancomycin Trough 03/19/16 03/19/16 03/19/16 06:57 08:28 17:12 RBC MCV MCH MCHC RDW Plt Count PT 15.6 H INR 1.25 H Heparin Anti-Xa Level POC ABG pH POC ABG pCO2 POC ABG pO2 Chloride Carbon Dioxide POC Glucose 67 L 110 H Lactate Dehydrogenase Total Creatine Kinase CK-MB (CK-2) Rel Index C-Reactive Protein Fluid Total Protein Vancomycin Trough 12/03/20/16 03/21/16 21:27 06:48 05:11 RBC MCV MCH MCHC RDW Plt Count PT 16.9 H 18.1 H INR 1.38 H 1.50 H Heparin Anti-Xa Level POC ABG pH POC ABG pCO2 POC ABG pO2 Chloride Carbon Dioxide POC Glucose 107 H Lactate Dehydrogenase Total Creatine Kinase CK-MB (CK-2) Rel Index C-Reactive Protein Fluid Total Protein Vancomycin Trough 03/21/16 03/21/16 03/21/16 05:11 16:02 21:59 RBC MCV MCH MCHC RDW Plt Count PT INR Heparin Anti-Xa Level 0.27 L 0.79 H POC ABG pH POC ABG pCO2 POC ABG pO2 Chloride Carbon Dioxide POC Glucose 128 H Lactate Dehydrogenase Total Creatine Kinase CK-MB (CK-2) Rel Index C-Reactive Protein Fluid Total Protein Vancomycin Trough 03/22/16 03/23/16 03/23/16 04:46 05:03 08:21 RBC MCV MCH MCHC RDW Plt Count PT 22.7 H 21.5 H INR 2.00 H 1.87 H Heparin Anti-Xa Level POC ABG pH POC ABG pCO2 POC ABG pO2 Chloride Carbon Dioxide POC Glucose 64 L Lactate Dehydrogenase Total Creatine Kinase CK-MB (CK-2) Rel Index C-Reactive Protein Fluid Total Protein Vancomycin Trough 03/23/16 03/24/16 03/25/16 14:57 05:09 02:04 RBC MCV MCH MCHC RDW Plt Count PT 25.9 H INR 2.36 H Heparin Anti-Xa Level < 0.10 L 0.10 L POC ABG pH POC ABG pCO2 POC ABG pO2 Chloride Carbon Dioxide POC Glucose Lactate Dehydrogenase Total Creatine Kinase CK-MB (CK-2) Rel Index C-Reactive Protein Fluid Total Protein Vancomycin Trough 03/25/16 03/25/16 03/26/16 05:21 18:24 07:48 RBC MCV MCH MCHC RDW Plt Count PT 29.4 H 31.6 H INR 2.77 H 3.03 H Heparin Anti-Xa Level POC ABG pH POC ABG pCO2 POC ABG pO2 Chloride Carbon Dioxide POC Glucose 112 H Lactate Dehydrogenase Total Creatine Kinase CK-MB (CK-2) Rel Index C-Reactive Protein Fluid Total Protein Vancomycin Trough 03/26/16 03/26/16 03/26/16 09:36 12:22 21:26 RBC MCV MCH MCHC RDW Plt Count PT INR Heparin Anti-Xa Level POC ABG pH POC ABG pCO2 POC ABG pO2 Chloride Carbon Dioxide POC Glucose 127 H 68 L 111 H Lactate Dehydrogenase Total Creatine Kinase CK-MB (CK-2) Rel Index C-Reactive Protein Fluid Total Protein Vancomycin Trough 03/27/16 03/27/16 03/27/16 07:10 16:04 19:57 RBC MCV MCH MCHC RDW Plt Count PT 35.6 H INR 3.52 H Heparin Anti-Xa Level POC ABG pH POC ABG pCO2 POC ABG pO2 Chloride Carbon Dioxide POC Glucose 109 H Lactate Dehydrogenase Total Creatine Kinase CK-MB (CK-2) Rel Index C-Reactive Protein Fluid Total Protein Vancomycin Trough 32.1 H 03/27/16 03/28/16 03/28/16 20:58 05:34 08:54 RBC MCV MCH MCHC RDW Plt Count PT 36.8 H INR 3.67 H Heparin Anti-Xa Level POC ABG pH POC ABG pCO2 POC ABG pO2 Chloride 97.7 L Carbon Dioxide 38 H POC Glucose 133 H Lactate Dehydrogenase Total Creatine Kinase CK-MB (CK-2) Rel Index C-Reactive Protein Fluid Total Protein Vancomycin Trough 03/28/16 03/28/16 03/29/16 16:15 22:20 05:19 RBC MCV MCH MCHC RDW Plt Count PT 34.1 H INR 3.34 H Heparin Anti-Xa Level POC ABG pH POC ABG pCO2 POC ABG pO2 Chloride Carbon Dioxide POC Glucose 125 H 106 H Lactate Dehydrogenase Total Creatine Kinase CK-MB (CK-2) Rel Index C-Reactive Protein Fluid Total Protein Vancomycin Trough 03/30/16 03/30/16 03/30/16 05:08 12:04 16:03 RBC MCV MCH MCHC RDW Plt Count PT 29.2 H INR 2.75 H Heparin Anti-Xa Level POC ABG pH POC ABG pCO2 POC ABG pO2 Chloride Carbon Dioxide POC Glucose 118 H 108 H Lactate Dehydrogenase Total Creatine Kinase CK-MB (CK-2) Rel Index C-Reactive Protein Fluid Total Protein Vancomycin Trough 03/31/16 03/31/16 03/31/16 05:40 14:37 17:24 RBC 5.34 H MCV 74 L MCH 22 L MCHC 29 L RDW 28.3 H Plt Count 119 L PT 17.8 H INR 1.47 H Heparin Anti-Xa Level POC ABG pH POC ABG pCO2 POC ABG pO2 Chloride Carbon Dioxide POC Glucose 115 H Lactate Dehydrogenase Total Creatine Kinase CK-MB (CK-2) Rel Index C-Reactive Protein Fluid Total Protein Vancomycin Trough 04/01/16 04/02/16 08:43 09:04 RBC MCV MCH MCHC RDW Plt Count PT INR 1.16 H Heparin Anti-Xa Level POC ABG pH POC ABG pCO2 POC ABG pO2 Chloride Carbon Dioxide POC Glucose 66 L Lactate Dehydrogenase Total Creatine Kinase CK-MB (CK-2) Rel Index C-Reactive Protein Fluid Total Protein Vancomycin Trough
--- NOTE | 2016-04-02 12:04 | Progress Note ---
Assessment and Plan Assessment and plan: 1. Acute hypoxemic respiratory failure/left lung PNA. Patient currently on BiPAP. Etiology is multifactorial- PNA, Obesity hypoventilation, atelectasis, possible mucus pluging. Patient with left parapneumonic effusion sp thoracentesis. Pulmonary following. Patient does have a history of PE/DVT and morbid obesity with probable LENA/OHS. Doppler ultrasound of lower extremities negative. recurrent left parapneumonic effusion, input from Dr Harrison appreciated, will need her INR to be less than 2 before Chest tube, hold warfarin for now -may need bronch if she does not improve 2.parapneumonic effusion. Patient is status post thoracentesis with 1.1 L removed. continue abx, coverage has been expanded on 03/24; Input from dr Bingham and Dr Harrison appreciated, due to obesity and hypoventilation, indwelling Chest tube is ill-advised, high risk for PTX among other complications, serial thoracentesis as needed is advised US thoracentesis ordered today. 3. Chest pain has now resolved, EKG and trops were negative 4. History of PE/DVT. Continue warfarin, and heparin drip, coumadin was on hold for thoracentesis 5. Type 2 diabetes mellitus. Continue Accu-Cheks and sliding scale regular insulin. 6. Morbid obesity. Nutritional consultation. 7. 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 Patient will need further follow-up as an outpatient, will likely need CPAP machine upon dc. 8. GI prophylaxis. Continue Protonix. 9. Accelerated hypertension. continue current meds History Interval history: She complains of complaining of shortness of breath and is in exertion, has not improved, still needing BIPAP prn for respiratory distress prn. Hospitalist Physical - Physical exam Narrative exam: General: Mild respiratory distress, appears exhausted, obese HEENT: MMM, EOMI cardiac: S1-S2 heard lungs: Decreased air entry abdomen: soft, nontender, nondistended bowel sounds positive extremities: no edema clubbing or cyanosis Skin: no rash or lesion Neuro: no focal deficit Psych: appropriate behavior and mood, cognition intact - Constitutional Vitals: Temp Pulse Resp BP Pulse Ox 97.3 F L 73 20 131/69 97 04/02/16 08:14 04/02/16 08:14 04/02/16 08:14 04/02/16 08:14 04/02/16 08:14 General appearance: Present: mild distress, obese Results - Labs CBC & Chem 7: 03/31/16 14:37 03/28/16 08:54 Labs: Laboratory Last Values WBC 7.4 K/mm3 (4.5-11.0) 03/31/16 14:37 RBC 5.34 M/mm3 (3.65-5.03) H 03/31/16 14:37 Hgb 11.5 gm/dl (10.1-14.3) 03/31/16 14:37 Hct 39.3 % (30.3-42.9) 03/31/16 14:37 MCV 74 fl (79-97) L 03/31/16 14:37 MCH 22 pg (28-32) L 03/31/16 14:37 MCHC 29 % (30-34) L 03/31/16 14:37 RDW 28.3 % (13.2-15.2) H 03/31/16 14:37 Plt Count 119 K/mm3 (140-440) L 03/31/16 14:37 Lymph % (Auto) Explosives Mixer Operator 03/17/16 04:58 [place] % (Auto) Explosives Mixer Operator 03/17/16 04:58 Eos % (Auto) Explosives Mixer Operator 03/17/16 04:58 Baso % (Auto) Explosives Mixer Operator 03/17/16 04:58 Lymph # Explosives Mixer Operator 03/17/16 04:58 [place] # Explosives Mixer Operator 03/17/16 04:58 Eos # Explosives Mixer Operator 03/17/16 04:58 Baso # Explosives Mixer Operator 03/17/16 04:58 Seg Neutrophils % Explosives Mixer Operator 03/17/16 04:58 Seg Neutrophils # Explosives Mixer Operator 03/17/16 04:58 PT 14.7 Sec. (12.2-14.9) 04/02/16 09:04 INR 1.16 (0.87-1.13) H 04/02/16 09:04 APTT 31.5 Sec. (24.2-36.6) 03/16/16 00:04 Heparin Anti-Xa Level 0.10 U.I./ml (0.3-0.7) L 03/25/16 02:04 POC ABG pH 7.422 (7.35-7.45) 03/17/16 08:55 POC ABG pCO2 70.5 (35-45) H 03/17/16 08:55 POC ABG pO2 108 (80-105) H 03/17/16 08:55 POC ABG HCO3 46.0 03/17/16 08:55 POC ABG Total CO2 48 03/17/16 08:55 POC ABG O2 Sat 98 03/17/16 08:55 POC ABG Base Excess 22 03/17/16 08:55 FiO2 40 % 03/17/16 08:55 Sodium 144 mmol/L (137-145) 03/28/16 08:54 Potassium 4.3 mmol/L (3.6-5.0) 03/28/16 08:54 Chloride 97.7 mmol/L (98-107) L 03/28/16 08:54 Carbon Dioxide 38 mmol/L (22-30) H 03/28/16 08:54 Anion Gap 13 mmol/L 03/28/16 08:54 BUN 10 mg/dL (7-17) 03/28/16 08:54 Creatinine 1.0 mg/dL (0.7-1.2) 03/28/16 08:54 Estimated GFR > 60 ml/min 03/28/16 08:54 BUN/Creatinine Ratio 10.00 % 03/28/16 08:54 Glucose 86 mg/dL (65-100) 03/28/16 08:54 POC Glucose 87 (70-105) 04/02/16 11:46 Lactic Acid 1.6 mmol/L (0.7-2.0) 03/15/16 20:20 Calcium 9.3 mg/dL (8.4-10.2) 03/28/16 08:54 Magnesium 2.2 mg/dL (1.7-2.3) 03/15/16 20:20 Total Bilirubin 1.0 mg/dL (0.1-1.2) 03/15/16 20:20 AST 13 units/L (5-40) 03/15/16 20:20 ALT 15 units/L (7-56) 03/15/16 20:20 Alkaline Phosphatase 67 units/L (35-129) 03/15/16 20:20 Lactate Dehydrogenase 328 units/L (91-180) H 03/16/16 12:16 Total Creatine Kinase 14 units/L (30-135) L 03/17/16 13:16 CK-MB (CK-2) < 1.0 ng/mL (0.0-4.0) 03/17/16 13:16 CK-MB (CK-2) Rel Index 7.1 (0-4) H 03/17/16 13:16 Troponin T < 0.010 ng/mL (0.00-0.029) 03/28/16 23:18 C-Reactive Protein 2.60 mg/dL (0.00-1.30) H 03/16/16 12:16 NT-Pro-B Natriuret Pep 957.2 pg/mL (0-450) H 03/15/16 20:20 Total Protein 7.9 g/dL (6.3-8.2) 03/15/16 20:20 Albumin 3.1 g/dL (3.9-5) L 03/15/16 20:20 Albumin/Globulin Ratio 0.6 % 03/15/16 20:20 HCG, Quant < 2 mIU/mL (0-4) 03/15/16 20:20 Urine Color Yellow (Yellow) 03/15/16 21:43 Urine Turbidity Clear (Clear) 03/15/16 21:43 Urine pH 5.0 (5.0-7.0) 03/15/16 21:43 Ur Specific [place] 1.016 (1.003-1.030) 03/15/16 21:43 Urine Protein 30 mg/dl mg/dL (Negative) 03/15/16 21:43 Urine Glucose (UA) Neg mg/dL (Negative) 03/15/16 21:43 Urine Ketones Neg mg/dL (Negative) 03/15/16 21:43 Urine Blood Neg (Negative) 03/15/16 21:43 Urine Nitrite Neg (Negative) 03/15/16 21:43 Urine Bilirubin Neg (Negative) 03/15/16 21:43 Urine Urobilinogen 4.0 mg/dL (<2.0) 03/15/16 21:43 Ur Leukocyte Esterase Neg (Negative) 03/15/16 21:43 Urine WBC (Auto) 3.0 /HPF (0.0-6.0) 03/15/16 21:43 Urine RBC (Auto) 1.0 /HPF (0.0-6.0) 03/15/16 21:43 U Epithel Cells (Auto) 1.0 /HPF (0-13.0) 03/15/16 21:43 Hyaline Casts 1 /LPF 03/15/16 21:43 Urine Mucus Few /HPF 03/15/16 21:43 Fluid Total Protein 4.5 (15.0-45.0) L 03/16/16 16:00 Fluid LDH 498 03/16/16 16:00 Vancomycin Trough 32.1 ug/mL (5.0-20.0) H 03/27/16 19:57 Random Vancomycin 13.6 ug/mL (0-40.0) 03/30/16 05:08
[2016-04-02 12:49] LABS: INR 1.12 (0.87-1.13)
[2016-04-02 12:50] LABS: Partial Thromboplastin Time 29.5 Sec. (24.2-36.6)
[2016-04-02 12:51] LABS: Hematocrit 37.7 % (30.3-42.9); Hemoglobin 10.8 gm/dl (10.1-14.3)
[2016-04-02] MEDS: VANCOMYCIN VIAL 2,000 MG in NACL 0.9% 500 ML 500 ML IV SCH (13:27)
--- NOTE | 2016-04-02 14:09 | XRay Report ---
AP CHEST :04/02/16 13:56 CLINICAL: Immediately status post left thoracentesis. COMPARISON:03/29/16 FINDINGS: Decreased opacification of the left hemithorax compared to the prior exam. The heart is large. There is persistent left hilar opacity. IMPRESSION: No pneumothorax status post left thoracentesis.
--- NOTE | 2016-04-02 14:10 | Ultrasound Report ---
ULTRASOUND GUIDED LEFT THORACENTESIS: 04/02/16 11:15:00 CLINICAL: Left pleural effusion. FINDINGS: Ultrasound demonstrated a moderate size left pleural effusion. The procedure was explained to the patient and all questions answered. Informed consent was obtained. Using sterile technique, ultrasound guidance, 1% lidocaine and a 5-[place] Yueh catheter, in left thoracentesis was performed with the patient sitting upright. 1100 cc of serosanguineous fluid was removed. The patient tolerated the procedure well and there were no apparent complications. Post procedure chest x-ray showed no pneumothorax. IMPRESSION: Uncomplicated left thoracentesis.
[2016-04-02] MEDS: MORPHINE IV PRN ×2 (15:10→23:09)
[2016-04-02] MEDS: HEPARIN/ 0.45% NACL-25,000 UNIT/500 ML 500 ML IV SCH (15:30)
[2016-04-02] MEDS: COUMADIN PO SCH ×2 (15:45→17:24)
[2016-04-02] MEDS: PERCOCET 5/325 PO PRN (18:27)
[2016-04-03] MEDS: MUCOMYST INHALATION SCH ×3 (00:29→15:41)
[2016-04-03] MEDS: MORPHINE IV PRN (06:01)
[2016-04-03] MEDS: ZOSYN/NS 4.5GM/100ML 100 ML IV SCH ×2 (06:02→12:15)
[2016-04-03] MEDS: PROVENTIL IH PRN (07:59)
[2016-04-03 09:56] LABS: INR 1.09 (0.87-1.13)
[2016-04-03] MEDS: PERCOCET 5/325 PO PRN ×3 (10:15→23:48)
--- NOTE | 2016-04-03 10:26 | Progress Note ---
Assessment and Plan Assessment and plan: 1. Acute hypoxemic respiratory failure/left lung PNA. Patient currently on BiPAP. Etiology is multifactorial- PNA, Obesity hypoventilation, atelectasis, possible mucus pluging. Patient with left parapneumonic effusion sp thoracentesis on 04/02/16. Pulmonary following. Patient does have a history of PE/DVT and morbid obesity with probable LENA/OHS. Doppler ultrasound of lower extremities negative. recurrent left parapneumonic effusion -may need bronch if she does not improve 2. Parapneumonic effusion. Patient is status post thoracentesis with 1.1 L removed. Continue abx, coverage has been expanded on 03/24; Input from Drs. Bingham and Hunter appreciated, due to obesity and hypoventilation, indwelling Chest tube is ill-advised, high risk for PTX among other complications, serial thoracentesis as needed is advised US thoracentesis yesterday. 3. Chest pain has now resolved, EKG and trops were negative 4. History of PE/DVT. Continue warfarin, and heparin drip, coumadin was on hold for thoracentesis 5. Type 2 diabetes mellitus. Continue Accu-Cheks and sliding scale regular insulin. 6. Morbid obesity. Nutritional consultation. 7. 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 Patient will need further follow-up as an outpatient, will likely need CPAP machine upon dc. 8. GI prophylaxis. Continue Protonix. 9. Accelerated hypertension. continue current meds History Interval history: 40-year-old female with history of DVT, PE and morbid obesity who presented with dyspnea and chest pain. Patient currently on BiPAP Hospitalist Physical - Constitutional Vitals: Temp Pulse Resp BP Pulse Ox 97.7 F 65 18 137/72 94 04/03/16 07:57 04/03/16 08:09 04/03/16 08:09 04/03/16 07:57 04/03/16 08:40 General appearance: Present: mild distress, obese - EENT Eyes: Present: PERRL, EOM intact ENT: hearing intact, clear oral mucosa, dentition normal - Neck Neck: Present: supple, normal ROM - Respiratory Respiratory effort: normal Respiratory: bilateral: diminished, wheezing - Cardiovascular Rhythm: regular Heart Sounds: Present: S1 & S2. Absent: gallop, rub - Extremities Extremities: no ischemia, No edema, Full ROM - Abdominal General gastrointestinal: soft, non-tender, non-distended, normal bowel sounds - Integumentary Integumentary: Present: clear, warm, dry - Neurologic Neurologic: CNII-XII intact, moves all extremities Results - Labs CBC & Chem 7: 04/02/16 12:22 03/28/16 08:54 Labs: Laboratory Last Values WBC 7.4 K/mm3 (4.5-11.0) 03/31/16 14:37 RBC 5.34 M/mm3 (3.65-5.03) H 03/31/16 14:37 Hgb 10.8 gm/dl (10.1-14.3) 04/02/16 12:22 Hct 37.7 % (30.3-42.9) 04/02/16 12:22 MCV 74 fl (79-97) L 03/31/16 14:37 MCH 22 pg (28-32) L 03/31/16 14:37 MCHC 29 % (30-34) L 03/31/16 14:37 RDW 28.3 % (13.2-15.2) H 03/31/16 14:37 Plt Count 142 K/mm3 (140-440) 04/02/16 12:22 Lymph % (Auto) Ux Engineer 03/17/16 04:58 [place] % (Auto) Ux Engineer 03/17/16 04:58 Eos % (Auto) Ux Engineer 03/17/16 04:58 Baso % (Auto) Ux Engineer 03/17/16 04:58 Lymph # Ux Engineer 03/17/16 04:58 [place] # Ux Engineer 03/17/16 04:58 Eos # Ux Engineer 03/17/16 04:58 Baso # Ux Engineer 03/17/16 04:58 Seg Neutrophils % Ux Engineer 03/17/16 04:58 Seg Neutrophils # Ux Engineer 03/17/16 04:58 PT 14.0 Sec. (12.2-14.9) 04/03/16 07:20 INR 1.09 (0.87-1.13) 04/03/16 07:20 APTT 29.5 Sec. (24.2-36.6) 04/02/16 12:22 Heparin Anti-Xa Level < 0.10 U.I./ml (0.3-0.7) L 04/03/16 07:20 POC ABG pH 7.422 (7.35-7.45) 03/17/16 08:55 POC ABG pCO2 70.5 (35-45) H 03/17/16 08:55 POC ABG pO2 108 (80-105) H 03/17/16 08:55 POC ABG HCO3 46.0 03/17/16 08:55 POC ABG Total CO2 48 03/17/16 08:55 POC ABG O2 Sat 98 03/17/16 08:55 POC ABG Base Excess 22 03/17/16 08:55 FiO2 40 % 03/17/16 08:55 Sodium 144 mmol/L (137-145) 03/28/16 08:54 Potassium 4.3 mmol/L (3.6-5.0) 03/28/16 08:54 Chloride 97.7 mmol/L (98-107) L 03/28/16 08:54 Carbon Dioxide 38 mmol/L (22-30) H 03/28/16 08:54 Anion Gap 13 mmol/L 03/28/16 08:54 BUN 10 mg/dL (7-17) 03/28/16 08:54 Creatinine 1.0 mg/dL (0.7-1.2) 03/28/16 08:54 Estimated GFR > 60 ml/min 03/28/16 08:54 BUN/Creatinine Ratio 10.00 % 03/28/16 08:54 Glucose 86 mg/dL (65-100) 03/28/16 08:54 POC Glucose 82 (70-105) 04/02/16 22:47 Lactic Acid 1.6 mmol/L (0.7-2.0) 03/15/16 20:20 Calcium 9.3 mg/dL (8.4-10.2) 03/28/16 08:54 Magnesium 2.2 mg/dL (1.7-2.3) 03/15/16 20:20 Total Bilirubin 1.0 mg/dL (0.1-1.2) 03/15/16 20:20 AST 13 units/L (5-40) 03/15/16 20:20 ALT 15 units/L (7-56) 03/15/16 20:20 Alkaline Phosphatase 67 units/L (35-129) 03/15/16 20:20 Lactate Dehydrogenase 328 units/L (91-180) H 03/16/16 12:16 Total Creatine Kinase 14 units/L (30-135) L 03/17/16 13:16 CK-MB (CK-2) < 1.0 ng/mL (0.0-4.0) 03/17/16 13:16 CK-MB (CK-2) Rel Index 7.1 (0-4) H 03/17/16 13:16 Troponin T < 0.010 ng/mL (0.00-0.029) 03/28/16 23:18 C-Reactive Protein 2.60 mg/dL (0.00-1.30) H 03/16/16 12:16 NT-Pro-B Natriuret Pep 957.2 pg/mL (0-450) H 03/15/16 20:20 Total Protein 7.9 g/dL (6.3-8.2) 03/15/16 20:20 Albumin 3.1 g/dL (3.9-5) L 03/15/16 20:20 Albumin/Globulin Ratio 0.6 % 03/15/16 20:20 HCG, Quant < 2 mIU/mL (0-4) 03/15/16 20:20 Urine Color Yellow (Yellow) 03/15/16 21:43 Urine Turbidity Clear (Clear) 03/15/16 21:43 Urine pH 5.0 (5.0-7.0) 03/15/16 21:43 Ur Specific [place] 1.016 (1.003-1.030) 03/15/16 21:43 Urine Protein 30 mg/dl mg/dL (Negative) 03/15/16 21:43 Urine Glucose (UA) Neg mg/dL (Negative) 03/15/16 21:43 Urine Ketones Neg mg/dL (Negative) 03/15/16 21:43 Urine Blood Neg (Negative) 03/15/16 21:43 Urine Nitrite Neg (Negative) 03/15/16 21:43 Urine Bilirubin Neg (Negative) 03/15/16 21:43 Urine Urobilinogen 4.0 mg/dL (<2.0) 03/15/16 21:43 Ur Leukocyte Esterase Neg (Negative) 03/15/16 21:43 Urine WBC (Auto) 3.0 /HPF (0.0-6.0) 03/15/16 21:43 Urine RBC (Auto) 1.0 /HPF (0.0-6.0) 03/15/16 21:43 U Epithel Cells (Auto) 1.0 /HPF (0-13.0) 03/15/16 21:43 Hyaline Casts 1 /LPF 03/15/16 21:43 Urine Mucus Few /HPF 03/15/16 21:43 Fluid Total Protein 4.5 (15.0-45.0) L 03/16/16 16:00 Fluid LDH 498 03/16/16 16:00 Vancomycin Trough 32.1 ug/mL (5.0-20.0) H 03/27/16 19:57 Random Vancomycin 13.6 ug/mL (0-40.0) 03/30/16 05:08
[2016-04-03] MEDS: HEPARIN/ 0.45% NACL-25,000 UNIT/500 ML 500 ML IV SCH ×2 (11:40→20:01)
[2016-04-03] MEDS ORDERED: HEPARIN 10,000 UNITS/10 ML IV ONE (11:44)
--- NOTE | 2016-04-03 13:53 | Progress Note ---
Assessment and Plan - Patient Problems (1) Pleural effusion, left Current Visit: Yes Status: Acute Plan to address problem: - discussed with IR and CTSU recs noted - s/p repeat thoracentesis - will follow CXR (2) Pneumonia Current Visit: Yes Status: Acute Plan to address problem: - continue incentive spirometry - continue BIPAP qhs & prn daytime - as above otherwise - stopped empiric AB's (3) Acute and chronic respiratory failure ([id number]) Current Visit: No Status: Acute Plan to address problem: - as above - supplemental oxygen to keep sats >/= 94% (4) Pulmonary emboli Current Visit: No Status: Acute Plan to address problem: - resumed coumadin post thoracentesis (5) Sleep apnea Current Visit: No Status: Chronic Plan to address problem: - continue PAP therapy while asleep Subjective Date of service: 04/03/16 Principal diagnosis: Acute Hypoxemic Respiratory Failure; Left Pleural Effusion Interval history: Seen and examined at bedside; 24 hour events reviewed; nursing and respiratory care staff consulted; no adverse overnight events reported to me; DENIES ACUTE CHEST PAINS; still SOB and with PATEL; No N/V/F/C Objective Vital Signs - 12hr 04/03/16 04/03/16 04/03/16 06:32 06:33 07:50 Temperature 97.5 F L 97.7 F Pulse Rate Pulse Rate [ 60 From Monitor] Pulse Rate [ Posterior Bilateral Throughout] Pulse Rate [ 75 Right Radial] Respiratory 20 20 Rate Respiratory Rate [Posterior Bilateral Throughout] Blood Pressure 171/81 137/72 [Left Arm] O2 Sat by Pulse 98 98 Oximetry 04/03/16 04/03/16 04/03/16 07:56 07:57 07:59 Temperature 97.7 F Pulse Rate 77 Pulse Rate [ 60 From Monitor] Pulse Rate [ 68 Posterior Bilateral Throughout] Pulse Rate [ Right Radial] Respiratory 18 20 Rate Respiratory 18 Rate [Posterior Bilateral Throughout] Blood Pressure 137/72 [Left Arm] O2 Sat by Pulse 94 98 Oximetry 04/03/16 04/03/16 04/03/16 08:05 08:09 08:40 Temperature Pulse Rate Pulse Rate [ From Monitor] Pulse Rate [ 65 Posterior Bilateral Throughout] Pulse Rate [ Right Radial] Respiratory Rate Respiratory 18 Rate [Posterior Bilateral Throughout] Blood Pressure [Left Arm] O2 Sat by Pulse 94 94 Oximetry 04/03/16 04/03/16 10:00 11:30 Temperature 97.6 F Pulse Rate 67 Pulse Rate [ 70 From Monitor] Pulse Rate [ Posterior Bilateral Throughout] Pulse Rate [ Right Radial] Respiratory 20 20 Rate Respiratory Rate [Posterior Bilateral Throughout] Blood Pressure 136/66 [Left Arm] O2 Sat by Pulse 94 99 Oximetry Constitutional: no acute distress, alert Eyes: non-icteric ENT: oropharynx moist Neck: supple, no JVD Ascultation: Bilateral: clear, diminished breath sounds (LLL) Cardiovascular: regular rate and rhythm Gastrointestinal: normoactive bowel sounds, soft, non-tender, non-distended Integumentary: other (Stasis dermatitis.) Extremities: no cyanosis, pink and warm, pulses normal, no ischemia or petechiae , edema Neurologic: normal mental status, non-focal exam, pupils equal and round, motor strength normal and Psychiatric: mood appropriate, affect normal CBC and BMP: 04/08/16 05:17 04/05/16 05:15 ABG, PT/INR, D-dimer: ABG POC ABG pH 7.422 (7.35-7.45) 03/17/16 08:55 POC ABG pCO2 70.5 (35-45) H 03/17/16 08:55 POC ABG pO2 108 (80-105) H 03/17/16 08:55 POC ABG HCO3 46.0 03/17/16 08:55 POC ABG Total CO2 48 03/17/16 08:55 POC ABG O2 Sat 98 03/17/16 08:55 PT/INR, D-dimer PT 14.0 Sec. (12.2-14.9) 04/03/16 07:20 INR 1.09 (0.87-1.13) 04/03/16 07:20 Abnormal lab findings: Abnormal Labs 03/16/16 03/16/16 03/16/16 00:04 01:01 07:49 RBC MCV MCH MCHC RDW Plt Count PT 15.8 H INR 1.27 H Heparin Anti-Xa Level 0.18 L POC ABG pH 7.304 L POC ABG pCO2 92.8 H POC ABG pO2 Chloride Carbon Dioxide POC Glucose Lactate Dehydrogenase Total Creatine Kinase CK-MB (CK-2) Rel Index C-Reactive Protein Fluid Total Protein Vancomycin Trough 12/03/16/16 03/16/16 12:16 16:00 17:21 RBC MCV MCH MCHC RDW Plt Count PT INR Heparin Anti-Xa Level < 0.11 L POC ABG pH POC ABG pCO2 POC ABG pO2 Chloride Carbon Dioxide POC Glucose Lactate Dehydrogenase 328 H Total Creatine Kinase CK-MB (CK-2) Rel Index C-Reactive Protein 2.60 H Fluid Total Protein 4.5 L Vancomycin Trough 03/17/16 03/17/16 03/17/16 04:58 04:58 04:58 RBC 5.50 H MCV 70 L MCH 20 L MCHC 29 L RDW 23.7 H Plt Count PT INR Heparin Anti-Xa Level 0.14 L POC ABG pH POC ABG pCO2 POC ABG pO2 Chloride 94.9 L Carbon Dioxide 40 H POC Glucose Lactate Dehydrogenase Total Creatine Kinase CK-MB (CK-2) Rel Index C-Reactive Protein Fluid Total Protein Vancomycin Trough 03/17/16 03/17/16 03/17/16 08:55 11:50 13:16 RBC MCV MCH MCHC RDW Plt Count PT INR Heparin Anti-Xa Level 0.16 L POC ABG pH POC ABG pCO2 70.5 H POC ABG pO2 108 H Chloride Carbon Dioxide POC Glucose 65 L Lactate Dehydrogenase Total Creatine Kinase CK-MB (CK-2) Rel Index C-Reactive Protein Fluid Total Protein Vancomycin Trough 03/17/16 03/17/16 03/18/16 13:16 21:00 05:32 RBC MCV MCH MCHC RDW Plt Count PT 15.9 H INR 1.28 H Heparin Anti-Xa Level 0.13 L POC ABG pH POC ABG pCO2 POC ABG pO2 Chloride Carbon Dioxide POC Glucose Lactate Dehydrogenase Total Creatine Kinase 14 L CK-MB (CK-2) Rel Index 7.1 H C-Reactive Protein Fluid Total Protein Vancomycin Trough 03/18/16 03/18/16 03/18/16 07:35 07:43 15:45 RBC MCV MCH MCHC RDW Plt Count PT INR Heparin Anti-Xa Level 0.71 H POC ABG pH POC ABG pCO2 POC ABG pO2 Chloride Carbon Dioxide POC Glucose 63 L 109 H Lactate Dehydrogenase Total Creatine Kinase CK-MB (CK-2) Rel Index C-Reactive Protein Fluid Total Protein Vancomycin Trough 03/18/16 03/18/16 03/18/16 16:15 21:35 23:30 RBC MCV MCH MCHC RDW Plt Count PT INR Heparin Anti-Xa Level 0.86 H 0.26 L POC ABG pH POC ABG pCO2 POC ABG pO2 Chloride Carbon Dioxide POC Glucose 106 H Lactate Dehydrogenase Total Creatine Kinase CK-MB (CK-2) Rel Index C-Reactive Protein Fluid Total Protein Vancomycin Trough 03/19/16 03/19/16 03/19/16 06:57 08:28 17:12 RBC MCV MCH MCHC RDW Plt Count PT 15.6 H INR 1.25 H Heparin Anti-Xa Level POC ABG pH POC ABG pCO2 POC ABG pO2 Chloride Carbon Dioxide POC Glucose 67 L 110 H Lactate Dehydrogenase Total Creatine Kinase CK-MB (CK-2) Rel Index C-Reactive Protein Fluid Total Protein Vancomycin Trough 03/19/16 03/20/16 03/21/16 21:27 06:48 05:11 RBC MCV MCH MCHC RDW Plt Count PT 16.9 H 18.1 H INR 1.38 H 1.50 H Heparin Anti-Xa Level POC ABG pH POC ABG pCO2 POC ABG pO2 Chloride Carbon Dioxide POC Glucose 107 H Lactate Dehydrogenase Total Creatine Kinase CK-MB (CK-2) Rel Index C-Reactive Protein Fluid Total Protein Vancomycin Trough 03/21/16 03/21/16 03/21/16 05:11 16:02 21:59 RBC MCV MCH MCHC RDW Plt Count PT INR Heparin Anti-Xa Level 0.27 L 0.79 H POC ABG pH POC ABG pCO2 POC ABG pO2 Chloride Carbon Dioxide POC Glucose 128 H Lactate Dehydrogenase Total Creatine Kinase CK-MB (CK-2) Rel Index C-Reactive Protein Fluid Total Protein Vancomycin Trough 03/22/16 03/23/16 03/23/16 04:46 05:03 08:21 RBC MCV MCH MCHC RDW Plt Count PT 22.7 H 21.5 H INR 2.00 H 1.87 H Heparin Anti-Xa Level POC ABG pH POC ABG pCO2 POC ABG pO2 Chloride Carbon Dioxide POC Glucose 64 L Lactate Dehydrogenase Total Creatine Kinase CK-MB (CK-2) Rel Index C-Reactive Protein Fluid Total Protein Vancomycin Trough 03/23/16 03/24/16 03/25/16 14:57 05:09 02:04 RBC MCV MCH MCHC RDW Plt Count PT 25.9 H INR 2.36 H Heparin Anti-Xa Level < 0.10 L 0.10 L POC ABG pH POC ABG pCO2 POC ABG pO2 Chloride Carbon Dioxide POC Glucose Lactate Dehydrogenase Total Creatine Kinase CK-MB (CK-2) Rel Index C-Reactive Protein Fluid Total Protein Vancomycin Trough 03/25/16 03/25/16 03/26/16 05:21 18:24 07:48 RBC MCV MCH MCHC RDW Plt Count PT 29.4 H 31.6 H INR 2.77 H 3.03 H Heparin Anti-Xa Level POC ABG pH POC ABG pCO2 POC ABG pO2 Chloride Carbon Dioxide POC Glucose 112 H Lactate Dehydrogenase Total Creatine Kinase CK-MB (CK-2) Rel Index C-Reactive Protein Fluid Total Protein Vancomycin Trough 03/26/16 03/26/16 03/26/16 09:36 12:22 21:26 RBC MCV MCH MCHC RDW Plt Count PT INR Heparin Anti-Xa Level POC ABG pH POC ABG pCO2 POC ABG pO2 Chloride Carbon Dioxide POC Glucose 127 H 68 L 111 H Lactate Dehydrogenase Total Creatine Kinase CK-MB (CK-2) Rel Index C-Reactive Protein Fluid Total Protein Vancomycin Trough 03/27/16 03/27/16 03/27/16 07:10 16:04 19:57 RBC MCV MCH MCHC RDW Plt Count PT 35.6 H INR 3.52 H Heparin Anti-Xa Level POC ABG pH POC ABG pCO2 POC ABG pO2 Chloride Carbon Dioxide POC Glucose 109 H Lactate Dehydrogenase Total Creatine Kinase CK-MB (CK-2) Rel Index C-Reactive Protein Fluid Total Protein Vancomycin Trough 32.1 H 03/27/16 03/28/16 03/28/16 20:58 05:34 08:54 RBC MCV MCH MCHC RDW Plt Count PT 36.8 H INR 3.67 H Heparin Anti-Xa Level POC ABG pH POC ABG pCO2 POC ABG pO2 Chloride 97.7 L Carbon Dioxide 38 H POC Glucose 133 H Lactate Dehydrogenase Total Creatine Kinase CK-MB (CK-2) Rel Index C-Reactive Protein Fluid Total Protein Vancomycin Trough 03/28/16 03/28/16 03/29/16 16:15 22:20 05:19 RBC MCV MCH MCHC RDW Plt Count PT 34.1 H INR 3.34 H Heparin Anti-Xa Level POC ABG pH POC ABG pCO2 POC ABG pO2 Chloride Carbon Dioxide POC Glucose 125 H 106 H Lactate Dehydrogenase Total Creatine Kinase CK-MB (CK-2) Rel Index C-Reactive Protein Fluid Total Protein Vancomycin Trough 03/30/16 03/30/16 03/30/16 05:08 12:04 16:03 RBC MCV MCH MCHC RDW Plt Count PT 29.2 H INR 2.75 H Heparin Anti-Xa Level POC ABG pH POC ABG pCO2 POC ABG pO2 Chloride Carbon Dioxide POC Glucose 118 H 108 H Lactate Dehydrogenase Total Creatine Kinase CK-MB (CK-2) Rel Index C-Reactive Protein Fluid Total Protein Vancomycin Trough 03/31/16 03/31/16 03/31/16 05:40 14:37 17:24 RBC 5.34 H MCV 74 L MCH 22 L MCHC 29 L RDW 28.3 H Plt Count 119 L PT 17.8 H INR 1.47 H Heparin Anti-Xa Level POC ABG pH POC ABG pCO2 POC ABG pO2 Chloride Carbon Dioxide POC Glucose 115 H Lactate Dehydrogenase Total Creatine Kinase CK-MB (CK-2) Rel Index C-Reactive Protein Fluid Total Protein Vancomycin Trough 04/01/16 04/02/16 04/02/16 08:43 09:04 16:21 RBC MCV MCH MCHC RDW Plt Count PT INR 1.16 H Heparin Anti-Xa Level POC ABG pH POC ABG pCO2 POC ABG pO2 Chloride Carbon Dioxide POC Glucose 66 L 117 H Lactate Dehydrogenase Total Creatine Kinase CK-MB (CK-2) Rel Index C-Reactive Protein Fluid Total Protein Vancomycin Trough 04/02/16 04/03/16 21:15 07:20 RBC MCV MCH MCHC RDW Plt Count PT INR Heparin Anti-Xa Level 0.11 L < 0.10 L POC ABG pH POC ABG pCO2 POC ABG pO2 Chloride Carbon Dioxide POC Glucose Lactate Dehydrogenase Total Creatine Kinase CK-MB (CK-2) Rel Index C-Reactive Protein Fluid Total Protein Vancomycin Trough
[2016-04-03] MEDS: PROVENTIL IH SCH (15:41)
[2016-04-03] MEDS: COUMADIN PO SCH (17:51)
[2016-04-04] MEDS: PROVENTIL IH SCH ×3 (00:15→16:44)
[2016-04-04] MEDS: MUCOMYST INHALATION SCH ×3 (00:15→16:44)
[2016-04-04] MEDS: HEPARIN/ 0.45% NACL-25,000 UNIT/500 ML 500 ML IV SCH (02:39)
[2016-04-04 03:08] LABS: Hematocrit 34.9 % (30.3-42.9); Hemoglobin 10.5 gm/dl (10.1-14.3)
[2016-04-04 03:20] LABS: INR 1.12 (0.87-1.13)
--- NOTE | 2016-04-04 12:48 | Progress Note ---
Assessment and Plan Assessment and plan: 1. Acute hypoxemic respiratory failure/left lung PNA. Patient currently on BiPAP. Etiology is multifactorial- PNA, Obesity hypoventilation, atelectasis, possible mucus pluging. Patient with left parapneumonic effusion sp thoracentesis on 04/02/16. Pulmonary following. Patient does have a history of PE/DVT and morbid obesity with probable LENA/OHS. Doppler ultrasound of lower extremities negative. recurrent left parapneumonic effusion -may need bronch if she does not improve 2. Parapneumonic effusion. Patient is status post thoracentesis with 1.1 L removed. Continue abx, coverage has been expanded on 03/24; Input from Drs. Bingham and Hunter appreciated, due to obesity and hypoventilation, indwelling Chest tube is ill-advised, high risk for PTX among other complications, serial thoracentesis as needed is advised US thoracentesis on 04/02. 3. Chest pain has now resolved, EKG and trops were negative 4. History of PE/DVT. Continue warfarin, and heparin drip, coumadin was on hold for thoracentesis 5. Type 2 diabetes mellitus. Continue Accu-Cheks and sliding scale regular insulin. 6. Morbid obesity. Nutritional consultation. 7. LENA/OHS. Patient will need further follow-up as an outpatient, will likely need CPAP machine upon dc. 8. GI prophylaxis. Continue Protonix. 9. Accelerated hypertension. continue current meds History Interval history: 40-year-old female with history of DVT, PE and morbid obesity who presented with dyspnea and chest pain. Patient currently on BiPAP Hospitalist Physical - Constitutional Vitals: Temp Pulse Resp BP Pulse Ox 97.2 F L 85 20 172/75 98 04/04/16 12:03 04/04/16 12:03 04/04/16 12:03 04/04/16 12:03 04/04/16 12:03 General appearance: Present: mild distress, obese - EENT Eyes: Present: PERRL, EOM intact ENT: hearing intact, clear oral mucosa, dentition normal - Neck Neck: Present: supple, normal ROM - Respiratory Respiratory effort: normal Respiratory: bilateral: diminished, rales, rhonchi - Cardiovascular Rhythm: regular Heart Sounds: Present: S1 & S2. Absent: gallop, rub - Extremities Extremities: no ischemia, No edema, Full ROM - Abdominal General gastrointestinal: soft, non-tender, non-distended, normal bowel sounds - Integumentary Integumentary: Present: clear, warm, dry - Neurologic Neurologic: CNII-XII intact, moves all extremities Results - Labs CBC & Chem 7: 04/04/16 02:41 03/28/16 08:54 Labs: Laboratory Last Values WBC 7.4 K/mm3 (4.5-11.0) 03/31/16 14:37 RBC 5.34 M/mm3 (3.65-5.03) H 03/31/16 14:37 Hgb 10.5 gm/dl (10.1-14.3) 04/04/16 02:41 Hct 34.9 % (30.3-42.9) 04/04/16 02:41 MCV 74 fl (79-97) L 03/31/16 14:37 MCH 22 pg (28-32) L 03/31/16 14:37 MCHC 29 % (30-34) L 03/31/16 14:37 RDW 28.3 % (13.2-15.2) H 03/31/16 14:37 Plt Count 153 K/mm3 (140-440) 04/04/16 02:41 Lymph % (Auto) [place] 03/17/16 04:58 [place] % (Auto) [place] 03/17/16 04:58 Eos % (Auto) [place] 03/17/16 04:58 Baso % (Auto) [place] 03/17/16 04:58 Lymph # [place] 03/17/16 04:58 [place] # [place] 03/17/16 04:58 Eos # [place] 03/17/16 04:58 Baso # [place] 03/17/16 04:58 Seg Neutrophils % [place] 03/17/16 04:58 Seg Neutrophils # [place] 03/17/16 04:58 PT 14.3 Sec. (12.2-14.9) 04/04/16 02:41 INR 1.12 (0.87-1.13) 04/04/16 02:41 APTT 29.5 Sec. (24.2-36.6) 04/02/16 12:22 Heparin Anti-Xa Level 0.23 U.I./ml (0.3-0.7) L 04/04/16 09:36 POC ABG pH 7.422 (7.35-7.45) 03/17/16 08:55 POC ABG pCO2 70.5 (35-45) H 03/17/16 08:55 POC ABG pO2 108 (80-105) H 03/17/16 08:55 POC ABG HCO3 46.0 03/17/16 08:55 POC ABG Total CO2 48 03/17/16 08:55 POC ABG O2 Sat 98 03/17/16 08:55 POC ABG Base Excess 22 03/17/16 08:55 FiO2 40 % 03/17/16 08:55 Sodium 144 mmol/L (137-145) 03/28/16 08:54 Potassium 4.3 mmol/L (3.6-5.0) 03/28/16 08:54 Chloride 97.7 mmol/L (98-107) L 03/28/16 08:54 Carbon Dioxide 38 mmol/L (22-30) H 03/28/16 08:54 Anion Gap 13 mmol/L 03/28/16 08:54 BUN 10 mg/dL (7-17) 03/28/16 08:54 Creatinine 1.0 mg/dL (0.7-1.2) 03/28/16 08:54 Estimated GFR > 60 ml/min 03/28/16 08:54 BUN/Creatinine Ratio 10.00 % 03/28/16 08:54 Glucose 86 mg/dL (65-100) 03/28/16 08:54 POC Glucose 89 (70-105) 04/03/16 23:01 Lactic Acid 1.6 mmol/L (0.7-2.0) 03/15/16 20:20 Calcium 9.3 mg/dL (8.4-10.2) 03/28/16 08:54 Magnesium 2.2 mg/dL (1.7-2.3) 03/15/16 20:20 Total Bilirubin 1.0 mg/dL (0.1-1.2) 03/15/16 20:20 AST 13 units/L (5-40) 03/15/16 20:20 ALT 15 units/L (7-56) 03/15/16 20:20 Alkaline Phosphatase 67 units/L (35-129) 03/15/16 20:20 Lactate Dehydrogenase 328 units/L (91-180) H 03/16/16 12:16 Total Creatine Kinase 14 units/L (30-135) L 03/17/16 13:16 CK-MB (CK-2) < 1.0 ng/mL (0.0-4.0) 03/17/16 13:16 CK-MB (CK-2) Rel Index 7.1 (0-4) H 03/17/16 13:16 Troponin T < 0.010 ng/mL (0.00-0.029) 03/28/16 23:18 C-Reactive Protein 2.60 mg/dL (0.00-1.30) H 03/16/16 12:16 NT-Pro-B Natriuret Pep 957.2 pg/mL (0-450) H 03/15/16 20:20 Total Protein 7.9 g/dL (6.3-8.2) 03/15/16 20:20 Albumin 3.1 g/dL (3.9-5) L 03/15/16 20:20 Albumin/Globulin Ratio 0.6 % 03/15/16 20:20 HCG, Quant < 2 mIU/mL (0-4) 03/15/16 20:20 Urine Color Yellow (Yellow) 03/15/16 21:43 Urine Turbidity Clear (Clear) 03/15/16 21:43 Urine pH 5.0 (5.0-7.0) 03/15/16 21:43 Ur Specific [place] 1.016 (1.003-1.030) 03/15/16 21:43 Urine Protein 30 mg/dl mg/dL (Negative) 03/15/16 21:43 Urine Glucose (UA) Neg mg/dL (Negative) 03/15/16 21:43 Urine Ketones Neg mg/dL (Negative) 03/15/16 21:43 Urine Blood Neg (Negative) 03/15/16 21:43 Urine Nitrite Neg (Negative) 03/15/16 21:43 Urine Bilirubin Neg (Negative) 03/15/16 21:43 Urine Urobilinogen 4.0 mg/dL (<2.0) 03/15/16 21:43 Ur Leukocyte Esterase Neg (Negative) 03/15/16 21:43 Urine WBC (Auto) 3.0 /HPF (0.0-6.0) 03/15/16 21:43 Urine RBC (Auto) 1.0 /HPF (0.0-6.0) 03/15/16 21:43 U Epithel Cells (Auto) 1.0 /HPF (0-13.0) 03/15/16 21:43 Hyaline Casts 1 /LPF 03/15/16 21:43 Urine Mucus Few /HPF 03/15/16 21:43 Fluid Total Protein 4.5 (15.0-45.0) L 03/16/16 16:00 Fluid LDH 498 03/16/16 16:00 Vancomycin Trough 32.1 ug/mL (5.0-20.0) H 03/27/16 19:57 Random Vancomycin 13.6 ug/mL (0-40.0) 03/30/16 05:08
[2016-04-04] MEDS: PERCOCET 5/325 PO PRN (15:28)
[2016-04-04] MEDS: COUMADIN PO SCH (16:23)
--- NOTE | 2016-04-04 17:40 | Progress Note ---
Assessment and Plan This is 40 year old female Morbidly obese came to the emergency room with a complaint of shortness of breath. Patients chest xray obtained showed complete opacification of left hemithorax. Patient has history of hypertension and pulmonary emboli.Patients pulmonary emboli diagnosed 3 months ago by CTA of the chest. Patient also diagnsed at that time DVT in left leg. Patient non compliant with her medications, Patient stopped taking Eliquis.Patient started on S/C Lovenox and Coumadin.Patient also treated for pneumonia recently at [facility]. Patients blood gases showed, patient is in respiratory failure. Patient placed on BIPAP Rate 20, 22/10, FIO2 50%. Patient awake ,following commands. Repeating blood gases in AM.[place] no known allergies. Smoking,alcohol or drug history not known at this time.Patient started on Levaquine and zosyn. Obtaining ultrasound of chest for possible left pleural effusion. 03/18/16 Patient resting on Face mask, FIO2 50%. O2 saturation 84%. Patient S/P right thoracentesis 03/21/16 Patient alert, awake and oriented.Patient resting on Face mask, FIO2 50%. O2 saturation 90%. Patient S/P right thoracentesis 03/22/16 Patient sleeping at this time On bipap. Patient is on BIPAP 22/10, FIO2 40% and O2 satuaration running 95%.Patient tolerating BIPAP good.No respiratory distress. 03/25/16 Patient awake and resting on BIPAP.. Patient is on BIPAP 22/10, FIO2 45% and O2 satuaration running 93%.Patient tolerating BIPAP good.No respiratory distress. 03/26/16 Patient awake . Patient is on 50% ventimask . Complaning shortness of breath. O2 satuaration 95%. Placing her back on BIPAP. 22/10/ rate 20, FIO2 50%. 03/28/16 Patient alert and awake . Patient sitting up in bed.Patient is on 50% ventimask . O2 satuaration 94%. 04/01/16 Patient alert and awake . Patient resting on 50% ventimask . O2 satuaration 98% .Patient is going to go on BIPAP tonight. 04/04/15 Patient undergone left thoracentesis results pending. Post thoracentesis chest ray pleural fluid is less. No pneumothorax. - Patient Problems (1) Acute and chronic respiratory failure ([id number]) Current Visit: No Status: Acute Plan to address problem: Patient alert and awake . Patient sitting up in chair.Patient is on 50% ventimask . O2 satuaration 95%. 04/01/16 Patient alert and awake . Patient resting on 50% ventimask . O2 satuaration 98% .Patient is going to go on BIPAP tonight. (2) Pulmonary emboli Current Visit: No Status: Acute Plan to address problem: 03/25/16 Patient is on coumadin. 03/27/16 Patients INR 3.52. Recommend hold coumadin today Recheck INR in AM. 03/28/16 TodaYS inr IS 3.67. CONTINUE HOLD COUMADIN UNTIL REACH THERAPEUTIC RANGE. 03/3016 INR came down to 1.47 Recommend to start on Lovenox until thoracentesis done. 04/04/15 Patient undergone left thoracentesis. Coumadin started. (3) Left femoral vein DVT Current Visit: No Status: Acute Plan to address problem: Lovenox and coumadin. 03/21/16 Patient presently is on I/V Heparin and coumadin. 03/22/16 Patient is on I/V heparin and coumadin. 03/25/16 Patient is on PO coumadin. 03/27/16 Patients INR 3.52 Recommend hold coumadin and recheck INR. 03/28/16 TODAYS inr 3.67 CONTINUE HOLD COUMADIN AND RECHECK INR. 04/01/16 Recommend to start on Lovenox until thoracentesis done. 04/04/15 Patient undergone left thoracentesis. Started back on coumadin. (4) Pneumonia Current Visit: Yes Status: Acute Plan to address problem: Patient is on Zosyn and Levaquine. 03/18/16 Patient presently on Levaquine. 03/25/16 Patient presently on antibiotics Zosyn and vancomycin. 04/04/15 Patient off the antibiotics. Patient afebrile. (5) Pleural effusion, left Current Visit: Yes Status: Acute Plan to address problem: Patients ultrasound of chest reported pleural effusion. Patient under gone left thoracentesis. Pleural fluid cytology reported negative for malignant cells. Recommend to repeat thoracentesis under ultrasound guidance. 04/04/15 Patient undergone repeat left thoracentesis. Pleural fluid results pending. (6) Morbid obesity with BMI of 70 and over, adult Current Visit: No Status: Chronic Plan to address problem: Nutritional consultation for weight reduction diet. (7) Sleep apnea Current Visit: No Status: Chronic Plan to address problem: Patient is on BIPAP.22/01, rate 20, FIO2 50% Subjective Date of service: 04/04/16 Principal diagnosis: Acute Hypoxemic Respiratory Failure; Left Pleural Effusion Interval history: Patient alert and awake . Patient resting on 50% ventimask . O2 satuaration 98% .Patient is going to go on BIPAP tonight. Patient undergone left thoracentesis results pending. Post thoracentesis chest ray pleural fluid is less. No pneumothorax. Objective Vital Signs - 12hr 04/04/16 04/04/16 04/04/16 07:50 08:27 08:37 Temperature 97.7 F Pulse Rate [ 73 80 Anterior Bilateral Throughout] Pulse Rate [ 90 From Monitor] Respiratory 20 Rate Respiratory 20 20 Rate [Anterior Bilateral Throughout] Blood Pressure 141/85 [Left Arm] O2 Sat by Pulse 97 97 Oximetry 04/04/16 04/04/16 04/04/16 12:03 16:44 16:55 Temperature 97.2 F L Pulse Rate [ 83 78 Anterior Bilateral Throughout] Pulse Rate [ 85 From Monitor] Respiratory 20 Rate Respiratory 20 20 Rate [Anterior Bilateral Throughout] Blood Pressure 172/75 [Left Arm] O2 Sat by Pulse 98 Oximetry Constitutional: no acute distress, alert Eyes: non-icteric ENT: oropharynx moist Neck: supple, no JVD Ascultation: Bilateral: clear, diminished breath sounds (LLL), rales (LLL) Cardiovascular: regular rate and rhythm Gastrointestinal: normoactive bowel sounds, soft, non-tender, non-distended Integumentary: other (Stasis dermatitis.) Extremities: no cyanosis, pink and warm, pulses normal, no ischemia or petechiae , edema Neurologic: normal mental status, non-focal exam, pupils equal and round, motor strength normal and Psychiatric: mood appropriate, affect normal CBC and BMP: 04/04/16 02:41 03/28/16 08:54 ABG, PT/INR, D-dimer: ABG POC ABG pH 7.422 (7.35-7.45) 03/17/16 08:55 POC ABG pCO2 70.5 (35-45) H 03/17/16 08:55 POC ABG pO2 108 (80-105) H 03/17/16 08:55 POC ABG HCO3 46.0 03/17/16 08:55 POC ABG Total CO2 48 03/17/16 08:55 POC ABG O2 Sat 98 03/17/16 08:55 PT/INR, D-dimer PT 14.3 Sec. (12.2-14.9) 04/04/16 02:41 INR 1.12 (0.87-1.13) 04/04/16 02:41 Abnormal lab findings: Abnormal Labs 03/16/16 03/16/16 03/16/16 00:04 01:01 07:49 RBC MCV MCH MCHC RDW Plt Count PT 15.8 H INR 1.27 H Heparin Anti-Xa Level 0.18 L POC ABG pH 7.304 L POC ABG pCO2 92.8 H POC ABG pO2 Chloride Carbon Dioxide POC Glucose Lactate Dehydrogenase Total Creatine Kinase CK-MB (CK-2) Rel Index C-Reactive Protein Fluid Total Protein Vancomycin Trough 03/16/16 03/16/16 03/16/16 12:16 16:00 17:21 RBC MCV MCH MCHC RDW Plt Count PT INR Heparin Anti-Xa Level < 0.11 L POC ABG pH POC ABG pCO2 POC ABG pO2 Chloride Carbon Dioxide POC Glucose Lactate Dehydrogenase 328 H Total Creatine Kinase CK-MB (CK-2) Rel Index C-Reactive Protein 2.60 H Fluid Total Protein 4.5 L Vancomycin Trough 03/17/16 03/17/16 03/17/16 04:58 04:58 04:58 RBC 5.50 H MCV 70 L MCH 20 L MCHC 29 L RDW 23.7 H Plt Count PT INR Heparin Anti-Xa Level 0.14 L POC ABG pH POC ABG pCO2 POC ABG pO2 Chloride 94.9 L Carbon Dioxide 40 H POC Glucose Lactate Dehydrogenase Total Creatine Kinase CK-MB (CK-2) Rel Index C-Reactive Protein Fluid Total Protein Vancomycin Trough 03/17/16 03/17/16 03/17/16 08:55 11:50 13:16 RBC MCV MCH MCHC RDW Plt Count PT INR Heparin Anti-Xa Level 0.16 L POC ABG pH POC ABG pCO2 70.5 H POC ABG pO2 108 H Chloride Carbon Dioxide POC Glucose 65 L Lactate Dehydrogenase Total Creatine Kinase CK-MB (CK-2) Rel Index C-Reactive Protein Fluid Total Protein Vancomycin Trough 03/17/16 03/17/16 03/18/16 13:16 21:00 05:32 RBC MCV MCH MCHC RDW Plt Count PT 15.9 H INR 1.28 H Heparin Anti-Xa Level 0.13 L POC ABG pH POC ABG pCO2 POC ABG pO2 Chloride Carbon Dioxide POC Glucose Lactate Dehydrogenase Total Creatine Kinase 14 L CK-MB (CK-2) Rel Index 7.1 H C-Reactive Protein Fluid Total Protein Vancomycin Trough 03/18/16 03/18/16 03/18/16 07:35 07:43 15:45 RBC MCV MCH MCHC RDW Plt Count PT INR Heparin Anti-Xa Level 0.71 H POC ABG pH POC ABG pCO2 POC ABG pO2 Chloride Carbon Dioxide POC Glucose 63 L 109 H Lactate Dehydrogenase Total Creatine Kinase CK-MB (CK-2) Rel Index C-Reactive Protein Fluid Total Protein Vancomycin Trough 03/18/16 03/18/16 03/18/16 16:15 21:35 23:30 RBC MCV MCH MCHC RDW Plt Count PT INR Heparin Anti-Xa Level 0.86 H 0.26 L POC ABG pH POC ABG pCO2 POC ABG pO2 Chloride Carbon Dioxide POC Glucose 106 H Lactate Dehydrogenase Total Creatine Kinase CK-MB (CK-2) Rel Index C-Reactive Protein Fluid Total Protein Vancomycin Trough 03/19/16 03/19/16 03/19/16 06:57 08:28 17:12 RBC MCV MCH MCHC RDW Plt Count PT 15.6 H INR 1.25 H Heparin Anti-Xa Level POC ABG pH POC ABG pCO2 POC ABG pO2 Chloride Carbon Dioxide POC Glucose 67 L 110 H Lactate Dehydrogenase Total Creatine Kinase CK-MB (CK-2) Rel Index C-Reactive Protein Fluid Total Protein Vancomycin Trough 03/19/16 03/20/16 03/21/16 21:27 06:48 05:11 RBC MCV MCH MCHC RDW Plt Count PT 16.9 H 18.1 H INR 1.38 H 1.50 H Heparin Anti-Xa Level POC ABG pH POC ABG pCO2 POC ABG pO2 Chloride Carbon Dioxide POC Glucose 107 H Lactate Dehydrogenase Total Creatine Kinase CK-MB (CK-2) Rel Index C-Reactive Protein Fluid Total Protein Vancomycin Trough 03/21/16 03/21/16 03/21/16 05:11 16:02 21:59 RBC MCV MCH MCHC RDW Plt Count PT INR Heparin Anti-Xa Level 0.27 L 0.79 H POC ABG pH POC ABG pCO2 POC ABG pO2 Chloride Carbon Dioxide POC Glucose 128 H Lactate Dehydrogenase Total Creatine Kinase CK-MB (CK-2) Rel Index C-Reactive Protein Fluid Total Protein Vancomycin Trough 03/22/16 03/23/16 03/23/16 04:46 05:03 08:21 RBC MCV MCH MCHC RDW Plt Count PT 22.7 H 21.5 H INR 2.00 H 1.87 H Heparin Anti-Xa Level POC ABG pH POC ABG pCO2 POC ABG pO2 Chloride Carbon Dioxide POC Glucose 64 L Lactate Dehydrogenase Total Creatine Kinase CK-MB (CK-2) Rel Index C-Reactive Protein Fluid Total Protein Vancomycin Trough 03/23/16 03/24/16 03/25/16 14:57 05:09 02:04 RBC MCV MCH MCHC RDW Plt Count PT 25.9 H INR 2.36 H Heparin Anti-Xa Level < 0.10 L 0.10 L POC ABG pH POC ABG pCO2 POC ABG pO2 Chloride Carbon Dioxide POC Glucose Lactate Dehydrogenase Total Creatine Kinase CK-MB (CK-2) Rel Index C-Reactive Protein Fluid Total Protein Vancomycin Trough 03/25/16 03/25/16 03/26/16 05:21 18:24 07:48 RBC MCV MCH MCHC RDW Plt Count PT 29.4 H 31.6 H INR 2.77 H 3.03 H Heparin Anti-Xa Level POC ABG pH POC ABG pCO2 POC ABG pO2 Chloride Carbon Dioxide POC Glucose 112 H Lactate Dehydrogenase Total Creatine Kinase CK-MB (CK-2) Rel Index C-Reactive Protein Fluid Total Protein Vancomycin Trough 03/26/16 03/26/16 03/26/16 09:36 12:22 21:26 RBC MCV MCH MCHC RDW Plt Count PT INR Heparin Anti-Xa Level POC ABG pH POC ABG pCO2 POC ABG pO2 Chloride Carbon Dioxide POC Glucose 127 H 68 L 111 H Lactate Dehydrogenase Total Creatine Kinase CK-MB (CK-2) Rel Index C-Reactive Protein Fluid Total Protein Vancomycin Trough 03/27/16 03/27/16 03/27/16 07:10 16:04 19:57 RBC MCV MCH MCHC RDW Plt Count PT 35.6 H INR 3.52 H Heparin Anti-Xa Level POC ABG pH POC ABG pCO2 POC ABG pO2 Chloride Carbon Dioxide POC Glucose 109 H Lactate Dehydrogenase Total Creatine Kinase CK-MB (CK-2) Rel Index C-Reactive Protein Fluid Total Protein Vancomycin Trough 32.1 H 03/27/16 03/28/16 03/28/16 20:58 05:34 08:54 RBC MCV MCH MCHC RDW Plt Count PT 36.8 H INR 3.67 H Heparin Anti-Xa Level POC ABG pH POC ABG pCO2 POC ABG pO2 Chloride 97.7 L Carbon Dioxide 38 H POC Glucose 133 H Lactate Dehydrogenase Total Creatine Kinase CK-MB (CK-2) Rel Index C-Reactive Protein Fluid Total Protein Vancomycin Trough 03/28/16 03/28/16 03/29/16 16:15 22:20 05:19 RBC MCV MCH MCHC RDW Plt Count PT 34.1 H INR 3.34 H Heparin Anti-Xa Level POC ABG pH POC ABG pCO2 POC ABG pO2 Chloride Carbon Dioxide POC Glucose 125 H 106 H Lactate Dehydrogenase Total Creatine Kinase CK-MB (CK-2) Rel Index C-Reactive Protein Fluid Total Protein Vancomycin Trough 03/30/16 03/30/16 03/30/16 05:08 12:04 16:03 RBC MCV MCH MCHC RDW Plt Count PT 29.2 H INR 2.75 H Heparin Anti-Xa Level POC ABG pH POC ABG pCO2 POC ABG pO2 Chloride Carbon Dioxide POC Glucose 118 H 108 H Lactate Dehydrogenase Total Creatine Kinase CK-MB (CK-2) Rel Index C-Reactive Protein Fluid Total Protein Vancomycin Trough 03/31/16 03/31/16 03/31/16 05:40 14:37 17:24 RBC 5.34 H MCV 74 L MCH 22 L MCHC 29 L RDW 28.3 H Plt Count 119 L PT 17.8 H INR 1.47 H Heparin Anti-Xa Level POC ABG pH POC ABG pCO2 POC ABG pO2 Chloride Carbon Dioxide POC Glucose 115 H Lactate Dehydrogenase Total Creatine Kinase CK-MB (CK-2) Rel Index C-Reactive Protein Fluid Total Protein Vancomycin Trough 04/01/16 04/02/16 04/02/16 08:43 09:04 16:21 RBC MCV MCH MCHC RDW Plt Count PT INR 1.16 H Heparin Anti-Xa Level POC ABG pH POC ABG pCO2 POC ABG pO2 Chloride Carbon Dioxide POC Glucose 66 L 117 H Lactate Dehydrogenase Total Creatine Kinase CK-MB (CK-2) Rel Index C-Reactive Protein Fluid Total Protein Vancomycin Trough 04/02/16 04/03/16 04/03/16 21:15 07:20 17:58 RBC MCV MCH MCHC RDW Plt Count PT INR Heparin Anti-Xa Level 0.11 L < 0.10 L 0.13 L POC ABG pH POC ABG pCO2 POC ABG pO2 Chloride Carbon Dioxide POC Glucose Lactate Dehydrogenase Total Creatine Kinase CK-MB (CK-2) Rel Index C-Reactive Protein Fluid Total Protein Vancomycin Trough 04/04/16 09:36 RBC MCV MCH MCHC RDW Plt Count PT INR Heparin Anti-Xa Level 0.23 L POC ABG pH POC ABG pCO2 POC ABG pO2 Chloride Carbon Dioxide POC Glucose Lactate Dehydrogenase Total Creatine Kinase CK-MB (CK-2) Rel Index C-Reactive Protein Fluid Total Protein Vancomycin Trough
[2016-04-04] MEDS: MORPHINE IV PRN (18:42)
[2016-04-05] MEDS: PERCOCET 5/325 PO PRN (00:14)
[2016-04-05] MEDS: MUCOMYST INHALATION SCH ×4 (00:29→16:59)
[2016-04-05] MEDS: PROVENTIL IH SCH ×3 (00:29→15:41)
[2016-04-05] MEDS: HEPARIN/ 0.45% NACL-25,000 UNIT/500 ML 500 ML IV SCH ×2 (01:32→16:15)
[2016-04-05 06:02] LABS: INR 1.02 (0.87-1.13)
[2016-04-05 06:09] LABS: Blood Urea Nitrogen 10 mg/dL (7-17); Calcium 9.1 mg/dL (8.4-10.2); Carbon Dioxide 38 mmol/L (22-30); Chloride 98.6 mmol/L (98-107); Glucose 87 mg/dL (65-100); Mean Corpuscular HGB Conc 29 % (30-34); Mean Corpuscular Volume 72 fl (79-97); Platelet Count 158 K/mm3 (140-440); Potassium 4.1 mmol/L (3.6-5.0); Red Blood Count 4.93 M/mm3 (3.65-5.03); Sodium 143 mmol/L (137-145); White Blood Count 6.4 K/mm3 (4.5-11.0)
[2016-04-05 06:10] LABS: Anion Gap 11 mmol/L
[2016-04-05 06:12] LABS: Hematocrit 35.6 % (30.3-42.9); Hemoglobin 10.4 gm/dl (10.1-14.3); Mean Corpuscular Hemoglobin 21 pg (28-32); Red Cell Distribution Width 28.2 % (13.2-15.2)
[2016-04-05 07:22] LABS: Anisocytosis 1+; Basophils % (Manual) 0 % (0.0-1.8); Blastocytes % (Manual) 0 %; Hypochromasia 1+; Stomatocytes Few
[2016-04-05 07:23] LABS: Diff Status Complete
[2016-04-05] MEDS: MORPHINE IV PRN ×2 (13:57→20:18)
--- NOTE | 2016-04-05 15:29 | Progress Note ---
Assessment and Plan Assessment and plan: 1. Acute hypoxemic respiratory failure/left lung PNA with parapneumonic effusion/fe -post thoracocentesis on 04/02/2016. Of 1.1 L; patient may is currently not on antibiotics, continue with BiPAP and wean as tolerated to nocturnal BiPAP; to follow-up with pulmonary for further recommendations 2. OLD PE/DVT- Continue warfarin, and heparin drip as a bridge, coumadin was on hold for thoracentesis; INR is subtherapeutic; INR goal is 2-3l; monitor for bleeding 3. Type 2 diabetes mellitus. Continue Accu-Cheks and sliding scale regular insulin. 4. Morbid obesity. Nutritional consultation. 5. FE/OHS. Patient will need further follow-up as an outpatient, will likely need CPAP machine upon dc. 6. Hypertension uncontrolled- start norvacs; monitor BP 7. DVT prophylaxis-heparin History Interval history: Follow-up for respiratory failure, pneumonia, pleural effusion Patient seen at the bedside, shortness of breath is improving but she still has shortness of breath, on BiPAP Hospitalist Physical - Constitutional Vitals: Temp Pulse Resp BP Pulse Ox 97.8 F 78 20 155/70 98 04/05/16 12:46 04/05/16 12:46 04/05/16 12:46 04/05/16 12:46 04/05/16 13:55 General appearance: Present: no acute distress (BiPAP), obese (morbid) - EENT Eyes: Present: PERRL, EOM intact. Absent: scleral icterus, conjunctival injection ENT: hearing intact, clear oral mucosa, no oropharyngeal erythema, no poor dentition - Neck Neck: Present: supple, normal ROM. Absent: enlarged thyroid, masses or JVD - Respiratory Respiratory effort: normal Respiratory: bilateral: diminished, negative: rales, rhonchi, wheezing - Cardiovascular Rhythm: regular Heart Sounds: Present: S1 & S2 - Extremities Extremities: no ischemia, pulses intact, pulses symmetrical, No edema Peripheral Pulses: within normal limits - Abdominal General gastrointestinal: soft, non-tender, non-distended - Integumentary Integumentary: Present: clear - Psychiatric Psychiatric: appropriate mood/affect, intact judgment & insight - Neurologic Neurologic: CNII-XII intact, moves all extremities Results - Labs CBC & Chem 7: 04/05/16 05:15 04/05/16 05:15 Labs: Laboratory Last Values WBC 6.4 K/mm3 (4.5-11.0) 04/05/16 05:15 RBC 4.93 M/mm3 (3.65-5.03) 04/05/16 05:15 Hgb 10.4 gm/dl (10.1-14.3) 04/05/16 05:15 Hct 35.6 % (30.3-42.9) 04/05/16 05:15 MCV 72 fl (79-97) L 04/05/16 05:15 MCH 21 pg (28-32) L 04/05/16 05:15 MCHC 29 % (30-34) L 04/05/16 05:15 RDW 28.2 % (13.2-15.2) H 04/05/16 05:15 Plt Count 158 K/mm3 (140-440) 04/05/16 05:15 Lymph % (Auto) [place] [employer] 04/05/16 05:15 [place] % (Auto) [place] [employer] 04/05/16 05:15 Eos % (Auto) [place] [employer] 04/05/16 05:15 Baso % (Auto) [place] [employer] 04/05/16 05:15 Lymph # [place] [employer] 04/05/16 05:15 [place] # [employer] [place] [employer] 04/05/16 05:15 Eos # [place] [employer] 04/05/16 05:15 Baso # [place] [employer] 04/05/16 05:15 Add Manual Diff Complete 04/05/16 05:15 Total Counted 100 04/05/16 05:15 Seg Neutrophils % [place] [employer] 04/05/16 05:15 Seg Neuts % (Manual) 74.0 % (40.0-70.0) H 04/05/16 05:15 Band Neutrophils % 2.0 % 04/05/16 05:15 Lymphocytes % (Manual) 11.0 % (13.4-35.0) L 04/05/16 05:15 Reactive Lymphs % (Man) 0 % 04/05/16 05:15 Monocytes % (Manual) 8.0 % (0.0-7.3) H 04/05/16 05:15 Eosinophils % (Manual) 5.0 % (0.0-4.3) H 04/05/16 05:15 Basophils % (Manual) 0 % (0.0-1.8) 04/05/16 05:15 Metamyelocytes % 0 % 04/05/16 05:15 Myelocytes % 0 % 04/05/16 05:15 Promyelocytes % 0 % 04/05/16 05:15 Blast Cells % 0 % 04/05/16 05:15 Nucleated RBC % Not Reportable 04/05/16 05:15 Seg Neutrophils # [place] [employer] 04/05/16 05:15 Seg Neutrophils # Man 4.7 K/mm3 (1.8-7.7) 04/05/16 05:15 Band Neutrophils # 0.1 K/mm3 04/05/16 05:15 Lymphocytes # (Manual) 0.7 K/mm3 (1.2-5.4) L 04/05/16 05:15 Abs React Lymphs (Man) 0.0 K/mm3 04/05/16 05:15 Monocytes # (Manual) 0.5 K/mm3 (0.0-0.8) 04/05/16 05:15 Eosinophils # (Manual) 0.3 K/mm3 (0.0-0.4) 04/05/16 05:15 Basophils # (Manual) 0.0 K/mm3 (0.0-0.1) 04/05/16 05:15 Metamyelocytes # 0.0 K/mm3 04/05/16 05:15 Myelocytes # 0.0 K/mm3 04/05/16 05:15 Promyelocytes # 0.0 K/mm3 04/05/16 05:15 Blast Cells # 0.0 K/mm3 04/05/16 05:15 WBC Morphology Not Reportable 04/05/16 05:15 Hypersegmented Neuts Not Reportable 04/05/16 05:15 Hyposegmented Neuts Not Reportable 04/05/16 05:15 Hypogranular Neuts Not Reportable 04/05/16 05:15 Smudge Cells Not Reportable 04/05/16 05:15 Toxic Granulation Not Reportable 04/05/16 05:15 Toxic Vacuolation Not Reportable 04/05/16 05:15 Dohle Bodies Not Reportable 04/05/16 05:15 Pelger-Huet Anomaly Not Reportable 04/05/16 05:15 Nabila Rods Not Reportable 04/05/16 05:15 Platelet Estimate Appears normal 04/05/16 05:15 Clumped Platelets Not Reportable 04/05/16 05:15 Plt Clumps, EDTA Not Reportable 04/05/16 05:15 Large Platelets Not Reportable 04/05/16 05:15 Giant Platelets Not Reportable 04/05/16 05:15 Platelet Satelliting Not Reportable 04/05/16 05:15 Plt Morphology Comment Not Reportable 04/05/16 05:15 RBC Morphology Not Reportable 04/05/16 05:15 Dimorphic RBCs Not Reportable 04/05/16 05:15 Polychromasia Not Reportable 04/05/16 05:15 Hypochromasia 1+ 04/05/16 05:15 Poikilocytosis Not Reportable 04/05/16 05:15 Anisocytosis 1+ 04/05/16 05:15 Microcytosis Not Reportable 04/05/16 05:15 Macrocytosis Not Reportable 04/05/16 05:15 Spherocytes Not Reportable 04/05/16 05:15 Pappenheimer Bodies Not Reportable 04/05/16 05:15 Sickle Cells Not Reportable 04/05/16 05:15 Target Cells Not Reportable 04/05/16 05:15 Tear Drop Cells Not Reportable 04/05/16 05:15 Ovalocytes Not Reportable 04/05/16 05:15 Stomatocytes Few 04/05/16 05:15 Helmet Cells Not Reportable 04/05/16 05:15 Ruiz-Winfield Bodies Not Reportable 04/05/16 05:15 [place] Rings Not Reportable 04/05/16 05:15 [place] Cells Not Reportable 04/05/16 05:15 Bite Cells Not Reportable 04/05/16 05:15 Crenated Cell Not Reportable 04/05/16 05:15 Elliptocytes Not Reportable 04/05/16 05:15 Acanthocytes (Spur) Not Reportable 04/05/16 05:15 Rouleaux Not Reportable 04/05/16 05:15 Hemoglobin C Crystals Not Reportable 04/05/16 05:15 Schistocytes Not Reportable 04/05/16 05:15 Malaria parasites Not Reportable 04/05/16 05:15 Darion Bodies Not Reportable 04/05/16 05:15 Hem Pathologist Commnt No 04/05/16 05:15 PT 13.3 Sec. (12.2-14.9) 04/05/16 05:15 INR 1.02 (0.87-1.13) 04/05/16 05:15 APTT 29.5 Sec. (24.2-36.6) 04/02/16 12:22 Heparin Anti-Xa Level 0.31 U.I./ml (0.3-0.7) 04/05/16 Unknown POC ABG pH 7.422 (7.35-7.45) 03/17/16 08:55 POC ABG pCO2 70.5 (35-45) H 03/17/16 08:55 POC ABG pO2 108 (80-105) H 03/17/16 08:55 POC ABG HCO3 46.0 03/17/16 08:55 POC ABG Total CO2 48 03/17/16 08:55 POC ABG O2 Sat 98 03/17/16 08:55 POC ABG Base Excess 22 03/17/16 08:55 FiO2 40 % 03/17/16 08:55 Sodium 143 mmol/L (137-145) 04/05/16 05:15 Potassium 4.1 mmol/L (3.6-5.0) 04/05/16 05:15 Chloride 98.6 mmol/L (98-107) 04/05/16 05:15 Carbon Dioxide 38 mmol/L (22-30) H 04/05/16 05:15 Anion Gap 11 mmol/L 04/05/16 05:15 BUN 10 mg/dL (7-17) 04/05/16 05:15 Creatinine 1.0 mg/dL (0.7-1.2) 04/05/16 05:15 Estimated GFR > 60 ml/min 04/05/16 05:15 BUN/Creatinine Ratio 10.00 % 04/05/16 05:15 Glucose 87 mg/dL (65-100) 04/05/16 05:15 POC Glucose 96 (70-105) 04/05/16 12:09 Lactic Acid 1.6 mmol/L (0.7-2.0) 03/15/16 20:20 Calcium 9.1 mg/dL (8.4-10.2) 04/05/16 05:15 Magnesium 2.2 mg/dL (1.7-2.3) 03/15/16 20:20 Total Bilirubin 1.0 mg/dL (0.1-1.2) 03/15/16 20:20 AST 13 units/L (5-40) 03/15/16 20:20 ALT 15 units/L (7-56) 03/15/16 20:20 Alkaline Phosphatase 67 units/L (35-129) 03/15/16 20:20 Lactate Dehydrogenase 328 units/L (91-180) H 03/16/16 12:16 Total Creatine Kinase 14 units/L (30-135) L 03/17/16 13:16 CK-MB (CK-2) < 1.0 ng/mL (0.0-4.0) 03/17/16 13:16 CK-MB (CK-2) Rel Index 7.1 (0-4) H 03/17/16 13:16 Troponin T < 0.010 ng/mL (0.00-0.029) 03/28/16 23:18 C-Reactive Protein 2.60 mg/dL (0.00-1.30) H 03/16/16 12:16 NT-Pro-B Natriuret Pep 957.2 pg/mL (0-450) H 03/15/16 20:20 Total Protein 7.9 g/dL (6.3-8.2) 03/15/16 20:20 Albumin 3.1 g/dL (3.9-5) L 03/15/16 20:20 Albumin/Globulin Ratio 0.6 % 03/15/16 20:20 HCG, Quant < 2 mIU/mL (0-4) 03/15/16 20:20 Urine Color Yellow (Yellow) 03/15/16 21:43 Urine Turbidity Clear (Clear) 03/15/16 21:43 Urine pH 5.0 (5.0-7.0) 03/15/16 21:43 Ur Specific [place] 1.016 (1.003-1.030) 03/15/16 21:43 Urine Protein 30 mg/dl mg/dL (Negative) 03/15/16 21:43 Urine Glucose (UA) Neg mg/dL (Negative) 03/15/16 21:43 Urine Ketones Neg mg/dL (Negative) 03/15/16 21:43 Urine Blood Neg (Negative) 03/15/16 21:43 Urine Nitrite Neg (Negative) 03/15/16 21:43 Urine Bilirubin Neg (Negative) 03/15/16 21:43 Urine Urobilinogen 4.0 mg/dL (<2.0) 03/15/16 21:43 Ur Leukocyte Esterase Neg (Negative) 03/15/16 21:43 Urine WBC (Auto) 3.0 /HPF (0.0-6.0) 03/15/16 21:43 Urine RBC (Auto) 1.0 /HPF (0.0-6.0) 03/15/16 21:43 U Epithel Cells (Auto) 1.0 /HPF (0-13.0) 03/15/16 21:43 Hyaline Casts 1 /LPF 03/15/16 21:43 Urine Mucus Few /HPF 03/15/16 21:43 Fluid Total Protein 4.5 (15.0-45.0) L 03/16/16 16:00 Fluid LDH 498 03/16/16 16:00 Vancomycin Trough 32.1 ug/mL (5.0-20.0) H 03/27/16 19:57 Random Vancomycin 13.6 ug/mL (0-40.0) 03/30/16 05:08
[2016-04-05] MEDS ORDERED: NORVASC PO ONE (15:32)
[2016-04-05] MEDS: COUMADIN PO SCH (16:14)
--- NOTE | 2016-04-05 20:23 | Progress Note ---
Assessment and Plan This is 40 year old female Morbidly obese came to the emergency room with a complaint of shortness of breath. Patients chest xray obtained showed complete opacification of left hemithorax. Patient has history of hypertension and pulmonary emboli.Patients pulmonary emboli diagnosed 3 months ago by CTA of the chest. Patient also diagnsed at that time DVT in left leg. Patient non compliant with her medications, Patient stopped taking Eliquis.Patient started on S/C Lovenox and Coumadin.Patient also treated for pneumonia recently at [facility]. Patients blood gases showed, patient is in respiratory failure. Patient placed on BIPAP Rate 20, 22/10, FIO2 50%. Patient awake ,following commands. Repeating blood gases in AM.[place] no known allergies. Smoking,alcohol or drug history not known at this time.Patient started on Levaquine and zosyn. Obtaining ultrasound of chest for possible left pleural effusion. 04/05/15 Patient alert and awake . Patient resting on 3 litres O2. No acute respiratory distress.. O2 satuaration 92%.Patient is going to go on BIPAP tonight. Patient undergone left thoracentesis Post thoracentesis chest ray pleural fluid is less. No pneumothorax. Pleural fluid is exudate. Pleural fluid protein is 4.5 and LDH 498.Pleural fluid i cytology results pending. Patient says coughing up blood at times.Told the patient to save it in the cup. So far she did not collect any of it. - Patient Problems (1) Acute and chronic respiratory failure ([id number]) Current Visit: No Status: Acute Plan to address problem: Patient alert and awake . Patient sitting up in chair.Patient is on 50% ventimask . O2 satuaration 95%. 04/01/16 Patient alert and awake . Patient resting on 50% ventimask . O2 satuaration 98% .Patient is going to go on BIPAP tonight. 04/05/15 Patient alert and awake . Patient resting on 3 litres O2. No acute respiratory distress.. O2 satuaration 92%.Patient is going to go on BIPAP tonight. Patient undergone left thoracentesis Post thoracentesis chest ray pleural fluid is less. No pneumothorax. Pleural fluid is exudate. Pleural fluid protein is 4.5 and LDH 498.Pleural fluid i cytology results pending. Patient says coughing up blood at times.Told the patient to save it in the cup. So far she did not collect any of it. (2) Pulmonary emboli Current Visit: No Status: Acute Plan to address problem: 03/25/16 Patient is on coumadin. 03/27/16 Patients INR 3.52. Recommend hold coumadin today Recheck INR in AM. 03/28/16 TodaYS inr IS 3.67. CONTINUE HOLD COUMADIN UNTIL REACH THERAPEUTIC RANGE. 03/3016 INR came down to 1.47 Recommend to start on Lovenox until thoracentesis done. 04/04/15 Patient undergone left thoracentesis. Coumadin started. 04/05/15 Patient is on I/V Heparin and PO coumadin. (3) Left femoral vein DVT Current Visit: No Status: Acute (4) Pneumonia Current Visit: Yes Status: Acute (5) Pleural effusion, left Current Visit: Yes Status: Acute Plan to address problem: Patients ultrasound of chest reported pleural effusion. Patient under gone left thoracentesis. Pleural fluid cytology reported negative for malignant cells. Recommend to repeat thoracentesis under ultrasound guidance. 04/04/15 Patient undergone repeat left thoracentesis. Pleural fluid results pending. 04/05/15 Patient is on I/V heparin and PO coumadin. (6) Morbid obesity with BMI of 70 and over, adult Current Visit: No Status: Chronic Plan to address problem: Nutritional consultation for weight reduction diet. (7) Sleep apnea Current Visit: No Status: Chronic Plan to address problem: Patient is on BIPAP./, rate 20, FIO2 50% Subjective Date of service: 04/05/16 Principal diagnosis: Acute Hypoxemic Respiratory Failure; Left Pleural Effusion Interval history: Patient alert and awake . Patient resting on 3 litres O2. No acute respiratory distress.. O2 satuaration 92%.Patient is going to go on BIPAP tonight. Patient undergone left thoracentesis Post thoracentesis chest ray pleural fluid is less. No pneumothorax. Pleural fluid is exudate. Pleural fluid protein is 4.5 and LDH 498.Pleural fluid i cytology results pending. Patient says coughing up blood at times.Told the patient to save it in the cup. So far she did not collect any of it. Objective Vital Signs - 12hr 04/05/16 04/05/16 04/05/16 08:27 10:00 12:46 Temperature 97.8 F Pulse Rate 66 Pulse Rate [ 83 Anterior Bilateral Throughout] Pulse Rate [ 78 From Monitor] Pulse Rate [ Posterior Bilateral Throughout] Pulse Rate [ Right Radial] Respiratory 20 Rate Respiratory 23 Rate [Anterior Bilateral Throughout] Respiratory Rate [Posterior Bilateral Throughout] Blood Pressure 155/70 [Left Arm] O2 Sat by Pulse 100 Oximetry 04/05/16 04/05/16 04/05/16 13:55 15:45 17:15 Temperature 97.4 F L Pulse Rate Pulse Rate [ 95 H Anterior Bilateral Throughout] Pulse Rate [ From Monitor] Pulse Rate [ 90 Posterior Bilateral Throughout] Pulse Rate [ 94 H Right Radial] Respiratory 22 Rate Respiratory 20 Rate [Anterior Bilateral Throughout] Respiratory 18 Rate [Posterior Bilateral Throughout] Blood Pressure 173/79 [Left Arm] O2 Sat by Pulse 98 95 Oximetry Constitutional: no acute distress, alert Eyes: non-icteric ENT: oropharynx moist Neck: supple, no JVD Ascultation: Bilateral: diminished breath sounds (LLL), rales (LLL) Cardiovascular: regular rate and rhythm Gastrointestinal: normoactive bowel sounds, soft, non-tender, non-distended Integumentary: other (Stasis dermatitis.) Extremities: no cyanosis, pink and warm, pulses normal, no ischemia or petechiae , edema Neurologic: normal mental status, non-focal exam, pupils equal and round, motor strength normal and Psychiatric: mood appropriate, affect normal CBC and BMP: 04/05/16 05:15 04/05/16 05:15 ABG, PT/INR, D-dimer: ABG POC ABG pH 7.422 (7.35-7.45) 03/17/16 08:55 POC ABG pCO2 70.5 (35-45) H 03/17/16 08:55 POC ABG pO2 108 (80-105) H 03/17/16 08:55 POC ABG HCO3 46.0 03/17/16 08:55 POC ABG Total CO2 48 03/17/16 08:55 POC ABG O2 Sat 98 03/17/16 08:55 PT/INR, D-dimer PT 13.3 Sec. (12.2-14.9) 04/05/16 05:15 INR 1.02 (0.87-1.13) 04/05/16 05:15 Abnormal lab findings: Abnormal Labs 12/14/16 12/14/16 12/14/16 00:04 01:01 07:49 RBC MCV MCH MCHC RDW Plt Count Seg Neuts % (Manual) Lymphocytes % (Manual) Monocytes % (Manual) Eosinophils % (Manual) Lymphocytes # (Manual) PT 15.8 H INR 1.27 H Heparin Anti-Xa Level 0.18 L POC ABG pH 7.304 L POC ABG pCO2 92.8 H POC ABG pO2 Chloride Carbon Dioxide POC Glucose Lactate Dehydrogenase Total Creatine Kinase CK-MB (CK-2) Rel Index C-Reactive Protein Fluid Total Protein Vancomycin Trough 03/16/16 03/16/16 03/16/16 12:16 16:00 17:21 RBC MCV MCH MCHC RDW Plt Count Seg Neuts % (Manual) Lymphocytes % (Manual) Monocytes % (Manual) Eosinophils % (Manual) Lymphocytes # (Manual) PT INR Heparin Anti-Xa Level < 0.11 L POC ABG pH POC ABG pCO2 POC ABG pO2 Chloride Carbon Dioxide POC Glucose Lactate Dehydrogenase 328 H Total Creatine Kinase CK-MB (CK-2) Rel Index C-Reactive Protein 2.60 H Fluid Total Protein 4.5 L Vancomycin Trough 03/17/16 03/17/16 03/17/16 04:58 04:58 04:58 RBC 5.50 H MCV 70 L MCH 20 L MCHC 29 L RDW 23.7 H Plt Count Seg Neuts % (Manual) Lymphocytes % (Manual) Monocytes % (Manual) Eosinophils % (Manual) Lymphocytes # (Manual) PT INR Heparin Anti-Xa Level 0.14 L POC ABG pH POC ABG pCO2 POC ABG pO2 Chloride 94.9 L Carbon Dioxide 40 H POC Glucose Lactate Dehydrogenase Total Creatine Kinase CK-MB (CK-2) Rel Index C-Reactive Protein Fluid Total Protein Vancomycin Trough 03/17/16 03/17/16 03/17/16 08:55 11:50 13:16 RBC MCV MCH MCHC RDW Plt Count Seg Neuts % (Manual) Lymphocytes % (Manual) Monocytes % (Manual) Eosinophils % (Manual) Lymphocytes # (Manual) PT INR Heparin Anti-Xa Level 0.16 L POC ABG pH POC ABG pCO2 70.5 H POC ABG pO2 108 H Chloride Carbon Dioxide POC Glucose 65 L Lactate Dehydrogenase Total Creatine Kinase CK-MB (CK-2) Rel Index C-Reactive Protein Fluid Total Protein Vancomycin Trough 03/17/16 03/17/16 03/18/16 13:16 21:00 05:32 RBC MCV MCH MCHC RDW Plt Count Seg Neuts % (Manual) Lymphocytes % (Manual) Monocytes % (Manual) Eosinophils % (Manual) Lymphocytes # (Manual) PT 15.9 H INR 1.28 H Heparin Anti-Xa Level 0.13 L POC ABG pH POC ABG pCO2 POC ABG pO2 Chloride Carbon Dioxide POC Glucose Lactate Dehydrogenase Total Creatine Kinase 14 L CK-MB (CK-2) Rel Index 7.1 H C-Reactive Protein Fluid Total Protein Vancomycin Trough 03/18/16 03/18/16 03/18/16 07:35 07:43 15:45 RBC MCV MCH MCHC RDW Plt Count Seg Neuts % (Manual) Lymphocytes % (Manual) Monocytes % (Manual) Eosinophils % (Manual) Lymphocytes # (Manual) PT INR Heparin Anti-Xa Level 0.71 H POC ABG pH POC ABG pCO2 POC ABG pO2 Chloride Carbon Dioxide POC Glucose 63 L 109 H Lactate Dehydrogenase Total Creatine Kinase CK-MB (CK-2) Rel Index C-Reactive Protein Fluid Total Protein Vancomycin Trough 03/18/16 03/18/16 03/18/16 16:15 21:35 23:30 RBC MCV MCH MCHC RDW Plt Count Seg Neuts % (Manual) Lymphocytes % (Manual) Monocytes % (Manual) Eosinophils % (Manual) Lymphocytes # (Manual) PT INR Heparin Anti-Xa Level 0.86 H 0.26 L POC ABG pH POC ABG pCO2 POC ABG pO2 Chloride Carbon Dioxide POC Glucose 106 H Lactate Dehydrogenase Total Creatine Kinase CK-MB (CK-2) Rel Index C-Reactive Protein Fluid Total Protein Vancomycin Trough 03/19/16 03/19/16 03/19/16 06:57 08:28 17:12 RBC MCV MCH MCHC RDW Plt Count Seg Neuts % (Manual) Lymphocytes % (Manual) Monocytes % (Manual) Eosinophils % (Manual) Lymphocytes # (Manual) PT 15.6 H INR 1.25 H Heparin Anti-Xa Level POC ABG pH POC ABG pCO2 POC ABG pO2 Chloride Carbon Dioxide POC Glucose 67 L 110 H Lactate Dehydrogenase Total Creatine Kinase CK-MB (CK-2) Rel Index C-Reactive Protein Fluid Total Protein Vancomycin Trough 03/19/16 03/20/16 03/21/16 21:27 06:48 05:11 RBC MCV MCH MCHC RDW Plt Count Seg Neuts % (Manual) Lymphocytes % (Manual) Monocytes % (Manual) Eosinophils % (Manual) Lymphocytes # (Manual) PT 16.9 H 18.1 H INR 1.38 H 1.50 H Heparin Anti-Xa Level POC ABG pH POC ABG pCO2 POC ABG pO2 Chloride Carbon Dioxide POC Glucose 107 H Lactate Dehydrogenase Total Creatine Kinase CK-MB (CK-2) Rel Index C-Reactive Protein Fluid Total Protein Vancomycin Trough 03/21/16 03/21/16 03/21/16 05:11 16:02 21:59 RBC MCV MCH MCHC RDW Plt Count Seg Neuts % (Manual) Lymphocytes % (Manual) Monocytes % (Manual) Eosinophils % (Manual) Lymphocytes # (Manual) PT INR Heparin Anti-Xa Level 0.27 L 0.79 H POC ABG pH POC ABG pCO2 POC ABG pO2 Chloride Carbon Dioxide POC Glucose 128 H Lactate Dehydrogenase Total Creatine Kinase CK-MB (CK-2) Rel Index C-Reactive Protein Fluid Total Protein Vancomycin Trough 03/22/16 03/23/16 03/23/16 04:46 05:03 08:21 RBC MCV MCH MCHC RDW Plt Count Seg Neuts % (Manual) Lymphocytes % (Manual) Monocytes % (Manual) Eosinophils % (Manual) Lymphocytes # (Manual) PT 22.7 H 21.5 H INR 2.00 H 1.87 H Heparin Anti-Xa Level POC ABG pH POC ABG pCO2 POC ABG pO2 Chloride Carbon Dioxide POC Glucose 64 L Lactate Dehydrogenase Total Creatine Kinase CK-MB (CK-2) Rel Index C-Reactive Protein Fluid Total Protein Vancomycin Trough 03/23/16 03/24/16 03/25/16 14:57 05:09 02:04 RBC MCV MCH MCHC RDW Plt Count Seg Neuts % (Manual) Lymphocytes % (Manual) Monocytes % (Manual) Eosinophils % (Manual) Lymphocytes # (Manual) PT 25.9 H INR 2.36 H Heparin Anti-Xa Level < 0.10 L 0.10 L POC ABG pH POC ABG pCO2 POC ABG pO2 Chloride Carbon Dioxide POC Glucose Lactate Dehydrogenase Total Creatine Kinase CK-MB (CK-2) Rel Index C-Reactive Protein Fluid Total Protein Vancomycin Trough 03/25/16 03/25/16 03/26/16 05:21 18:24 07:48 RBC MCV MCH MCHC RDW Plt Count Seg Neuts % (Manual) Lymphocytes % (Manual) Monocytes % (Manual) Eosinophils % (Manual) Lymphocytes # (Manual) PT 29.4 H 31.6 H INR 2.77 H 3.03 H Heparin Anti-Xa Level POC ABG pH POC ABG pCO2 POC ABG pO2 Chloride Carbon Dioxide POC Glucose 112 H Lactate Dehydrogenase Total Creatine Kinase CK-MB (CK-2) Rel Index C-Reactive Protein Fluid Total Protein Vancomycin Trough 03/26/16 03/26/16 03/26/16 09:36 12:22 21:26 RBC MCV MCH MCHC RDW Plt Count Seg Neuts % (Manual) Lymphocytes % (Manual) Monocytes % (Manual) Eosinophils % (Manual) Lymphocytes # (Manual) PT INR Heparin Anti-Xa Level POC ABG pH POC ABG pCO2 POC ABG pO2 Chloride Carbon Dioxide POC Glucose 127 H 68 L 111 H Lactate Dehydrogenase Total Creatine Kinase CK-MB (CK-2) Rel Index C-Reactive Protein Fluid Total Protein Vancomycin Trough 03/27/16 03/27/16 03/27/16 07:10 16:04 19:57 RBC MCV MCH MCHC RDW Plt Count Seg Neuts % (Manual) Lymphocytes % (Manual) Monocytes % (Manual) Eosinophils % (Manual) Lymphocytes # (Manual) PT 35.6 H INR 3.52 H Heparin Anti-Xa Level POC ABG pH POC ABG pCO2 POC ABG pO2 Chloride Carbon Dioxide POC Glucose 109 H Lactate Dehydrogenase Total Creatine Kinase CK-MB (CK-2) Rel Index C-Reactive Protein Fluid Total Protein Vancomycin Trough 32.1 H 03/27/16 03/28/16 03/28/16 20:58 05:34 08:54 RBC MCV MCH MCHC RDW Plt Count Seg Neuts % (Manual) Lymphocytes % (Manual) Monocytes % (Manual) Eosinophils % (Manual) Lymphocytes # (Manual) PT 36.8 H INR 3.67 H Heparin Anti-Xa Level POC ABG pH POC ABG pCO2 POC ABG pO2 Chloride 97.7 L Carbon Dioxide 38 H POC Glucose 133 H Lactate Dehydrogenase Total Creatine Kinase CK-MB (CK-2) Rel Index C-Reactive Protein Fluid Total Protein Vancomycin Trough 03/28/16 03/28/16 03/29/16 16:15 22:20 05:19 RBC MCV MCH MCHC RDW Plt Count Seg Neuts % (Manual) Lymphocytes % (Manual) Monocytes % (Manual) Eosinophils % (Manual) Lymphocytes # (Manual) PT 34.1 H INR 3.34 H Heparin Anti-Xa Level POC ABG pH POC ABG pCO2 POC ABG pO2 Chloride Carbon Dioxide POC Glucose 125 H 106 H Lactate Dehydrogenase Total Creatine Kinase CK-MB (CK-2) Rel Index C-Reactive Protein Fluid Total Protein Vancomycin Trough 03/30/16 03/30/16 03/30/16 05:08 12:04 16:03 RBC MCV MCH MCHC RDW Plt Count Seg Neuts % (Manual) Lymphocytes % (Manual) Monocytes % (Manual) Eosinophils % (Manual) Lymphocytes # (Manual) PT 29.2 H INR 2.75 H Heparin Anti-Xa Level POC ABG pH POC ABG pCO2 POC ABG pO2 Chloride Carbon Dioxide POC Glucose 118 H 108 H Lactate Dehydrogenase Total Creatine Kinase CK-MB (CK-2) Rel Index C-Reactive Protein Fluid Total Protein Vancomycin Trough 03/31/16 03/31/16 03/31/16 05:40 14:37 17:24 RBC 5.34 H MCV 74 L MCH 22 L MCHC 29 L RDW 28.3 H Plt Count 119 L Seg Neuts % (Manual) Lymphocytes % (Manual) Monocytes % (Manual) Eosinophils % (Manual) Lymphocytes # (Manual) PT 17.8 H INR 1.47 H Heparin Anti-Xa Level POC ABG pH POC ABG pCO2 POC ABG pO2 Chloride Carbon Dioxide POC Glucose 115 H Lactate Dehydrogenase Total Creatine Kinase CK-MB (CK-2) Rel Index C-Reactive Protein Fluid Total Protein Vancomycin Trough 04/01/16 04/02/16 04/02/16 08:43 09:04 16:21 RBC MCV MCH MCHC RDW Plt Count Seg Neuts % (Manual) Lymphocytes % (Manual) Monocytes % (Manual) Eosinophils % (Manual) Lymphocytes # (Manual) PT INR 1.16 H Heparin Anti-Xa Level POC ABG pH POC ABG pCO2 POC ABG pO2 Chloride Carbon Dioxide POC Glucose 66 L 117 H Lactate Dehydrogenase Total Creatine Kinase CK-MB (CK-2) Rel Index C-Reactive Protein Fluid Total Protein Vancomycin Trough 04/02/16 04/03/16 04/03/16 21:15 07:20 17:58 RBC MCV MCH MCHC RDW Plt Count Seg Neuts % (Manual) Lymphocytes % (Manual) Monocytes % (Manual) Eosinophils % (Manual) Lymphocytes # (Manual) PT INR Heparin Anti-Xa Level 0.11 L < 0.10 L 0.13 L POC ABG pH POC ABG pCO2 POC ABG pO2 Chloride Carbon Dioxide POC Glucose Lactate Dehydrogenase Total Creatine Kinase CK-MB (CK-2) Rel Index C-Reactive Protein Fluid Total Protein Vancomycin Trough 04/04/16 04/05/16 04/05/16 09:36 05:15 05:15 RBC MCV 72 L MCH 21 L MCHC 29 L RDW 28.2 H Plt Count Seg Neuts % (Manual) 74.0 H Lymphocytes % (Manual) 11.0 L Monocytes % (Manual) 8.0 H Eosinophils % (Manual) 5.0 H Lymphocytes # (Manual) 0.7 L PT INR Heparin Anti-Xa Level 0.23 L POC ABG pH POC ABG pCO2 POC ABG pO2 Chloride Carbon Dioxide 38 H POC Glucose Lactate Dehydrogenase Total Creatine Kinase CK-MB (CK-2) Rel Index C-Reactive Protein Fluid Total Protein Vancomycin Trough 04/05/16 08:59 RBC MCV MCH MCHC RDW Plt Count Seg Neuts % (Manual) Lymphocytes % (Manual) Monocytes % (Manual) Eosinophils % (Manual) Lymphocytes # (Manual) PT INR Heparin Anti-Xa Level 0.11 L POC ABG pH POC ABG pCO2 POC ABG pO2 Chloride Carbon Dioxide POC Glucose Lactate Dehydrogenase Total Creatine Kinase CK-MB (CK-2) Rel Index C-Reactive Protein Fluid Total Protein Vancomycin Trough
[2016-04-06] MEDS: MUCOMYST INHALATION SCH ×3 (01:11→15:02)
[2016-04-06] MEDS: PROVENTIL IH SCH ×3 (01:11→15:02)
[2016-04-06] MEDS: HEPARIN/ 0.45% NACL-25,000 UNIT/500 ML 500 ML IV SCH ×2 (05:40→15:30)
[2016-04-06 06:04] LABS: INR 1.06 (0.87-1.13)
[2016-04-06 06:05] LABS: Hematocrit 34.3 % (30.3-42.9); Hemoglobin 10.3 gm/dl (10.1-14.3)
[2016-04-06] MEDS ORDERED: PROVENTIL IH PRN (07:28)
[2016-04-06] MEDS: NORVASC PO SCH (10:06)
[2016-04-06] MEDS: MORPHINE IV PRN ×2 (11:20→20:09)
--- NOTE | 2016-04-06 13:44 | Progress Note ---
Assessment and Plan Assessment and plan: 1. Acute hypoxemic respiratory failure/left lung PNA with parapneumonic effusion/lena with hemoptysis -post thoracocentesis on 04/02/2016. Of 1.1 L; patient may is currently not on antibiotics, continue with BiPAP and wean as tolerated to nocturnal BiPAP; to follow-up with pulmonary for further recommendations; patient reported that she has oxygen and BIPAP at home- will verify with case management 2. 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 Type 2 diabetes mellitus. Continue Accu-Cheks and sliding scale regular insulin. 4. Morbid obesity. Nutritional consultation. 5. LENA/OHS. Patient will need further follow-up as an outpatient, will likely need CPAP machine upon dc. 6. Hypertension - BP is improving- cotn norvacs; monitor BP 7. DVT prophylaxis-heparin History Interval history: Follow-up for respiratory failure, pneumonia, pleural effusion Patient seen at the bedside, shortness of breath is improving; complains of hemoptysis Hospitalist Physical - Constitutional Vitals: Temp Pulse Resp BP Pulse Ox 97.5 F L 74 22 141/79 94 04/06/16 11:27 04/06/16 11:30 04/06/16 11:30 04/06/16 11:27 04/06/16 11:30 General appearance: Present: no acute distress (BiPAP), obese (morbid) - EENT Eyes: Present: PERRL, EOM intact. Absent: scleral icterus, conjunctival injection ENT: hearing intact, clear oral mucosa, no oropharyngeal erythema, no poor dentition - Neck Neck: Present: supple, normal ROM. Absent: enlarged thyroid, masses or JVD - Respiratory Respiratory effort: normal Respiratory: bilateral: diminished, negative: rales, rhonchi, wheezing - Cardiovascular Rhythm: regular Heart Sounds: Present: S1 & S2. Absent: gallop - Extremities Extremities: no ischemia, pulses intact, pulses symmetrical, No edema, normal temperature Peripheral Pulses: within normal limits - Abdominal General gastrointestinal: soft, non-tender - Integumentary Integumentary: Present: clear - Psychiatric Psychiatric: appropriate mood/affect, intact judgment & insight - Neurologic Neurologic: CNII-XII intact, moves all extremities Results - Labs CBC & Chem 7: 04/06/16 05:14 04/05/16 05:15 Labs: Laboratory Last Values WBC 6.4 K/mm3 (4.5-11.0) 04/05/16 05:15 RBC 4.93 M/mm3 (3.65-5.03) 04/05/16 05:15 Hgb 10.3 gm/dl (10.1-14.3) 04/06/16 05:14 Hct 34.3 % (30.3-42.9) 04/06/16 05:14 MCV 72 fl (79-97) L 04/05/16 05:15 MCH 21 pg (28-32) L 04/05/16 05:15 MCHC 29 % (30-34) L 04/05/16 05:15 RDW 28.2 % (13.2-15.2) H 04/05/16 05:15 Plt Count 163 K/mm3 (140-440) 04/06/16 05:14 Lymph % (Auto) [employer] 04/05/16 05:15 Louisa % (Auto) [employer] 04/05/16 05:15 Eos % (Auto) [employer] 04/05/16 05:15 Baso % (Auto) [employer] 04/05/16 05:15 Lymph # [employer] 04/05/16 05:15 Louisa # [employer] 04/05/16 05:15 Eos # [employer] 04/05/16 05:15 Baso # [employer] 04/05/16 05:15 Add Manual Diff Complete 04/05/16 05:15 Total Counted 100 04/05/16 05:15 Seg Neutrophils % [employer] 04/05/16 05:15 Seg Neuts % (Manual) 74.0 % (40.0-70.0) H 04/05/16 05:15 Band Neutrophils % 2.0 % 04/05/16 05:15 Lymphocytes % (Manual) 11.0 % (13.4-35.0) L 04/05/16 05:15 Reactive Lymphs % (Man) 0 % 04/05/16 05:15 Monocytes % (Manual) 8.0 % (0.0-7.3) H 04/05/16 05:15 Eosinophils % (Manual) 5.0 % (0.0-4.3) H 04/05/16 05:15 Basophils % (Manual) 0 % (0.0-1.8) 04/05/16 05:15 Metamyelocytes % 0 % 04/05/16 05:15 Myelocytes % 0 % 04/05/16 05:15 Promyelocytes % 0 % 04/05/16 05:15 Blast Cells % 0 % 04/05/16 05:15 Nucleated RBC % Not Reportable 04/05/16 05:15 Seg Neutrophils # [employer] 04/05/16 05:15 Seg Neutrophils # Man 4.7 K/mm3 (1.8-7.7) 04/05/16 05:15 Band Neutrophils # 0.1 K/mm3 04/05/16 05:15 Lymphocytes # (Manual) 0.7 K/mm3 (1.2-5.4) L 04/05/16 05:15 Abs React Lymphs (Man) 0.0 K/mm3 04/05/16 05:15 Monocytes # (Manual) 0.5 K/mm3 (0.0-0.8) 04/05/16 05:15 Eosinophils # (Manual) 0.3 K/mm3 (0.0-0.4) 04/05/16 05:15 Basophils # (Manual) 0.0 K/mm3 (0.0-0.1) 04/05/16 05:15 Metamyelocytes # 0.0 K/mm3 04/05/16 05:15 Myelocytes # 0.0 K/mm3 04/05/16 05:15 Promyelocytes # 0.0 K/mm3 04/05/16 05:15 Blast Cells # 0.0 K/mm3 04/05/16 05:15 WBC Morphology Not Reportable 04/05/16 05:15 Hypersegmented Neuts Not Reportable 04/05/16 05:15 Hyposegmented Neuts Not Reportable 04/05/16 05:15 Hypogranular Neuts Not Reportable 04/05/16 05:15 Smudge Cells Not Reportable 04/05/16 05:15 Toxic Granulation Not Reportable 04/05/16 05:15 Toxic Vacuolation Not Reportable 04/05/16 05:15 Dohle Bodies Not Reportable 04/05/16 05:15 Pelger-Huet Anomaly Not Reportable 04/05/16 05:15 Nabila Rods Not Reportable 04/05/16 05:15 Platelet Estimate Appears normal 04/05/16 05:15 Clumped Platelets Not Reportable 04/05/16 05:15 Plt Clumps, EDTA Not Reportable 04/05/16 05:15 Large Platelets Not Reportable 04/05/16 05:15 Giant Platelets Not Reportable 04/05/16 05:15 Platelet Satelliting Not Reportable 04/05/16 05:15 Plt Morphology Comment Not Reportable 04/05/16 05:15 RBC Morphology Not Reportable 04/05/16 05:15 Dimorphic RBCs Not Reportable 04/05/16 05:15 Polychromasia Not Reportable 04/05/16 05:15 Hypochromasia 1+ 04/05/16 05:15 Poikilocytosis Not Reportable 04/05/16 05:15 Anisocytosis 1+ 04/05/16 05:15 Microcytosis Not Reportable 04/05/16 05:15 Macrocytosis Not Reportable 04/05/16 05:15 Spherocytes Not Reportable 04/05/16 05:15 Pappenheimer Bodies Not Reportable 04/05/16 05:15 Sickle Cells Not Reportable 04/05/16 05:15 Target Cells Not Reportable 04/05/16 05:15 Tear Drop Cells Not Reportable 04/05/16 05:15 Ovalocytes Not Reportable 04/05/16 05:15 Stomatocytes Few 04/05/16 05:15 Helmet Cells Not Reportable 04/05/16 05:15 [place] Bodies Not Reportable 04/05/16 05:15 [place] Rings Not Reportable 04/05/16 05:15 Beatris Cells Not Reportable 04/05/16 05:15 Bite Cells Not Reportable 04/05/16 05:15 Crenated Cell Not Reportable 04/05/16 05:15 Elliptocytes Not Reportable 04/05/16 05:15 Acanthocytes (Spur) Not Reportable 04/05/16 05:15 Rouleaux Not Reportable 04/05/16 05:15 Hemoglobin C Crystals Not Reportable 04/05/16 05:15 Schistocytes Not Reportable 04/05/16 05:15 Malaria parasites Not Reportable 04/05/16 05:15 Darion Bodies Not Reportable 04/05/16 05:15 Hem Pathologist Commnt No 04/05/16 05:15 PT 13.7 Sec. (12.2-14.9) 04/06/16 05:14 INR 1.06 (0.87-1.13) 04/06/16 05:14 APTT 29.5 Sec. (24.2-36.6) 04/02/16 12:22 Heparin Anti-Xa Level 0.31 U.I./ml (0.3-0.7) 04/05/16 Unknown POC ABG pH 7.422 (7.35-7.45) 03/17/16 08:55 POC ABG pCO2 70.5 (35-45) H 03/17/16 08:55 POC ABG pO2 108 (80-105) H 03/17/16 08:55 POC ABG HCO3 46.0 03/17/16 08:55 POC ABG Total CO2 48 03/17/16 08:55 POC ABG O2 Sat 98 03/17/16 08:55 POC ABG Base Excess 22 03/17/16 08:55 FiO2 40 % 03/17/16 08:55 Sodium 143 mmol/L (137-145) 04/05/16 05:15 Potassium 4.1 mmol/L (3.6-5.0) 04/05/16 05:15 Chloride 98.6 mmol/L (98-107) 04/05/16 05:15 Carbon Dioxide 38 mmol/L (22-30) H 04/05/16 05:15 Anion Gap 11 mmol/L 04/05/16 05:15 BUN 10 mg/dL (7-17) 04/05/16 05:15 Creatinine 1.0 mg/dL (0.7-1.2) 04/05/16 05:15 Estimated GFR > 60 ml/min 04/05/16 05:15 BUN/Creatinine Ratio 10.00 % 04/05/16 05:15 Glucose 87 mg/dL (65-100) 04/05/16 05:15 POC Glucose 109 (70-105) H 04/05/16 21:46 Lactic Acid 1.6 mmol/L (0.7-2.0) 03/15/16 20:20 Calcium 9.1 mg/dL (8.4-10.2) 04/05/16 05:15 Magnesium 2.2 mg/dL (1.7-2.3) 03/15/16 20:20 Total Bilirubin 1.0 mg/dL (0.1-1.2) 03/15/16 20:20 AST 13 units/L (5-40) 03/15/16 20:20 ALT 15 units/L (7-56) 03/15/16 20:20 Alkaline Phosphatase 67 units/L (35-129) 03/15/16 20:20 Lactate Dehydrogenase 328 units/L (91-180) H 03/16/16 12:16 Total Creatine Kinase 14 units/L (30-135) L 03/17/16 13:16 CK-MB (CK-2) < 1.0 ng/mL (0.0-4.0) 03/17/16 13:16 CK-MB (CK-2) Rel Index 7.1 (0-4) H 03/17/16 13:16 Troponin T < 0.010 ng/mL (0.00-0.029) 03/28/16 23:18 C-Reactive Protein 2.60 mg/dL (0.00-1.30) H 03/16/16 12:16 NT-Pro-B Natriuret Pep 957.2 pg/mL (0-450) H 03/15/16 20:20 Total Protein 7.9 g/dL (6.3-8.2) 03/15/16 20:20 Albumin 3.1 g/dL (3.9-5) L 03/15/16 20:20 Albumin/Globulin Ratio 0.6 % 03/15/16 20:20 HCG, Quant < 2 mIU/mL (0-4) 03/15/16 20:20 Urine Color Yellow (Yellow) 03/15/16 21:43 Urine Turbidity Clear (Clear) 03/15/16 21:43 Urine pH 5.0 (5.0-7.0) 03/15/16 21:43 Ur Specific [place] 1.016 (1.003-1.030) 03/15/16 21:43 Urine Protein 30 mg/dl mg/dL (Negative) 03/15/16 21:43 Urine Glucose (UA) Neg mg/dL (Negative) 03/15/16 21:43 Urine Ketones Neg mg/dL (Negative) 03/15/16 21:43 Urine Blood Neg (Negative) 03/15/16 21:43 Urine Nitrite Neg (Negative) 03/15/16 21:43 Urine Bilirubin Neg (Negative) 03/15/16 21:43 Urine Urobilinogen 4.0 mg/dL (<2.0) 03/15/16 21:43 Ur Leukocyte Esterase Neg (Negative) 03/15/16 21:43 Urine WBC (Auto) 3.0 /HPF (0.0-6.0) 03/15/16 21:43 Urine RBC (Auto) 1.0 /HPF (0.0-6.0) 03/15/16 21:43 U Epithel Cells (Auto) 1.0 /HPF (0-13.0) 03/15/16 21:43 Hyaline Casts 1 /LPF 03/15/16 21:43 Urine Mucus Few /HPF 03/15/16 21:43 Fluid Total Protein 4.5 (15.0-45.0) L 03/16/16 16:00 Fluid LDH 498 03/16/16 16:00 Vancomycin Trough 32.1 ug/mL (5.0-20.0) H 03/27/16 19:57 Random Vancomycin 13.6 ug/mL (0-40.0) 03/30/16 05:08 Microbiology 03/15/16 Unknown Peripheral/Venous Blood Culture - Final NO GROWTH AFTER 5 DAYS 03/15/16 Unknown Peripheral/Venous Blood Culture - Final NO GROWTH AFTER 5 DAYS 03/16/16 16:00 Pleural Fluid - Pleura,Lt Lung Body Fluid Culture - Final 03/15/16 Unknown Urine,Catheterized - Indwelling Catheter Urine Culture - Final
--- NOTE | 2016-04-06 15:37 | XRay Report ---
PORTABLE CHEST INDICATION: Shortness of breath. COMPARISON: 04/02/2016 FINDINGS: Portable, frontal chest radiograph again limited due to patient's body habitus, though again demonstrates central/perihilar bronchovascular prominence with overall improved previously noted left more than right perihilar air space opacities. Left heart border though again obscured due to left mid to lower lung opacity representing atelectasis/consolidation/pleural fluid with obscured left hemidiaphragm. EKG leads. Mild patient tilt. Grossly unremarkable bones. CONCLUSION: Overall radiographic improvement in pulmonary vascular congestion/airspace opacities with left lower lung opacification persisting, as described above. Please correlate. Thank you for the opportunity to participate in this patient's care.
[2016-04-06] MEDS: COUMADIN PO SCH (18:57)
--- NOTE | 2016-04-06 21:28 | Progress Note ---
Assessment and Plan This is 40 year old female Morbidly obese came to the emergency room with a complaint of shortness of breath. Patients chest xray obtained showed complete opacification of left hemithorax. Patient has history of hypertension and pulmonary emboli.Patients pulmonary emboli diagnosed 3 months ago by CTA of the chest. Patient also diagnsed at that time DVT in left leg. Patient non compliant with her medications, Patient stopped taking Eliquis.Patient started on S/C Lovenox and Coumadin.Patient also treated for pneumonia recently at [facility]. Patients blood gases showed, patient is in respiratory failure. Patient placed on BIPAP Rate 20, 22/10, FIO2 50%. Patient awake ,following commands. Repeating blood gases in AM.[place] no known allergies. Smoking,alcohol or drug history not known at this time.Patient started on Levaquine and zosyn. Obtaining ultrasound of chest for possible left pleural effusion. 04/06/16 Patient alert and awake . Patient resting on 3 litres O2. No acute respiratory distress.. O2 satuaration 90%.Patient is going to go on BIPAP tonight. Patient undergone left thoracentesis Post thoracentesis chest ray pleural fluid is less. No pneumothorax. Pleural fluid is exudate. Pleural fluid protein is 4.5 and LDH 498.Pleural fluid i cytology results pending. Patient says coughing up blood at times.Told the patient to save it in the cup. So far she did not collect any of it. - Patient Problems (1) Acute and chronic respiratory failure ([id number]) Current Visit: No Status: Acute Plan to address problem: Patient alert and awake . Patient sitting up in chair.Patient is on 50% ventimask . O2 satuaration 95%. 04/01/16 Patient alert and awake . Patient resting on 50% ventimask . O2 satuaration 98% .Patient is going to go on BIPAP tonight. 04/05/15 Patient alert and awake . Patient resting on 3 litres O2. No acute respiratory distress.. O2 satuaration 92%.Patient is going to go on BIPAP tonight. Patient undergone left thoracentesis Post thoracentesis chest ray pleural fluid is less. No pneumothorax. Pleural fluid is exudate. Pleural fluid protein is 4.5 and LDH 498.Pleural fluid i cytology results pending. Patient says coughing up blood at times.Told the patient to save it in the cup. So far she did not collect any of it. 04/06/16 Patient alert and awake . Patient resting on 3 litres O2. No acute respiratory distress.. O2 satuaration 90%.Patient is going to go on BIPAP tonight. Patient undergone left thoracentesis Post thoracentesis chest ray pleural fluid is less. No pneumothorax. Pleural fluid is exudate. Pleural fluid protein is 4.5 and LDH 498.Pleural fluid i cytology results pending. Patient says coughing up blood at times.Told the patient to save it in the cup. So far she did not collect any of it. (2) Pulmonary emboli Current Visit: No Status: Acute Plan to address problem: 03/25/16 Patient is on coumadin. 03/27/16 Patients INR 3.52. Recommend hold coumadin today Recheck INR in AM. 03/28/16 TodaYS inr IS 3.67. CONTINUE HOLD COUMADIN UNTIL REACH THERAPEUTIC RANGE. INR came down to 1.47 Recommend to start on Lovenox until thoracentesis done. 04/04/16 Patient undergone left thoracentesis. Coumadin started. 04/05/15 Patient is on I/V Heparin and PO coumadin. 04/06/16 Patient is on I/V Heparin and PO coumadin. (3) Left femoral vein DVT Current Visit: No Status: Acute Plan to address problem: Lovenox and coumadin. 03/21/16 Patient presently is on I/V Heparin and coumadin. 03/22/16 Patient is on I/V heparin and coumadin. 03/25/16 Patient is on PO coumadin. 03/27/16 Patients INR 3.52 Recommend hold coumadin and recheck INR. 03/28/16 TODAYS inr 3.67 CONTINUE HOLD COUMADIN AND RECHECK INR. 04/01/16 Recommend to start on Lovenox until thoracentesis done. 04/04/15 Patient undergone left thoracentesis. Started back on coumadin. 04/06/16 Patient is on I/V Heparin and PO coumadin. (4) Pneumonia Current Visit: Yes Status: Acute Plan to address problem: Patient is on Zosyn and Levaquine. 03/18/16 Patient presently on Levaquine. 03/25/16 Patient presently on antibiotics Zosyn and vancomycin. 04/04/15 Patient off the antibiotics. Patient afebrile. (5) Pleural effusion, left Current Visit: Yes Status: Acute Plan to address problem: Patients ultrasound of chest reported pleural effusion. Patient under gone left thoracentesis. Pleural fluid cytology reported negative for malignant cells. Recommend to repeat thoracentesis under ultrasound guidance. 04/04/16 Patient undergone repeat left thoracentesis. Pleural fluid results pending. 04/05/15 Patient is on I/V heparin and PO coumadin. (6) Morbid obesity with BMI of 70 and over, adult Current Visit: No Status: Chronic Plan to address problem: Nutritional consultation for weight reduction diet. (7) Sleep apnea Current Visit: No Status: Chronic Plan to address problem: Patient is on BIPAP.22/01, rate 20, FIO2 50% Subjective Date of service: 04/06/16 Principal diagnosis: Acute Hypoxemic Respiratory Failure; Left Pleural Effusion Interval history: Patient alert and awake . Patient resting on 3 litres O2. No acute respiratory distress.. O2 satuaration 90%.Patient is going to go on BIPAP tonight. Patient undergone left thoracentesis Post thoracentesis chest ray pleural fluid is less. No pneumothorax. Pleural fluid is exudate. Pleural fluid protein is 4.5 and LDH 498.Pleural fluid i cytology results pending. Patient says coughing up blood at times.Told the patient to save it in the cup. So far she did not collect any of it. Objective Vital Signs - 12hr 04/06/16 04/06/16 04/06/16 11:20 11:27 11:30 Temperature 97.5 F L Pulse Rate 74 Pulse Rate [ 89 Apical] Respiratory 22 22 22 Rate Blood Pressure 141/79 [Left Arm] O2 Sat by Pulse 97 94 Oximetry 04/06/16 04/06/16 15:14 20:09 Temperature 97.9 F Pulse Rate Pulse Rate [ 104 H Apical] Respiratory 22 22 Rate Blood Pressure 179/91 [Left Arm] O2 Sat by Pulse 90 Oximetry Constitutional: no acute distress, alert Eyes: non-icteric ENT: oropharynx moist Neck: supple, no JVD Ascultation: Bilateral: diminished breath sounds (LLL), rales (LLL) Cardiovascular: regular rate and rhythm Gastrointestinal: normoactive bowel sounds, soft, non-tender, non-distended Integumentary: other (Stasis dermatitis.) Extremities: no cyanosis, pink and warm, pulses normal, no ischemia or petechiae , edema Neurologic: normal mental status, non-focal exam, pupils equal and round, motor strength normal and Psychiatric: mood appropriate, affect normal CBC and BMP: 04/06/16 05:14 04/05/16 05:15 ABG, PT/INR, D-dimer: ABG POC ABG pH 7.422 (7.35-7.45) 03/17/16 08:55 POC ABG pCO2 70.5 (35-45) H 03/17/16 08:55 POC ABG pO2 108 (80-105) H 03/17/16 08:55 POC ABG HCO3 46.0 03/17/16 08:55 POC ABG Total CO2 48 03/17/16 08:55 POC ABG O2 Sat 98 03/17/16 08:55 PT/INR, D-dimer PT 13.7 Sec. (12.2-14.9) 04/06/16 05:14 INR 1.06 (0.87-1.13) 04/06/16 05:14 Abnormal lab findings: Abnormal Labs 03/16/16 03/16/16 03/16/16 00:04 01:01 07:49 RBC MCV MCH MCHC RDW Plt Count Seg Neuts % (Manual) Lymphocytes % (Manual) Monocytes % (Manual) Eosinophils % (Manual) Lymphocytes # (Manual) PT 15.8 H INR 1.27 H Heparin Anti-Xa Level 0.18 L POC ABG pH 7.304 L POC ABG pCO2 92.8 H POC ABG pO2 Chloride Carbon Dioxide POC Glucose Lactate Dehydrogenase Total Creatine Kinase CK-MB (CK-2) Rel Index C-Reactive Protein Fluid Total Protein Vancomycin Trough 03/16/16 03/16/16 03/16/16 12:16 16:00 17:21 RBC MCV MCH MCHC RDW Plt Count Seg Neuts % (Manual) Lymphocytes % (Manual) Monocytes % (Manual) Eosinophils % (Manual) Lymphocytes # (Manual) PT INR Heparin Anti-Xa Level < 0.11 L POC ABG pH POC ABG pCO2 POC ABG pO2 Chloride Carbon Dioxide POC Glucose Lactate Dehydrogenase 328 H Total Creatine Kinase CK-MB (CK-2) Rel Index C-Reactive Protein 2.60 H Fluid Total Protein 4.5 L Vancomycin Trough 03/17/16 03/17/16 03/17/16 04:58 04:58 04:58 RBC 5.50 H MCV 70 L MCH 20 L MCHC 29 L RDW 23.7 H Plt Count Seg Neuts % (Manual) Lymphocytes % (Manual) Monocytes % (Manual) Eosinophils % (Manual) Lymphocytes # (Manual) PT INR Heparin Anti-Xa Level 0.14 L POC ABG pH POC ABG pCO2 POC ABG pO2 Chloride 94.9 L Carbon Dioxide 40 H POC Glucose Lactate Dehydrogenase Total Creatine Kinase CK-MB (CK-2) Rel Index C-Reactive Protein Fluid Total Protein Vancomycin Trough 03/17/16 03/17/16 03/17/16 08:55 11:50 13:16 RBC MCV MCH MCHC RDW Plt Count Seg Neuts % (Manual) Lymphocytes % (Manual) Monocytes % (Manual) Eosinophils % (Manual) Lymphocytes # (Manual) PT INR Heparin Anti-Xa Level 0.16 L POC ABG pH POC ABG pCO2 70.5 H POC ABG pO2 108 H Chloride Carbon Dioxide POC Glucose 65 L Lactate Dehydrogenase Total Creatine Kinase CK-MB (CK-2) Rel Index C-Reactive Protein Fluid Total Protein Vancomycin Trough 03/17/16 03/17/16 03/18/16 13:16 21:00 05:32 RBC MCV MCH MCHC RDW Plt Count Seg Neuts % (Manual) Lymphocytes % (Manual) Monocytes % (Manual) Eosinophils % (Manual) Lymphocytes # (Manual) PT 15.9 H INR 1.28 H Heparin Anti-Xa Level 0.13 L POC ABG pH POC ABG pCO2 POC ABG pO2 Chloride Carbon Dioxide POC Glucose Lactate Dehydrogenase Total Creatine Kinase 14 L CK-MB (CK-2) Rel Index 7.1 H C-Reactive Protein Fluid Total Protein Vancomycin Trough 03/18/16 03/18/16 03/18/16 07:35 07:43 15:45 RBC MCV MCH MCHC RDW Plt Count Seg Neuts % (Manual) Lymphocytes % (Manual) Monocytes % (Manual) Eosinophils % (Manual) Lymphocytes # (Manual) PT INR Heparin Anti-Xa Level 0.71 H POC ABG pH POC ABG pCO2 POC ABG pO2 Chloride Carbon Dioxide POC Glucose 63 L 109 H Lactate Dehydrogenase Total Creatine Kinase CK-MB (CK-2) Rel Index C-Reactive Protein Fluid Total Protein Vancomycin Trough 03/18/16 03/18/16 03/18/16 16:15 21:35 23:30 RBC MCV MCH MCHC RDW Plt Count Seg Neuts % (Manual) Lymphocytes % (Manual) Monocytes % (Manual) Eosinophils % (Manual) Lymphocytes # (Manual) PT INR Heparin Anti-Xa Level 0.86 H 0.26 L POC ABG pH POC ABG pCO2 POC ABG pO2 Chloride Carbon Dioxide POC Glucose 106 H Lactate Dehydrogenase Total Creatine Kinase CK-MB (CK-2) Rel Index C-Reactive Protein Fluid Total Protein Vancomycin Trough 03/19/16 03/19/16 03/19/16 06:57 08:28 17:12 RBC MCV MCH MCHC RDW Plt Count Seg Neuts % (Manual) Lymphocytes % (Manual) Monocytes % (Manual) Eosinophils % (Manual) Lymphocytes # (Manual) PT 15.6 H INR 1.25 H Heparin Anti-Xa Level POC ABG pH POC ABG pCO2 POC ABG pO2 Chloride Carbon Dioxide POC Glucose 67 L 110 H Lactate Dehydrogenase Total Creatine Kinase CK-MB (CK-2) Rel Index C-Reactive Protein Fluid Total Protein Vancomycin Trough 03/19/16 03/20/16 03/21/16 21:27 06:48 05:11 RBC MCV MCH MCHC RDW Plt Count Seg Neuts % (Manual) Lymphocytes % (Manual) Monocytes % (Manual) Eosinophils % (Manual) Lymphocytes # (Manual) PT 16.9 H 18.1 H INR 1.38 H 1.50 H Heparin Anti-Xa Level POC ABG pH POC ABG pCO2 POC ABG pO2 Chloride Carbon Dioxide POC Glucose 107 H Lactate Dehydrogenase Total Creatine Kinase CK-MB (CK-2) Rel Index C-Reactive Protein Fluid Total Protein Vancomycin Trough 03/21/16 03/21/16 03/21/16 05:11 16:02 21:59 RBC MCV MCH MCHC RDW Plt Count Seg Neuts % (Manual) Lymphocytes % (Manual) Monocytes % (Manual) Eosinophils % (Manual) Lymphocytes # (Manual) PT INR Heparin Anti-Xa Level 0.27 L 0.79 H POC ABG pH POC ABG pCO2 POC ABG pO2 Chloride Carbon Dioxide POC Glucose 128 H Lactate Dehydrogenase Total Creatine Kinase CK-MB (CK-2) Rel Index C-Reactive Protein Fluid Total Protein Vancomycin Trough 03/22/16 03/23/16 03/23/16 04:46 05:03 08:21 RBC MCV MCH MCHC RDW Plt Count Seg Neuts % (Manual) Lymphocytes % (Manual) Monocytes % (Manual) Eosinophils % (Manual) Lymphocytes # (Manual) PT 22.7 H 21.5 H INR 2.00 H 1.87 H Heparin Anti-Xa Level POC ABG pH POC ABG pCO2 POC ABG pO2 Chloride Carbon Dioxide POC Glucose 64 L Lactate Dehydrogenase Total Creatine Kinase CK-MB (CK-2) Rel Index C-Reactive Protein Fluid Total Protein Vancomycin Trough 03/23/16 03/24/16 03/25/16 14:57 05:09 02:04 RBC MCV MCH MCHC RDW Plt Count Seg Neuts % (Manual) Lymphocytes % (Manual) Monocytes % (Manual) Eosinophils % (Manual) Lymphocytes # (Manual) PT 25.9 H INR 2.36 H Heparin Anti-Xa Level < 0.10 L 0.10 L POC ABG pH POC ABG pCO2 POC ABG pO2 Chloride Carbon Dioxide POC Glucose Lactate Dehydrogenase Total Creatine Kinase CK-MB (CK-2) Rel Index C-Reactive Protein Fluid Total Protein Vancomycin Trough 03/25/16 03/25/16 03/26/16 05:21 18:24 07:48 RBC MCV MCH MCHC RDW Plt Count Seg Neuts % (Manual) Lymphocytes % (Manual) Monocytes % (Manual) Eosinophils % (Manual) Lymphocytes # (Manual) PT 29.4 H 31.6 H INR 2.77 H 3.03 H Heparin Anti-Xa Level POC ABG pH POC ABG pCO2 POC ABG pO2 Chloride Carbon Dioxide POC Glucose 112 H Lactate Dehydrogenase Total Creatine Kinase CK-MB (CK-2) Rel Index C-Reactive Protein Fluid Total Protein Vancomycin Trough 03/26/16 03/26/16 03/26/16 09:36 12:22 21:26 RBC MCV MCH MCHC RDW Plt Count Seg Neuts % (Manual) Lymphocytes % (Manual) Monocytes % (Manual) Eosinophils % (Manual) Lymphocytes # (Manual) PT INR Heparin Anti-Xa Level POC ABG pH POC ABG pCO2 POC ABG pO2 Chloride Carbon Dioxide POC Glucose 127 H 68 L 111 H Lactate Dehydrogenase Total Creatine Kinase CK-MB (CK-2) Rel Index C-Reactive Protein Fluid Total Protein Vancomycin Trough 03/27/16 03/27/16 03/27/16 07:10 16:04 19:57 RBC MCV MCH MCHC RDW Plt Count Seg Neuts % (Manual) Lymphocytes % (Manual) Monocytes % (Manual) Eosinophils % (Manual) Lymphocytes # (Manual) PT 35.6 H INR 3.52 H Heparin Anti-Xa Level POC ABG pH POC ABG pCO2 POC ABG pO2 Chloride Carbon Dioxide POC Glucose 109 H Lactate Dehydrogenase Total Creatine Kinase CK-MB (CK-2) Rel Index C-Reactive Protein Fluid Total Protein Vancomycin Trough 32.1 H 03/27/16 03/28/16 03/28/16 20:58 05:34 08:54 RBC MCV MCH MCHC RDW Plt Count Seg Neuts % (Manual) Lymphocytes % (Manual) Monocytes % (Manual) Eosinophils % (Manual) Lymphocytes # (Manual) PT 36.8 H INR 3.67 H Heparin Anti-Xa Level POC ABG pH POC ABG pCO2 POC ABG pO2 Chloride 97.7 L Carbon Dioxide 38 H POC Glucose 133 H Lactate Dehydrogenase Total Creatine Kinase CK-MB (CK-2) Rel Index C-Reactive Protein Fluid Total Protein Vancomycin Trough 03/28/16 03/28/16 03/29/16 16:15 22:20 05:19 RBC MCV MCH MCHC RDW Plt Count Seg Neuts % (Manual) Lymphocytes % (Manual) Monocytes % (Manual) Eosinophils % (Manual) Lymphocytes # (Manual) PT 34.1 H INR 3.34 H Heparin Anti-Xa Level POC ABG pH POC ABG pCO2 POC ABG pO2 Chloride Carbon Dioxide POC Glucose 125 H 106 H Lactate Dehydrogenase Total Creatine Kinase CK-MB (CK-2) Rel Index C-Reactive Protein Fluid Total Protein Vancomycin Trough 03/30/16 03/30/16 03/30/16 05:08 12:04 16:03 RBC MCV MCH MCHC RDW Plt Count Seg Neuts % (Manual) Lymphocytes % (Manual) Monocytes % (Manual) Eosinophils % (Manual) Lymphocytes # (Manual) PT 29.2 H INR 2.75 H Heparin Anti-Xa Level POC ABG pH POC ABG pCO2 POC ABG pO2 Chloride Carbon Dioxide POC Glucose 118 H 108 H Lactate Dehydrogenase Total Creatine Kinase CK-MB (CK-2) Rel Index C-Reactive Protein Fluid Total Protein Vancomycin Trough 03/31/16 03/31/16 03/31/16 05:40 14:37 17:24 RBC 5.34 H MCV 74 L MCH 22 L MCHC 29 L RDW 28.3 H Plt Count 119 L Seg Neuts % (Manual) Lymphocytes % (Manual) Monocytes % (Manual) Eosinophils % (Manual) Lymphocytes # (Manual) PT 17.8 H INR 1.47 H Heparin Anti-Xa Level POC ABG pH POC ABG pCO2 POC ABG pO2 Chloride Carbon Dioxide POC Glucose 115 H Lactate Dehydrogenase Total Creatine Kinase CK-MB (CK-2) Rel Index C-Reactive Protein Fluid Total Protein Vancomycin Trough 04/01/16 04/02/16 04/02/16 08:43 09:04 16:21 RBC MCV MCH MCHC RDW Plt Count Seg Neuts % (Manual) Lymphocytes % (Manual) Monocytes % (Manual) Eosinophils % (Manual) Lymphocytes # (Manual) PT INR 1.16 H Heparin Anti-Xa Level POC ABG pH POC ABG pCO2 POC ABG pO2 Chloride Carbon Dioxide POC Glucose 66 L 117 H Lactate Dehydrogenase Total Creatine Kinase CK-MB (CK-2) Rel Index C-Reactive Protein Fluid Total Protein Vancomycin Trough 04/02/16 04/03/16 04/03/16 21:15 07:20 17:58 RBC MCV MCH MCHC RDW Plt Count Seg Neuts % (Manual) Lymphocytes % (Manual) Monocytes % (Manual) Eosinophils % (Manual) Lymphocytes # (Manual) PT INR Heparin Anti-Xa Level 0.11 L < 0.10 L 0.13 L POC ABG pH POC ABG pCO2 POC ABG pO2 Chloride Carbon Dioxide POC Glucose Lactate Dehydrogenase Total Creatine Kinase CK-MB (CK-2) Rel Index C-Reactive Protein Fluid Total Protein Vancomycin Trough 04/04/16 04/05/16 04/05/16 09:36 05:15 05:15 RBC MCV 72 L MCH 21 L MCHC 29 L RDW 28.2 H Plt Count Seg Neuts % (Manual) 74.0 H Lymphocytes % (Manual) 11.0 L Monocytes % (Manual) 8.0 H Eosinophils % (Manual) 5.0 H Lymphocytes # (Manual) 0.7 L PT INR Heparin Anti-Xa Level 0.23 L POC ABG pH POC ABG pCO2 POC ABG pO2 Chloride Carbon Dioxide 38 H POC Glucose Lactate Dehydrogenase Total Creatine Kinase CK-MB (CK-2) Rel Index C-Reactive Protein Fluid Total Protein Vancomycin Trough 04/05/16 04/05/16 08:59 21:46 RBC MCV MCH MCHC RDW Plt Count Seg Neuts % (Manual) Lymphocytes % (Manual) Monocytes % (Manual) Eosinophils % (Manual) Lymphocytes # (Manual) PT INR Heparin Anti-Xa Level 0.11 L POC ABG pH POC ABG pCO2 POC ABG pO2 Chloride Carbon Dioxide POC Glucose 109 H Lactate Dehydrogenase Total Creatine Kinase CK-MB (CK-2) Rel Index C-Reactive Protein Fluid Total Protein Vancomycin Trough Chest x-ray: report reviewed (Improvement in pulmonary vascular congestion.Left lower lobe opacity and left pleural effusion persists.), image reviewed
[2016-04-07] MEDS: PROVENTIL IH SCH ×4 (03:02→23:36)
[2016-04-07] MEDS: MUCOMYST INHALATION SCH ×4 (03:02→23:36)
[2016-04-07 06:32] LABS: INR 1.17 (0.87-1.13)
[2016-04-07] MEDS: MORPHINE IV PRN ×2 (10:50→21:47)
[2016-04-07] MEDS: NORVASC PO SCH (10:50)
--- NOTE | 2016-04-07 13:24 | Progress Note ---
Assessment and Plan - Patient Problems (1) Pleural effusion, left Current Visit: Yes Status: Acute Plan to address problem: - outpatient f/up (2) Pneumonia Current Visit: Yes Status: Acute Plan to address problem: - treated appropriately - outpatient f/up (3) Acute and chronic respiratory failure ([id number]) Current Visit: No Status: Acute Plan to address problem: - FiO2 require,menta down to 3L NC - home oxygen evaluation (4) Pulmonary emboli Current Visit: No Status: Acute Plan to address problem: - complete 6 months of cumulative anticoagulation at therapeutic range (5) Sleep apnea Current Visit: No Status: Chronic Plan to address problem: - outpatient PSG (6) Discharge planning issues Current Visit: Yes Status: Acute Plan to address problem: - OK to discharge Subjective Date of service: 04/07/16 Principal diagnosis: Acute Hypoxemic Respiratory Failure; Left Pleural Effusion Interval history: Seen and examined at bedside; 24 hour events reviewed; nursing and respiratory care staff consulted; no adverse overnight events reported to me;looks better; repeat CXR reviewed and no major re-accumulation of pleural fluid that necessitates thoracentesis at this point; denies acute chest pains or increased SOB Objective Vital Signs - 12hr 04/07/16 04/07/16 04/07/16 02:25 05:37 06:53 Temperature 98.0 F 97.4 F L Pulse Rate 84 Pulse Rate [ Anterior Bilateral Throughout] Pulse Rate [ Apical] Pulse Rate [ 80 80 Right Radial] Respiratory 22 20 Rate Respiratory Rate [Anterior Bilateral Throughout] Blood Pressure Blood Pressure [Left Arm] Blood Pressure 138/73 139/76 [Right Arm] O2 Sat by Pulse 97 97 Oximetry 04/07/16 04/07/16 04/07/16 08:00 08:06 08:10 Temperature 97.1 F L Pulse Rate Pulse Rate [ 80 Anterior Bilateral Throughout] Pulse Rate [ 90 Apical] Pulse Rate [ Right Radial] Respiratory 22 Rate Respiratory 21 Rate [Anterior Bilateral Throughout] Blood Pressure Blood Pressure 143/100 [Left Arm] Blood Pressure [Right Arm] O2 Sat by Pulse 96 98 Oximetry 04/07/16 04/07/16 04/07/16 08:15 10:50 11:06 Temperature 97.8 F Pulse Rate 80 90 Pulse Rate [ 89 Anterior Bilateral Throughout] Pulse Rate [ 80 Apical] Pulse Rate [ Right Radial] Respiratory 19 20 Rate Respiratory 20 Rate [Anterior Bilateral Throughout] Blood Pressure 143/100 Blood Pressure 130/78 [Left Arm] Blood Pressure [Right Arm] O2 Sat by Pulse 98 98 Oximetry 04/07/16 12:03 Temperature 97.2 F L Pulse Rate Pulse Rate [ Anterior Bilateral Throughout] Pulse Rate [ 91 H Apical] Pulse Rate [ Right Radial] Respiratory 22 Rate Respiratory Rate [Anterior Bilateral Throughout] Blood Pressure Blood Pressure 171/79 [Left Arm] Blood Pressure [Right Arm] O2 Sat by Pulse 96 Oximetry Constitutional: no acute distress, alert Eyes: non-icteric ENT: oropharynx moist Neck: supple, no JVD Ascultation: Bilateral: clear, diminished breath sounds (LLL) Cardiovascular: regular rate and rhythm Gastrointestinal: normoactive bowel sounds, soft, non-tender, non-distended Integumentary: other (Stasis dermatitis.) Extremities: no cyanosis, pink and warm, pulses normal, no ischemia or petechiae , edema Neurologic: normal mental status, non-focal exam, pupils equal and round, motor strength normal and Psychiatric: mood appropriate, affect normal CBC and BMP: 04/08/16 05:17 04/05/16 05:15 ABG, PT/INR, D-dimer: ABG POC ABG pH 7.422 (7.35-7.45) 03/17/16 08:55 POC ABG pCO2 70.5 (35-45) H 03/17/16 08:55 POC ABG pO2 108 (80-105) H 03/17/16 08:55 POC ABG HCO3 46.0 03/17/16 08:55 POC ABG Total CO2 48 03/17/16 08:55 POC ABG O2 Sat 98 03/17/16 08:55 PT/INR, D-dimer PT 14.8 Sec. (12.2-14.9) 04/07/16 05:12 INR 1.17 (0.87-1.13) H 04/07/16 05:12 Abnormal lab findings: Abnormal Labs 03/16/16 03/16/16 03/16/16 00:04 01:01 07:49 RBC MCV MCH MCHC RDW Plt Count Seg Neuts % (Manual) Lymphocytes % (Manual) Monocytes % (Manual) Eosinophils % (Manual) Lymphocytes # (Manual) PT 15.8 H INR 1.27 H Heparin Anti-Xa Level 0.18 L POC ABG pH 7.304 L POC ABG pCO2 92.8 H POC ABG pO2 Chloride Carbon Dioxide POC Glucose Lactate Dehydrogenase Total Creatine Kinase CK-MB (CK-2) Rel Index C-Reactive Protein Fluid Total Protein Vancomycin Trough 03/16/16 03/16/16 03/16/16 12:16 16:00 17:21 RBC MCV MCH MCHC RDW Plt Count Seg Neuts % (Manual) Lymphocytes % (Manual) Monocytes % (Manual) Eosinophils % (Manual) Lymphocytes # (Manual) PT INR Heparin Anti-Xa Level < 0.11 L POC ABG pH POC ABG pCO2 POC ABG pO2 Chloride Carbon Dioxide POC Glucose Lactate Dehydrogenase 328 H Total Creatine Kinase CK-MB (CK-2) Rel Index C-Reactive Protein 2.60 H Fluid Total Protein 4.5 L Vancomycin Trough 03/17/16 03/17/16 03/17/16 04:58 04:58 04:58 RBC 5.50 H MCV 70 L MCH 20 L MCHC 29 L RDW 23.7 H Plt Count Seg Neuts % (Manual) Lymphocytes % (Manual) Monocytes % (Manual) Eosinophils % (Manual) Lymphocytes # (Manual) PT INR Heparin Anti-Xa Level 0.14 L POC ABG pH POC ABG pCO2 POC ABG pO2 Chloride 94.9 L Carbon Dioxide 40 H POC Glucose Lactate Dehydrogenase Total Creatine Kinase CK-MB (CK-2) Rel Index C-Reactive Protein Fluid Total Protein Vancomycin Trough 03/17/16 03/17/16 03/17/16 08:55 11:50 13:16 RBC MCV MCH MCHC RDW Plt Count Seg Neuts % (Manual) Lymphocytes % (Manual) Monocytes % (Manual) Eosinophils % (Manual) Lymphocytes # (Manual) PT INR Heparin Anti-Xa Level 0.16 L POC ABG pH POC ABG pCO2 70.5 H POC ABG pO2 108 H Chloride Carbon Dioxide POC Glucose 65 L Lactate Dehydrogenase Total Creatine Kinase CK-MB (CK-2) Rel Index C-Reactive Protein Fluid Total Protein Vancomycin Trough 03/17/16 03/17/16 03/18/16 13:16 21:00 05:32 RBC MCV MCH MCHC RDW Plt Count Seg Neuts % (Manual) Lymphocytes % (Manual) Monocytes % (Manual) Eosinophils % (Manual) Lymphocytes # (Manual) PT 15.9 H INR 1.28 H Heparin Anti-Xa Level 0.13 L POC ABG pH POC ABG pCO2 POC ABG pO2 Chloride Carbon Dioxide POC Glucose Lactate Dehydrogenase Total Creatine Kinase 14 L CK-MB (CK-2) Rel Index 7.1 H C-Reactive Protein Fluid Total Protein Vancomycin Trough 03/18/16 03/18/16 03/18/16 07:35 07:43 15:45 RBC MCV MCH MCHC RDW Plt Count Seg Neuts % (Manual) Lymphocytes % (Manual) Monocytes % (Manual) Eosinophils % (Manual) Lymphocytes # (Manual) PT INR Heparin Anti-Xa Level 0.71 H POC ABG pH POC ABG pCO2 POC ABG pO2 Chloride Carbon Dioxide POC Glucose 63 L 109 H Lactate Dehydrogenase Total Creatine Kinase CK-MB (CK-2) Rel Index C-Reactive Protein Fluid Total Protein Vancomycin Trough 03/18/16 03/18/16 03/18/16 16:15 21:35 23:30 RBC MCV MCH MCHC RDW Plt Count Seg Neuts % (Manual) Lymphocytes % (Manual) Monocytes % (Manual) Eosinophils % (Manual) Lymphocytes # (Manual) PT INR Heparin Anti-Xa Level 0.86 H 0.26 L POC ABG pH POC ABG pCO2 POC ABG pO2 Chloride Carbon Dioxide POC Glucose 106 H Lactate Dehydrogenase Total Creatine Kinase CK-MB (CK-2) Rel Index C-Reactive Protein Fluid Total Protein Vancomycin Trough 03/19/16 03/19/16 03/19/16 06:57 08:28 17:12 RBC MCV MCH MCHC RDW Plt Count Seg Neuts % (Manual) Lymphocytes % (Manual) Monocytes % (Manual) Eosinophils % (Manual) Lymphocytes # (Manual) PT 15.6 H INR 1.25 H Heparin Anti-Xa Level POC ABG pH POC ABG pCO2 POC ABG pO2 Chloride Carbon Dioxide POC Glucose 67 L 110 H Lactate Dehydrogenase Total Creatine Kinase CK-MB (CK-2) Rel Index C-Reactive Protein Fluid Total Protein Vancomycin Trough 03/19/16 03/20/16 03/21/16 21:27 06:48 05:11 RBC MCV MCH MCHC RDW Plt Count Seg Neuts % (Manual) Lymphocytes % (Manual) Monocytes % (Manual) Eosinophils % (Manual) Lymphocytes # (Manual) PT 16.9 H 18.1 H INR 1.38 H 1.50 H Heparin Anti-Xa Level POC ABG pH POC ABG pCO2 POC ABG pO2 Chloride Carbon Dioxide POC Glucose 107 H Lactate Dehydrogenase Total Creatine Kinase CK-MB (CK-2) Rel Index C-Reactive Protein Fluid Total Protein Vancomycin Trough 03/21/16 03/21/16 03/21/16 05:11 16:02 21:59 RBC MCV MCH MCHC RDW Plt Count Seg Neuts % (Manual) Lymphocytes % (Manual) Monocytes % (Manual) Eosinophils % (Manual) Lymphocytes # (Manual) PT INR Heparin Anti-Xa Level 0.27 L 0.79 H POC ABG pH POC ABG pCO2 POC ABG pO2 Chloride Carbon Dioxide POC Glucose 128 H Lactate Dehydrogenase Total Creatine Kinase CK-MB (CK-2) Rel Index C-Reactive Protein Fluid Total Protein Vancomycin Trough 03/22/16 03/23/16 03/23/16 04:46 05:03 08:21 RBC MCV MCH MCHC RDW Plt Count Seg Neuts % (Manual) Lymphocytes % (Manual) Monocytes % (Manual) Eosinophils % (Manual) Lymphocytes # (Manual) PT 22.7 H 21.5 H INR 2.00 H 1.87 H Heparin Anti-Xa Level POC ABG pH POC ABG pCO2 POC ABG pO2 Chloride Carbon Dioxide POC Glucose 64 L Lactate Dehydrogenase Total Creatine Kinase CK-MB (CK-2) Rel Index C-Reactive Protein Fluid Total Protein Vancomycin Trough 03/23/16 03/24/16 03/25/16 14:57 05:09 02:04 RBC MCV MCH MCHC RDW Plt Count Seg Neuts % (Manual) Lymphocytes % (Manual) Monocytes % (Manual) Eosinophils % (Manual) Lymphocytes # (Manual) PT 25.9 H INR 2.36 H Heparin Anti-Xa Level < 0.10 L 0.10 L POC ABG pH POC ABG pCO2 POC ABG pO2 Chloride Carbon Dioxide POC Glucose Lactate Dehydrogenase Total Creatine Kinase CK-MB (CK-2) Rel Index C-Reactive Protein Fluid Total Protein Vancomycin Trough 03/25/16 03/25/16 03/26/16 05:21 18:24 07:48 RBC MCV MCH MCHC RDW Plt Count Seg Neuts % (Manual) Lymphocytes % (Manual) Monocytes % (Manual) Eosinophils % (Manual) Lymphocytes # (Manual) PT 29.4 H 31.6 H INR 2.77 H 3.03 H Heparin Anti-Xa Level POC ABG pH POC ABG pCO2 POC ABG pO2 Chloride Carbon Dioxide POC Glucose 112 H Lactate Dehydrogenase Total Creatine Kinase CK-MB (CK-2) Rel Index C-Reactive Protein Fluid Total Protein Vancomycin Trough 03/26/16 03/26/16 03/26/16 09:36 12:22 21:26 RBC MCV MCH MCHC RDW Plt Count Seg Neuts % (Manual) Lymphocytes % (Manual) Monocytes % (Manual) Eosinophils % (Manual) Lymphocytes # (Manual) PT INR Heparin Anti-Xa Level POC ABG pH POC ABG pCO2 POC ABG pO2 Chloride Carbon Dioxide POC Glucose 127 H 68 L 111 H Lactate Dehydrogenase Total Creatine Kinase CK-MB (CK-2) Rel Index C-Reactive Protein Fluid Total Protein Vancomycin Trough 03/27/16 03/27/16 03/27/16 07:10 16:04 19:57 RBC MCV MCH MCHC RDW Plt Count Seg Neuts % (Manual) Lymphocytes % (Manual) Monocytes % (Manual) Eosinophils % (Manual) Lymphocytes # (Manual) PT 35.6 H INR 3.52 H Heparin Anti-Xa Level POC ABG pH POC ABG pCO2 POC ABG pO2 Chloride Carbon Dioxide POC Glucose 109 H Lactate Dehydrogenase Total Creatine Kinase CK-MB (CK-2) Rel Index C-Reactive Protein Fluid Total Protein Vancomycin Trough 32.1 H 03/27/16 03/28/16 03/28/16 20:58 05:34 08:54 RBC MCV MCH MCHC RDW Plt Count Seg Neuts % (Manual) Lymphocytes % (Manual) Monocytes % (Manual) Eosinophils % (Manual) Lymphocytes # (Manual) PT 36.8 H INR 3.67 H Heparin Anti-Xa Level POC ABG pH POC ABG pCO2 POC ABG pO2 Chloride 97.7 L Carbon Dioxide 38 H POC Glucose 133 H Lactate Dehydrogenase Total Creatine Kinase CK-MB (CK-2) Rel Index C-Reactive Protein Fluid Total Protein Vancomycin Trough 03/28/16 03/28/16 03/29/16 16:15 22:20 05:19 RBC MCV MCH MCHC RDW Plt Count Seg Neuts % (Manual) Lymphocytes % (Manual) Monocytes % (Manual) Eosinophils % (Manual) Lymphocytes # (Manual) PT 34.1 H INR 3.34 H Heparin Anti-Xa Level POC ABG pH POC ABG pCO2 POC ABG pO2 Chloride Carbon Dioxide POC Glucose 125 H 106 H Lactate Dehydrogenase Total Creatine Kinase CK-MB (CK-2) Rel Index C-Reactive Protein Fluid Total Protein Vancomycin Trough 03/30/16 03/30/16 03/30/16 05:08 12:04 16:03 RBC MCV MCH MCHC RDW Plt Count Seg Neuts % (Manual) Lymphocytes % (Manual) Monocytes % (Manual) Eosinophils % (Manual) Lymphocytes # (Manual) PT 29.2 H INR 2.75 H Heparin Anti-Xa Level POC ABG pH POC ABG pCO2 POC ABG pO2 Chloride Carbon Dioxide POC Glucose 118 H 108 H Lactate Dehydrogenase Total Creatine Kinase CK-MB (CK-2) Rel Index C-Reactive Protein Fluid Total Protein Vancomycin Trough 03/31/16 03/31/16 03/31/16 05:40 14:37 17:24 RBC 5.34 H MCV 74 L MCH 22 L MCHC 29 L RDW 28.3 H Plt Count 119 L Seg Neuts % (Manual) Lymphocytes % (Manual) Monocytes % (Manual) Eosinophils % (Manual) Lymphocytes # (Manual) PT 17.8 H INR 1.47 H Heparin Anti-Xa Level POC ABG pH POC ABG pCO2 POC ABG pO2 Chloride Carbon Dioxide POC Glucose 115 H Lactate Dehydrogenase Total Creatine Kinase CK-MB (CK-2) Rel Index C-Reactive Protein Fluid Total Protein Vancomycin Trough 04/01/16 04/02/16 04/02/16 08:43 09:04 16:21 RBC MCV MCH MCHC RDW Plt Count Seg Neuts % (Manual) Lymphocytes % (Manual) Monocytes % (Manual) Eosinophils % (Manual) Lymphocytes # (Manual) PT INR 1.16 H Heparin Anti-Xa Level POC ABG pH POC ABG pCO2 POC ABG pO2 Chloride Carbon Dioxide POC Glucose 66 L 117 H Lactate Dehydrogenase Total Creatine Kinase CK-MB (CK-2) Rel Index C-Reactive Protein Fluid Total Protein Vancomycin Trough 04/02/16 04/03/16 04/03/16 21:15 07:20 17:58 RBC MCV MCH MCHC RDW Plt Count Seg Neuts % (Manual) Lymphocytes % (Manual) Monocytes % (Manual) Eosinophils % (Manual) Lymphocytes # (Manual) PT INR Heparin Anti-Xa Level 0.11 L < 0.10 L 0.13 L POC ABG pH POC ABG pCO2 POC ABG pO2 Chloride Carbon Dioxide POC Glucose Lactate Dehydrogenase Total Creatine Kinase CK-MB (CK-2) Rel Index C-Reactive Protein Fluid Total Protein Vancomycin Trough 04/04/16 04/05/16 04/05/16 09:36 05:15 05:15 RBC MCV 72 L MCH 21 L MCHC 29 L RDW 28.2 H Plt Count Seg Neuts % (Manual) 74.0 H Lymphocytes % (Manual) 11.0 L Monocytes % (Manual) 8.0 H Eosinophils % (Manual) 5.0 H Lymphocytes # (Manual) 0.7 L PT INR Heparin Anti-Xa Level 0.23 L POC ABG pH POC ABG pCO2 POC ABG pO2 Chloride Carbon Dioxide 38 H POC Glucose Lactate Dehydrogenase Total Creatine Kinase CK-MB (CK-2) Rel Index C-Reactive Protein Fluid Total Protein Vancomycin Trough 04/05/16 04/05/16 04/07/16 08:59 21:46 05:12 RBC MCV MCH MCHC RDW Plt Count Seg Neuts % (Manual) Lymphocytes % (Manual) Monocytes % (Manual) Eosinophils % (Manual) Lymphocytes # (Manual) PT INR 1.17 H Heparin Anti-Xa Level 0.11 L POC ABG pH POC ABG pCO2 POC ABG pO2 Chloride Carbon Dioxide POC Glucose 109 H Lactate Dehydrogenase Total Creatine Kinase CK-MB (CK-2) Rel Index C-Reactive Protein Fluid Total Protein Vancomycin Trough
[2016-04-07] MEDS: PERCOCET 5/325 PO PRN (15:05)
--- NOTE | 2016-04-07 15:05 | Progress Note ---
Assessment and Plan Assessment and plan: 1. Acute hypoxemic respiratory failure/left lung PNA with parapneumonic effusion/lena with hemoptysis -post thoracocentesis on 04/02/2016 Of 1.1 L; continue with BiPAP and wean as tolerated to nocturnal BiPAP; to follow-up with pulmonary for further recommendations regarding; patient has oxygen and BIPAP at home; f/u pulmonary for further recommendations; d/wed with Dr. Escobar- will await further recommendations 2. 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 Type 2 diabetes mellitus. Continue Accu-Cheks and sliding scale regular insulin. 4. Morbid obesity. Nutritional consultation. 5. LENA/OHS. cont nocturnal BIPAP . 6. Hypertension - stable cotn norvacs; monitor BP 7. DVT prophylaxis-heparin History Interval history: Follow-up for respiratory failure, pneumonia, pleural effusion Patient seen at the bedside, no complaints complains of hemoptysis but it is improving; on BIPAP Hospitalist Physical - Constitutional Vitals: Temp Pulse Resp BP Pulse Ox 97.2 F L 91 H 22 171/79 96 04/07/16 12:03 04/07/16 12:03 04/07/16 12:03 04/07/16 12:03 04/07/16 12:03 General appearance: Present: no acute distress (BiPAP), obese (morbid) - EENT Eyes: Present: PERRL, EOM intact. Absent: scleral icterus, conjunctival injection ENT: hearing intact, clear oral mucosa, no oropharyngeal erythema, no poor dentition - Neck Neck: Present: supple, normal ROM. Absent: enlarged thyroid, masses or JVD - Respiratory Respiratory effort: normal Respiratory: bilateral: diminished, negative: rales, rhonchi, wheezing - Cardiovascular Rhythm: regular Heart Sounds: Present: S1 & S2. Absent: gallop - Extremities Extremities: no ischemia, pulses intact, pulses symmetrical Peripheral Pulses: within normal limits - Abdominal General gastrointestinal: soft, non-tender, non-distended, normal bowel sounds - Integumentary Integumentary: Present: clear - Psychiatric Psychiatric: appropriate mood/affect, intact judgment & insight, cooperative - Neurologic Neurologic: CNII-XII intact, moves all extremities Results - Labs CBC & Chem 7: 04/06/16 05:14 04/05/16 05:15 Labs: Laboratory Last Values WBC 6.4 K/mm3 (4.5-11.0) 04/05/16 05:15 RBC 4.93 M/mm3 (3.65-5.03) 04/05/16 05:15 Hgb 10.3 gm/dl (10.1-14.3) 04/06/16 05:14 Hct 34.3 % (30.3-42.9) 04/06/16 05:14 MCV 72 fl (79-97) L 04/05/16 05:15 MCH 21 pg (28-32) L 04/05/16 05:15 MCHC 29 % (30-34) L 04/05/16 05:15 RDW 28.2 % (13.2-15.2) H 04/05/16 05:15 Plt Count 163 K/mm3 (140-440) 04/06/16 05:14 Lymph % (Auto) [employer] 04/05/16 05:15 [place] % (Auto) Assistant [employer] Defender 04/05/16 05:15 Eos % (Auto) Assistant [employer] Defender 04/05/16 05:15 Baso % (Auto) Assistant [employer] Defender 04/05/16 05:15 Lymph # Assistant [employer] Defender 04/05/16 05:15 [place] # Assistant Public Defender 04/05/16 05:15 Eos # Assistant Public Defender 04/05/16 05:15 Baso # Assistant Public Defender 04/05/16 05:15 Add Manual Diff Complete 04/05/16 05:15 Total Counted 100 04/05/16 05:15 Seg Neutrophils % Assistant [employer] Defender 04/05/16 05:15 Seg Neuts % (Manual) 74.0 % (40.0-70.0) H 04/05/16 05:15 Band Neutrophils % 2.0 % 04/05/16 05:15 Lymphocytes % (Manual) 11.0 % (13.4-35.0) L 04/05/16 05:15 Reactive Lymphs % (Man) 0 % 04/05/16 05:15 Monocytes % (Manual) 8.0 % (0.0-7.3) H 04/05/16 05:15 Eosinophils % (Manual) 5.0 % (0.0-4.3) H 04/05/16 05:15 Basophils % (Manual) 0 % (0.0-1.8) 04/05/16 05:15 Metamyelocytes % 0 % 04/05/16 05:15 Myelocytes % 0 % 04/05/16 05:15 Promyelocytes % 0 % 04/05/16 05:15 Blast Cells % 0 % 04/05/16 05:15 Nucleated RBC % Not Reportable 04/05/16 05:15 Seg Neutrophils # Assistant Public Defender 04/05/16 05:15 Seg Neutrophils # Man 4.7 K/mm3 (1.8-7.7) 04/05/16 05:15 Band Neutrophils # 0.1 K/mm3 04/05/16 05:15 Lymphocytes # (Manual) 0.7 K/mm3 (1.2-5.4) L 04/05/16 05:15 Abs React Lymphs (Man) 0.0 K/mm3 04/05/16 05:15 Monocytes # (Manual) 0.5 K/mm3 (0.0-0.8) 04/05/16 05:15 Eosinophils # (Manual) 0.3 K/mm3 (0.0-0.4) 04/05/16 05:15 Basophils # (Manual) 0.0 K/mm3 (0.0-0.1) 04/05/16 05:15 Metamyelocytes # 0.0 K/mm3 04/05/16 05:15 Myelocytes # 0.0 K/mm3 04/05/16 05:15 Promyelocytes # 0.0 K/mm3 04/05/16 05:15 Blast Cells # 0.0 K/mm3 04/05/16 05:15 WBC Morphology Not Reportable 04/05/16 05:15 Hypersegmented Neuts Not Reportable 04/05/16 05:15 Hyposegmented Neuts Not Reportable 04/05/16 05:15 Hypogranular Neuts Not Reportable 04/05/16 05:15 Smudge Cells Not Reportable 04/05/16 05:15 Toxic Granulation Not Reportable 04/05/16 05:15 Toxic Vacuolation Not Reportable 04/05/16 05:15 Dohle Bodies Not Reportable 04/05/16 05:15 Pel[place]-Huet Anomaly Not Reportable 04/05/16 05:15 Nabila Rods Not Reportable 04/05/16 05:15 Platelet Estimate Appears normal 04/05/16 05:15 Clumped Platelets Not Reportable 04/05/16 05:15 Plt Clumps, EDTA Not Reportable 04/05/16 05:15 Large Platelets Not Reportable 04/05/16 05:15 Giant Platelets Not Reportable 04/05/16 05:15 Platelet Satelliting Not Reportable 04/05/16 05:15 Plt Morphology Comment Not Reportable 04/05/16 05:15 RBC Morphology Not Reportable 04/05/16 05:15 Dimorphic RBCs Not Reportable 04/05/16 05:15 Polychromasia Not Reportable 04/05/16 05:15 Hypochromasia 1+ 04/05/16 05:15 Poikilocytosis Not Reportable 04/05/16 05:15 Anisocytosis 1+ 04/05/16 05:15 Microcytosis Not Reportable 04/05/16 05:15 Macrocytosis Not Reportable 04/05/16 05:15 Spherocytes Not Reportable 04/05/16 05:15 Pappenheimer Bodies Not Reportable 04/05/16 05:15 Sickle Cells Not Reportable 04/05/16 05:15 Target Cells Not Reportable 04/05/16 05:15 Tear Drop Cells Not Reportable 04/05/16 05:15 Ovalocytes Not Reportable 04/05/16 05:15 Stomatocytes Few 04/05/16 05:15 Helmet Cells Not Reportable 04/05/16 05:15 [place] Bodies Not Reportable 04/05/16 05:15 [place] Rings Not Reportable 04/05/16 05:15 [place] Cells Not Reportable 04/05/16 05:15 Bite Cells Not Reportable 04/05/16 05:15 Crenated Cell Not Reportable 04/05/16 05:15 Elliptocytes Not Reportable 04/05/16 05:15 Acanthocytes (Spur) Not Reportable 04/05/16 05:15 Rouleaux Not Reportable 04/05/16 05:15 Hemoglobin C Crystals Not Reportable 04/05/16 05:15 Schistocytes Not Reportable 04/05/16 05:15 Malaria parasites Not Reportable 04/05/16 05:15 [place] Bodies Not Reportable 04/05/16 05:15 Hem Pathologist Commnt No 04/05/16 05:15 PT 14.8 Sec. (12.2-14.9) 04/07/16 05:12 INR 1.17 (0.87-1.13) H 04/07/16 05:12 APTT 29.5 Sec. (24.2-36.6) 04/02/16 12:22 Heparin Anti-Xa Level < 0.10 U.I./ml (0.3-0.7) L 04/07/16 13:11 POC ABG pH 7.422 (7.35-7.45) 03/17/16 08:55 POC ABG pCO2 70.5 (35-45) H 03/17/16 08:55 POC ABG pO2 108 (80-105) H 03/17/16 08:55 POC ABG HCO3 46.0 03/17/16 08:55 POC ABG Total CO2 48 03/17/16 08:55 POC ABG O2 Sat 98 03/17/16 08:55 POC ABG Base Excess 22 03/17/16 08:55 FiO2 40 % 03/17/16 08:55 Sodium 143 mmol/L (137-145) 04/05/16 05:15 Potassium 4.1 mmol/L (3.6-5.0) 04/05/16 05:15 Chloride 98.6 mmol/L (98-107) 04/05/16 05:15 Carbon Dioxide 38 mmol/L (22-30) H 04/05/16 05:15 Anion Gap 11 mmol/L 04/05/16 05:15 BUN 10 mg/dL (7-17) 04/05/16 05:15 Creatinine 1.0 mg/dL (0.7-1.2) 04/05/16 05:15 Estimated GFR > 60 ml/min 04/05/16 05:15 BUN/Creatinine Ratio 10.00 % 04/05/16 05:15 Glucose 87 mg/dL (65-100) 04/05/16 05:15 POC Glucose 72 (70-105) 04/06/16 22:23 Lactic Acid 1.6 mmol/L (0.7-2.0) 03/15/16 20:20 Calcium 9.1 mg/dL (8.4-10.2) 04/05/16 05:15 Magnesium 2.2 mg/dL (1.7-2.3) 03/15/16 20:20 Total Bilirubin 1.0 mg/dL (0.1-1.2) 03/15/16 20:20 AST 13 units/L (5-40) 03/15/16 20:20 ALT 15 units/L (7-56) 03/15/16 20:20 Alkaline Phosphatase 67 units/L (35-129) 03/15/16 20:20 Lactate Dehydrogenase 328 units/L (91-180) H 03/16/16 12:16 Total Creatine Kinase 14 units/L (30-135) L 03/17/16 13:16 CK-MB (CK-2) < 1.0 ng/mL (0.0-4.0) 03/17/16 13:16 CK-MB (CK-2) Rel Index 7.1 (0-4) H 03/17/16 13:16 Troponin T < 0.010 ng/mL (0.00-0.029) 03/28/16 23:18 C-Reactive Protein 2.60 mg/dL (0.00-1.30) H 03/16/16 12:16 NT-Pro-B Natriuret Pep 957.2 pg/mL (0-450) H 03/15/16 20:20 Total Protein 7.9 g/dL (6.3-8.2) 03/15/16 20:20 Albumin 3.1 g/dL (3.9-5) L 03/15/16 20:20 Albumin/Globulin Ratio 0.6 % 03/15/16 20:20 HCG, Quant < 2 mIU/mL (0-4) 03/15/16 20:20 Urine Color Yellow (Yellow) 03/15/16 21:43 Urine Turbidity Clear (Clear) 03/15/16 21:43 Urine pH 5.0 (5.0-7.0) 03/15/16 21:43 Ur Specific [place] 1.016 (1.003-1.030) 03/15/16 21:43 Urine Protein 30 mg/dl mg/dL (Negative) 03/15/16 21:43 Urine Glucose (UA) Neg mg/dL (Negative) 03/15/16 21:43 Urine Ketones Neg mg/dL (Negative) 12/13/16 21:43 Urine Blood Neg (Negative) 03/15/16 21:43 Urine Nitrite Neg (Negative) 03/15/16 21:43 Urine Bilirubin Neg (Negative) 03/15/16 21:43 Urine Urobilinogen 4.0 mg/dL (<2.0) 03/15/16 21:43 Ur Leukocyte Esterase Neg (Negative) 03/15/16 21:43 Urine WBC (Auto) 3.0 /HPF (0.0-6.0) 03/15/16 21:43 Urine RBC (Auto) 1.0 /HPF (0.0-6.0) 03/15/16 21:43 U Epithel Cells (Auto) 1.0 /HPF (0-13.0) 03/15/16 21:43 Hyaline Casts 1 /LPF 03/15/16 21:43 Urine Mucus Few /HPF 03/15/16 21:43 Fluid Total Protein 4.5 (15.0-45.0) L 03/16/16 16:00 Fluid LDH 498 03/16/16 16:00 Vancomycin Trough 32.1 ug/mL (5.0-20.0) H 03/27/16 19:57 Random Vancomycin 13.6 ug/mL (0-40.0) 03/30/16 05:08 Microbiology 03/15/16 Unknown Peripheral/Venous Blood Culture - Final NO GROWTH AFTER 5 DAYS 03/15/16 Unknown Peripheral/Venous Blood Culture - Final NO GROWTH AFTER 5 DAYS 03/16/16 16:00 Pleural Fluid - Pleura,Lt Lung Body Fluid Culture - Final 03/15/16 Unknown Urine,Catheterized - Indwelling Catheter Urine Culture - Final - Imaging and Cardiology Chest x-ray: report reviewed (Improvement on pulmonary vascular congestion/air. Pain is opacities with left lower lung opacification persisting. The heart border though again obscured due to left mid to lower lung opacity representing atelectasis 6/consolidation/pleural fluid with obscured left hemidiaphragm)
[2016-04-07] MEDS: COUMADIN PO SCH (17:55)
[2016-04-07] MEDS: APRESOLINE IV PRN (17:55)
[2016-04-08 05:48] LABS: Mean Corpuscular HGB Conc 30 % (30-34); Mean Corpuscular Volume 73 fl (79-97); Platelet Count 182 K/mm3 (140-440); Red Blood Count 4.81 M/mm3 (3.65-5.03)
[2016-04-08 06:01] LABS: Hematocrit 34.8 % (30.3-42.9); Hemoglobin 10.4 gm/dl (10.1-14.3); Mean Corpuscular Hemoglobin 22 pg (28-32); Red Cell Distribution Width 29.7 % (13.2-15.2)
[2016-04-08 06:02] LABS: INR 1.28 (0.87-1.13)
[2016-04-08] MEDS: MORPHINE IV PRN (06:22)
[2016-04-08] MEDS: HEPARIN/ 0.45% NACL-25,000 UNIT/500 ML 500 ML IV SCH (06:23)
[2016-04-08] MEDS: PROVENTIL IH SCH ×2 (07:32→16:46)
[2016-04-08] MEDS: MUCOMYST INHALATION SCH ×2 (07:32→16:45)
[2016-04-08 07:53] LABS: Basophils % (Manual) 0 % (0.0-1.8); Blastocytes % (Manual) 0 %
[2016-04-08 07:54] LABS: Anisocytosis 1+; Diff Status Complete; Giant Platelets Rare; Hypochromasia 1+; Microcytosis 1+; Ovalocytes Few; Poikilocytosis 1+; Spherocytes 1+; Stomatocytes 1+; Target Cells 1+
[2016-04-08] MEDS: PERCOCET 5/325 PO PRN ×2 (08:30→16:26)
[2016-04-08] MEDS: NORVASC PO SCH (09:23)
--- NOTE | 2016-04-08 10:36 | Discharge Summary ---
Providers - Providers Date of Admission: 03/15/16 23:58 Date of discharge: 04/08/16 Attending physician: LOLA SAWYER 03/15/16 23:59 Consult to Physician [CONS] Stat Consulting Provider: MOUNIKA RIDER Reason For Exam: resp distress Place consult to:: answering service Notified:: y Time called:: 23:53 Comment:: 03/27/16 07:15 Occupational Therapy Evaluate and Treat [CONS] Routine Comment: Reason For Exam: DEBILITATING 03/29/16 19:58 Consult to Interventional Radiology [CONS] Routine Consulting Provider: TRUONG NESS Reason For Exam: Left chest tube placement Place consult to:: TRUONG NESS Notified:: Satnam from answering service Phone number called:: [phone] Was contact made?: Yes If yes, spoke with:: Satnam from answering service Time called:: 06:34 03/29/16 20:08 Consult to Physician [CONS] Routine Consulting Provider: BOLA GRIGGS Reason For Exam: recurrent left pleural exudative effusion Place consult to:: BOLA GRIGGS Notified:: yes Phone number called:: [phone] Time called:: 07:24 Comment:: on floor 04/01/16 09:27 Physical Therapy Evaluation and Treat [CONS] Routine Comment: Reason For Exam: eval & treat Primary care physician: BELLMAN DRIVER Hospitalization Reason for admission: respiratory failure; pneumonia, parapneumonic effusion Condition: Critical Pertinent studies: c x-ray on admission-almost complete opacification of the left hemithorax which is most likely a combination of infiltrate, atelectasis and effusion. Mild infiltrate in the right lower lung Microbiology 03/15/16 Unknown Peripheral/Venous Blood Culture - Final NO GROWTH AFTER 5 DAYS 03/15/16 Unknown Peripheral/Venous Blood Culture - Final NO GROWTH AFTER 5 DAYS 03/16/16 16:00 Pleural Fluid - Pleura,Lt Lung Body Fluid Culture - Final 03/15/16 Unknown Urine,Catheterized - Indwelling Catheter Urine Culture - Final Hospital course: Zakia is a 40-year-old female who presented to the emergency room with shortness of breath. She was diagnosed as acute respiratory failure with pneumonia and parapneumonic effusion. She was admitted and started on BiPAP. She was started on IV fluids per Layne consulted on by the brick paver as well as the cardiothoracic surgeon. She had thoracocentesis done while she was here. She was also started on IV antibiotics. Her symptoms improved and she returned to baseline prior to discharge. 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 She was transitioned to eliquis on discharge. condition at discharge -stable 31 minutes on discharge Disposition: DISCHARGED TO HOME OR SELFCARE Core Measure Documentation - Palliative Care Palliative Care/ Comfort Measures: Not Applicable - Core Measures Any of the following diagnoses?: history only Exam - Constitutional Vitals: Temp Pulse Resp BP Pulse Ox 98.0 F 102 H 26 H 149/79 94 04/08/16 06:38 04/08/16 07:43 04/08/16 07:43 04/08/16 06:38 04/08/16 07:44 General appearance: Present: no acute distress, obese (morbid) - EENT Eyes: Present: PERRL, EOM intact. Absent: scleral icterus, conjunctival injection ENT: hearing intact, clear oral mucosa, no oropharyngeal erythema, no poor dentition - Neck Neck: Present: supple, normal ROM. Absent: enlarged thyroid, masses or JVD - Respiratory Respiratory effort: normal Respiratory: bilateral: diminished, negative: rales, rhonchi, wheezing - Cardiovascular Rhythm: regular Heart Sounds: Present: S1 & S2. Absent: gallop - Extremities Extremities: no ischemia, pulses intact, pulses symmetrical Peripheral Pulses: within normal limits - Abdominal General gastrointestinal: Present: soft, non-tender, non-distended Female genitourinary: Present: deferred - Rectal Rectal Exam: deferred - Integumentary Integumentary: Present: clear - Musculoskeletal Musculoskeletal: strength equal bilaterally - Psychiatric Psychiatric: appropriate mood/affect, intact judgment & insight - Neurologic Neurologic: CNII-XII intact, moves all extremities Plan Activity: advance as tolerated Diet: low fat, low cholesterol, low salt Special Instructions: home oxygen via (nc), other (home health with PT; ) Additional Instructions: f/u [facility] on Monday04/11/16; if unable to get on the eliquis program after the 30 day trial period you need to follow up with clinic to be transitioned to coumadin; cotn nocturnal CPAP Follow up with: [facility] [Provider Group] - 7 Days PRIMARY CARE, [Primary Care Provider] - 3-5 Days Prescriptions: Apixaban [Eliquis] 10 mg PO BID 7 Days Apixaban [Eliquis] 5 mg PO BID #60 tablet amLODIPine [Norvasc] 10 mg PO QDAY #30 tablet
--- NOTE | 2016-04-08 11:56 | Progress Note ---
Assessment and Plan - Patient Problems (1) Pleural effusion, left Current Visit: Yes Status: Acute (2) Pneumonia Current Visit: Yes Status: Acute (3) Acute and chronic respiratory failure ([id number]) Current Visit: No Status: Acute (4) Pulmonary emboli Current Visit: No Status: Acute (5) Sleep apnea Current Visit: No Status: Chronic Subjective Date of service: 04/08/16 Principal diagnosis: Acute Hypoxemic Respiratory Failure; Left Pleural Effusion Interval history: Seen and examined at bedside; 24 hour events reviewed; nursing and respiratory care staff consulted; no adverse overnight events reported to me; Objective Vital Signs - 12hr 04/07/16 04/08/16 04/08/16 23:56 00:52 01:03 Temperature 98.2 F Pulse Rate 117 H Pulse Rate [ 102 H Apical] Pulse Rate [ 106 H Posterior Bilateral Throughout] Pulse Rate [ Right Radial] Respiratory 20 Rate Respiratory 24 Rate [Posterior Bilateral Throughout] Blood Pressure 135/65 [Left Arm] Blood Pressure [Right Arm] O2 Sat by Pulse 89 Oximetry 04/08/16 04/08/16 04/08/16 06:22 06:38 07:33 Temperature 98.0 F Pulse Rate Pulse Rate [ 94 H Apical] Pulse Rate [ 100 H Posterior Bilateral Throughout] Pulse Rate [ Right Radial] Respiratory 23 20 Rate Respiratory 26 H Rate [Posterior Bilateral Throughout] Blood Pressure 149/79 [Left Arm] Blood Pressure [Right Arm] O2 Sat by Pulse 98 Oximetry 04/08/16 04/08/16 04/08/16 07:43 07:44 10:42 Temperature 97.4 F L Pulse Rate Pulse Rate [ Apical] Pulse Rate [ 102 H Posterior Bilateral Throughout] Pulse Rate [ 97 H Right Radial] Respiratory 18 Rate Respiratory 26 H Rate [Posterior Bilateral Throughout] Blood Pressure [Left Arm] Blood Pressure 135/67 [Right Arm] O2 Sat by Pulse 94 93 Oximetry 04/08/16 04/08/16 10:52 11:02 Temperature Pulse Rate 76 Pulse Rate [ Apical] Pulse Rate [ Posterior Bilateral Throughout] Pulse Rate [ Right Radial] Respiratory Rate Respiratory Rate [Posterior Bilateral Throughout] Blood Pressure [Left Arm] Blood Pressure [Right Arm] O2 Sat by Pulse 97 Oximetry Constitutional: no acute distress, alert Eyes: non-icteric ENT: oropharynx moist Neck: supple, no JVD Ascultation: Bilateral: clear, diminished breath sounds (LLL), rales (LLL) Cardiovascular: regular rate and rhythm Gastrointestinal: normoactive bowel sounds, soft, non-tender, non-distended Integumentary: other (Stasis dermatitis.) Extremities: no cyanosis, pink and warm, pulses normal, no ischemia or petechiae , edema Neurologic: normal mental status, non-focal exam, pupils equal and round, motor strength normal and Psychiatric: mood appropriate, affect normal CBC and BMP: 04/08/16 05:17 04/05/16 05:15 ABG, PT/INR, D-dimer: ABG POC ABG pH 7.422 (7.35-7.45) 03/17/16 08:55 POC ABG pCO2 70.5 (35-45) H 03/17/16 08:55 POC ABG pO2 108 (80-105) H 03/17/16 08:55 POC ABG HCO3 46.0 03/17/16 08:55 POC ABG Total CO2 48 03/17/16 08:55 POC ABG O2 Sat 98 03/17/16 08:55 PT/INR, D-dimer PT 15.9 Sec. (12.2-14.9) H 04/08/16 05:17 INR 1.28 (0.87-1.13) H 04/08/16 05:17 Abnormal lab findings: Abnormal Labs 03/16/16 03/16/16 03/16/16 00:04 01:01 07:49 RBC MCV MCH MCHC RDW Plt Count Seg Neuts % (Manual) Lymphocytes % (Manual) Monocytes % (Manual) Eosinophils % (Manual) Lymphocytes # (Manual) Monocytes # (Manual) PT 15.8 H INR 1.27 H Heparin Anti-Xa Level 0.18 L POC ABG pH 7.304 L POC ABG pCO2 92.8 H POC ABG pO2 Chloride Carbon Dioxide POC Glucose Lactate Dehydrogenase Total Creatine Kinase CK-MB (CK-2) Rel Index C-Reactive Protein Fluid Total Protein Vancomycin Trough 03/16/16 03/16/16 03/16/16 12:16 16:00 17:21 RBC MCV MCH MCHC RDW Plt Count Seg Neuts % (Manual) Lymphocytes % (Manual) Monocytes % (Manual) Eosinophils % (Manual) Lymphocytes # (Manual) Monocytes # (Manual) PT INR Heparin Anti-Xa Level < 0.11 L POC ABG pH POC ABG pCO2 POC ABG pO2 Chloride Carbon Dioxide POC Glucose Lactate Dehydrogenase 328 H Total Creatine Kinase CK-MB (CK-2) Rel Index C-Reactive Protein 2.60 H Fluid Total Protein 4.5 L Vancomycin Trough 03/17/16 03/17/16 03/17/16 04:58 04:58 04:58 RBC 5.50 H MCV 70 L MCH 20 L MCHC 29 L RDW 23.7 H Plt Count Seg Neuts % (Manual) Lymphocytes % (Manual) Monocytes % (Manual) Eosinophils % (Manual) Lymphocytes # (Manual) Monocytes # (Manual) PT INR Heparin Anti-Xa Level 0.14 L POC ABG pH POC ABG pCO2 POC ABG pO2 Chloride 94.9 L Carbon Dioxide 40 H POC Glucose Lactate Dehydrogenase Total Creatine Kinase CK-MB (CK-2) Rel Index C-Reactive Protein Fluid Total Protein Vancomycin Trough 03/17/16 03/17/16 03/17/16 08:55 11:50 13:16 RBC MCV MCH MCHC RDW Plt Count Seg Neuts % (Manual) Lymphocytes % (Manual) Monocytes % (Manual) Eosinophils % (Manual) Lymphocytes # (Manual) Monocytes # (Manual) PT INR Heparin Anti-Xa Level 0.16 L POC ABG pH POC ABG pCO2 70.5 H POC ABG pO2 108 H Chloride Carbon Dioxide POC Glucose 65 L Lactate Dehydrogenase Total Creatine Kinase CK-MB (CK-2) Rel Index C-Reactive Protein Fluid Total Protein Vancomycin Trough 03/17/16 03/17/16 03/18/16 13:16 21:00 05:32 RBC MCV MCH MCHC RDW Plt Count Seg Neuts % (Manual) Lymphocytes % (Manual) Monocytes % (Manual) Eosinophils % (Manual) Lymphocytes # (Manual) Monocytes # (Manual) PT 15.9 H INR 1.28 H Heparin Anti-Xa Level 0.13 L POC ABG pH POC ABG pCO2 POC ABG pO2 Chloride Carbon Dioxide POC Glucose Lactate Dehydrogenase Total Creatine Kinase 14 L CK-MB (CK-2) Rel Index 7.1 H C-Reactive Protein Fluid Total Protein Vancomycin Trough 03/18/16 03/18/16 03/18/16 07:35 07:43 15:45 RBC MCV MCH MCHC RDW Plt Count Seg Neuts % (Manual) Lymphocytes % (Manual) Monocytes % (Manual) Eosinophils % (Manual) Lymphocytes # (Manual) Monocytes # (Manual) PT INR Heparin Anti-Xa Level 0.71 H POC ABG pH POC ABG pCO2 POC ABG pO2 Chloride Carbon Dioxide POC Glucose 63 L 109 H Lactate Dehydrogenase Total Creatine Kinase CK-MB (CK-2) Rel Index C-Reactive Protein Fluid Total Protein Vancomycin Trough 03/18/16 03/18/16 03/18/16 16:15 21:35 23:30 RBC MCV MCH MCHC RDW Plt Count Seg Neuts % (Manual) Lymphocytes % (Manual) Monocytes % (Manual) Eosinophils % (Manual) Lymphocytes # (Manual) Monocytes # (Manual) PT INR Heparin Anti-Xa Level 0.86 H 0.26 L POC ABG pH POC ABG pCO2 POC ABG pO2 Chloride Carbon Dioxide POC Glucose 106 H Lactate Dehydrogenase Total Creatine Kinase CK-MB (CK-2) Rel Index C-Reactive Protein Fluid Total Protein Vancomycin Trough 03/19/16 03/19/16 03/19/16 06:57 08:28 17:12 RBC MCV MCH MCHC RDW Plt Count Seg Neuts % (Manual) Lymphocytes % (Manual) Monocytes % (Manual) Eosinophils % (Manual) Lymphocytes # (Manual) Monocytes # (Manual) PT 15.6 H INR 1.25 H Heparin Anti-Xa Level POC ABG pH POC ABG pCO2 POC ABG pO2 Chloride Carbon Dioxide POC Glucose 67 L 110 H Lactate Dehydrogenase Total Creatine Kinase CK-MB (CK-2) Rel Index C-Reactive Protein Fluid Total Protein Vancomycin Trough 03/19/16 03/20/16 03/21/16 21:27 06:48 05:11 RBC MCV MCH MCHC RDW Plt Count Seg Neuts % (Manual) Lymphocytes % (Manual) Monocytes % (Manual) Eosinophils % (Manual) Lymphocytes # (Manual) Monocytes # (Manual) PT 16.9 H 18.1 H INR 1.38 H 1.50 H Heparin Anti-Xa Level POC ABG pH POC ABG pCO2 POC ABG pO2 Chloride Carbon Dioxide POC Glucose 107 H Lactate Dehydrogenase Total Creatine Kinase CK-MB (CK-2) Rel Index C-Reactive Protein Fluid Total Protein Vancomycin Trough 03/21/16 03/21/16 03/21/16 05:11 16:02 21:59 RBC MCV MCH MCHC RDW Plt Count Seg Neuts % (Manual) Lymphocytes % (Manual) Monocytes % (Manual) Eosinophils % (Manual) Lymphocytes # (Manual) Monocytes # (Manual) PT INR Heparin Anti-Xa Level 0.27 L 0.79 H POC ABG pH POC ABG pCO2 POC ABG pO2 Chloride Carbon Dioxide POC Glucose 128 H Lactate Dehydrogenase Total Creatine Kinase CK-MB (CK-2) Rel Index C-Reactive Protein Fluid Total Protein Vancomycin Trough 03/22/16 03/23/16 03/23/16 04:46 05:03 08:21 RBC MCV MCH MCHC RDW Plt Count Seg Neuts % (Manual) Lymphocytes % (Manual) Monocytes % (Manual) Eosinophils % (Manual) Lymphocytes # (Manual) Monocytes # (Manual) PT 22.7 H 21.5 H INR 2.00 H 1.87 H Heparin Anti-Xa Level POC ABG pH POC ABG pCO2 POC ABG pO2 Chloride Carbon Dioxide POC Glucose 64 L Lactate Dehydrogenase Total Creatine Kinase CK-MB (CK-2) Rel Index C-Reactive Protein Fluid Total Protein Vancomycin Trough 03/23/16 03/24/16 03/25/16 14:57 05:09 02:04 RBC MCV MCH MCHC RDW Plt Count Seg Neuts % (Manual) Lymphocytes % (Manual) Monocytes % (Manual) Eosinophils % (Manual) Lymphocytes # (Manual) Monocytes # (Manual) PT 25.9 H INR 2.36 H Heparin Anti-Xa Level < 0.10 L 0.10 L POC ABG pH POC ABG pCO2 POC ABG pO2 Chloride Carbon Dioxide POC Glucose Lactate Dehydrogenase Total Creatine Kinase CK-MB (CK-2) Rel Index C-Reactive Protein Fluid Total Protein Vancomycin Trough 03/25/16 03/25/16 03/26/16 05:21 18:24 07:48 RBC MCV MCH MCHC RDW Plt Count Seg Neuts % (Manual) Lymphocytes % (Manual) Monocytes % (Manual) Eosinophils % (Manual) Lymphocytes # (Manual) Monocytes # (Manual) PT 29.4 H 31.6 H INR 2.77 H 3.03 H Heparin Anti-Xa Level POC ABG pH POC ABG pCO2 POC ABG pO2 Chloride Carbon Dioxide POC Glucose 112 H Lactate Dehydrogenase Total Creatine Kinase CK-MB (CK-2) Rel Index C-Reactive Protein Fluid Total Protein Vancomycin Trough 03/26/16 03/26/16 03/26/16 09:36 12:22 21:26 RBC MCV MCH MCHC RDW Plt Count Seg Neuts % (Manual) Lymphocytes % (Manual) Monocytes % (Manual) Eosinophils % (Manual) Lymphocytes # (Manual) Monocytes # (Manual) PT INR Heparin Anti-Xa Level POC ABG pH POC ABG pCO2 POC ABG pO2 Chloride Carbon Dioxide POC Glucose 127 H 68 L 111 H Lactate Dehydrogenase Total Creatine Kinase CK-MB (CK-2) Rel Index C-Reactive Protein Fluid Total Protein Vancomycin Trough 03/27/16 03/27/16 03/27/16 07:10 16:04 19:57 RBC MCV MCH MCHC RDW Plt Count Seg Neuts % (Manual) Lymphocytes % (Manual) Monocytes % (Manual) Eosinophils % (Manual) Lymphocytes # (Manual) Monocytes # (Manual) PT 35.6 H INR 3.52 H Heparin Anti-Xa Level POC ABG pH POC ABG pCO2 POC ABG pO2 Chloride Carbon Dioxide POC Glucose 109 H Lactate Dehydrogenase Total Creatine Kinase CK-MB (CK-2) Rel Index C-Reactive Protein Fluid Total Protein Vancomycin Trough 32.1 H 03/27/16 03/28/16 03/28/16 20:58 05:34 08:54 RBC MCV MCH MCHC RDW Plt Count Seg Neuts % (Manual) Lymphocytes % (Manual) Monocytes % (Manual) Eosinophils % (Manual) Lymphocytes # (Manual) Monocytes # (Manual) PT 36.8 H INR 3.67 H Heparin Anti-Xa Level POC ABG pH POC ABG pCO2 POC ABG pO2 Chloride 97.7 L Carbon Dioxide 38 H POC Glucose 133 H Lactate Dehydrogenase Total Creatine Kinase CK-MB (CK-2) Rel Index C-Reactive Protein Fluid Total Protein Vancomycin Trough 03/28/16 03/28/16 03/29/16 16:15 22:20 05:19 RBC MCV MCH MCHC RDW Plt Count Seg Neuts % (Manual) Lymphocytes % (Manual) Monocytes % (Manual) Eosinophils % (Manual) Lymphocytes # (Manual) Monocytes # (Manual) PT 34.1 H INR 3.34 H Heparin Anti-Xa Level POC ABG pH POC ABG pCO2 POC ABG pO2 Chloride Carbon Dioxide POC Glucose 125 H 106 H Lactate Dehydrogenase Total Creatine Kinase CK-MB (CK-2) Rel Index C-Reactive Protein Fluid Total Protein Vancomycin Trough 03/30/16 03/30/16 03/30/16 05:08 12:04 16:03 RBC MCV MCH MCHC RDW Plt Count Seg Neuts % (Manual) Lymphocytes % (Manual) Monocytes % (Manual) Eosinophils % (Manual) Lymphocytes # (Manual) Monocytes # (Manual) PT 29.2 H INR 2.75 H Heparin Anti-Xa Level POC ABG pH POC ABG pCO2 POC ABG pO2 Chloride Carbon Dioxide POC Glucose 118 H 108 H Lactate Dehydrogenase Total Creatine Kinase CK-MB (CK-2) Rel Index C-Reactive Protein Fluid Total Protein Vancomycin Trough 03/31/16 03/31/16 03/31/16 05:40 14:37 17:24 RBC 5.34 H MCV 74 L MCH 22 L MCHC 29 L RDW 28.3 H Plt Count 119 L Seg Neuts % (Manual) Lymphocytes % (Manual) Monocytes % (Manual) Eosinophils % (Manual) Lymphocytes # (Manual) Monocytes # (Manual) PT 17.8 H INR 1.47 H Heparin Anti-Xa Level POC ABG pH POC ABG pCO2 POC ABG pO2 Chloride Carbon Dioxide POC Glucose 115 H Lactate Dehydrogenase Total Creatine Kinase CK-MB (CK-2) Rel Index C-Reactive Protein Fluid Total Protein Vancomycin Trough 04/01/16 04/02/16 04/02/16 08:43 09:04 16:21 RBC MCV MCH MCHC RDW Plt Count Seg Neuts % (Manual) Lymphocytes % (Manual) Monocytes % (Manual) Eosinophils % (Manual) Lymphocytes # (Manual) Monocytes # (Manual) PT INR 1.16 H Heparin Anti-Xa Level POC ABG pH POC ABG pCO2 POC ABG pO2 Chloride Carbon Dioxide POC Glucose 66 L 117 H Lactate Dehydrogenase Total Creatine Kinase CK-MB (CK-2) Rel Index C-Reactive Protein Fluid Total Protein Vancomycin Trough 04/02/16 04/03/16 04/03/16 21:15 07:20 17:58 RBC MCV MCH MCHC RDW Plt Count Seg Neuts % (Manual) Lymphocytes % (Manual) Monocytes % (Manual) Eosinophils % (Manual) Lymphocytes # (Manual) Monocytes # (Manual) PT INR Heparin Anti-Xa Level 0.11 L < 0.10 L 0.13 L POC ABG pH POC ABG pCO2 POC ABG pO2 Chloride Carbon Dioxide POC Glucose Lactate Dehydrogenase Total Creatine Kinase CK-MB (CK-2) Rel Index C-Reactive Protein Fluid Total Protein Vancomycin Trough 04/04/16 04/05/16 04/05/16 09:36 05:15 05:15 RBC MCV 72 L MCH 21 L MCHC 29 L RDW 28.2 H Plt Count Seg Neuts % (Manual) 74.0 H Lymphocytes % (Manual) 11.0 L Monocytes % (Manual) 8.0 H Eosinophils % (Manual) 5.0 H Lymphocytes # (Manual) 0.7 L Monocytes # (Manual) PT INR Heparin Anti-Xa Level 0.23 L POC ABG pH POC ABG pCO2 POC ABG pO2 Chloride Carbon Dioxide 38 H POC Glucose Lactate Dehydrogenase Total Creatine Kinase CK-MB (CK-2) Rel Index C-Reactive Protein Fluid Total Protein Vancomycin Trough 04/05/16 04/05/16 04/07/16 08:59 21:46 05:12 RBC MCV MCH MCHC RDW Plt Count Seg Neuts % (Manual) Lymphocytes % (Manual) Monocytes % (Manual) Eosinophils % (Manual) Lymphocytes # (Manual) Monocytes # (Manual) PT INR 1.17 H Heparin Anti-Xa Level 0.11 L POC ABG pH POC ABG pCO2 POC ABG pO2 Chloride Carbon Dioxide POC Glucose 109 H Lactate Dehydrogenase Total Creatine Kinase CK-MB (CK-2) Rel Index C-Reactive Protein Fluid Total Protein Vancomycin Trough 04/07/16 04/07/16 04/07/16 08:02 13:11 21:27 RBC MCV MCH MCHC RDW Plt Count Seg Neuts % (Manual) Lymphocytes % (Manual) Monocytes % (Manual) Eosinophils % (Manual) Lymphocytes # (Manual) Monocytes # (Manual) PT INR Heparin Anti-Xa Level < 0.10 L POC ABG pH POC ABG pCO2 POC ABG pO2 Chloride Carbon Dioxide POC Glucose 64 L 116 H Lactate Dehydrogenase Total Creatine Kinase CK-MB (CK-2) Rel Index C-Reactive Protein Fluid Total Protein Vancomycin Trough 04/08/16 04/08/16 04/08/16 05:17 05:17 05:17 RBC MCV 73 L MCH 22 L MCHC RDW 29.7 H Plt Count Seg Neuts % (Manual) Lymphocytes % (Manual) Monocytes % (Manual) 13.0 H Eosinophils % (Manual) Lymphocytes # (Manual) 1.1 L Monocytes # (Manual) 0.9 H PT 15.9 H INR 1.28 H Heparin Anti-Xa Level 0.78 H POC ABG pH POC ABG pCO2 POC ABG pO2 Chloride Carbon Dioxide POC Glucose Lactate Dehydrogenase Total Creatine Kinase CK-MB (CK-2) Rel Index C-Reactive Protein Fluid Total Protein Vancomycin Trough
[2016-04-08 14:20] VITALS: BP 153/65
[2016-04-08] MEDS: COUMADIN PO SCH ×2 (16:26→17:24)
== END 2016-04-08 20:49 | disposition home or self-care (01) | DRG 189 ==
LOC: ED 19:50 → CC1 23:58 → 4A 03-17 18:46
PROVIDERS: ADMIT Internal Medicine; ATTEND Hospitalist
PROC: 0W9B3ZZ Drainage of Left Pleural Cavity, Percutaneous Approach (ICD-10-PCS; principal; 2016-03-16)
PROC: 5A09557 Assistance with Respiratory Ventilation, Greater than 96 Consecutive Hours, Continuous Positive Airway Pressure (ICD-10-PCS; 2016-03-16)
DX: J96.21 Acute and chronic respiratory failure with hypoxia (principal); I26.99 Other pulmonary embolism without acute cor pulmonale; J18.0 Bronchopneumonia, unspecified organism; J18.9 Pneumonia, unspecified organism; Z68.45 Body mass index [BMI] 70 or greater, adult; I82.412 Acute embolism and thrombosis of left femoral vein; J90 Pleural effusion, not elsewhere classified; E66.2 Morbid (severe) obesity with alveolar hypoventilation; I11.0 Hypertensive heart disease with heart failure; I50.9 Heart failure, unspecified; E11.9 Type 2 diabetes mellitus without complications; Z82.49 Family history of ischemic heart disease and other diseases of the circulatory system; Z91.19 Patient's noncompliance with other medical treatment and regimen; G47.33 Obstructive sleep apnea (adult) (pediatric); Y95 Nosocomial condition; Z71.89 Other specified counseling
CPT/HCPCS: 32555; 36415; 36600; 51702; 71010; 71250; 76604; 80048; 80053; 80202; 81001; 82140; 82550; 82553; 82803; 82962; 83605; 83615; 83735; 83880; 84160; 84484; 84702; 85007; 85014; 85018; 85025; 85027; 85049; 85520; 85610; 85730; 86140; 87040; 87086; 87116; 88112; 88305; 88342; 93005; 93010; 93970; 94640; 94660; 94760; 96365; 96366; 96367; 96375; C1729; J0360; J1644; J1956; J2270; J2405; J2543; J3370; J3430; J7040

== ENCOUNTER 2016-04-20 00:18 | Emergency (ER) | payer MEDICAID ==
[2016-04-20 02:44] LABS: Anion Gap 16 mmol/L; Blood Urea Nitrogen 14 mg/dL (7-17); Calcium 9.6 mg/dL (8.4-10.2); Carbon Dioxide 31 mmol/L (22-30); Chloride 96.5 mmol/L (98-107); Glucose 104 mg/dL (65-100); Sodium 139 mmol/L (137-145)
[2016-04-20 02:47] LABS: Mean Corpuscular HGB Conc 31 % (30-34); Mean Corpuscular Volume 74 fl (79-97); Platelet Count 237 K/mm3 (140-440); Red Blood Count 5.58 M/mm3 (3.65-5.03); White Blood Count 7.1 K/mm3 (4.5-11.0)
[2016-04-20 02:53] LABS: Hematocrit 41.1 % (30.3-42.9); Hemoglobin 12.5 gm/dl (10.1-14.3); INR 1.01 (0.87-1.13); Mean Corpuscular Hemoglobin 22 pg (28-32); Red Cell Distribution Width 31.6 % (13.2-15.2)
[2016-04-20 02:54] LABS: Partial Thromboplastin Time 28.3 Sec. (24.2-36.6)
[2016-04-20 04:59] LABS: Blastocytes % (Manual) 0 %
[2016-04-20 05:00] LABS: Basophils % (Manual) 0 % (0.0-1.8)
[2016-04-20 05:01] LABS: Anisocytosis 1+; Diff Status Complete; Platelet Estimate Consistent w Auto
[2016-04-20 08:28] VITALS: BP 199/103
--- NOTE | 2016-04-21 11:51 | ED Elopement Review ---
ED Pt Elopement review - Results review Lab results: Laboratory Tests 04/20/16 04/20/16 04/20/16 02:12 02:12 02:12 WBC 7.1 RBC 5.58 H Hgb 12.5 Hct 41.1 MCV 74 L MCH 22 L MCHC 31 RDW 31.6 H Plt Count 237 Add Manual Diff Complete Total Counted 100 Seg Neuts % (Manual) 62.0 Band Neutrophils % 0 Lymphocytes % (Manual) 25.0 Reactive Lymphs % (Man) 0 Monocytes % (Manual) 8.0 H Eosinophils % (Manual) 5.0 H Basophils % (Manual) 0 Metamyelocytes % 0 Myelocytes % 0 Promyelocytes % 0 Blast Cells % 0 Nucleated RBC % Not Reportable Seg Neutrophils # Man 4.4 Band Neutrophils # 0.0 Lymphocytes # (Manual) 1.8 Abs React Lymphs (Man) 0.0 Monocytes # (Manual) 0.6 Eosinophils # (Manual) 0.4 Basophils # (Manual) 0.0 Metamyelocytes # 0.0 Myelocytes # 0.0 Promyelocytes # 0.0 Blast Cells # 0.0 WBC Morphology Not Reportable Hypersegmented Neuts Not Reportable Hyposegmented Neuts Not Reportable Hypogranular Neuts Not Reportable Smudge Cells Not Reportable Toxic Granulation Not Reportable Toxic Vacuolation Not Reportable Dohle Bodies Not Reportable Pelger-Huet Anomaly Not Reportable Nabila Rods Not Reportable Platelet Estimate Consistent w auto Clumped Platelets Not Reportable Plt Clumps, EDTA Not Reportable Large Platelets Not Reportable Giant Platelets Not Reportable Platelet Satelliting Not Reportable Plt Morphology Comment Not Reportable RBC Morphology Not Reportable Dimorphic RBCs Not Reportable Polychromasia Not Reportable Hypochromasia Not Reportable Poikilocytosis Not Reportable Anisocytosis 1+ Microcytosis Not Reportable Macrocytosis Not Reportable Spherocytes Not Reportable Pappenheimer Bodies Not Reportable Sickle Cells Not Reportable Target Cells Not Reportable Tear Drop Cells Not Reportable Ovalocytes Not Reportable Helmet Cells Not Reportable [place] Bodies Not Reportable Stevenson Rings Not Reportable [place] Cells Not Reportable Bite Cells Not Reportable Crenated Cell Not Reportable Elliptocytes Not Reportable Acanthocytes (Spur) Not Reportable Rouleaux Not Reportable Hemoglobin C Crystals Not Reportable Schistocytes Not Reportable Malaria parasites Not Reportable Darion Bodies Not Reportable Hem Pathologist Commnt No PT 13.2 INR 1.01 APTT 28.3 Sodium 139 Potassium 4.0 Chloride 96.5 L Carbon Dioxide 31 H Anion Gap 16 BUN 14 Creatinine 0.8 Estimated GFR > 60 BUN/Creatinine Ratio 17.50 Glucose 104 H Calcium 9.6 Troponin T < 0.010 HCG, Qual 04/20/16 04/20/16 04/20/16 02:12 06:11 07:18 WBC RBC Hgb Hct MCV MCH MCHC RDW Plt Count Add Manual Diff Total Counted Seg Neuts % (Manual) Band Neutrophils % Lymphocytes % (Manual) Reactive Lymphs % (Man) Monocytes % (Manual) Eosinophils % (Manual) Basophils % (Manual) Metamyelocytes % Myelocytes % Promyelocytes % Blast Cells % Nucleated RBC % Seg Neutrophils # Man Band Neutrophils # Lymphocytes # (Manual) Abs React Lymphs (Man) Monocytes # (Manual) Eosinophils # (Manual) Basophils # (Manual) Metamyelocytes # Myelocytes # Promyelocytes # Blast Cells # WBC Morphology Hypersegmented Neuts Hyposegmented Neuts Hypogranular Neuts Smudge Cells Toxic Granulation Toxic Vacuolation Dohle Bodies Pelger-Huet Anomaly Nabila Rods Platelet Estimate Clumped Platelets Plt Clumps, EDTA Large Platelets Giant Platelets Platelet Satelliting Plt Morphology Comment RBC Morphology Dimorphic RBCs Polychromasia Hypochromasia Poikilocytosis Anisocytosis Microcytosis Macrocytosis Spherocytes Pappenheimer Bodies Sickle Cells Target Cells Tear Drop Cells Ovalocytes Helmet Cells [place] Bodies Stevenson Rings Beatris Cells Bite Cells Crenated Cell Elliptocytes Acanthocytes (Spur) Rouleaux Hemoglobin C Crystals Schistocytes Malaria parasites Darion Bodies Hem Pathologist Commnt PT INR APTT Sodium Potassium Chloride Carbon Dioxide Anion Gap BUN Creatinine Estimated GFR BUN/Creatinine Ratio Glucose Calcium Troponin T < 0.010 < 0.010 HCG, Qual Negative - Call Back decision Pt Call Back Decision: Call pt to return to ED [facility] (patient has chest pain, significant hypertension)
== END 2016-04-20 07:20 | disposition left against medical advice (07) ==
LOC: ED 00:18
DX: R07.9 Chest pain, unspecified (principal); R06.00 Dyspnea, unspecified; Z53.21 Procedure and treatment not carried out due to patient leaving prior to being seen by health care provider
CPT/HCPCS: 36415; 80048; 84484; 84703; 85007; 85025; 85610; 85730; 93005; 93010

== ENCOUNTER 2016-10-11 20:46 | Inpatient (IN) | payer MEDICAID ==
[2016-10-11] MEDS ORDERED: LASIX IV ONE (21:16)
--- NOTE | 2016-10-11 21:22 | Emergency Department Report ---
ED Chest Pain HPI - General Stated Complaint: CHEST PAIN Time Seen by Provider: 10/11/16 21:08 Source: patient, EMS Mode of arrival: Stretcher Limitations: Physical Limitation - History of Present Illness MD Complaint: chest pain, other (shortness of breath) -: Gradual Onset: during rest, during exertion Pain Location: substernal, left chest Pain Radiation: none Severity: moderate Severity scale (0 -10): 5 Quality: tightness, aching, heaviness, pressure Consistency: constant Improves With: nothing Worsens With: nothing re: nausea Other Symptoms: cough, leg swelling. denies: fever, syncope, rash, acid taste in mouth, palpitations, burping Treatments Prior to Arrival: none Aspirin use within the Past 7 Days: (1) Yes - Related Data On Oral Contraceptives: No Previous Rx's Medication Instructions Recorded Last Taken Type Famotidine [Pepcid] 20 mg PO BID #60 tablet 01/15/16 Unknown Rx HYDROcodone/APAP 10-325 [[place] 1 each PO Q6H PRN #10 tablet 01/15/16 Unknown Rx 10-325 mg TAB] Apixaban [Eliquis] 5 mg PO BID #60 tablet 04/08/16 Unknown Rx Apixaban [Eliquis] 10 mg PO BID 7 Days 04/08/16 Unknown Rx amLODIPine [Norvasc] 10 mg PO QDAY #30 tablet 04/08/16 Unknown Rx Allergies Allergy/AdvReac Type Severity Reaction Status Date / Time No Known Allergies Allergy Unverified 01/05/16 18:22 Heart Score - HEART Score History: Slightly suspicious EKG: Normal Age: < 45 Risk factors: 1-2 risk factors Troponin: < normal limit HEART Score: 1 ED Review of Systems ROS: Stated complaint: CHEST PAIN Other details as noted in HPI Comment: All other systems reviewed and negative ED Past Medical Hx - Past Medical History Hx Hypertension: Yes Hx Congestive Heart Failure: Yes Hx Diabetes: Yes Hx Pulmonary Embolism: Yes Hx COPD: Yes Additional medical history: MORBID OBESITY - Surgical History Additional Surgical History: hernia repair, arm surgery - Social History Smoking Status: Never Smoker Substance Use Type: None - Medications Home Medications: Home Medications Medication Instructions Recorded Confirmed Last Taken Type Famotidine [Pepcid] 20 mg PO BID #60 tablet 16 03/16/16 Unknown Rx HYDROcodone/APAP 10-325 [[place] 1 each PO Q6H PRN #10 tablet 01/15/16 03/16/16 Unknown Rx 10-325 mg TAB] Apixaban [Eliquis] 5 mg PO BID #60 tablet 04/08/16 Unknown Rx Apixaban [Eliquis] 10 mg PO BID 7 Days 04/08/16 Unknown Rx amLODIPine [Norvasc] 10 mg PO QDAY #30 tablet 04/08/16 Unknown Rx ED Physical Exam - General Limitations: Physical Limitation General appearance: alert, in no apparent distress - Head Head exam: Present: atraumatic, normocephalic - Eye Eye exam: Present: normal appearance, PERRL, EOMI - ENT ENT exam: Present: normal exam, normal orophraynx, mucous membranes moist - Neck Neck exam: Present: normal inspection - Respiratory Respiratory exam: Present: normal lung sounds bilaterally. Absent: respiratory distress - Cardiovascular Cardiovascular Exam: Present: regular rate, normal rhythm. Absent: systolic murmur, diastolic murmur, rubs, gallop - GI/Abdominal GI/Abdominal exam: Present: soft, normal bowel sounds. Absent: distended, tenderness, guarding, rebound - Extremities Exam Extremities exam: Present: normal inspection - Back Exam Back exam: Present: normal inspection - Neurological Exam Neurological exam: Present: alert, oriented X3 - Psychiatric Psychiatric exam: Present: normal affect, normal mood - Skin Skin exam: Present: warm, dry, intact, normal color. Absent: rash ED Course Vital Signs 10/11/16 10/11/16 10/11/16 21:00 21:11 21:13 Temperature 98.3 F Pulse Rate 104 H 99 H 100 H Respiratory 19 18 16 Rate Blood Pressure 128/75 128/75 Blood Pressure 128/75 [Right] O2 Sat by Pulse 73 L 95 94 Oximetry 10/11/16 10/11/16 10/11/16 21:21 21:31 21:41 Temperature Pulse Rate 109 H 100 H 103 H Respiratory 16 23 14 Rate Blood Pressure 136/79 158/96 136/79 Blood Pressure [Right] O2 Sat by Pulse 95 95 92 Oximetry 10/11/16 10/11/16 10/11/16 21:51 22:00 22:08 Temperature Pulse Rate 105 H 95 H Respiratory 11 L 18 Rate Blood Pressure 124/84 113/70 Blood Pressure [Right] O2 Sat by Pulse 89 96 Oximetry 10/11/16 10/11/16 10/11/16 22:11 22:21 22:30 Temperature Pulse Rate 98 H 98 H 96 H Respiratory 18 17 16 Rate Blood Pressure 113/70 123/84 127/85 Blood Pressure [Right] O2 Sat by Pulse 92 95 92 Oximetry 10/11/16 10/11/16 10/11/16 22:41 22:51 23:00 Temperature Pulse Rate 93 H 99 H 96 H Respiratory 18 19 20 Rate Blood Pressure 127/85 135/81 109/78 Blood Pressure [Right] O2 Sat by Pulse 96 95 83 L Oximetry 10/11/16 10/11/16 10/11/16 23:11 23:21 23:30 Temperature Pulse Rate 98 H 100 H 101 H Respiratory 14 13 25 H Rate Blood Pressure 109/78 135/84 150/99 Blood Pressure [Right] O2 Sat by Pulse 98 93 90 Oximetry 10/11/16 10/11/16 23:41 23:51 Temperature Pulse Rate 98 H 99 H Respiratory 24 19 Rate Blood Pressure 109/78 136/92 Blood Pressure [Right] O2 Sat by Pulse 93 95 Oximetry DREAD score - Dread Score Age > 65: (0) No Aspirin use within the Past 7 Days: (0) No 3 or more CAD Risk Factors: (0) No 2 or more Angina events in past 24 hrs: (0) No Known CAD with more than 50% Stenosis: (0) No Elevated Cardiac Markers: (0) No ST Deviation Greater than 0.5mm: (0) No DREAD Score: 0 ED Medical Decision Making - Lab Data Result diagrams: 10/11/16 22:41 10/11/16 22:41 - EKG Data -: EKG Interpreted by Me - EKG Data Interpretation: no acute changes - Radiology Data Radiology results: report reviewed, image reviewed Critical care attestation.: If time is entered above; I have spent that time in minutes in the direct care of this critically ill patient, excluding procedure time. ED Disposition Clinical Impression: Chest pain, HCAP (healthcare-associated pneumonia), Shortness of breath, Morbid obesity with BMI of 70 and over, adult, Sleep apnea Disposition: OP ADMIT IP TO THIS HOSP Is pt being admited?: Yes Does the pt Need Aspirin: No Condition: Good Instructions: Chest Pain (ED), Bacterial Pneumonia (ED) Referrals: PRIMARY CARE, [Primary Care Provider] - 3-5 Days Time of Disposition: 00:44
[2016-10-11 23:11] LABS: Mean Corpuscular HGB Conc 29 % (30-34); Mean Corpuscular Volume 70 fl (79-97); Platelet Count 164 K/mm3 (140-440); White Blood Count 12.1 K/mm3 (4.5-11.0)
[2016-10-11 23:13] LABS: Hematocrit 43.5 % (30.3-42.9); Hemoglobin 12.5 gm/dl (10.1-14.3); Mean Corpuscular Hemoglobin 20 pg (28-32); Red Cell Distribution Width 25.3 % (13.2-15.2)
[2016-10-11 23:19] LABS: INR 1.15 (0.87-1.13)
[2016-10-11 23:20] LABS: Partial Thromboplastin Time 29.2 Sec. (24.2-36.6)
[2016-10-11 23:22] LABS: Creatine Kinase MB 1.4 ng/mL (0.0-4.0)
[2016-10-11 23:25] LABS: Alanine Aminotransferase 9 units/L (7-56); Albumin 3.8 g/dL (3.9-5); Albumin/Globulin Ratio 1.1 %; Alkaline Phosphatase 58 units/L (35-129); Anion Gap 14 mmol/L; BUN/Creatinine Ratio 18.88; Blood Urea Nitrogen 17 mg/dL (7-17); Calcium 8.8 mg/dL (8.4-10.2); Carbon Dioxide 33 mmol/L (22-30); Chloride 97.9 mmol/L (98-107); Creatine Kinase 38 units/L (30-135); Glucose 99 mg/dL (65-100); Potassium 4.2 mmol/L (3.6-5.0); Sodium 141 mmol/L (137-145); Total Protein 7.3 g/dL (6.3-8.2)
[2016-10-12 00:12] LABS: Anisocytosis 2+; Basophils % (Manual) 0 % (0.0-1.8); Blastocytes % (Manual) 0 %; Eosinophils % (Manual) 0 % (0.0-4.3); Hypochromasia 2+
[2016-10-12 00:13] LABS: Diff Status Complete; Platelet Estimate Consistent w Auto
[2016-10-12] MEDS ORDERED: TORADOL IV ONE (02:14)
[2016-10-12] MEDS ORDERED: TORADOL ONE (02:14)
[2016-10-12] MEDS ORDERED: NITROSTAT SL PRN (05:27)
[2016-10-12] MEDS ORDERED: MORPHINE IV PRN (05:27)
[2016-10-12] MEDS ORDERED: D50W (25GM) IV PRN (05:34)
[2016-10-12] MEDS ORDERED: DUONEB *Not for PRN Use IH (05:35)
[2016-10-12] MEDS ORDERED: ZOFRAN IV PRN (05:36)
--- NOTE | 2016-10-12 05:43 | History and Physical Report ---
History of Present Illness Date of examination: 10/12/16 Date of admission: 10/12/2016 Chief complaint: Chief complaint is shortness of breath, History of present illness: History of present illness, patient is a 40-year-old female presenting with shortness of breath going on for few days associated with chest discomfort , there is no history of fever and no history of chills and no history of nausea or vomiting. Patient admitted to having nonproductive cough and also swelling in the lower extremities Past History Past Medical History: COPD, diabetes, hypertension, other (OBESITY,PULMONARY EMBOLYSM) Past Surgical History: hernia repair, Other (ARM SURGERY) Medications and Allergies Allergies Allergy/AdvReac Type Severity Reaction Status Date / Time No Known Allergies Allergy Unverified 01/05/16 18:22 Home Medications Medication Instructions Recorded Confirmed Last Taken Type Famotidine [Pepcid] 20 mg PO BID #60 tablet 01/15/16 03/16/16 Unknown Rx HYDROcodone/APAP 10-325 [[place] 1 each PO Q6H PRN #10 tablet 01/15/16 03/16/16 Unknown Rx 10-325 mg TAB] Apixaban [Eliquis] 5 mg PO BID #60 tablet 04/08/16 Unknown Rx Apixaban [Eliquis] 10 mg PO BID 7 Days 04/08/16 Unknown Rx amLODIPine [Norvasc] 10 mg PO QDAY #30 tablet 04/08/16 Unknown Rx Active Meds: Active Medications Albuterol/Ipratropium (Duoneb 0.5 Mg-3 Mg/3 Ml Soln) 1 ampul IH QIDRT PRN PRN Reason: Shortness Of Breath Aspirin (Baby Aspirin) 81 mg PO QDAY WILLIAM Dextrose (D50w (25gm)) 50 ml IV PRN PRN PRN Reason: Hypoglycemia Furosemide (Lasix) 40 mg IV QDAY WILLIAM Heparin Sodium (Porcine) (Heparin) 5,000 unit SUB-Q Q12HR WILLIAM Insulin Human Regular (Novolin R) 0 units SUB-Q AC WILLIAM PRN Reason: Protocol Insulin Human Regular (Novolin R) 0 units SUB-Q QHS WILLIAM PRN Reason: Protocol Morphine Sulfate (Morphine) 2 mg IV Q3H PRN PRN Reason: Chest Pain Nitroglycerin (Nitrostat) 0.4 mg SL .Q5MIN PRN PRN Reason: Chest Pain Nitroglycerin (Nitro-Bid 2%) 1 inch TP QIDNTG WILLIAM PRN Reason: Protocol Ondansetron HCl (Zofran) 4 mg IV Q6H PRN PRN Reason: Nausea And Vomiting Review of Systems Constitutional: no weight loss, no weight gain, no fever, no chills, no sweats, no night sweats, no anorexia, no fatigue, no weakness, no malaise, no lethargy, no poor appetite Eyes: bilateral: other (NO BILATERAL EYE SYMPTOMS) Ears, nose, mouth and throat: no ear pain, no nose pain, no nasal congestion, no nasal discharge, no sinus pressure, no mouth pain, no dysphagia, no hoarseness, no swelling in mouth, no post-nasal drip, no headache Breasts: deferred Cardiovascular: chest pain, shortness of breath, dyspnea on exertion, high blood pressure, no palpitations, no rapid/irregular heart beat, no syncope, no paroxysmal nocturnal dyspnea, no claudication Respiratory: cough, shortness of breath, dyspnea on exertion, congestion, no cough with sputum, no hemoptysis, no wheezing, no pleurisy, no pain on inspiration, no sleep apnea, no respiratory infections Gastrointestinal: no abdominal pain, no nausea, no vomiting, no diarrhea, no constipation, no hematochezia, no loss of appetite, no jaundice, no dyspepsia/ bloating Genitourinary Female: no dyspareunia, no dysmenorrhea, no flank pain, no menorrhagia, no dysuria, no urinary frequency, no incomplete emptying, no urge incontinence, no mixed incontinence, no difficulty voiding, no hematuria, no nocturia, no vaginal itching, no vaginal discharge, no vaginal dryness, no decreased libido, no mood problems, no hot flashes, no prolapse symptoms, no difficulties conceiving Menstruation: no menses 1-7 days Rectal: no pain, no hemorrhoids, no discharge, no flatulence Musculoskeletal: no neck stiffness, no neck pain, no shooting arm pain, no arm numbness/tingling, no low back pain, no shooting leg pain, no leg numbness/ tingling, no hot joints, no morning stiffness, no muscle weakness, no muscle cramps, no myalgias, no fractures, no loss of height, no prior amputations Integumentary: no pruritis, no redness, no sores, no wounds, no jaundice, no boils, no growths, no bullae, no darkening of skin, no depigmentation, no change in hair/nails, no brittle nails, no striae, no foot/leg ulcers, no onychomycosis Neurological: no transient paralysis, no paralysis, no weakness, no parathesias , no tingling, no seizures, no syncope, no tremors, no headaches, no migraines, no convulsions, no change in speech, no change in mentation, no confusion, no memory loss, no changes in smell/taste, no balance difficulties, no motor disturbance, no sensory deficit, no double vision, no loss of vision Psychiatric: no memory loss, no change in sleep habits, no sleep disturbances, no insomnia, no hypersomnia, no change in appetite, no disorientation, no hallucinations, no paranoia, no depression, no hopelessness, no anhedonia, no anxiety attacks, no difficulties concentrating, no confusion, no irritability, no sadness/tearfullness Endocrine: no cold intolerance, no heat intolerance, no polyphagia, no excessive thirst, no polydipsia, no polyuria, no nocturia, no excessive sweating , no flushing, no weight change, no increase in ring/shoe/hat size, no proptosis , no deepening of the voice, no thyroid mass, no palpatations, no high blood sugars, no low blood sugars, no recent glucocorticoid use, no fatigue Hematologic/Lymphatic: no easy bruising, no easy bleeding, no lymphadenopathy, no lymphedema, no thrombophilia, no other Allergic/Immunologic: no urticaria, no allergic rhinitis, no persistent infections, no anaphylaxis, no angioedema, no gluten intolerance Exam - Constitutional Vitals: Temp Pulse Resp BP Pulse Ox 98.3 F 96 H 21 116/60 88 10/11/16 21:13 10/12/16 04:30 10/12/16 04:30 10/12/16 04:30 10/12/16 04:30 General appearance: Present: mild distress, well-nourished. Absent: disheveled - EENT Eyes: Present: PERRL, EOM intact. Absent: irregular pupil, scleral icterus, mydriasis ENT: hearing intact, clear oral mucosa, no oropharyngeal erythema, no edentulous - Neck Neck: Present: supple, normal ROM. Absent: enlarged thyroid, carotid bruits - Respiratory Respiratory effort: labored Respiratory: bilateral: rales - Cardiovascular Rhythm: regular Heart Sounds: Present: S1 & S2. Absent: gallop, systolic murmur, diastolic murmur, rub, click - Extremities Extremities: no ischemia Extremity abnormal: edema Peripheral Pulses: within normal limits - Abdominal General gastrointestinal: Present: soft, non-tender, non-distended, normal bowel sounds. Absent: tender, distended, rigid, hypoactive bowel sounds, absent bowel sounds, hepatomegaly, splenomegaly Female genitourinary: Present: deferred - Rectal Rectal Exam: deferred - Integumentary Integumentary: Present: clear. Absent: warm - Musculoskeletal Musculoskeletal: strength equal bilaterally - Psychiatric Psychiatric: appropriate mood/affect Results - Labs CBC & Chem 7: 10/11/16 22:41 10/11/16 22:41 Labs: Laboratory Last Values WBC 12.1 K/mm3 (4.5-11.0) H 10/11/16 22:41 RBC 6.20 M/mm3 (3.65-5.03) H 10/11/16 22:41 Hgb 12.5 gm/dl (10.1-14.3) 10/11/16 22:41 Hct 43.5 % (30.3-42.9) H 10/11/16 22:41 MCV 70 fl (79-97) L 10/11/16 22:41 MCH 20 pg (28-32) L 10/11/16 22:41 MCHC 29 % (30-34) L 10/11/16 22:41 RDW 25.3 % (13.2-15.2) H 10/11/16 22:41 Plt Count 164 K/mm3 (140-440) 10/11/16 22:41 Add Manual Diff Complete 10/11/16 22:41 Total Counted 100 10/11/16 22:41 Seg Neuts % (Manual) 89.0 % (40.0-70.0) H 10/11/16 22:41 Band Neutrophils % 0 % 10/11/16 22:41 Lymphocytes % (Manual) 5.0 % (13.4-35.0) L 10/11/16 22:41 Reactive Lymphs % (Man) 0 % 10/11/16 22:41 Monocytes % (Manual) 6.0 % (0.0-7.3) 10/11/16 22:41 Eosinophils % (Manual) 0 % (0.0-4.3) 10/11/16 22:41 Basophils % (Manual) 0 % (0.0-1.8) 10/11/16 22:41 Metamyelocytes % 0 % 10/11/16 22:41 Myelocytes % 0 % 10/11/16 22:41 Promyelocytes % 0 % 10/11/16 22:41 Blast Cells % 0 % 10/11/16 22:41 Nucleated RBC % 2.0 % (0.0-0.9) H 10/11/16 22:41 Seg Neutrophils # Man 10.8 K/mm3 (1.8-7.7) H 10/11/16 22:41 Band Neutrophils # 0.0 K/mm3 10/11/16 22:41 Lymphocytes # (Manual) 0.6 K/mm3 (1.2-5.4) L 10/11/16 22:41 Abs React Lymphs (Man) 0.0 K/mm3 10/11/16 22:41 Monocytes # (Manual) 0.7 K/mm3 (0.0-0.8) 10/11/16 22:41 Eosinophils # (Manual) 0.0 K/mm3 (0.0-0.4) 10/11/16 22:41 Basophils # (Manual) 0.0 K/mm3 (0.0-0.1) 10/11/16 22:41 Metamyelocytes # 0.0 K/mm3 10/11/16 22:41 Myelocytes # 0.0 K/mm3 10/11/16 22:41 Promyelocytes # 0.0 K/mm3 10/11/16 22:41 Blast Cells # 0.0 K/mm3 10/11/16 22:41 WBC Morphology Not Reportable 10/11/16 22:41 Hypersegmented Neuts Not Reportable 10/11/16 22:41 Hyposegmented Neuts Not Reportable 10/11/16 22:41 Hypogranular Neuts Not Reportable 10/11/16 22:41 Smudge Cells Not Reportable 10/11/16 22:41 Toxic Granulation Not Reportable 10/11/16 22:41 Toxic Vacuolation Not Reportable 10/11/16 22:41 Dohle Bodies Not Reportable 10/11/16 22:41 Pelger-Huet Anomaly Not Reportable 10/11/16 22:41 Nabila Rods Not Reportable 10/11/16 22:41 Platelet Estimate Consistent w auto 10/11/16 22:41 Clumped Platelets Not Reportable 10/11/16 22:41 Plt Clumps, EDTA Not Reportable 10/11/16 22:41 Large Platelets Not Reportable 10/11/16 22:41 Giant Platelets Not Reportable 10/11/16 22:41 Platelet Satelliting Not Reportable 10/11/16 22:41 Plt Morphology Comment Not Reportable 10/11/16 22:41 RBC Morphology Not Reportable 10/11/16 22:41 Dimorphic RBCs Not Reportable 10/11/16 22:41 Polychromasia Not Reportable 10/11/16 22:41 Hypochromasia 2+ 10/11/16 22:41 Poikilocytosis Not Reportable 10/11/16 22:41 Anisocytosis 2+ 10/11/16 22:41 Microcytosis Not Reportable 10/11/16 22:41 Macrocytosis Not Reportable 10/11/16 22:41 Spherocytes Not Reportable 10/11/16 22:41 Pappenheimer Bodies Not Reportable 10/11/16 22:41 Sickle Cells Not Reportable 10/11/16 22:41 Target Cells Not Reportable 10/11/16 22:41 Tear Drop Cells Not Reportable 10/11/16 22:41 Ovalocytes Not Reportable 10/11/16 22:41 Helmet Cells Not Reportable 10/11/16 22:41 [place] Bodies Not Reportable 10/11/16 22:41 [place] Rings Not Reportable 10/11/16 22:41 [place] Cells Not Reportable 10/11/16 22:41 Bite Cells Not Reportable 10/11/16 22:41 Crenated Cell Not Reportable 10/11/16 22:41 Elliptocytes Not Reportable 10/11/16 22:41 Acanthocytes (Spur) Not Reportable 10/11/16 22:41 Rouleaux Not Reportable 10/11/16 22:41 Hemoglobin C Crystals Not Reportable 10/11/16 22:41 Schistocytes Not Reportable 10/11/16 22:41 Malaria parasites Not Reportable 10/11/16 22:41 Darion Bodies Not Reportable 10/11/16 22:41 Hem Pathologist Commnt No 10/11/16 22:41 PT 15.3 Sec. (12.2-14.9) H 10/11/16 22:41 INR 1.15 (0.87-1.13) H 10/11/16 22:41 APTT 29.2 Sec. (24.2-36.6) 10/11/16 22:41 Sodium 141 mmol/L (137-145) 10/11/16 22:41 Potassium 4.2 mmol/L (3.6-5.0) 10/11/16 22:41 Chloride 97.9 mmol/L (98-107) L 10/11/16 22:41 Carbon Dioxide 33 mmol/L (22-30) H 10/11/16 22:41 Anion Gap 14 mmol/L 10/11/16 22:41 BUN 17 mg/dL (7-17) 10/11/16 22:41 Creatinine 0.9 mg/dL (0.7-1.2) 10/11/16 22:41 Estimated GFR > 60 ml/min 10/11/16 22:41 BUN/Creatinine Ratio 18.88 % 10/11/16 22:41 Glucose 99 mg/dL (65-100) 10/11/16 22:41 Calcium 8.8 mg/dL (8.4-10.2) 10/11/16 22:41 Total Bilirubin 1.80 mg/dL (0.1-1.2) H 10/11/16 22:41 AST 12 units/L (5-40) 10/11/16 22:41 ALT 9 units/L (7-56) 10/11/16 22:41 Alkaline Phosphatase 58 units/L (35-129) 10/11/16 22:41 Total Creatine Kinase 38 units/L (30-135) 10/11/16 22:41 CK-MB (CK-2) 1.4 ng/mL (0.0-4.0) 10/11/16 22:41 CK-MB (CK-2) Rel Index 3.6 (0-4) 10/11/16 22:41 Troponin T < 0.010 ng/mL (0.00-0.029) 10/11/16 22:41 NT-Pro-B Natriuret Pep 2281 pg/mL (0-450) H 10/11/16 22:41 Total Protein 7.3 g/dL (6.3-8.2) 10/11/16 22:41 Albumin 3.8 g/dL (3.9-5) L 10/11/16 22:41 Albumin/Globulin Ratio 1.1 % 10/11/16 22:41 Assessment and Plan - Patient Problems (1) CHF (congestive heart failure) Current Visit: Yes Status: Acute Qualifiers: Congestive heart failure type: C Congestive heart failure chronicity: C Plan to address problem: Patient will be admitted to medical floor on telemetry using CHF pathway and will have 2-D echo done this morning 10/12/2016, patient will be on IV Lasix 40 mg daily and will be on Nitropaste one inch to anterior chest wall every 6 hours as well as morphine 2 mg every 3 hours as needed for pain patient will have troponin level checked every 6 hours 2 more level and will be on DuoNeb 4 times a day when necessary shortness of breath. Patient will also be on Robitussin 200 mg every 4 hours for cough and will be on oxygen by NaSal cannula 2 L/m. Patient will be on Accu-Chek before meals and daily at bedtime followed by low-dose sliding scale using regular insulin coverage and patient will be on aspirin 81 mg daily
[2016-10-12] MEDS ORDERED: PROVENTIL IH PRN (05:49)
--- NOTE | 2016-10-12 07:57 | Admit Criteria Form ---
Admission Criteria Documentation: HEART FAILURE: COMMON COMPLICATIONS Clinical Indications for Inpatient Care (la posta/check or initial the applicable condition/criteria): Ongoing inpatient care may be indicated for heart failure with 1 or more of the following (1)(2)(3)(4)(5)(6)(7)(8): [ ]I. New-onset heart failure [ ]II. Acute cardiac ischemia causing or associated with failure [ ]III. Ongoing need for care for primary condition requiring frequent therapy adjustments because of changes in cardiac function (eg, drug dosage changes for drugs that are renally metabolized) [ X]IV. Complications of heart failure, including 1 or more of the following: [ ]a) Hemodynamic instability [ ]b) Pericardial effusion [ ]c) Symptomatic pleural effusion(16) [X ]d) Hypoxemia [ ]e) Tachypnea [ X]f) Dyspnea [ ]g) Syncope [ ]h) Altered mental status [ ]i) Acute renal insufficiency that is severe (reduction of more than 50% in estimated glomerular filtration rate from baseline) or progressive (reduction of more than 25% in estimated glomerular filtration rate from baseline, with creatinine continuing to rise) [ ]j) Debilitating anasarca (eg tissue breakdown with infection, inability to void due to edema)(E) (17) [ ]k) Clinically significant metabolic abnormalities due to heart failure (e.g., new-onset metabolic acidosis) Extended stay may be needed until ALL of the following are present(1)(3)(18)(41) (55): [ ]a) Hemodynamic stability [ ]b) Stable and effective diuretic regimen established (or patient on stable dialysis regimen if in chronic renal failure) [ ]c) Volume status acceptable on oral medication [ ]d) Breathing comfortably at rest [ ]e) Saturation of arterial oxygen greater than 90% or at acceptable baseline [ ]f) Pulmonary edema absent or improved [ ]g) Peripheral or sacral edema absent or improved [ ]h) Renal function stable and manageable at a lower level of care [ ]i) Complications (e.g., pleural effusion) resolved or manageable at a lower level of care [ ]j) Patient or caregiver has received written discharge instructions or educational material addressing activity level, diet, discharge medications, follow-up appointment, weight monitoring, and what to do if symptoms worsen. (56)(57)(58) The original [employer] content created by [facility] has been revised. The portions of the content which have been revised are identified through the use of italic text or in bold, and Francisco Castellanos has neither reviewed nor approved the modified material.All other unmodified content is copyright [facility]. Please see references footnoted in the original [facility] edition 2017 Admission Criteria Met: Yes
--- NOTE | 2016-10-12 08:58 | XRay Report ---
AP CHEST :10/11/16 22:32 CLINICAL: Dyspnea. COMPARISON:04/06/16 FINDINGS: Stable cardiomegaly and central vascular congestion. The lungs are clear. The bones and soft tissues are unremarkable.No tubes or lines. IMPRESSION: Cardiomegaly and pulmonary venous hypertension. No pulmonary edema or pleural effusion.
[2016-10-12] MEDS ORDERED: LASIX IV SCH (10:00)
[2016-10-12] MEDS: NITRO-BID 2% TP SCH ×4 (12:20→17:11)
[2016-10-12] MEDS: HEPARIN SUB-Q SCH ×2 (12:38→23:20)
[2016-10-12] MEDS: BABY ASPIRIN PO SCH (12:44)
[2016-10-12] MEDS ORDERED: PERCOCET 5/325 PO PRN (16:25)
--- NOTE | 2016-10-12 16:25 | Event Note ---
Date: 10/12/16 Patient was seen and evaluated this morning, patient admitted for CHF exacerbation. H&P was done this morning and doesn't need daily not.
[2016-10-12] MEDS: LASIX IV SCH (23:20)
[2016-10-13 03:59] LABS: Anion Gap 13 mmol/L; BUN/Creatinine Ratio 21.42; Blood Urea Nitrogen 15 mg/dL (7-17); Calcium 8.6 mg/dL (8.4-10.2); Carbon Dioxide 38 mmol/L (22-30); Chloride 94.4 mmol/L (98-107); Glucose 108 mg/dL (65-100); Potassium 4.1 mmol/L (3.6-5.0); Sodium 141 mmol/L (137-145)
[2016-10-13] MEDS: NITRO-BID 2% TP SCH ×2 (05:50→09:11)
[2016-10-13] MEDS: DUONEB *Not for PRN Use IH SCH ×2 (07:45→13:52)
[2016-10-13 08:18] VITALS: BP 125/61
[2016-10-13] MEDS: HEPARIN SUB-Q SCH (09:08)
[2016-10-13] MEDS: BABY ASPIRIN PO SCH (09:10)
[2016-10-13] MEDS: LASIX IV SCH (09:11)
--- NOTE | 2016-10-13 09:54 | Discharge Summary ---
Providers - Providers Date of Admission: 10/12/16 05:26 Date of discharge: 10/13/16 Attending physician: SHASHI CERRATO MD Primary care physician: [employer] Hospitalization Reason for admission: acute on chronic diastolic CHF exacerbation Condition: Stable Hospital course: 41-year-old -[place] female with past medical history significant for diastolic CHF, DVT, morbid obesity admitted to telemetry floor after she was presented with shortness of breath, bilateral lower extremity swelling, and chest discomfort. Serial cardiac enzymes were negative, EKG showed normal sinus rhythm. Stress test couldn't be done because the patient is morbidly obese. After admission she was treated with IV Lasix, pain control, metoprolol and continue her eliquis. Chest pain resolved and patient swelling and shortness of breath is resolved. Patient was hemodynamically stable at the time ofdischarge. Patient's medications were updated and refilled. Patient's questions and concerns were addressed at the bedside. Disposition: DC- TO HOME OR SELFCARE Time spent for discharge: 31 minutes - Discharge Diagnoses (1) CHF (congestive heart failure) Status: Acute Qualifiers: Congestive heart failure type: C Congestive heart failure chronicity: C (2) Chest pain Status: Acute Qualifiers: Chest pain type: C Ischemic chest pain type: I (3) Shortness of breath Status: Acute Core Measure Documentation - Palliative Care Palliative Care/ Comfort Measures: Not Applicable - Core Measures Any of the following diagnoses?: heart failure - Heart Failure Discharge Requirements ILENE/ARB for LVSD if EF <40%: Not Applicable Beta gallo at discharge: Yes Exam - Physical Exam Narrative exam: Not in cardiopulmonary distress. The patient is morbidly obese. Vital signs as documented. Head exam is unremarkable. No scleral icterus . Neck is without jugular venous distension, thyromegaly, or carotid bruits. Lungs are clear to auscultation. Cardiac exam reveals regular rate and Rhythm.. Abdominal exam reveals obese abdomen. Extremities are current for trace pedal and pretibial edema. DRIVE MAN: Alert and oriented 3. No focal weakness. - Constitutional Vitals: Temp Pulse Resp BP Pulse Ox 97.8 F 94 H 20 125/61 98 10/13/16 08:13 10/13/16 09:11 10/13/16 09:10 10/13/16 09:11 10/13/16 08:13 Plan Activity: no restrictions Weight Bearing Status: Full Weight Bearing Diet: low fat, low cholesterol, low salt Follow up with: PRIMARY CARE,MD [Primary Care Provider] - 3-5 Days Prescriptions: Apixaban [Eliquis] 5 mg PO BID #60 tablet Furosemide [Lasix TAB] 60 mg PO QDAY #60 tablet Metoprolol [Lopressor TAB] 25 mg PO BID #60 tablet Oxycodone HCl/Acetaminophen [Percocet 7.5/325 mg] 1 each PO Q6HR PRN #20 tablet PRN Reason: Pain Potassium Chloride 20 meq PO QDAY #30 packet
[2016-10-13] MEDS ORDERED: CITRATE OF MAGNESIA PO ONE (11:39)
--- NOTE | 2016-10-13 13:20 | XRay Report ---
Single view abdomen: History: No bowel movement. Findings: Moderate amount of air in stomach and small bowel with minimal enlarged bowel. No significant bowel distention or evidence of stool in colon. No radiopaque calculus or abnormal calcification. Impression: Probable ileus.
== END 2016-10-13 17:33 | disposition home or self-care (01) | DRG 291 ==
LOC: ED 20:46 → 4A 10-12 05:26
PROVIDERS: ADMIT Internal Medicine; ATTEND Internal Medicine
DX: I11.0 Hypertensive heart disease with heart failure (principal); J18.9 Pneumonia, unspecified organism; Z68.45 Body mass index [BMI] 70 or greater, adult; E11.9 Type 2 diabetes mellitus without complications; E66.01 Morbid (severe) obesity due to excess calories; J44.9 Chronic obstructive pulmonary disease, unspecified; Z86.711 Personal history of pulmonary embolism; I50.33 Acute on chronic diastolic (congestive) heart failure
CPT/HCPCS: 36415; 71010; 74000; 80048; 80053; 82550; 82553; 82962; 83880; 84484; 85007; 85025; 85610; 85730; 93306; 94640; 94760; 96374; 96375; 96376; J1644; J1885; J1940; J2270